=== PATIENT | male | born 1965 | race Caucasian/White ===

== ENCOUNTER 2022-09-25 09:50 | Inpatient (IN) | payer BC, SELFPAY ==
[2022-09-25] VITALS (20 sets, daily range): BP systolic 102–150; BP diastolic 62–83; PULSE 91–113; RESP 18–20; TEMP 36.4–37.7; O2SAT 88–98; BMI 45.1; BMI 43.0
--- NOTE | 2022-09-25 09:55 | CT_ITS ---
PROCEDURE INFORMATION: Exam: CT Abdomen And Pelvis With Contrast Exam date and time: 09/25/2022 10:56 AM Age: 57 years old Clinical indication: Abdominal pain; Additional info: Abdominal pain, ruq and epigastric TECHNIQUE: Imaging protocol: Computed tomography of the abdomen and pelvis with contrast. Radiation optimization: All CT scans at this facility use at least one of these dose optimization techniques: automated exposure control; mA and/or kV adjustment per patient size (includes targeted exams where dose is matched to clinical indication); or iterative reconstruction. Contrast material: ISOVUE; Contrast volume: 75 ml; Contrast route: IV; COMPARISON: No relevant prior studies available. FINDINGS: Lungs: Incompletely visualized 4 mm nodule right lower lobe. (series 4, image number 1), 6 mm nodule posteriorly right lower lobe (series 4, image number 17) Liver: Hepatic steatosis. Gallbladder and bile ducts: Normal. No calcified stones. No ductal dilation. Pancreas: Stranding of the peripancreatic mesentery. Findings compatible with pancreatitis. Spleen: Normal. No splenomegaly. Adrenal glands: Normal. No mass. Kidneys and ureters: Multiple hypodensities within the right kidney. The largest measures 10 mm. Findings compatible with renal cysts. Stomach and bowel: Mild thickening of the 2nd and 3rd portion of the duodenum compatible with mild changes of duodenitis. Diverticulosis. Appendix: No evidence of appendicitis. Intraperitoneal space: Unremarkable. No free air. No significant fluid collection. Vasculature: Scattered regions of atherosclerotic vascular calcification within the abdominal aorta and common iliac arteries. Lymph nodes: Unremarkable. No enlarged lymph nodes. Urinary bladder: Unremarkable as visualized. Reproductive: Unremarkable as visualized. Bones/joints: Lumbar spondylosis with advanced changes of disc degeneration at L4-L5. Prominent Schmorl's node formation superior T12 vertebral endplate. Could not exclude mild chronic compression deformity. Soft tissues: Unremarkable. IMPRESSION: 1. Stranding of the peripancreatic mesentery. Findings compatible with pancreatitis. 2. Mild thickening of the 2nd and 3rd portion of the duodenum compatible with mild changes of duodenitis. 3. Hepatic steatosis. 4. Incomplete visualization of sub cm pulmonary nodules right lung base as described above. For patients at low risk (minimal or absent history of smoking and of other known risk factors), no routine follow-up is indicated. For patients at high risk (history of smoking or of other known risk factors), consider optional CT Chest at 12 months. (Reference: [place]) COMMENTS: Consistent with the [employer] [employer]'s Incidental Findings Committee white paper (J Am Bennie Radiol 2018): Any incidental renal lesion less than 1 cm or classified as too small to characterize, or any incidental cystic renal lesion characterized as simple-appearing, is likely benign. No follow-up imaging is recommended for these lesions per consensus recommendations based on imaging criteria. REFERENCES: Carroll Justice, et al. Guidelines for Management of Incidental Pulmonary Nodules Detected on CT Images: From the Fleischner Society 2017. Radiology. 2017;284(1):228-243.
--- NOTE | 2022-09-25 09:55 | CT_ITS ---
PROCEDURE INFORMATION: Exam: CT Chest With Contrast; Diagnostic Exam date and time: 09/25/2022 10:56 AM Age: 57 years old Clinical indication: Other: Chest pain; Additional info: Chest pain, S/P bypass TECHNIQUE: Imaging protocol: Diagnostic computed tomography of the chest with contrast. Radiation optimization: All CT scans at this facility use at least one of these dose optimization techniques: automated exposure control; mA and/or kV adjustment per patient size (includes targeted exams where dose is matched to clinical indication); or iterative reconstruction. Contrast material: ISOVUE; Contrast volume: 75 ml; Contrast route: IV; COMPARISON: CR RIBUR3 [id number] VIEWS 03/03/2017 1:28 PM FINDINGS: Lungs: 4 mm nodule perifissural nodule right middle lobe. 6 mm nodule left lower lobe. Additional sub cm nodules in both upper lobes. Pleural spaces: 3 mm pleural based nodule laterally right upper lobe. 6 mm nodule posteriorly right lower lobe Heart: Unremarkable. No cardiomegaly. No pericardial effusion. Lymph nodes: Unremarkable. No enlarged lymph nodes. Vasculature: Unremarkable. No aortic aneurysm. Diaphragm: Small hiatal hernia. Liver: Hepatic steatosis. Pancreas: Stranding of the peripancreatic mesentery demonstrated. Please see CT abdomen report for further discussion. Bones/joints: Sternotomy and CABG . Soft tissues: Unremarkable. IMPRESSION: 1. Bilateral sub cm noncalcified pulmonary nodules measuring up to 6 mm in both lower lobes.For patients at low risk (minimal or absent history of smoking and of other known risk factors), recommend CT Chest at 3-6 months, then consider CT Chest at 18-24 months. For patients at high risk (history of smoking or of other known risk factors), recommend CT Chest at 3-6 months, then CT Chest at 18-24 months. (Reference: Carroll) 2. No evidence of acute abnormality. 3. Findings compatible pancreatitis. Please see CT abdomen report for further discussion. REFERENCES: Carroll Justice et al. Guidelines for Management of Incidental Pulmonary Nodules Detected on CT Images: From the Fleischner Society 2017. Radiology. 2017;284(1):228-243.
--- NOTE | 2022-09-25 09:58 | HMH.EDGENADL ---
Discharge Plan Disposition Patient Disposition: Admitted As Inpatient Condition: Good Chief Complaint: Abdominal Pain Clinical Impressions Clinical Impression: Acute pancreatitis, Transaminitis Discharge ED Provider: Lily Martinez Adult HPI General Chief complaint: Abdominal Pain Stated complaint: Rt upper side pain Time Seen by Provider: 09/25/22 09:58 Mode of Arrival: Ambulatory Source of Information: Patient Limitations: No Limitations History of Present Illness HPI narrative: Mr. Monge is a 57yo male w/ PMH for CABG, T2DM insulin dependent, HTN, GERD presenting to the ED for RUQ and epigastric pain. Patient reports symptoms onset last night. However this morning symptoms progressively worsened and now he reports the pain radiates into his back. Associated w/ dyspnea. He denies any LE swelling/pain. No hx of blood clots. No fevers, cough or other infectious symptoms. No recent trauma. No urinary sx or bowel changes. MD complaint: RUQ/epigastric pain Onset (ago): day(s) Location: abdomen Radiation: back Severity: moderate Quality: aching Consistency: constant Relieving factors: none Exacerbating factors: none Associated symptoms: denies other symptoms Treatments prior to arrival: none Related Data Home Medications Medication Instructions Recorded Confirmed divalproex 250 mg tablet,delayed PO 30 days #60 tabs 10/11/18 10/11/18 release fluoxetine 40 mg capsule PO 30 days #60 caps 10/11/18 10/11/18 insulin glargine U-300 conc 300 SQ 30 days #18 mL 10/11/18 10/11/18 unit/mL (1.5 mL) subcutaneous pen metformin 500 mg tablet,extended PO 30 days #120 tabs 10/11/18 10/11/18 release 24 hr aspirin 81 mg tablet,delayed 81 mg PO DAILY HEART HEALTH 09/25/22 09/25/22 release atorvastatin 80 mg tablet 80 mg PO DAILY Cholesterol 09/25/22 09/25/22 bupropion HCl 300 mg 24 hr tablet, 300 mg PO DAILY MOOD 09/25/22 09/25/22 extended release dapagliflozin 10 mg tablet 10 mg PO DAILY Diabetes 09/25/22 09/25/22 ([facility]) gabapentin 300 mg capsule 300 mg PO BIDP PRN Pain 09/25/22 09/25/22 metoprolol tartrate 25 mg tablet 25 mg PO BID Hypertension 09/25/22 09/25/22 spironolactone 50 mg tablet 50 mg PO DAILY Fluid 09/25/22 09/25/22 tamsulosin 0.4 mg capsule 0.4 mg PO HS BLADDER 09/25/22 09/25/22 Allergies Allergy/AdvReac Type Severity Reaction Status Date / Time aripiprazole [From Abilify] Allergy Verified 09/25/22 10:15 [facility] Disclaimer: The information contained in this section may have been updated after the patient was seen, as this information can be updated by other users. Social History Smoking Status: Never smoker alcohol intake: never substance use type: denies use current occupational status: employed Travel in the last 8 weeks: None household members: family housing: house ROS Obtained: Yes All systems reviewed & no additional complaints except as documented Physical Exam General General appearance: alert and in no apparent distress Head Head exam: atraumatic and normal inspection Eye Eye exam: Present normal appearance and EOMI ENT ENT exam: Present normal exam, normal oropharynx and mucous membranes moist Neck Neck exam: Present normal inspection and full ROM Chest Chest inspection: Present normal inspection and symmetric chest wall rise Respiratory Respiratory exam: Present normal lung sounds bilaterally Cardiovascular Cardiovascular exam: Present regular rate and normal rhythm Abdominal Exam Abdominal exam: Present soft and tenderness (RUQ pain, bilateral CVA tenderness ) Extremities Exam Extremities exam: Present normal inspection and full ROM Back Exam Back exam: Present normal inspection and full ROM Neurological Exam Neurological exam: Present alert and oriented X3 Medical Decision Making Medical Records Medical records reviewed: Yes I reviewed the patient's medical records. Edil Inquiry Pt rec
--- NOTE | 2022-09-25 10:07 | ECG_ITS ---
APPROVED REPORT Exam: Resting ECG HR:90 bpm ECG Measurements Heart Rate 90 AXES MS 166 P 65 QRSd 104 QRS 96 QT 357 T 92 QTc 404 Conclusion SINUS RHYTHM BORDERLINE RIGHT AXIS DEVIATION [QRS AXIS > 90] BORDERLINE ECG UNCONFIRMED REPORT Electronically signed by : Keanu Hemphill MD 09/26/2022 16:59:20
--- NOTE | 2022-09-25 10:16 | PC.NURSE ---
Called radiology for CT.
[2022-09-25 10:26] LABS: Basophils # 0.1 K/mm3 (0-0.2); Basophils % 0.7 % (0.1-2.0); Eosinophils # 0.1 K/mm3 (0.0-0.4); Eosinophils % 1.1 % (0.1-12.0); Hematocrit 53.3 % (42.0-52.0); Lymphocytes # 0.9 K/mm3 (0.7-4.5); Lymphocytes % 8.7 % (10-50); Mean Corpuscular HGB Conc 33.8 g/dL (31.8-35.4); Mean Corpuscular Hemoglobin 29.3 pg (27.0-31.2); Mean Corpuscular Volume 86.8 fl (80-94); Mean Platelet Volume 8.8 fl (7.4-10.4); Monocytes # 0.3 K/mm3 (0.1-1.0); Monocytes % 3.2 % (1.7-9.3); Neutrophils # 8.6 K/mm3 (1.8-7.8); Neutrophils % 86.4 % (37.0-80.0); Platelet Count 224 K/mm3 (142-424); Red Blood Count 6.15 M/mm3 (4.60-6.20); Red Cell Distribution Width 14.6 % (11.5-17.5); White Blood Count 9.9 K/mm3 (4.8-10.8)
--- NOTE | 2022-09-25 10:27 | PC.NURSE ---
ASSISTED PT TO THE RESTROOM. PT TOLERATED WELL. PT PUKING AT THIS TIME. ER NOTIFIED. RENU JETER.
[2022-09-25 10:28] LABS: Chloride 95 mmol/L (98-107); MANUAL DIFFERENTIAL MANUAL DIFFERENTIAL (MANUAL DIFF)
[2022-09-25 10:29] LABS: Potassium 4.3 mmoL/L (3.5-5.1); Sodium 136 mmol/L (136-145)
[2022-09-25 10:31] LABS: Alanine Aminotransferase 126 U/L (12-78); Alkaline Phosphatase 207 U/L (38-126); Anion Gap 15.3 mEq/L (5-15); Aspartate Amino Transferase 284 U/L (17-59); Bilirubin,Total 1.9 mg/dl (0.2-1.3); Blood Urea Nitrogen 28 mg/dl (9-20); Carbon Dioxide 30 mmol/L (22.0-30.0); Creatinine Clearance Estimated 96 mL/min (50-200); Estimated Glomerular Filt Rate 88 ml/min (>60); GFR (African American) 106 ML/MIN (>60); Lactic Acid 1.8 mmol/L (0.7-2.1)
[2022-09-25 10:32] LABS: Albumin Level 4.2 g/dl (3.5-5.0); Albumin/Globulin Ratio 1.1 (1.1-1.8); Calcium 8.9 mg/dl (8.4-10.2); Globulin 3.8 g/dL (1.3-3.2)
[2022-09-25 10:44] LABS: Troponin I < 0.01 ng/ml (0.00-0.034)
[2022-09-25 10:46] LABS: Glucose 411 mg/dl (74-100)
--- NOTE | 2022-09-25 10:46 | PC.NURSE ---
PT TRANSPORTED TO RADIOLOGY.
--- NOTE | 2022-09-25 10:46 | PC.NURSE ---
Vianney from lab called critical on patient. Glucose 411, pt was verified and results repeated.
--- NOTE | 2022-09-25 11:03 | PC.NURSE ---
PT RETURNED FROM RADIOLOGY.
[2022-09-25 11:07] LABS: Lymphocytes % 9 % (10-50); Monocytes % 3 % (2-9); Neutrophils % 87 % (42-76); Platelet Estimate Normal; RBC Morphology Normal; Total Cells Counted 100
[2022-09-25 11:13] LABS: VBG PH 7.33 mmol/L (7.31-7.41)
[2022-09-25 12:08] LABS: Lactate Dehydrogenase 355 U/L (313-618)
--- NOTE | 2022-09-25 12:24 | PC.NURSE ---
Rounded on pt at this time. Updated on POC. Assisted patient to restroom and provided him with ice chips. Pt had no other needs at this time.
[2022-09-25 12:25] LABS: Microscopic, Urine URINE MICROSCOPIC (MICROSCOPIC)
[2022-09-25 12:26] LABS: Appearance,Urine CLEAR (Clear); Bilirubin,Urine Negative (Negative); Blood, Urine Negative (Negative); Color,Urine YELLOW (Yellow); Glucose,Urine (UA) 3+ (Negative); Ketones,Urine 1+ (Negative); Leukocyte Esterase,Urine Negative (Negative); Nitrate,Urine Negative (Negative); PH,Urine 5.5 (5.0-8.5); Protein,Urine Negative (Negative); Specific Gravity, Urine <= 1.005 (1.005-1.030); Urobilinogen,Urine 0.2 EU/dl (0.2)
[2022-09-25 12:42] LABS: Bacteria,Urine Trace /lpf; RBC,Urine Occasional #/hpf (0-3); Squamous Epithelial Cell,Urine Occasional #/hpf (0-5); WBC,Urine Occasional #/hpf (0-3)
--- NOTE | 2022-09-25 13:14 | PC.NURSE ---
called report to Radha Christopher RN.
[2022-09-25 13:17] LABS: Coronavirus 19, PCR Not Detected (NotDetected); Influenza A, PCR Not Detected (NotDetected); Influenza B, PCR Not Detected (NotDetected)
[2022-09-25 13:22] LABS: Hemoglobin A1C 12.9 % (4.0-6.0)
[2022-09-25 13:41] LABS: Troponin I < 0.01 ng/ml (0.00-0.034)
--- NOTE | 2022-09-25 14:19 | PC.NURSE ---
taking patient to room 266 per Kizzy
--- NOTE | 2022-09-25 14:46 | HMH.PHAINT1 ---
Pharmacy Intervention Comments: MEDICATION RECONCILIATION COMPLETED ON PATIENT USING EXTERNAL FILL HISTORY FROM PHARMACY AND PATIENT INTERVIEW. -ERNIE GUAJARDO, [facility]
--- NOTE | 2022-09-25 15:10 | EXP.HP ---
History of Present Illness *Admission Date: 09/25/22 *Reason for visit:: Abdominal pain and nausea. *History of present illness: Mr. Monge is a 57yo male w/ PMH for CABG 1 year ago, uncontrolled type 2 diabetes, hypertension, GERD, BPH who presented to the emergency room with right upper quadrant and epigastric pain. States the pain began 2 to 3 days ago and has waxed and waned. Most prominent last night. Has had nausea but no deepika emesis. Pain in right upper quadrant has radiated to right shoulder and back. No clear association with food. Initial work-up including CT of abdomen and pelvis, CT of chest, labs concerning for pancreatitis with stranding around the pancreas. Lipase severely elevated at greater than 44,000. Admitted to medicine for further management of pancreatitis. Denies previous history of pancreatitis. Denies alcohol use. Has been taking Ozempic for diabetes for a few months. Notes that it has made him feel nauseous each time he uses it. Denies any swelling in his legs, fever, cough, shortness of breath. After arriving to the floor, patient's is present at bedside. Pain stable after receiving pain medication. Rates it as a 2 out of 10. No guarding or rebound on exam. No concern for peritoneal signs. [facility] Disclaimer: The information contained in this section may have been updated after the patient was seen, as this information can be updated by other users. Medical History Diabetes mellitus, type 2 History of gastroesophageal reflux (GERD) Hyperlipidemia Hypertension Irritable bowel syndrome (IBS) Surgical History Hx of CABG Family History No significant family history Social History Smoking Status: Never smoker alcohol intake: never substance use type: denies use current occupational status: employed Travel in the last 8 weeks: None household members: family housing: house Review of Systems Review of Systems Review of systems (narrative): 14 point review of systems performed, pertinent positives and negatives as per HPI Meds Home Medications and Allergies Home Medications Medication Instructions Recorded Confirmed Type fluoxetine 40 mg capsule 40 mg PO BID MOOD 30 days #60 caps 10/11/18 09/25/22 History insulin glargine U-300 conc 300 30 unit SQ BID Diabetes 30 days 10/11/18 09/25/22 History unit/mL (1.5 mL) subcutaneous pen #18 mL metformin 500 mg tablet,extended 1,000 mg PO BID Diabetes 30 days 10/11/18 09/25/22 History release 24 hr #120 tabs aspirin 81 mg tablet,delayed 81 mg PO DAILY HEART HEALTH 09/25/22 09/25/22 History release atorvastatin 80 mg tablet 80 mg PO DAILY Cholesterol 09/25/22 09/25/22 History bupropion HCl 300 mg 24 hr tablet, 300 mg PO DAILY MOOD 09/25/22 09/25/22 History extended release dapagliflozin 10 mg tablet 10 mg PO DAILY Diabetes 09/25/22 09/25/22 History (Farxiga) divalproex 500 mg tablet,extended 1,000 mg PO HS SEIZURES 09/25/22 09/25/22 History release 24 hr gabapentin 300 mg capsule 300 mg PO BIDP PRN Pain 09/25/22 09/25/22 History metoprolol tartrate 25 mg tablet 25 mg PO BID Hypertension 09/25/22 09/25/22 History spironolactone 50 mg tablet 50 mg PO DAILY Fluid 09/25/22 09/25/22 History tamsulosin 0.4 mg capsule 0.4 mg PO HS BLADDER 09/25/22 09/25/22 History New Prescriptions to Start Prescriptions: Allergies Allergy/AdvReac Type Severity Reaction Status Date / Time aripiprazole [From [facility]] Allergy Verified 09/25/22 10:15 Exam Data for Last 24 hours Vital signs and Labs for Last 24 Hours: Temp Pulse Resp BP Pulse Ox 99.2 F 109 H 20 150/83 H 90 L 09/25/22 14:37 09/25/22 15:03 09/25/22 14:37 09/25/22 14:37 09/25/22 15:03 Laboratory Results - last 24 hr 09/25/22 10:15: W
[2022-09-25 15:21] LABS: Triglycerides 241 mg/dl (30-150)
[2022-09-25 15:54] LABS: POC Glucose,Bedside 322 (70-110)
[2022-09-25 16:17] LABS: Troponin I < 0.01 ng/ml (0.00-0.034)
--- NOTE | 2022-09-25 16:25 | PC.NURSE ---
pt A&Ox4, has rested intermittently since arriving to floor, remains on room air with sats at 90%, states he occasionally wears CPAP at home at night, but no home oxygen other than that, stated he had covid awhile back and his sats have been low since then, abdomen is large, round and tender to touch with hypoactive bowel sounds, pt has refused pain meds up to this point rating his pain at a 1 or 2, last FSBS 322, treated per NOV, remains at bedside
--- NOTE | 2022-09-25 16:52 | US_ITS ---
PROCEDURE INFORMATION: Exam: US Abdomen, Limited; Right Upper Quadrant Exam date and time: 09/25/2022 5:09 PM Age: 57 years old Clinical indication: Abdominal pain; Acute; Additional info: Delgado sign, ruq pain TECHNIQUE: Imaging protocol: Real time ultrasound of the abdomen with image documentation. Limited exam focused on the right upper quadrant. COMPARISON: CT ABDOMEN PELVIS W CON 09/25/2022 10:56 AM FINDINGS: Liver: The liver is increased in echogenicity. Findings compatible with hepatic steatosis. Gallbladder: Gallbladder wall normal thickness. Gallbladder anechoic. No stones demonstrated. Adjacent gas-filled bowel loops are present. Biliary ducts: 4 mm Pancreas: Pancreas inadequately visualized . Right kidney: 12.4 x 6.8 by 6 cm in length, AP and transverse dimensions. Cortical thickness: 2 cm. No evidence of hydronephrosis or perinephric fluid. Portal venous: Hepatopetal flow in the portal vein. Hepatopetal flow in the portal vein. Other findings: Technologist worksheet was not submitted and is not available for review at the time of this dictation. An addended report will be issued. IMPRESSION: 1. Findings compatible with hepatic steatosis. 2. No evidence of cholelithiasis or findings to suggest cholecystitis.
--- NOTE | 2022-09-25 18:44 | PC.NURSE ---
reassessed pain again at this time and pt states that it isn't pain right now, more like a tightness
[2022-09-25 20:38] LABS: POC Glucose,Bedside 254 (70-110)
--- NOTE | 2022-09-26 00:17 | PC.NURSE ---
pt has rested well. nausea and pain subsided after prn medications. VSS. sats stable on 2LNC. IV infusing w/o difficulty. pt awake at this time, voided per urinal. pt denies any other needs at this time.
[2022-09-26 03:05] LABS: POC Glucose,Bedside 183 (70-110)
[2022-09-26 04:00] VITALS: BP 155/71; PULSE 97; RESP 17; TEMP 36.9; O2SAT 90; BMI 44.4
[2022-09-26 06:10] LABS: Basophils # 0.1 K/mm3 (0-0.2); Basophils % 0.3 % (0.1-2.0); Eosinophils # 0.1 K/mm3 (0.0-0.4); Eosinophils % 0.5 % (0.1-12.0); Hematocrit 46.2 % (42.0-52.0); Lymphocytes # 1.2 K/mm3 (0.7-4.5); Lymphocytes % 8.3 % (10-50); Mean Corpuscular HGB Conc 33.3 g/dL (31.8-35.4); Mean Corpuscular Hemoglobin 28.6 pg (27.0-31.2); Mean Corpuscular Volume 85.7 fl (80-94); Mean Platelet Volume 8.8 fl (7.4-10.4); Monocytes % 7.3 % (1.7-9.3); Neutrophils # 11.8 K/mm3 (1.8-7.8); Neutrophils % 83.5 % (37.0-80.0); Platelet Count 206 K/mm3 (142-424); Red Blood Count 5.39 M/mm3 (4.60-6.20); White Blood Count 14.1 K/mm3 (4.8-10.8)
[2022-09-26 06:19] LABS: Hemoglobin 15.5 g/dL (14.1-18.0)
[2022-09-26 06:23] LABS: Chol/HDL Ratio 3.5 (1-3.5); Cholesterol 121 mg/dl (140-200); HDL Cholesterol 35 mg/dl (40-60); Triglycerides 123 mg/dl (30-150); VLDL Cholesterol 25 mg/dL (0-40)
[2022-09-26 06:24] LABS: Alanine Aminotransferase 286 U/L (12-78); Albumin Level 3.6 g/dl (3.5-5.0); Albumin/Globulin Ratio 1.1 (1.1-1.8); Alkaline Phosphatase 151 U/L (38-126); Anion Gap 13.1 mEq/L (5-15); Aspartate Amino Transferase 277 U/L (17-59); Bilirubin,Total 2.5 mg/dl (0.2-1.3); Blood Urea Nitrogen 26 mg/dl (9-20); Calcium 8.2 mg/dl (8.4-10.2); Carbon Dioxide 25 mmol/L (22.0-30.0); Chloride 99 mmol/L (98-107); Creatinine Clearance Estimated 86 mL/min (50-200); Estimated Glomerular Filt Rate 78 ml/min (>60); GFR (African American) 94 ML/MIN (>60); Globulin 3.2 g/dL (1.3-3.2); Glucose 204 mg/dl (74-100); Potassium 4.1 mmoL/L (3.5-5.1); Sodium 133 mmol/L (136-145); Total Protein,Serum 6.8 g/dl (6.3-8.2)
[2022-09-26 07:39] VITALS: BP 141/80; PULSE 85; RESP 18; TEMP 36.9; O2SAT 92
[2022-09-26 11:52] LABS: POC Glucose,Bedside 203 (70-110)
[2022-09-26 12:22] VITALS: BMI 44.1
[2022-09-26 15:36] VITALS: BP 119/69; PULSE 86; RESP 18; TEMP 37; O2SAT 93
[2022-09-26 16:48] LABS: POC Glucose,Bedside 178 (70-110)
--- NOTE | 2022-09-26 18:12 | PC.NURSE ---
Pt resting in bed comfortably throughout day. Up ad brittany to bathroom and with ADL's. Diet increased to full liquids with patient tolerating well. [place] and zofran administered in the a.m. with patient denying pain and nausea after diet increased. VSS.
--- NOTE | 2022-09-26 19:01 | EXP.ACUTE.PN ---
Subjective *Date: 09/26/22 *Time: 19:01 Interval history: Symptoms mildly improved, still having epigastric pain. Discussed advancing diet, patient agreeable Medical Exam Vital signs and Labs for Last 24 Hours: Vital Signs Temp Pulse Resp BP Pulse Ox 09/26/22 15:36 98.6 F 86 18 119/69 93 L 09/26/22 07:39 98.4 F 85 18 141/80 H 92 L 09/26/22 04:00 98.4 F 97 H 17 155/71 H 90 L 09/25/22 20:00 88 L 09/25/22 20:00 99.7 F H 107 H 18 102/62 L 88 L Intake and Output 09/26/22 09/26/22 09/26/22 07:59 15:59 23:59 Intake Total 1539 / 6759 920 / 6759 4300 / 6759 Output Total 500 / 500 0 / 500 0 / 500 Balance 1039 / 6259 920 / 6259 4300 / 6259 Intake: Intake, Oral Amount 480 / 2300 920 / 2300 900 / 2300 Intake, Total IV Amount 1059 / 4459 3400 / 4459 Ringers Solution,Lactated 1,000 1059 / 4459 3400 / 4459 ml @ 125 mls/hr IV .Q8H [facility] Rx #:[id number] Output: Output, Urine Amount 500 / 500 0 / 500 0 / 500 Other: Number of Unmeasured Voids 1 1 Weight 140.614 kg 140 kg Patient Weight 09/26/22 23:59 Weight 140 kg Laboratory Results - last 24 hr 09/25/22 20:22: POC Glucose 254 H 09/26/22 02:58: POC Glucose 183 H 09/26/22 05:43: WBC 14.1 H D, RBC 5.39, Hgb 15.5 D, Hct 46.2, MCV 85.7, MCH 28.6, MCHC 33.3, RDW 15.0, Plt Count 206, MPV 8.8, Neut % (Auto) 83.5 H, Lymph % (Auto) 8.3 L, [place] % (Auto) 7.3, Eos % (Auto) 0.5, Baso % (Auto) 0.3, Neut # (Auto) 11.8 H, Lymph # (Auto) 1.2, [place] # (Auto) 1.0, Eos # (Auto) 0.1, Baso # (Auto) 0.1 09/26/22 05:43: Sodium 133 L, Potassium 4.1, Chloride 99, Carbon Dioxide 25, Anion Gap 13.1, BUN 26 H, Creatinine 1.00, Estimated Creat Clear 86, Estimated GFR 78, Est GFR ( Amer) 94, Glucose 204 H D, Calcium 8.2 L, Magnesium 2.0, Total Bilirubin 2.5 H, AST 277 H, ALT 286 H D, Alkaline Phosphatase 151 H, Total Protein 6.8, Albumin 3.6 D, Globulin 3.2, Albumin/Globulin Ratio 1.1 09/26/22 05:43: Triglycerides 123, Cholesterol 121 L, LDL Cholesterol Direct 56.30 L, VLDL Cholesterol 25, HDL Cholesterol 35 L, Cholesterol/HDL Ratio 3.5 09/26/22 11:45: POC Glucose 203 H 09/26/22 16:41: POC Glucose 178 H I & O for Labs for Last 24 Hours: Intake & Output 09/23/22 09/24/22 09/25/22 09/26/22 23:59 23:59 23:59 23:59 Intake Total 1193 / 1193 6759 / 6759 Output Total 0 / 0 500 / 500 Balance 1193 / 1193 6259 / 6259 Weight 136.078 kg 140 kg Constitutional: Present no acute distress and morbidly obese Head: Present atraumatic Neck: Present normal inspection Respiratory: Present CTA bilaterally; Absent accessory muscle use Cardiac: Present Reg Rate and Rhythm GI: Present soft, distention and tenderness Rectal (male): Present deferred (male): Present deferred Extremities: Present normal inspection Skin: Present intact Assessment and Plan *Assessment and plan (1) Acute pancreatitis: Status: Acute Category: Medical Code(s): K85.90 - Acute pancreatitis without necrosis or infection, unspecified (2) Uncontrolled diabetes mellitus: Status: Chronic Category: Medical (3) Transaminitis: Status: Acute Category: Medical Code(s): R74.01 - Elevation of levels of liver transaminase levels (4) Class 3 obesity: Problem Comment: Complicates all aspects of care. Status: Chronic Category: Medical Code(s): E66.01 - Morbid (severe) obesity due to excess calories (5) Essential hypertension: Status: Chronic Category: Medical Code(s): I10 - Essential (primary) hypertension (6) History of coronary artery bypass graft: Status: Chronic Category: Surgical Code(s): Z95.1 - Presence of aortocoronary bypass graft (7) BPH (benign prostatic hyperplasia): Status: Chronic Category: Medical Code(s): N40.0 - Benign prostatic hyperplasia without lower urinary tract symptoms (8) Depression: Status: Chronic
[2022-09-26 20:00] VITALS: BP 117/70; PULSE 93; RESP 16; TEMP 36.6; O2SAT 97
[2022-09-26 21:47] LABS: POC Glucose,Bedside 190 (70-110)
[2022-09-27 03:19] VITALS: BP 138/87; PULSE 87; RESP 16; TEMP 36.6; O2SAT 99; BMI 44.1
[2022-09-27 05:35] LABS: POC Glucose,Bedside 114 (70-110)
--- NOTE | 2022-09-27 05:47 | PC.NURSE ---
pt is alert and oriented x4, vss, pt with nausea and dry heaves through the night and medicated x1 with zofran, pt c/o pain in upper abd to left shoulder and headache rated 4/10 and medicated with pain pill as prescribed with relief, pt complained of nausea this am but stated relieved by belching pt voiding without difficulty, vss, no acute distress, no other issues or concerns noted at this time.
[2022-09-27 06:27] LABS: Basophils % 0.4 % (0.1-2.0); Eosinophils # 0.1 K/mm3 (0.0-0.4); Eosinophils % 1.5 % (0.1-12.0); Hematocrit 44.7 % (42.0-52.0); Hemoglobin 14.7 g/dL (14.1-18.0); Lymphocytes # 1.2 K/mm3 (0.7-4.5); Lymphocytes % 13.4 % (10-50); Mean Corpuscular HGB Conc 32.8 g/dL (31.8-35.4); Mean Corpuscular Hemoglobin 28.6 pg (27.0-31.2); Mean Platelet Volume 8.9 fl (7.4-10.4); Monocytes # 0.7 K/mm3 (0.1-1.0); Monocytes % 8.4 % (1.7-9.3); Neutrophils # 6.7 K/mm3 (1.8-7.8); Neutrophils % 76.4 % (37.0-80.0); Platelet Count 183 K/mm3 (142-424); Red Blood Count 5.13 M/mm3 (4.60-6.20); Red Cell Distribution Width 14.8 % (11.5-17.5); White Blood Count 8.8 K/mm3 (4.8-10.8)
[2022-09-27 06:54] LABS: Chloride 100 mmol/L (98-107)
[2022-09-27 06:55] LABS: Sodium 135 mmol/L (136-145)
[2022-09-27 06:57] LABS: Alanine Aminotransferase 195 U/L (12-78); Aspartate Amino Transferase 96 U/L (17-59); Blood Urea Nitrogen 15 mg/dl (9-20); Carbon Dioxide 26 mmol/L (22.0-30.0); Creatinine Clearance Estimated 108 mL/min (50-200); Estimated Glomerular Filt Rate 100 ml/min (>60); GFR (African American) 121 ML/MIN (>60)
[2022-09-27 06:58] LABS: Albumin Level 3.3 g/dl (3.5-5.0); Albumin/Globulin Ratio 1.1 (1.1-1.8); Alkaline Phosphatase 158 U/L (38-126); Bilirubin,Total 1.4 mg/dl (0.2-1.3); Calcium 7.7 mg/dl (8.4-10.2); Globulin 3.1 g/dL (1.3-3.2); Glucose 126 mg/dl (74-100); Phosphorous 2.9 mg/dl (2.5-4.5); Total Protein,Serum 6.4 g/dl (6.3-8.2)
[2022-09-27 08:00] VITALS: BP 136/87; PULSE 93; RESP 16; TEMP 37.1; O2SAT 90
--- NOTE | 2022-09-27 13:38 | PC.NURSE ---
spoke with arely juares md about patient abdominal pain. patient requesting something for gas and constipation. ordered maalox and miralax for one dose
--- NOTE | 2022-09-27 14:27 | PC.NURSE ---
patient has done well tolerated breakfast and a diabetic diet at lunch. no complaints after eating. took maalox and miralax education given. has sat up in the chair. independent in room. encouraged to ring out as needed
--- NOTE | 2022-09-27 14:37 | EXP.DC.SUM ---
General Admission date:: 09/25/22 HPI HPI HPI: Mr. Monge is a 57yo male w/ PMH for CABG 1 year ago, uncontrolled type 2 diabetes, hypertension, GERD, BPH who presented to the emergency room with right upper quadrant and epigastric pain. States the pain began 2 to 3 days ago and has waxed and waned. Most prominent last night. Has had nausea but no deepika emesis. Pain in right upper quadrant has radiated to right shoulder and back. No clear association with food. Initial work-up including CT of abdomen and pelvis, CT of chest, labs concerning for pancreatitis with stranding around the pancreas. Lipase severely elevated at greater than 44,000. Admitted to medicine for further management of pancreatitis. Denies previous history of pancreatitis. Denies alcohol use. Has been taking Ozempic for diabetes for a few months. Notes that it has made him feel nauseous each time he uses it. Denies any swelling in his legs, fever, cough, shortness of breath. After arriving to the floor, patient's is present at bedside. Pain stable after receiving pain medication. Rates it as a 2 out of 10. No guarding or rebound on exam. No concern for peritoneal signs. Hospital Course Hospital Course Hospital Course: Admitted with pancreatitis etiology Ozempic versus hepatic steatosis. Patient received symptomatic management including IV fluids, antiemetics, pain medication and his diet was advanced as tolerated. Prior to discharge patient was tolerating full diet. CT of abdomen while standing around pancreas with duodenitis. On discharge held Ozempic. Recommend follow-up with endocrinology and primary care physician Exam Data for Last 24 hours Vital signs and Labs for Last 24 Hours: Temp Pulse Resp BP Pulse Ox 98.8 F 93 H 16 136/87 90 L 09/27/22 08:00 09/27/22 08:00 09/27/22 08:00 09/27/22 08:00 09/27/22 08:00 Laboratory Results - last 24 hr 09/26/22 16:41: POC Glucose 178 H 09/26/22 21:14: POC Glucose 190 H 09/27/22 04:10: POC Glucose 114 H 09/27/22 05:22: WBC 8.8 D, RBC 5.13, Hgb 14.7, Hct 44.7, MCV 87.0, MCH 28.6, MCHC 32.8, RDW 14.8, Plt Count 183, MPV 8.9, Neut % (Auto) 76.4, Lymph % (Auto) 13.4, [place] % (Auto) 8.4, Eos % (Auto) 1.5, Baso % (Auto) 0.4, Neut # (Auto) 6.7, Lymph # (Auto) 1.2, [place] # (Auto) 0.7, Eos # (Auto) 0.1, Baso # (Auto) 0.0 09/27/22 05:22: Sodium 135 L, Potassium 4.0, Chloride 100, Carbon Dioxide 26, Anion Gap 13.0, BUN 15 D, Creatinine 0.80, Estimated Creat Clear 108, Estimated GFR 100, Est GFR ( Amer) 121 D, Glucose 126 H D, Calcium 7.7 L, Phosphorus 2.9, Magnesium 2.0, Total Bilirubin 1.4 H, AST 96 H D, ALT 195 H D, Alkaline Phosphatase 158 H, Total Protein 6.4, Albumin 3.3 L, Globulin 3.1, Albumin/Globulin Ratio 1.1 I & O for Last 24 hours: Intake & Output 09/24/22 09/25/22 09/26/22 09/27/22 23:59 23:59 23:59 23:59 Intake Total 1193 / 1193 6759 / 6759 2787 / 2787 Output Total 0 / 0 500 / 500 300 / 300 Balance 1193 / 1193 6259 / 6259 2487 / 2487 Weight 136.078 kg 140 kg 139.933 kg *Routine HEENT Exam Head: Present normocephalic Eye: Present EOMI ENT: Present mucous membranes moist *Routine Neck Exam Neck: Present supple and full ROM *Routine Respiratory Exam Respiratory: Present CTA bilaterally; Absent accessory muscle use *Routine Cardiovascular Exam Cardiovascular: Present RRR; Absent murmur *Routine Abdominal Exam Abdominal: Present soft, tenderness and distended *Routine Extremities Exam Extremities: Present cyanosis *Routine Skin Exam Skin: Present intact and dry *Routine Neurological Exam Neurological: Present alert, oriented X3 and CN II-XII intact Results Data Completed and Pending Labs on day of discharge: Labs from last 24 hours 09/27/22 09/27/22 09/27/22 05:22 05:22 04:10 WBC 8.8 D RBC 5.13 Hgb 14.7 Hct 44.7 MCV 87.0 MCH 28.6 MCHC 32.8 RDW 14.8 Plt Count 183 MPV 8.9 Neut % (Auto) 76.4 Lymph % (Auto) 13.4 M
[2022-09-27 14:48] LABS: POC Glucose,Bedside 148 (70-110)
--- NOTE | 2022-09-28 15:07 | CARE MANAGER ---
Left message for patient for post-discharge phone interview.
== END 2022-09-27 15:39 | disposition home or self-care (01) | DRG 439 ==
LOC: ER 10:26 → 2ND 12:18 → ICU 14:48
PROVIDERS: Student in an Organized Health Care Education/Training Program; Admitting Provider Internal Medicine Adolescent Medicine; Emergency Provider Student in an Organized Health Care Education/Training Program; Visit Provider Internal Medicine Adolescent Medicine
DX: K85.90 Acute pancreatitis without necrosis or infection, unspecified (principal); Z68.41 Body mass index [BMI] 40.0-44.9, adult; I10 Essential (primary) hypertension; Z95.1 Presence of aortocoronary bypass graft; N40.0 Benign prostatic hyperplasia without lower urinary tract symptoms; F32.A Depression, unspecified; K76.0 Fatty (change of) liver, not elsewhere classified; E11.9 Type 2 diabetes mellitus without complications; E66.01 Morbid (severe) obesity due to excess calories; E11.65 Type 2 diabetes mellitus with hyperglycemia; E66.9 Obesity, unspecified
CPT/HCPCS: 36415; 71260; 74177; 76705; 80053; 80061; 81001; 82962; 83036; 83605; 83615; 83690; 83735; 84100; 84478; 84484; 85007; 85025; 93005; 99285; C9803; J2405; Q9967; U0003; U0005

== ENCOUNTER 2024-02-21 08:03 | Emergency (ER) | payer OTHER, SELFPAY ==
[2024-02-21 08:25] VITALS: BP 125/74; PULSE 70; RESP 20; TEMP 36.6; O2SAT 97; BMI 47.3
[2024-02-21 08:37] LABS: POC Glucose,Bedside 290 (70-110)
--- NOTE | 2024-02-21 08:46 | EXP.UTC ---
Discharge Plan Disposition Patient Disposition: Home, Self-Care Condition: Good Prescriptions Prescriptions: New mupirocin 2 % ointment 1 applic topical TID 10 Days Qty: 22 0RF Rx Instructions: apply to wounds as directed clindamycin HCl 300 mg capsule 300 mg PO TID Qty: 30 0RF No Action metformin 500 mg tablet extended release 24 hr 1,000 mg PO BID 30 Days Qty: 120 Patient Comments: TAKE 2 TABS BY MOUTH 2 TIMES DAILY. WITH MEALS fluoxetine 40 mg capsule 40 mg PO BID 30 Days Qty: 60 Patient Comments: TAKE 1 CAPSULE BY MOUTH TWICE A DAY atorvastatin 80 mg tablet 80 mg PO DAILY Patient Comments: TAKE 1 TABLET (80 MG TOTAL) BY MOUTH DAILY. INDICATIONS: ATHEROSCLEROTIC CARDIOVASCULAR DISEASE aspirin 81 mg tablet,delayed release (DR/EC) 81 mg PO DAILY Patient Comments: TAKE 1 TABLET BY MOUTH EVERY DAY spironolactone 50 mg tablet 50 mg PO DAILY Patient Comments: TAKE 1 TABLET BY MOUTH EVERY DAY bupropion HCl 300 mg tablet extended release 24 hr 300 mg PO DAILY metoprolol tartrate 25 mg tablet 25 mg PO BID Patient Comments: TAKE 1 TABLET BY MOUTH TWICE A DAY dapagliflozin propanediol [Farxiga] 10 mg tablet 10 mg PO DAILY Patient Comments: TAKE 1 TABLET BY MOUTH EVERY DAY divalproex 500 mg tablet extended release 24 hr 1,000 mg PO HS Patient Comments: TAKE 2 TABLETS BY MOUTH EVERY DAY furosemide 20 mg tablet 20 mg PO DAILY Patient Comments: TAKE 1 TABLET BY MOUTH EVERY DAY insulin lispro [Humalog KwikPen Insulin] 100 unit/mL insulin pen See Rx Instructions .ROUTE .COMPLEX Rx Instructions: 70 UNITS SQ WITH EACH MEAL insulin degludec [Tresiba FlexTouch U-200] 200 unit/mL (3 mL) insulin pen 80 unit SQ HS Referrals Follow up/Referrals: Provider,Referral, MD [Primary Care Provider] - See instructions Activity Restrictions/Add. Instructions Additional Instructions/Restrictions: Make sure to take your Insulin the way you are suppose too Take medication as prescribed Follow up with your Family Doctor if no improvement or any worsening of symptoms Use topical ointment as prescribed Clinical Impressions Clinical Impression: Cellulitis of left arm Instructions Patient Instructions: Cellulitis Discharge ED Provider: Radha Loyd [facility] General Stated complaint: pain, redness, swelling, hot, itching to both arms Mode of Arrival: Ambulatory Source of Information: Patient Limitations: No Limitations Time Seen by Provider: 02/21/24 08:46 Description of Symptoms (Recalled from Triage Doc. by RN): PATIENT C/O SORES ON BILATERAL FOREARMS, HEAD, AND NECK THAT ARE ITCHY, RED, HOT, AND SWOLLEN. HE STATES THE SORES HAVE BEEN THERE APPROX 1 WEEK AND BECAME WORSE LAST NIGHT HEENT Symptoms (Recalled from RN notes): No Resp Symptoms (Recalled from RN notes): No Skin Symptoms (Recalled from RN notes): Yes MS Symptoms (Recalled from RN notes): No Functional Status (Recalled from RN notes): WNL History of Present Illness Provider Complaint: Patient states that he is a diabetic States he will pick at his skin when his anxiety acts up and he has several sores on his head and arms States the one of the places on his left forearm was looking red and irritated and he wanted to come in before the infection got worse Related Data Home Medications Medication Instructions Recorded Confirmed fluoxetine 40 mg capsule 40 mg PO BID MOOD 30 days #60 caps 10/11/18 02/21/24 metformin 500 mg tablet,extended 1,000 mg PO BID Diabetes 30 days 10/11/18 02/21/24 release 24 hr #120 tabs aspirin 81 mg tablet,delayed 81 mg PO DAILY HEART HEALTH 09/25/22 02/21/24 release atorvastatin 80 mg tablet 80 mg PO DAILY Cholesterol 09/25/22 02/21/24 bupropion HCl 300 mg 24 hr tablet, 300 mg PO DAILY MOOD 09/25/22 02/21/24 extended release dapagliflozin propanediol 10 mg 10 mg PO DAILY Diabetes 09/25/22 02/21/24 tablet (Farxiga) divalproex 500 mg tablet,extended 1,000 mg PO HS SEIZURES 09/25/22 02/21/24 release 24 hr metoprolol tartrate 25 mg tablet 25 mg PO BID Hypertension 09/25/22 02/21/24 spironolactone 50 mg tablet 50 mg PO DAILY Fluid 09/25/22 02/21/24 furosemide 20 mg tablet 20 mg PO DAILY 02/21/24 02/21/24 insulin degludec 200 unit/mL (3 80 unit SQ HS 02/21/24 02/21/24 mL) subcutaneous pen (Tresiba FlexTouch U-200 insulin) insulin lispro 100 unit/mL See Rx Instructions .Route .COMPLEX 02/21/24 02/21/24 subcutaneous pen (Humalog KwikPen (U-100) Insulin) Previous Rx's Medication Instructions Recorded clindamycin HCl 300 mg capsule 300 mg PO TID #30 caps 02/21/24 mupirocin 2 % topical ointment 1 applic topical TID 10 days #22 02/21/24 grams Allergies Allergy/AdvReac Type Severity Reaction Status Date / Time aripiprazole [From Abilify] Allergy Verified 09/25/22 10:15 Worker's Comp Is this a Worker's Comp case?: No PFSH [facility] Disclaimer: The information contained in this section may have been updated after the patient was seen, as this information can be updated by other users. Medical History Diabetes mellitus, type 2 History of gastroesophageal reflux (GERD) Hyperlipidemia Hypertension Irritable bowel syndrome (IBS) Surgical History Hx of CABG Family History No significant family history Social History Smoking Status: Never smoker alcohol intake: never substance use type: denies use current occupational status: employed Travel in the last 8 weeks: None household members: family housing: house ROS Obtained: Yes All systems reviewed & no additional complaints except as documented and Yes Systems reviewed as appropriate & no additional complaints except as documented Constitutional Constitutional: Reports system reviewed and no additional complaints, except as documented, Reports as per HPI, Denies excessive sweating and Denies fatigue ENT Ears, Nose, Mouth, and Throat: Reports system reviewed and no additional complaints, except as documented and Reports as per HPI Cardiovascular Cardiovascular: Reports system reviewed and no additional complaints, except as documented, Reports as per HPI, Denies chest pain and Denies palpitations Respiratory Respiratory: Reports system reviewed and no additional complaints, except as documented and Reports as per HPI Gastrointestinal Gastrointestingal: Reports system reviewed and no additional complaints, except as documented and as per HPI Genitourinary Male Genitourinary: Denies change in libido Musculoskeletal Musculoskeletal: Reports system reviewed and no additional complaints, except as documented and Reports as per HPI Integumentary/Breasts Skin/Breast: Reports system reviewed and no additional complaints, except as documented, Reports as per HPI and Reports other (small sores all over face and arms with one on arm looking red and warm) Neurologic Neurologic: Reports system reviewed and no additional complaints, except as documented and Reports as per HPI Endocrine Endocrine: Reports system reviewed and no additional complaints, except as documented, Reports as per HPI, Denies change in libido, Denies excessive sweating, Denies fatigue, Denies flushing, Denies heat intolerance, Denies palpitations, Denies polydipsia, Denies polyphagia and Denies other Physical Exam General General appearance: alert and in no apparent distress ENT ENT exam: Present mucous membranes moist Respiratory Respiratory exam: Present normal lung sounds bilaterally; Absent respiratory distress or wheezes Cardiovascular Cardiovascular exam: Present regular rate, normal rhythm and normal heart sounds Neurological Exam Neurological exam: Present alert, oriented X3 and normal gait Skin Skin exam: Present other (several sore like lesions noted on bilateral arms, head and neck but a couple areas on arm looks red and irritated and warm) Medical Decision Making Edil Inquiry Pt receiving controlled substance: No Edil was queried for this patient: No Vital Signs: 02/21/24 08:25 Temperature 97.9 F Temperature Source Oral Pulse Rate [Left Brachial] 70 Respiratory Rate 20 Blood Pressure [Left Arm] 125/74 Blood Pressure Mean [Left Arm] 91 Blood Pressure Source [Left Arm] Automatic Cuff Blood Pressure Position [Left Arm] Sitting 02 Sat by Pulse Oximetry 97 Oxygen Delivery Method Room Air Lab Data Lab Results 02/21/24 08:30: POC Glucose 290 H Orders (Tests/Meds): ORDERS Category Date Time Status POC Glucose,Bedside Routine Lab 02/21/24 08:30 Completed Medical Decision Narrative: Patient requested that his blood sugar be checked states that he is unsure if his free style guzman is checking it correctly since it is fluctuating so much, Checked FSBS and it was 290 Patient states that he hasnt been taking his insulin the way he is suppose too because he was concerned about his freestyle Guz[place] not being accurate, patient was educated that if he was concerned with that he needed to speak with his PCP and he may check with glucometer if had concerns but needed to be taking his medication as he was prescribed and discussing with his family doctor Recommended transfer to the ED and patient declined States he has his insulin with him he takes it with meals and hasnt eaten yet so he brought it with him to take after the visit here Discussed insulin in the COC and again states he has his with him and will take his own that he has with him
[2024-02-21 09:15] VITALS: BP 125/74; PULSE 70; RESP 20; TEMP 36.6; O2SAT 97
== END 2024-02-21 09:22 | disposition home or self-care (01) ==
PROVIDERS: Emergency Provider Nurse Practitioner
DX: L03.114 Cellulitis of left upper limb (principal); E11.65 Type 2 diabetes mellitus with hyperglycemia; I10 Essential (primary) hypertension; E78.5 Hyperlipidemia, unspecified; Z79.4 Long term (current) use of insulin; Z79.84 Long term (current) use of oral hypoglycemic drugs
CPT/HCPCS: 82962; 99204; 99212; G0463

== ENCOUNTER 2025-05-13 10:49 | Observation (INO) | payer BC, SELFPAY ==
--- OUTSIDE RECORDS SUMMARY | 2021-09-27 13:04 | XMS_ITS | Encounter Summary ---
Author Organization [place] [address] Care Team Providers Care Cell Builder Name Role Phone Zane Eli MD Primary Care Provider [phone]- [phone] Encounter Details Date Type Department Care Team (Late st Contact Info) Description 09/27/2021 12:04 PM EST Hospital Encounter [facility] [address] [place] [address] Social History Tobacco Use Types Packs/Day Years Used Date Smoking Tobacco: Never Smokeless Tobacco: Never Alcohol Use Standard Drinks/Week Comments No 0 (1 standard drink = 0.6 oz pur e alcohol) PHQ-2 Answer Date Recorded PHQ-2 Score 0 02/14/2019 Sexually Active Control Partners Comments Yes Female Sex and Gender Information Value Date Recorded Sex Assigned at Not on file Legal Sex Male 3:53 AM EDT Gender Identity Not on file Sexual Orientation Not on file COVID-19 Exposure Response Date Recorded In the last 10 days, have yo u been in contact with someone who was confirmed or suspected to have Coronavirus/COVID-19? No / Unsure 06/05/2022 3:37 PM EDT documented as of this encounter Functional Status * Is the person deaf or does he/she have serious difficulty hearing? Answer Date of Assessment Author No 05/12/2019 6:57 AM EDT Roopa Daniels RMA * Is the person blind or does he/she have serious difficulty seeing even when wearing glasses? Answer Date of Assessment Author No 05/12/2019 6:57 AM EDT Roopa Daniels RMA * Does this person have serious difficulty walking or climbing stairs? Answer Date of Assessment Author No 05/12/2019 6:57 AM EDT Roopa Daniels RMA * Does this person have difficulty dressing or bathing? Answer Date of Assessment Author No 05/12/2019 6:57 AM EDT Roopa Daniels RMA * Because of a physical, mental or emotional condition, does this person have difficulty doing errands alone such as visiting a doctor's office or shopping? Answer Date of Assessment Author No 05/12/2019 6:57 AM EDT Roopa Daniels RMA documented as of this encounter Mental Status * Because of a physical, mental or emotional condition, does this person have serious difficulty concentrating, remembering or making decisions? Answer Entry Date Author No 05/12/2019 6:57 AM EDT Roopa Daniels RMA documented in this encounter Plan of Treatment Not on file documented as of this encounter Goals Goal Patient Goal Type Associated Problems Recent Progress Patient-Stated? Author Blood Pressure < 140/90 Blood Pressure 104/60(2024 8:49 AM EST) No Sherine Porter, Clerical Staff BMI (Calculated) < 30 General 48.7(10/10/19 8:49 AM EST) No Sherine Porter, Clerical Staff Eat better, exercise, reach an ideal body weight General No Sherine Porter, Clerical Staff HEMOGLOBIN A1C < 7.0 Result Component 7.7( 10:05 AM EDT) No Sherine Porter, Clerical Staff documented as of this encounter Visit Diagnoses Not on filedocumented in this encounter Additional Health Concerns Infection Onset Date Last Indicated Resolved Time R/O COVID-06/05/2022 06/05/2022 06/06/2022 5:19 AM EDT documented as of this encounter Care Teams Cell Builder Relationship Specialty Start Date End Date Zane Eli MD [address] [facility] [address] [place] [address] PCP - General Internal Medicine 7/9/14 2/21/23 documented as of this encounter
--- OUTSIDE RECORDS SUMMARY | 2021-10-03 13:59 | XMS_ITS | Encounter Summary ---
Author Organization [place] [address] Care Team Providers Care Tractor Sweeper Operator Name Role Phone Zane Eli MD Primary Care Provider +1- [phone] Encounter Details Date Type Department Care Team (Late st Contact Info) Description 10/03/2021 12:59 PM EST Hospital Encounter [facility] [address] [place] [address] Social History Tobacco Use Types [...] documented as of this encounter Care Teams Tractor Sweeper Operator Relationship Specialty Start Date End Date Zane Eli MD [address] [facility] [address] [place] [address] PCP - General Internal Medicine 7/9/14 2/21/23 documented as of this encounter
--- OUTSIDE RECORDS SUMMARY | 2021-10-06 13:16 | XMS_ITS | Encounter Summary ---
Author Organization [place] [address] Care Team Providers Care Machine Deburrer Name Role Phone Zane Eli MD Primary Care Provider +1- [phone] Encounter Details Date Type Department Care Team (Late st Contact Info) Description 10/06/2021 12:16 PM EST Hospital Encounter [facility] [address] [place] [address] Social History Tobacco Use Types [...] documented as of this encounter Care Teams Machine Deburrer Relationship Specialty Start Date End Date Zane Eli MD [address] [facility] [address] [place] [address] PCP - General Internal Medicine 7/9/14 2/21/23 documented as of this encounter
--- OUTSIDE RECORDS SUMMARY | 2025-05-04 23:55 | XMS_ITS | Encounter Summary ---
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 EC tablet Take 1 tablet (81 mg total) by mouth daily. NEEDS PHYSICAL PRIOR TO NEXT REFILL Yes 05/05/2025 Morning atorvastatin (LIPITOR) 80 MG tablet Take 1 tablet (80 mg total) by mouth daily. Yes 05/05/2025 Morning blood-glucose sensor (FREESTYLE ZEUS 3 PLUS SENSOR) Julisa Use 1 sensor as directed every 15 days Yes Past Week buPROPion HCL (WELLBUTRIN XL) 300 MG 24 hr tablet Take 1 tablet (300 mg total) by mouth daily. Yes 05/05/2025 Morning empagliflozin (JARDIANCE) 25 mg tablet Take 1 tablet (25 mg total) by mouth daily. Yes 05/05/2025 Morning ezetimibe (ZETIA) 10 mg tablet Take 1 tablet (10 mg total) by mouth daily. Yes 05/05/2025 Morning FLUoxetine (PROZAC) 40 MG capsule Take 1 capsule (40 mg total) by mouth 2 times a day. Yes 05/05/2025 Morning gabapentin (NEURONTIN) 100 MG capsule Take 1 capsule (100 mg total) by mouth at bedtime. Yes 05/05/2025 Morning insulin glargine U-300 conc (TOUJEO MAX U-300 SOLOSTAR) 300 unit/mL (3 mL) InPn Inject 64 Units subcutaneously daily with dinner. Yes 05/05/2025 Morning insulin lispro (HUMALOG KWIKPEN INSULIN) 100 unit/mL InPn Inject 24 Units as directed 3 times a daywith meals. Has been increasing to 30 units and sometimes adding extra in-between to try to lower sugar. Patient taking differently: Inject 23 Units as directed 3 times a day with meals. Inject additional2 units for blood glucose over 250 Yes 05/05/2025 Morning metFORMIN (GLUCOPHAGE-XR) 500 MG 24 hr tablet Take 1 tablet (500 mg total) by mouth 2 times a day with meals. Yes 05/05/2025 Morning metoprolol succinate (TOPROL-XL) 50 MG 24 hr tablet Take 1 tablet (50 mg total) by mouth daily. Yes05/05/2025 Morning mirtazapine (REMERON) 15 MG tablet Take 1 tablet (15 mg total) by mouth at bedtime. NEEDS PHYSICAL PRIOR TO NEXT REFILL Yes 05/05/2025 Morning omeprazole (PRILOSEC) 20 MG capsule Take 1 capsule (20 mg total) by mouth every morning before breakfast. Yes 05/05/2025 Morning pen needle, diabetic (BD ULTRA-FINE NADINE PEN NEEDLE) 32 gauge x 5/32 Ndle Use with insulin 4 timesa day Yes Past Week potassium chloride (KLOR-CON M20) 20 MEQ tablet Take 2 tablets (40 mEq total) by mouth daily. Yes 05/05/2025 Morning tamsulosin (FLOMAX) 0.4 mg Cap Take 2 capsules (0.8 mg total) by mouth at bedtime. Yes 05/05/2025 Morning torsemide (DEMADEX) 20 MG tablet Take 3 tablets (60 mg total) by mouth daily. NEEDS PHYSICAL PRIOR TO NEXT REFILL Yes 05/05/2025 Morning valproic acid (DEPAKENE) 250 mg capsule Take 4 capsules (1,000 mg total) by mouth 2 times a day. NEEDS PHYSICAL PRIOR TO NEXT REFILL Yes 05/05/2025 Morning valsartan (DIOVAN) 40 MG tablet Take 0.5 tablets (20 mg total) by mouth daily. 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 Home regimen of Jardiance 25 mg daily, torsemide 40 mg daily (20 mg BID),Toprol XL 50 mg daily, and valsartan 20 mg daily. Admission weight 340 lbs up from suspected dry weight of 328-330 lbs. Will begin diuresis and monitory renal panel. Last CHF exacerbation admission in 11/2024. Received IV lasix 60 mg earlier this AM. IV lasix 80 mg this AM, and will evaluate response based on UOP and recheck renal panel this afternoon as well as urine sodium Strict I/Os Daily standing weights CMU tele and pulse ox for 48hr CHF monitoring PT/OT Daily RFP with Mg; replete lytes as needed 1 tablet 20 mg morning and night JULIANA [place] kidney injury) [place] Cr on admission of 1.41, most recent Cr in 11/2024 of 1.1, baseline of ~1.1-1.2. Suspect JULIANA may beresult of diuresis from increased torsemide dose over past week. Strict I/Os Daily renal panel; replete lytes as needed Hypertension Patient normotensive on admission. Home regimen of Toprol XL 50 mg daily, and valsartan 20 mg daily. Holding home valsartan 40 mg daily Continue home metoprolol succinate 40 mg daily T2DM (type 2 diabetes mellitus) [place] Last Hgb A1c in 11/2024 was 10.2. At home, takes Glargine 64 units nightly, Lispro 24 units TID with meals, metformin, and Jardiance. Glargine 40 units nightly Lispro 16 units TID with meals LDSSI Hypoglycemic protocol Hemoglobin A1c Continue gabapentin 100 mg nightly for neuropathic pain Hold home Jardiance and metformin HLD (hyperlipidemia) Continue home atorvastatin 80 mg daily Continue home ezetimibe 10 mg daily CAD (coronary artery disease) Hx CABG x4 in 08/2021. Continue home aspirin 81 mg daily Continue home atorvastatin 80 mg daily Anxiety and depression Continue home fluoxetine 40 mg BID Continue home bupropion 300 mg daily Continue home mirtazapine 15 mg QHS Continue home valproic acid 100 mg BID GERD (gastroesophageal reflux disease) Continue home pantoprazole 20 mg daily BPH (benign prostatic hyperplasia) Continue home tamsulosin 0.8 mg QHS VALARIE (obstructive sleep apnea) Previously on CPAP, patient stated was not able to tolerate it and has not been using for at least one month. Consider nightly CPAP if requested DVT Prophylaxis: subcutaneous heparin (prophylaxis) Code Status: Full Code Medical Readiness for Discharge: 2-4 Days IFEOMA LYNN DO 05/05/2025 8:45 AM * Yolanda Braun RRT - 05/05/2025 5:44 AM EDT Assessment completed of Kareem Monge with ordered PRN aerosolized medication(s). Determined thatno medication was needed at this time. * Liam Ibrahim MD - 05/05/2025 1:38 AM EDT ED Attending Attestation Note Date of service: 05/04/2025 This patient was seen by the resident physician. I have seen and examined the patient, agree with the workup, evaluation, management and diagnosis. The care plan has been discussed and I concur. I have reviewed the ECG and concur with the resident's interpretation. My assessment reveals a 59 y.o. male who presents with swelling in his bilateral lower extremities,with notable pitting edema essentially up to his knees. No deepika hypoxia when sitting upright but markedly orthopneic with some desaturation in the upper 80s when laying flat for echo. Denies chest pain. EKG is nonischemic. BNP is minimally elevated, however the patient does have history of heart failure with preserved ejection fraction, likely not revealed through BNP. documented in this encounter H&P Notes * Pasquale Rodney MD - 05/05/2025 5:16 AM EDT [facility] Internal Medicine - History and Physical Chief Concern Dyspnea History of Present Illness Jluis Monge is a 59 y.o. male with a history of HFpEF, HTN, HLD, CAD (s/p CABG x4 in 08/2021), VALARIE, GERD, BPH, T2DM, and Anxiety/Depression presenting to the hospital with one week of bilateral leg swelling, orthopnea, and shortness of breath. Patient noticed leg swelling starting 04/28/2025. Normally takes torsemide 60 mg daily, decided to double the dose starting 04/29, initially saw increase urine output but continued to have leg swelling up to his knees. Also endorsed having shortness of breath with lying down beginning last week. No recent medication changes or illnesses. No dietary changes, maybe drinking more fluids recently due toheat. Estimated dry weight ~328-330. Patient said his weight was already increased to ~336 on 04/30. Last admission for CHF exacerbation was 11/2024. In ED: Hemodynamically stable, satting well on room air. Some desats to 80s when laying flat for vitals. BNP mildly elevated to 141. Cr elevated to 1.41 with baseline ~1.1-1.2. Troponin wnl. Echo with normal EF. CXR with no cardiopulmonary abnormality. Given IV lasix 60 mg x1. Admission weight of 340 lbs. Review of Systems Constitutional: Endorses weight gain of 10-12 lbs in past week; denies fevers, chills CV: Endorses bilateral LE edema; denies chest pain, palpitations Respiratory: Endorses orthopnea, shortness of breath; denies cough GI: denies abdominal pain, nausea, vomiting : denies dysuria, hematuria, genital lesions Neurologic: denies headaches, vision changes weakness, decreased or altered sensation Past Medical and Social History Past Surgical History: Procedure Laterality Date BACK SURGERY 2013 CARDIAC SURGERY CORONARY ARTERY BYPASS GRAFT N/A 09/15/2021 Procedure: CORONARY ARTERY BYPASS GRAFTING X 4; Surgeon: Zac Frank IV, MD; Location: OR; Service: Open Heart; Laterality: N/A; CYSTOSCOPY LITHOTRIPSY LEFT AND RIGHT HEART CATHETERIZATION N/A 08/03/2022 Procedure: Left and Right Heart Cath; Surgeon: Errol iLma MD; Location: CARDIAC CATH LABS; Service: Cath; Laterality: N/A; LEFT AND RIGHT HEART CATHETERIZATION N/A 08/08/2024 Procedure: Left and Right Heart Cath; Surgeon: Bird March MD; Location: CARDIAC CATH LABS; Service: Cath; Laterality: N/A; LEFT HEART CATH N/A 08/30/2021 Procedure: Left Heart Cath coronary angiogram with Dr. Lima; Surgeon: Errol Lima MD; Location: CARDIAC CATH LABS; Service: Cath; Laterality: N/A; PHACOEMULSIFICATION INTRAOCULAR LENS PLACEMENT Left 11/07/2022 Procedure: PHACOEMULSIFICATION INTRAOCULAR LENS PLACEMENT; Surgeon: Ashwin Fisher MD; Location: [facility] OR; Service: Ophthalmology; Laterality: Left; PHACOEMULSIFICATION INTRAOCULAR LENS PLACEMENT Right 12/05/2022 Procedure: PHACOEMULSIFICATION INTRAOCULAR LENS PLACEMENT; Surgeon: Ashwin Fisher MD; Location: [facility] OR; Service: Ophthalmology; Laterality: Right; SPINE SURGERY 03/16/2013 Family History Problem Relation Age of Onset Diabetes Mother Obesity Mother Sleep apnea Mother Asthma Mother Heart disease Father Hypertension Father Sleep apnea Father Depression Father Mental illness Father Heart disease Brother Hypertension Brother Depression Brother Anesthesia problems Neg Hx Social History Tobacco Use Smoking status: Never Smokeless tobacco: Never Vaping Use Vaping status: Never Used Substance Use Topics Alcohol use: Never Drug use: Never Social history: No Tobacco No EtOH No Recreational drugs Physical Exam Temp: [97.5 ??F (36.4 ??C)-98.3 ??F (36.8 ??C)] 98.3 ??F (36.8 ??C) Heart Rate: [66-67] 67 Resp: [17-18] 17 BP: (112-145)/(58-83) 112/58 General: reclined in bed, awake and alert, obese Head: normocephalic, atraumatic Eyes: PERRL, EOMI, no conjunctival hemorrhages, sclera anicteric ENMT oropharynx clear without exudates, ulcerations, thrush CV: RRR, normal S1, S2, no m/r/g, no JVD Respiratory: CTA, moving air well, breath sound symmetric GI: soft, nontender, normal bowel sounds Psychiatric: oriented, follow commands, normal affect Neurologic: CN II-XII intact, 4+ strength in all extremities, no sensory defects, no motor defects Extremities: 2+ pitting edema up to knees bilaterally; no clubbing, cyanosis Diagnostic Studies Lab 05/04/25 2324 WBC 10.7 HEMOGLOBIN 16.3 HEMATOCRIT 46.9 MEAN CORPUSCULAR VOLUME 85.6 PLATELETS 165 Lab 05/04/25 2324 SODIUM 136 POTASSIUM 5.0 CHLORIDE 95* CO2 31 BUN 29* CREATININE 1.41* EGFR 58 GLUCOSE 287* CALCIUM 9.2 CXR: Impression IMPRESSION: No acute cardiopulmonary abnormality. Assessment & Plan Jluis Monge is a 59 y.o. male with a history of HFpEF, HTN, HLD, CAD (s/p CABG x4 in 08/2021), VALARIE, GERD, BPH, T2DM, and Anxiety/Depression presenting to the hospital with one week of bilateral leg swelling, orthopnea, and shortness of breath. Assessment & Plan Acute on chronic heart failure with preserved ejection fraction [place] Patient has one week of BLE pitting edema and orthopnea despite increased torsemide dose. Admissionweight 340 lbs up from suspected dry weight of 328-330 lbs. No other signs of fluid overload, lungsclear on exam. Will begin diuresis and monitory renal panel. Last CHF exacerbation admission in 11/2024. Plan: - IV lasix - Strict I/Os - Daily standing weights - CMU tele and pulse ox for 48hr CHF monitoring - Albuterol nebulizer 2.5 mg q4h PRN for wheezing - Tylenol 650 mg q4h PRN for fever/pain - PT/OT - Daily RFP with Mg; replete lytes - Hold home torsemide JULIANA (acute kidney injury) [place] Cr on admission of 1.41, most recent Cr in 11/2024 of 1.1, baseline of ~1.1-1.2. Suspect JULIANA may beresult of diuresis from increased torsemide dose over past week. Plan: - CTM - Strict I/Os - Daily renal panel; replete lytes Hypertension Patient normotensive on admission. Continuing home BP meds.. Plan: - Continue home valsartan 40 mg daily - Continue home metoprolol succinate 40 mg daily T2DM (type 2 diabetes mellitus) ([facility] Last Hgb A1c in 11/2024 was 10.2. At home, takes Glargine 64 units nightly, Lispro 24 units TID with meals, metformin, and Jardiance. Plan: - Glargine 40 units nightly - Lispro 16 units TID with meals - LDSSI - Hypoglycemic protocol - Hemoglobin A1c - Continue gabapentin 100 mg nightly for neuropathic pain - Hold home Jardiance and metformin HLD (hyperlipidemia) - Continue home atorvastatin 80 mg daily - Continue home ezetimibe 10 mg daily CAD (coronary artery disease) Hx CABG x4 in 08/2021. - Continue home Aspirin 81 mg daily, atorvastatin 80 mg daily Anxiety and depression - Continue home fluoxetine 40 mg BID - Continue home bupropion 300 mg daily - Continue home mirtazapine 15 mg QHS - Continue home valproic acid 100 mg BID GERD (gastroesophageal reflux disease) - Pantoprazole 20 mg daily BPH (benign prostatic hyperplasia) - Continue home tamsulosin 0.8 mg QHS VALARIE (obstructive sleep apnea) Previously on CPAP, patient stated was at highest settings and he was not able to tolerate it. Has not been using for at least one month. - Consider nightly CPAP, but patient previously did not tolerate Prior to Admission Med Status: Medications partially reviewed; need further clarification of home mood and lipid regimen DVT Prophylaxis: subcutaneous heparin (prophylaxis) Code Status: Full Code PASQUALE RODNEY MD 05/05/2025 5:16 AM Cosigned by Augusto Chan MD at 05/05/2025 1:07 PM EDT Associated attestation - Augusto Chan MD - 05/05/2025 1:07 PM EDT Hospital Medicine Attending Supervision Note [facility] // [facility] Jluis Monge was seen 05/05/25 on rounds with the resident physician. I personally interviewed and examined the patient. I reviewed the documentation by the resident and agree as documented unlessotherwise stated below. Reason for today's visit: Acute on chronic heart failure with preserved ejection fraction ([facility]) Assessment & Plan Jluis Monge is a 59 y.o. male on hospital day 0. The medical issues being addressed in today's encounter are as follows: Principal Problem: Acute on chronic heart failure with preserved ejection fraction ([facility]) Active Problems: Hypertension HLD (hyperlipidemia) VALARIE (obstructive sleep apnea) CAD (coronary artery disease) T2DM (type 2 diabetes mellitus) ([facility]) GERD (gastroesophageal reflux disease) JULIANA (acute kidney injury) [place] Anxiety and depression BPH (benign prostatic hyperplasia) #ADHFpEF Up ~5-10lb, takes torsemide 60mg daily at home but may have been taking 80mg the past few days. Previously diuresed with lasix 80mg IV, though was taking torsemide 40mg at that time. 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 Rest of plan per resident note. Medical Decision Making: Acute or chronic illness that may pose threat to life or function Independent interpretation of image(s)/tracing(s): EKG w/ NSR, no ischemic chages Labs reviewed (1 pt each): CBC, BMP, Mg Drug Tx requiring intensive monitoring (physiologic, electrolytes, renal function, drug levels, etc): monitor lytes on diuretics AUGUSTO CHAN MD Attending Physician Division of Hospital Medicine Department of Internal Medicine 12:45 PM, 05/05/2025 documented in this encounter Consult Notes * Marzena Lindsey RN - 05/05/2025 10:05 AM EDT HEALTH Care Management/Social Work Assessment Patient Information Patient Name: Jluis Monge Hospital Day: 0 Inpatient/Observation: Inpatient Admit Date: 05/04/2025 Admission Diagnosis: No admission diagnoses are documented for this encounter. Attending provider: Augusto Chan MD PCP: TRAN IRIZARRY MD Home Pharmacy: [facility]/pharmacy #[id number] - [address] [address] [facility] [address] [facility] [address] [place] [id number] Issues related to obtaining medications: None Payor Information Medical Insurance Coverage: Payor: ANTHEM / Plan: BLUE ACCESS / Product Type: PPO / Secondary Payor: Functional Assessment Functional Assessment Assessment Information Obtained From:: Patient, Chart Review May We Obtain Collateral Information From Family, Friends and Neighbors?: Yes Current Mental Status: Awake, Oriented to Person, Oriented to Place, Oriented to Time, Oriented to Situation Mental Status Prior to Admission: Unable to Assess Mental Health History: Yes Behavioral Health Agency Involvement: No Do you need Mental Health treatment resources?: No Patient Requests Social Work Consult?: No Substance Abuse: No Suicide Attempts: No Activities of Daily Living: Independent Work History: Part-time Marital Status: Number of children and their names: 4 Relative Search Completed: No Demographics Correct:: Yes Current Living Arrangements Current Living Arrangements Current Living Arrangements: Home Type of Housing: House Who do you live with?: With Family What family member?: Spouse Enter the number of steps and rails to enter the residence: 1 Enter the number of steps and rails inside the residence: 12 History of Falls?: No Community Services Community Services Community Services at Home: Respiratory [employer] Name/Phone #: [employer] [phone] Oxygen Needs: Oxygen Oxygen Liter/Minute: 2 Was any abuse reported by patient?: No [place] Status & Connection to [facility] Services [place] Status & Connection to [facility] Services Are you a ?: Yes Which branch of the ?: [employer] Emergency contact: Extended Emergency Contact Information Primary Emergency Contact: Kalani Monge Address: [address] [place] [address] Mobile Relation: Spouse Preferred language: Grenadian Help Desk Operator needed? No Support Systems Primary Caregiver: Self Times of available support: Limited 24/7 hands on (add comment) Marital Status: Number of children and their names: 4 Relative Search Completed: No Demographics Correct:: Yes Expected Discharge Disposition: Other (Comment) (Pending medical course.) Next of Kin: Kalani Monge Next of Kin Relationship: Spouse Next of Kin Assessment Information Obtained From:: Patient, Chart Review Other Pertinent Information Advance Directives (For Healthcare) Advance Directive: Patient does not have advance directive No Advanced Directive: Patient would NOT like information about advanced directives, forgoing or with-drawing life-sustaining treatment, and withholding resuscitative services Healthcare Agent Appointed: No Pre-existing DNR/DNI Order: No Patient Requests Assistance: No Discharge Plan Met with patient to initiate discussion regarding discharge planning. Introduced self and role of case management/social work and provided contact information. Barriers to Discharge Barriers to Discharge: (None) Anticipated Discharge Plan: Pending medical course Anticipated Discharge Date: Pending medical course Anticipated Transportation: Family vs stretcher Patient/Family aware and taking part in the discharge plan. Patient/family educated that once post-acute care needs have been identified, a provider list applicable to the identified post-acute care needs as well as the insurance provider will be provided, and patient/family have the freedom to choose their provider(s); financial interest(s) are disclosed as appropriate. Marzena CHUN stull hewer documented in this encounter Nursing Notes * Juliet Holguin RN - 05/07/2025 10:44 AM EDT Patient aware of discharge to home. Family at bedside. AVS Discharge instructions given, patient educated on heart failure and print outs given for home, patient verbalized understanding. PIV removed, core measures completed. Patient belongings gathered. Wheelchair used for transport. Family to transport home. Work excuse note given to patient. * Sharri King - 05/05/2025 3:35 PM EDT SaO2 on CMU monitor alarming for intermittent Sat 88-91%. Pt. Relates on Oxygen earlier and uses sometimes at home. Pt. Placed on O2 @ 2lpm NC with Sat 91-93%. RN caring for patient notified. * Sherine Strauss RN - 05/04/2025 9:44 PM EDT Pt here for CHF exacerbation and reports swelling in his legs and feet with some shortness of breath. Pt reports symptoms started 4 days ago and he doubled up on his torsemide with no relief. Resp even and unlabored at triage desk. documented in this encounter ED Notes * Demi Olguin RN - 05/05/2025 8:43 AM EDT Ready and clean bed assigned to [id number]. Pt updated on plan of care including transfer and is agreeable. Receiving RN may call [phone] to consult ED RN with questions regarding patients care. Pt is leaving the department in stable condition with all personal items in possession. Ordered medications that have been received from Pharmacy will not be tubed to receiving unit. The patient does not have a patient monitor at bedside in the ED. Most recent vitals: BP 113/77 Pulse 62 Temp 98.7 ??F (37.1 ??C) (Oral) Resp 17 Wt (!) 340 lb (154.2 kg) SpO2 90% BMI 48.78 kg/m?? DEMI OLGUIN RN * Roxana Polk RN - 05/04/2025 11:55 PM EDT Bed: E57U Expected date: Expected time: Means of arrival: Comments: Flow documented in this encounter Miscellaneous Notes * Plan of Care - Jeny Johnson RN - 05/07/2025 2:16 AM EDT Problem: Glucose Imbalance related to diabetes disease process Goal: Clinical indication of glucose balance is achieved Outcome: Progressing Goal: Patient's discharge needs are met Outcome: Progressing Problem: Knowledge deficit related to self-management of chronic disease Goal: Patient/family/caregiver demonstrates understanding of disease process, treatment plan, medications, and discharge instructions Outcome: Progressing Problem: Potential for imbalanced nutrition related to metabolic effect of diabetes Goal: Patient's nutritional needs will be met Outcome: Progressing Problem: Risk for ineffective therapeutic regimen management related to insulin pump Goal: Blood glucose is within target range Outcome: Progressing Problem: High Fall Risk Precautions Goal: High Fall Risk Precautions Outcome: Progressing * Plan of Care - Martha Neville RN - 05/06/2025 11:59 AM EDT Problem: Glucose Imbalance related to diabetes disease process Goal: Clinical indication of glucose balance is achieved Outcome: Progressing Goal: Patient's discharge needs are met Outcome: Progressing Problem: Knowledge deficit related to self-management of chronic disease Goal: Patient/family/caregiver demonstrates understanding of disease process, treatment plan, medications, and discharge instructions Outcome: Progressing Problem: Potential for imbalanced nutrition related to metabolic effect of diabetes Goal: Patient's nutritional needs will be met Outcome: Progressing Problem: Risk for ineffective therapeutic regimen management related to insulin pump Goal: Blood glucose is within target range Outcome: Progressing Problem: High Fall Risk Precautions Goal: High Fall Risk Precautions Outcome: Progressing * Care Coordination - Marzena Lindsey RN - 05/06/2025 11:26 AM EDT [facility] Case Management/Social Work Department Progress Note Patient Information Patient Name: Jluis Monge Hospital day: 0 Inpatient/Observation: Observation Level of Care: Floor Admit date: 05/04/2025 Admission diagnosis: Acute on chronic diastolic congestive heart failure ([facility]) [I50.33] PMH: has a past medical history of Acne (04/04/1982), Anxiety (07/14/1991), Cataract,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 history is significant for coronary artery disease. Study data: Height: 70in. 177.8cm. Weight: 328lb. 148.8kg. Comparison was made to the study of 08/11/2024. Study status: Routine. Objective: Diagnostic evaluation. Procedure: A transthoracic echocardiogram was performed. Image quality was suboptimal. Scanning was performed from the parasternal, apical, subcostal, and suprasternal notch acoustic windows. Intravenous contrast (Optison) was administered to enhance regional wall motion assessment and opacify the LV. Transthoracic echocardiogram. M-mode, complete 2D, complete spectral Doppler, color Doppler, and tissue Doppler. Birthdate: Patient birthdate: 1965. Age: Patient is 59year(s) old. Sex: gender: male. Body mass index: BMI: 47.1kg/m^2. Body surface area: BSA: 2.58m^2. Blood pressure: 134/79 Patient status: Inpatient. Study date: Study date: 05/05/2025. Study time: 02:45 PM. Location: Echo laboratory. Study Conclusions - Procedure narrative: A transthoracic echocardiogram was performed. Image quality was suboptimal. Scanning was performed from the parasternal, apical, subcostal, and suprasternal notch acoustic windows. Intravenous contrast (Optison) was administered to enhance regional wall motion assessment and opacify the LV. - Left ventricle: The cavity size is normal. Wall thickness was increased in a pattern of mild LVH. Systolic function is normal. The estimated ejection fraction is 60-65%. Although no diagnostic regional wall motion abnormality is identified, this possibility cannot be completely excluded on the basis of this study. Cannot assess LV diastolic function. - Right ventricle: Poorly visualized. Systolic function is indeterminate. - Pulmonary arteries: Systolic pressure could not be accurately estimated. Cardiac Anatomy Left ventricle: - The cavity size is normal. Wall thickness was increased in a pattern of mild LVH. Systolic function is normal. The estimated ejection fraction is 60-65%. Although no diagnostic regional wall motion abnormality is identified, this possibility cannot be completely excluded on the basis of this study. - Cannot assess LV diastolic function. Aorta: Aortic root: The root is normal in size. Aortic valve: - TrileafletThe leaflets are normal thickness. Mobility is not restricted. Velocity is within the normal range. There is no stenosis. There is no regurgitation. The mean systolic gradient is 2mm Hg. The peak systolic gradient is 3mm Hg. Mitral valve: - The valve is structurally normal. Mobility is not restricted. Inflow velocity is within the normal range. There is no evidence for stenosis. There is no regurgitation. The peak diastolic gradient is 4mm Hg. Left atrium: The atrium is normal in size. Pulmonary artery: - Systolic pressure could not be accurately estimated. Right ventricle: - Poorly visualized. Systolic function is indeterminate. Pulmonic valve: - Poorly visualized. There is trivial regurgitation. The mean systolic gradient is 2mm Hg. The peak systolic gradient is 4mm Hg. Tricuspid valve: - Poorly visualized. Inflow velocity is within the normal range. There is no regurgitation. Right atrium: Poorly visualized. Pericardium: - There is no pericardial effusion. Systemic veins: Inferior vena cava: The IVC is poorly visualized. Measurements Left ventricle Value Ref 12/13/2024 ASH, LAX (N) 5.3 cm 4.2 - 5.8 4.4 ESD, LAX (N) 3.4 cm 2.5 - 4.0 2.5 ASH/bsa, LAX (L) 2.1 cm/m^2 2.2 - 3.0 1.6 ESD/bsa, LAX (N) 1.3 cm/m^2 1.3 - 2.1 0.9 FS, LAX (N) 36 % 43 FS, LAX chord (N) 36 % 43 IVS, ED (H) 1.3 cm 0.6 - 1.0 1.1 ESD (N) 3.4 cm 2.5 - 4.0 2.5 ESD/bsa (N) 1.3 cm/m^2 1.3 - 2.1 0.9 FS (N) 36 % 43 PW, ED (N) 0.7 cm 0.6 - 1.0 1.1 IVS/PW, ED 1.83 --------- 1 EDV (N) 137 ml 62 - 150 90 ESV (N) 48 ml 21 - 61 23 EF (N) 65 % 52 - 72 74 SV 48 ml --------- 57 EDV/bsa (N) 53 ml/m^2 34 - 74 32 ESV/bsa (N) 18 ml/m^2 11 - 31 8 SV/bsa 18 ml/m^2 --------- 20 SV, 1-p A2C 89 ml --------- 67 SV/bsa, 1-p A2C 34.6 ml/m^2 --------- 23.9 E', lat yuridia, TDI (L) 9.9 cm/sec >=10.0 11.7 E/e', lat yuridia, (N) 10 <=13 6 TDI E', med yuridia, TDI (N) 7.0 cm/sec >=7.0 9.9 E/e', med yuridia, 14 --------- 8 TDI E', avg, TDI 8.4 cm/sec --------- 10.8 E/e', avg, TDI (N) 12 <=14 7 LVOT Value Ref 12/13/2024 Diam, S 2.0 cm --------- 2.0 Area 3.2 cm^2 --------- 3.1 Mean grad, S 2 mm Hg --------- Right ventricle Value Ref 12/13/2024 ASH, LAX 3.1 cm --------- 2.8 TAPSE, MM (L) 1.6 cm >=1.7 1.3 S' lateral (L) 8.7 cm/sec >=9.5 8.4 RVOT Value Ref 12/13/2024 Peak v, S 0.66 m/sec --------- Mean v, S 0.5 m/sec --------- Peak grad, S 2 mm Hg --------- Mean grad, S 1 mm Hg --------- Left atrium Value Ref 12/13/2024 LA ID 4.1 cm --------- Aortic valve Value Ref 12/13/2024 Peak v, S 0.9 m/sec --------- 1 Mean v, S 0.69 m/sec --------- Mean grad, S 2 mm Hg --------- Peak grad, S 3 mm Hg --------- 4 Mitral valve Value Ref 12/13/2024 Peak E 1 m/sec --------- 0.75 Peak A 0.57 m/sec --------- 0.64 Decel slope 465.31 cm/s^2 --------- Decel time 216 ms --------- 236 Peak grad, D 4 mm Hg --------- 2 Peak E/A ratio 1.76 --------- 1.2 Pulmonic valve Value Ref 12/13/2024 Peak v, S 1 m/sec --------- 0.9 Mean ernestina, S 0.64 m/sec --------- Mean grad, S 2 mm Hg --------- Peak grad, S 4 mm Hg --------- Aortic root Value Ref 12/13/2024 Root diam (N) 3.6 cm 3.1 - 4.6 3.2 Root diam/bsa 1.4 cm/m^2 --------- 1.1 Legend: (L) and (H) magen values outside specified reference range. (N) oneal values inside specified reference range. Reviewed and confirmed by Shantal Silveira MD [id number] Procedure Note Shantal Silveira MD - 05/05/2025 * [facility]* [address] [place] [address] Transthoracic Echocardiogram Patient: Jluis Monge Room: [facility] Height: 70in MR Number: [id number] : 1965 Weight: 328lb Account: [id number] Gender: M BP: 134 /79 Study Date: 05/05/2025 Age: 59 BSA: 2.58m^2 Referring physician: Kuldip Mills Interpreting physician: Shantal Silveira MD PERFORMING Shantal Silveira MD [employer] Kimber Castle ORDERING Kuldip Mills REFERRING Kuldip Mills ATTENDING Augusto Chan ADMITTING James Das Procedure:TRANSTHORACIC ECHO (TTE) Order: Accession COMPLETE Number:[id number] Indications: HFpEF (i50.30). PMH: Congestive heart failure. Risk factors: Hypertension. Diabetes mellitus. Dyslipidemia. Family history is significant for coronaryartery disease. Study data: Height: 70in. 177.8cm. Weight: 328lb. 148.8kg. Comparisonwas made to the study of 08/11/2024. Study status: Routine. Objective: Diagnostic evaluation. Procedure: A transthoracic echocardiogram was performed. Image quality was suboptimal. Scanning was performed from the parasternal, apical, subcostal, and suprasternal notch acoustic windows. Intravenous contrast (Optison) was administered to enhance regional wall motion assessment and opacify the LV. Transthoracicechocardiogram. M-mode, complete 2D, complete spectral Doppler, color Doppler, andtissue Doppler. Birthdate: Patient birthdate: 1965. Age: Patient is 59year(s) old. Sex: gender: male. Body mass index: BMI: 47.1kg/m^2. Body surface area: BSA: 2.58m^2. Blood pressure:134/79 Patient status: Inpatient. Study date: Study date: 05/05/2025. Study time: 02:45 PM. Location: Echo laboratory. Study Conclusions - Procedure narrative: A transthoracic echocardiogram was performed.Image quality was suboptimal. Scanning was performed from the parasternal, apical, subcostal, and suprasternal notch acoustic windows.Intravenous contrast (Optison) was administered to enhance regional wall motion assessment and opacify the LV. - Left ventricle: The cavity size is normal. Wall thickness was increasedin a pattern of mild LVH. Systolic function is normal. The estimatedejection fraction is 60-65%. Although no diagnostic regional wall motion abnormality is identified, this possibility cannot be completelyexcluded on the basis of this study. Cannot assess LV diastolic function. - Right ventricle: Poorly visualized. Systolic function isindeterminate. - Pulmonary arteries: Systolic pressure could not be accuratelyestimated. Cardiac Anatomy Left ventricle: - The cavity size is normal. Wall thickness was increased in a patternof mild LVH. Systolic function is normal. The estimated ejection fractionis 60-65%. Although no diagnostic regional wall motion abnormality is identified, this possibility cannot be completely excluded on the basisof this study. - Cannot assess LV diastolic function. Aorta: Aortic root: The root is normal in size. Aortic valve: - TrileafletThe leaflets are normal thickness. Mobility is notrestricted. Velocity is within the normal range. There is no stenosis. There is no regurgitation. The mean systolic gradient is 2mm Hg. The peak systolic gradient is 3mm Hg. Mitral valve: - The valve is structurally normal. Mobility is not restricted. Inflow velocity is within the normal range. There is no evidence forstenosis. There is no regurgitation. The peak diastolic gradient is 4mm Hg. Left atrium: The atrium is normal in size. Pulmonary artery: - Systolic pressure could not be accurately estimated. Right ventricle: - Poorly visualized. Systolic function is indeterminate. Pulmonic valve: - Poorly visualized. There is trivial regurgitation. The mean systolic gradient is 2mm Hg. The peak systolic gradient is 4mm Hg. Tricuspid valve: - Poorly visualized. Inflow velocity is within the normal range. There isno regurgitation. Right atrium: Poorly visualized. Pericardium: - There is no pericardial effusion. Systemic veins: Inferior vena cava: The IVC is poorly visualized. Measurements Left ventricle Value Ref 12/13/2024 ASH, LAX (N) 5.3 cm 4.2 - 5.8 4.4 ESD, LAX (N) 3.4 cm 2.5 - 4.0 2.5 ASH/bsa, LAX (L) 2.1 cm/m^2 2.2 - 3.0 1.6 ESD/bsa, LAX (N) 1.3 cm/m^2 1.3 - 2.1 0.9 FS, LAX (N) 36 % 43 FS, LAX chord (N) 36 % 43 IVS, ED (H) 1.3 cm 0.6 - 1.0 1.1 ESD (N) 3.4 cm 2.5 - 4.0 2.5 ESD/bsa (N) 1.3 cm/m^2 1.3 - 2.1 0.9 FS (N) 36 % 43 PW, ED (N) 0.7 cm 0.6 - 1.0 1.1 IVS/PW, ED 1.83 --------- 1 EDV (N) 137 ml 62 - 150 90 ESV (N) 48 ml 21 - 61 23 EF (N) 65 % 52 - 72 74 SV 48 ml --------- 57 EDV/bsa (N) 53 ml/m^2 34 - 74 32 ESV/bsa (N) 18 ml/m^2 11 - 31 8 SV/bsa 18 ml/m^2 --------- 20 SV, 1-p A2C 89 ml --------- 67 SV/bsa, 1-p A2C 34.6 ml/m^2 --------- 23.9 E', lat yuridia, TDI (L) 9.9 cm/sec >=10.0 11.7 E/e', lat yuridia, (N) 10 <=13 6 TDI E', med yuridia, TDI (N) 7.0 cm/sec >=7.0 9.9 E/e', med yuridia, 14 --------- 8 TDI E', avg, TDI 8.4 cm/sec --------- 10.8 E/e', avg, TDI (N) 12 <=14 7 LVOT Value Ref 12/13/2024 Diam, S 2.0 cm --------- 2.0 Area 3.2 cm^2 --------- 3.1 Mean grad, S 2 mm Hg --------- Right ventricle Value Ref 12/13/2024 AHS, LAX 3.1 cm --------- 2.8 TAPSE, MM (L) 1.6 cm >=1.7 1.3 S' lateral (L) 8.7 cm/sec >=9.5 8.4 RVOT Value Ref 12/13/2024 Peak v, S 0.66 m/sec --------- Mean v, S 0.5 m/sec --------- Peak grad, S 2 mm Hg --------- Mean grad, S 1 mm Hg --------- Left atrium Value Ref 12/13/2024 LA ID 4.1 cm --------- Aortic valve Value Ref 12/13/2024 Peak v, S 0.9 m/sec --------- 1 Mean v, S 0.69 m/sec --------- Mean grad, S 2 mm Hg --------- Peak grad, S 3 mm Hg --------- 4 Mitral valve Value Ref 12/13/2024 Peak E 1 m/sec --------- 0.75 Peak A 0.57 m/sec --------- 0.64 Decel slope 465.31 cm/s^2 --------- Decel time 216 ms --------- 236 Peak grad, D 4 mm Hg --------- 2 Peak E/A ratio 1.76 --------- 1.2 Pulmonic valve Value Ref 12/13/2024 Peak v, S 1 m/sec --------- 0.9 Mean ernestina, S 0.64 m/sec --------- Mean grad, S 2 mm Hg --------- Peak grad, S 4 mm Hg --------- Aortic root Value Ref 12/13/2024 Root diam (N) 3.6 cm 3.1 - 4.6 3.2 Root diam/bsa 1.4 cm/m^2 --------- 1.1 Legend: (L) and (H) magen values outside specified reference range. (N) oneal values inside specified reference range. Reviewed and confirmed by Shantal Silveira MD [id number] Kuldip Mills MD CV ECHO ORDERABLES Lazara l Result * (ABNORMAL) POC Glucose Monitoring Device (05/05/2025 2:07 PM EDT) Pathologist [facility] POC Glucose Monitoring Device 171(H) 70 - 100 mg/dL 05/05/2025 2:08 PM EDT [facility] Blood 05/05/2025 2:07 PM EDT 05/05/2025 2:08 PM EDT James Das MD POINT OF CARE TEST ORDERABL ES Final Result [facility] [address] [place], [place] [id number] [place] [address] * Sodium, Urine, Random (05/05/2025 11:41 AM EDT) Sodium, Ur 37 mmol/L 05/05/2025 11:57 AM EDT [facility] Comment:Reference range not established for this test. Urine 05/05/2025 11:4 1 AM EDT 05/05/2025 11:44 AM EDT Ifeoma Lynn DO URINE ORDERABLES Final Result Performing Organization Address City/[facility]/ZIP Co de Phone Number [facility] [address] [facility] * (ABNORMAL) POC Glucose Monitoring Device (05/05/2025 9:12 AM EDT) POC Glucose Monitoring Device 191(H) 70 - 100 mg/dL 05/05/2025 9:13 AM EDT [facility] Blood 05/05/2025 9:12 AM EDT 05/05/2025 9:13 AM EDT James Das MD POINT OF CARE TEST ORDERABL ES Final Result Performing Organization Address [facility] Co de Phone Number [facility] [address] * (ABNORMAL) Basic Metabolic Panel, STAT (05/05/2025 8:07 AM EDT) Sodium 141 133 - 146 mmol/L 05/05/2025 8:54 AM EDT [facility] Potassium 3.6 3.5 - 5.3 mmol/L 05/05/2025 8:54 AM EDT [facility] Chloride 97(L) 98 - 110 mmol/L 05/05/2025 8:54 AM EDT [facility] CO2 34(H) 21 - 33 mmol/L 05/05/2025 8:54 AM EDT [facility] Anion Gap 10 3 - 16 mmol/L 05/05/2025 8:54 AM EDT [facility] BUN 28(H) 7 - 25 mg/dL 05/05/2025 8:54 AM EDT [facility] Creatinine 1.09 0.60 - 1.30 mg/dL 05/05/2025 8:54 AM EDT [facility] Glucose 210(H) 70 - 100 mg/dL 05/05/2025 8:54 AM EDT [facility] Calcium 8.7 8.6 - 10.3 mg/dL 05/05/2025 8:54 AM EDT [facility] Osmolality, Calculated 304 278 - 305 mOsm/kg 05/05/2025 8:54 AM EDT [facility] EGFR 79 05/05/2025 8:54 AM EDT [facility] Comment:As of 2021, the estimated GFR is calculated using the 2020 Chronic Kidney Disease Epidemiology Collaboration (CKD-EPI) equation. In line with the NKF-ASN Task Force Recommendations, this equation does not include a coefficient for race. A single eGFR value is calculated for each patient. The reference interval is >60 mL/min/1.73m2. eGFR values greater than 90 will be reported as >90mL/min/1.73m2. Reference: Lazarus C, Nuno M, Bryon DC, Love ND, Gary CA, Marc LA, et al. A Unifying Approach for GFR Estimation: Recommendations of the NKF-ASN Task Force on Reassessing the inclusion of Race in Diagnosing Kidney Disease. Am J Kidney Dis. 2020. Plasma 05/05/2025 8:07 AM EDT 05/05/2025 8:11 AM EDT Augusto Chan MD LAB BLOOD ORDERABLES Lazara lees Result [facility] [address] [place] [address], [facility] * Potassium (05/05/2025 6:21 AM EDT) Potassium 4.7 3.5 - 5.3 mmol/L 05/05/2025 6:44 AM EDT [facility] Comment:Hemolysis Present: R esults may be influenced artificially. Recommend recollection as clinically indicated. Plasma 05/05/2025 6:21 AM EDT 05/05/2025 6:29 AM EDT us Pasquale Rodney MD LAB BLOOD ORDERABLES Final Resul t Performing Organization Address [facility] Co de Phone Number [facility] [address] * (ABNORMAL) Hemoglobin A1c (05/05/2025 5:31 AM EDT) Hemoglobin A1C 12.1(H) 4.0 - 5.6 % 05/05/2025 8:59 AM EDT [facility] Comment: Hemoglobin A1c Interpretation Guidelines: Normal: <5.7% Prediabetes: 5.7-6.4% Diabetes: >6.4% Diagnosis requires two independent tests unless clinical diagnosis is clear. Some clinical conditions, particularly anemias and hemoglobinopathies, may interfere with the diagnostic accuracy of hemoglobin A1c. The recommended goal for diabetic glycemic control (Hemoglobin A1c <7.0%) should be individualized based on duration of diabetes, age/life expectancy, comorbid conditions, known CVD or advanced microvascular complications, hypoglycemia unawareness, and other individual patient considerations. Whole Blood 05/05/2025 5:31 AM EDT 05/05/2025 5:52 AM EDT us Kuldip Mills MD LAB BLOOD ORDERABLES Fi nal Result Performing Organization Address [facility] Co de Phone Number [facility] [address] [facility]. [address] * Magnesium (05/05/2025 5:31 AM EDT) Magnesium 1.9 1.5 - 2.5 mg/dL 05/05/2025 6:05 AM EDT [facility] Plasma 05/05/2025 5:31 AM EDT 05/05/2025 5:43 AM EDT Kuldip Mills MD LAB BLOOD ORDERABLES Fi nal Result [facility] [address] [place] [address], [facility] * (ABNORMAL) Renal Function Panel w/EGFR (05/05/2025 5:31 AM EDT) Sodium 142 133 - 146 mmol/L 05/05/2025 6:05 AM EDT [facility] Potassium 2.9(LL) 3.5 - 5.3 mmol/L 05/05/2025 6:05 AM EDT [facility] Comment:Critical Result K:2. 9 Called to and read back by: CLAUDIA LAY RN at: 05/05/2025 06:04:47 by:EFRAIN Chloride 108 98 - 110 mmol/L 05/05/2025 6:05 AM EDT [facility] CO2 26 21 - 33 mmol/L 05/05/2025 6:05 AM EDT [facility] Anion Gap 8 3 - 16 mmol/L 05/05/2025 6:05 AM EDT [facility] BUN 24 7 - 25 mg/dL 05/05/2025 6:05 AM EDT [facility] Creatinine 0.99 0.60 - 1.30 mg/dL 05/05/2025 6:05 AM EDT [facility] Glucose 194(H) 70 - 100 mg/dL 05/05/2025 6:05 AM EDT [facility] Calcium 6.6(L) 8.6 - 10.3 mg/dL 05/05/2025 6:05 AM EDT [facility] Phosphorus 3.6 2.1 - 4.7 mg/dL 05/05/2025 6:05 AM EDT [facility] Albumin 3.1(L) 3.5 - 5.7 g/dL 05/05/2025 6:05 AM EDT [facility] Osmolality, Calculated 303 278 - 305 mOsm/kg 05/05/2025 6:05 AM EDT [facility] EGFR 89 05/05/2025 6:05 AM EDT [facility] Comment:As of 2021, the estimated GFR is calculated using the 2020 Chronic Kidney Disease Epidemiology Collaboration (CKD-EPI) equation. In line with the NKF-ASN Task Force Recommendations, this equation does not include a coefficient for race. A single eGFR value is calculated for each patient. The reference interval is >60 mL/min/1.73m2. eGFR values greater than 90 will be reported as >90mL/min/1.73m2. Reference: Lazarus C, Nuno M, Bryon DC, Love ND, Gary CA, Marc LA, et al. A Unifying Approach for GFR Estimation: Recommendations of the NKF-ASN Task Force on Reassessing the inclusion of Race in Diagnosing Kidney Disease. Am J Kidney Dis. 2020. Plasma 05/05/2025 5:31 AM EDT 05/05/2025 5:43 AM EDT us Kuldip Mills MD LAB BLOOD ORDERABLES Fi nal Result [facility] [address] * (ABNORMAL) CBC (05/05/2025 5:31 AM EDT) WBC 10.3 3.8 - 10.8 10E3/uL 05/05/2025 6:02 AM EDT [facility] RBC 5.13 4.20 - 5.80 10E6/uL 05/05/2025 6:02 AM EDT [facility] Hemoglobin 15.2 13.2 - 17.1 g/dL 05/05/2025 6:02 AM EDT [facility] Hematocrit 44.0 38.5 - 50.0 % 05/05/2025 6:02 AM EDT [facility] MCV 85.8 80.0 - 100.0 fL 05/05/2025 6:02 AM EDT [facility] MCH 29.6 27.0 - 33.0 pg 05/05/2025 6:02 AM EDT [facility] MCHC 34.5 32.0 - 36.0 g/dL 05/05/2025 6:02 AM EDT [facility] RDW 15.2(H) 11.0 - 15.0 % 05/05/2025 6:02 AM EDT [facility] Platelets 158 140 - 400 10E3/uL 05/05/2025 6:02 AM EDT [facility] MPV 8.4 7.5 - 11.5 fL 05/05/2025 6:02 AM EDT [facility] Whole Blood 05/05/2025 5:31 AM EDT 05/05/2025 5:52 AM EDT Kuldip Mills MD LAB BLOOD ORDERABLES Fi nal Result [facility] [address] [facility] * High Sensitivity Troponin (05/04/2025 11:24 PM EDT) Pathologist [facility] High Sensitivity Troponin 3 0 - 20 ng/L 05/04/2025 11:56 PM EDT [facility] Serum 05/04/2025 11:2 4 PM EDT 05/04/2025 11:29 PM EDT us Justin DIXON LAB BLOOD ORDERABLES Fin al Result [facility] [address] [facility] * Differential (05/04/2025 11:24 PM EDT) Pathologist [facility] Neutrophils Relative 53.7 40.0 - 80.0 % 05/04/2025 11:40 PM EDT [facility] Lymphocytes Relative 32.2 15.0 - 45.0 % 05/04/2025 11:40 PM EDT [facility] Monocytes Relative 10.4 0.0 - 12.0 % 05/04/2025 11:40 PM EDT [facility] Eosinophils Relative 2.8 0.0 - 8.0 % 05/04/2025 11:40 PM EDT [facility] Basophils Relative 0.9 0.0 - 1.0 % 05/04/2025 11:40 PM EDT [facility] nRBC 0 0 - 0 /100 WBC 05/04/2025 11:40 PM EDT [facility] Neutrophils Absolute 5,746 1,520 - 8,640 /uL 05/04/2025 11:40 PM EDT [facility] Lymphocytes Absolute 3,445 570 - 4,860 /uL 05/04/2025 11:40 PM EDT [facility] Monocytes Absolute 1,113 0 - 1,296 /uL 05/04/2025 11:40 PM EDT [facility] Eosinophils Absolute 300 0 - 864 /uL 05/04/2025 11:40 PM EDT [facility] Basophils Absolute 96 0 - 108 /uL 05/04/2025 11:40 PM EDT [facility] Whole Blood 05/04/2025 11:2 4 PM EDT 05/04/2025 11:32 PM EDT us Justin DIXON LAB BLOOD ORDERABLES Fin al Result [facility] [address] [place] [address], [facility] * (ABNORMAL) CBC (05/04/2025 11:24 PM EDT) WBC 10.7 3.8 - 10.8 10E3/uL 05/04/2025 11:40 PM EDT [facility] RBC 5.48 4.20 - 5.80 10E6/uL 05/04/2025 11:40 PM EDT [facility] Hemoglobin 16.3 13.2 - 17.1 g/dL 05/04/2025 11:40 PM EDT [facility] Hematocrit 46.9 38.5 - 50.0 % 05/04/2025 11:40 PM EDT [facility] MCV 85.6 80.0 - 100.0 fL 05/04/2025 11:40 PM EDT [facility] MCH 29.8 27.0 - 33.0 pg 05/04/2025 11:40 PM EDT [facility] MCHC 34.8 32.0 - 36.0 g/dL 05/04/2025 11:40 PM EDT [facility] RDW 15.3(H) 11.0 - 15.0 % 05/04/2025 11:40 PM EDT [facility] Platelets 165 140 - 400 10E3/uL 05/04/2025 11:40 PM EDT [facility] MPV 8.3 7.5 - 11.5 fL 05/04/2025 11:40 PM EDT [facility] Whole Blood 05/04/2025 11:2 4 PM EDT 05/04/2025 11:32 PM EDT Justin DIXON LAB BLOOD ORDERABLES Fin al Result Performing Organization Address [facility] Co de Phone Number [facility] [address] [facility] * (ABNORMAL) BNP (05/04/2025 11:24 PM EDT) BNP 141(H) 0 - 100 pg/mL 05/04/2025 11:55 PM EDT [facility] Comment: BNP may be increased in the presence of sacubitril/valsartan (Entresto). Please interpret accordingly. Plasma 05/04/2025 11:2 4 PM EDT 05/04/2025 11:29 PM EDT Narrative [facility] - 05/04/2025 11:55 PM EDT The presence of high concentrations of biotin may cause falsely lowered BNP results. Biotin interference may be seen if an individual is taking >5 mg biotin per day. Interpret BNP results in the context of the patient's clinical presentation. Justin DIXON LAB BLOOD ORDERABLES Fin al Result Performing Organization Address [facility] Co de Phone Number [facility] [address] [facility] * ED HCV Ab Reflex To HCV Quant (05/04/2025 11:24 PM EDT) HCV Ab Nonreactive Nonreactive 05/05/2025 12:31 AM EDT [facility] Comment:Health Department no tified in accordance with reportable infectious disease guidelines. HCVAB Number 0.03 0.00 - 0.79 S/CO 05/05/2025 12:31 AM EDT [facility] Serum 05/04/2025 11:2 4 PM EDT 05/04/2025 11:32 PM EDT us Justin Franklin PA LAB BLOOD ORDERABLES Fin al Result [facility] [address] [place] [address], [facility] * (ABNORMAL) Basic metabolic panel (05/04/2025 11:24 PM EDT) Sodium 136 133 - 146 mmol/L 05/04/2025 11:52 PM EDT [facility] Potassium 5.0 3.5 - 5.3 mmol/L 05/04/2025 11:52 PM EDT [facility] Comment:Hemolysis Present: R esults may be influenced artificially. Recommend recollection as clinically indicated. Chloride 95(L) 98 - 110 mmol/L 05/04/2025 11:52 PM EDT [facility] CO2 31 21 - 33 mmol/L 05/04/2025 11:52 PM EDT [facility] Anion Gap 10 3 - 16 mmol/L 05/04/2025 11:52 PM EDT [facility] BUN 29(H) 7 - 25 mg/dL 05/04/2025 11:52 PM EDT [facility] Creatinine 1.41(H) 0.60 - 1.30 mg/dL 05/04/2025 11:52 PM EDT [facility] Glucose 287(H) 70 - 100 mg/dL 05/04/2025 11:52 PM EDT [facility] Calcium 9.2 8.6 - 10.3 mg/dL 05/04/2025 11:52 PM EDT [facility] Osmolality, Calculated 298 278 - 305 mOsm/kg 05/04/2025 11:52 PM EDT [facility] EGFR 58 05/04/2025 11:52 PM EDT [facility] Comment:As of 2021, the estimated GFR is calculated using the 2020 Chronic Kidney Disease Epidemiology Collaboration (CKD-EPI) equation. In line with the NKF-ASN Task Force Recommendations, this equation does not include a coefficient for race. A single eGFR value is calculated for each patient. The reference interval is >60 mL/min/1.73m2. eGFR values greater than 90 will be reported as >90mL/min/1.73m2. Reference: Qiu C, Nuno M, Bryon DC, Love ND, Gary CA, Marc LA, et al. A Unifying Approach for GFR Estimation: Recommendations of the NKF-ASN Task Force on Reassessing the inclusion of Race in Diagnosing Kidney Disease. Am J Kidney Dis. 2020. Plasma 05/04/2025 11:2 4 PM EDT 05/04/2025 11:29 PM EDT Justin DIXON LAB BLOOD ORDERABLES Fin al Result [facility] [address] [place] [address], [facility] * ECG for indication of dyspnea (05/04/2025 10:59 PM EDT) 05/04/2025 10:5 9 PM EDT Narrative MUSE - 05/05/2025 8:27 AM EDT Ventricular Rate: 68 BPM Atrial Rate: 68 BPM P-R Interval: 158 ms QRS Duration: 94 ms QT: 440 ms QTc: 467 ms P Linden: 38 degrees R Linden: 69 degrees T Linden: 53 degrees Diagnosis Line: ^ INTERPRETATION NOT AVAILABLE--ECG READ IN ER ^ Confirmed by PHYSICIAN, ER ([id number]), medical editor Ann Thrasher ([id number]) on 05/05/2025 8:27:01 AM Justin DIXON ECG ORDERABLES Final Re sult MUSE * X-ray Chest PA and Lateral (05/04/2025 10:54 PM EDT) Anatomical Region Laterality Modality Chest Radiographic Lesly ging 05/04/2025 10:5 0 PM EDT Impressions 05/04/2025 11:00 PM EDT IMPRESSION: No acute cardiopulmonary abnormality. Report Verified by: Live Hampton MD at 05/04/2025 11:00 PM EDT Narrative 05/04/2025 11:00 PM EDT EXAM: XR CHEST PA AND LATERAL INDICATION: Dyspnea, unspecified TECHNIQUE: 2 views of the chest. COMPARISON: 12/11/2024 FINDINGS: Medical Devices: None. Heart and Mediastinum: Cardiac size is within normal limits. Postoperative changes from prior CABG. Lungs and Pleura: Lungs are clear with no pleural effusions or evidence of pneumothorax. Bones and Soft tissues: No acute abnormalities. Procedure Note Live Hampton MD - 05/04/2025 EXAM: XR CHEST PA AND LATERAL INDICATION: Dyspnea, unspecified TECHNIQUE: 2 views of the chest. COMPARISON: 12/11/2024 FINDINGS: Medical Devices: None. Heart and Mediastinum: Cardiac size is within normal limits. Postoperativechanges from prior CABG. Lungs and Pleura: Lungs are clear with no pleural effusions or evidence ofpneumothorax. Bones and Soft tissues: No acute abnormalities. IMPRESSION: No acute cardiopulmonary abnormality. Report Verified by: Live Hampton MD at 05/04/2025 11:00 PM EDT Justin DIXON IMG DIAGNOSTIC IMAGING O RDERABLES Final Result documented in this encounter Visit Diagnoses Diagnosis Acute on chronic heart failure with preserved ejection fraction ([facility])- Primary Acute on chronic diastolic congestive heart failure [place] Type 2 diabetes mellitus with other specified complication, with long-term current use of insulin [place] VALARIE (obstructive sleep apnea) Obstructive sleep apnea (adult) (pediatric) JULIANA (acute kidney injury) [place] Hypertension Unspecified essential hypertension T2DM (type 2 diabetes mellitus) [place] Type II or unspecified type diabetes mellitus without mention of complication, not stated as uncontrolled HLD (hyperlipidemia) Other and unspecified hyperlipidemia CAD (coronary artery disease) Coronary atherosclerosis of unspecified type of vessel, [place] or graft Anxiety and depression GERD (gastroesophageal reflux disease) Esophageal reflux BPH (benign prostatic hyperplasia) Unspecified hyperplasia of prostate without urinary obstruction and other lower urinary tract symptoms (LUTS) VALARIE (obstructive sleep apnea) Obstructive sleep apnea (adult) (pediatric) * Assessment & Plan Note - Augusto Chan MD - 05/07/2025 10:16 AM EDT Associated Problem(s): VALARIE (obstructive sleep apnea) Previously on CPAP, patient stated was not able to tolerate it and has not been using for at least one month. - Follow-up outpt sleep medicine for consideration of BPAP/AVAPS if better tolerated * Assessment & Plan Note - Augusto Chan MD - 05/07/2025 10:16 AM EDT Associated Problem(s): Acute on chronic heart failure with preserved ejection fraction ([facility]) Last ADHF 11/2024. P/w 1wk progressive ELIUD and orthopnea despite increasing pt's torsemide [id number] daily to 80mg daily (taken as BID split dosing; manages meds). Admit wt 340 from EDW 328-330. Admit BNP 141. Received escalating doses of IV lasix on day of admission (60, then 80, then 100), with robust UOP to final dose (6.5L output total, 5.3L net neg). Cr improved initially but worsened w/ rapid diuresis with IV lasix and empagliflozin, so diuretics held on day 2 of admission when pt was at his EDW. Cr improved on day 3 of admission, so torsemide 60mg started and patient discharged on home GDMT. ARB held during admission and resumed on discharge. Wt 326 lb on discharge. - Increase torsemide to 60mg and take daily instead of BID - GDMT: -- Cont home valsartan 20mg daily -- Cont home empgliflozin 25mg daily -- Not on spironolactone recently, consider starting on follow-up (and stopping home K supplement) -- Not on GLP1a 2/2 pancreatitis, shared decision making outpt for retrial (perhaps tirzepatide instead of semaglutide) - Follow-up BMP in 1wk - Follow-up cardiac rehab, CHF clinic, after discharge clinic * Assessment & Plan Note - Augusto Chan MD - 05/07/2025 10:16 AM EDT Associated Problem(s): JULIANA (acute kidney injury) ([facility]) (Resolved 05/07/2025) BL Cr 1.1-1.2, admit Cr 1.41. Likely cardiorenal given improvement with diuresis, with subsequent worsening from overdiuresis. Improved to baseline on discharge. - Follow-up BMP as above * Assessment & Plan Note - Augusto Chan MD - 05/07/2025 10:16 AM EDT Associated Problem(s): T2DM (type 2 diabetes mellitus) ([facility]) A1c 12.1 05/05/25. Home glargine 64 qHS, lispro 24 TIDAC, metformin, and empagliflozin. - Resume home insulin on discharge, will need PCP follow up for adjustments - Cont home gabapentin 100mg qHS for neuropathic pain * Assessment & Plan Note - Augusto Chan MD - 05/07/2025 10:16 AM EDT Associated Problem(s): CAD (coronary artery disease) Hx CABG x4 in 08/2021. - Cont home ASA 81mg daily, atorvastatin 80mg daily, ezetimibe 10mg daily - Cont home metop succinate 50mg daily, GDMT as above * Assessment & Plan Note - Augusto Chan MD - 05/07/2025 10:16 AM EDT Associated Problem(s): HLD (hyperlipidemia) Hx CABG x4 in 08/2021. - Cont home ASA 81mg daily, atorvastatin 80mg daily, ezetimibe 10mg daily - Cont home metop succinate 50mg daily, GDMT as above * Assessment & Plan Note - Augusto Chan MD - 05/07/2025 10:16 AM EDT Associated Problem(s): Hypertension Hx CABG x4 in 08/2021. - Cont home ASA 81mg daily, atorvastatin 80mg daily, ezetimibe 10mg daily - Cont home metop succinate 50mg daily, GDMT as above * Assessment & Plan Note - Augusto Chan MD - 05/07/2025 10:16 AM EDT Associated Problem(s): Anxiety and depression - Cont home fluoxetine 40 mg BID, bupropion 300 mg daily, mirtazapine 15 mg qHS, valproic acid 100 mg BID * Assessment & Plan Note - Augusto Chan MD - 05/07/2025 10:16 AM EDT Associated Problem(s): GERD (gastroesophageal reflux disease) - Cont home PPI * Assessment & Plan Note - Augusto Chan MD - 05/07/2025 10:16 AM EDT Associated Problem(s): BPH (benign prostatic hyperplasia) - Cont home tamsulosin 0.8 mg qHS * Assessment & Plan Note - Augusto Chan MD - 05/06/2025 5:33 PM EDT Associated Problem(s): Acute on chronic heart failure with preserved ejection fraction ([facility]) Patient has one week of BLE pitting edema and orthopnea despite increased torsemide dose, where Pt's confirmed he took a total of 80 mg torsemide daily for a couple days leading up to admission but this helped minimally. Home regimen of Jardiance 25 mg daily, torsemide 40 mg daily (20 mg BID),Toprol XL 50 mg daily, and valsartan 20 mg daily. Admission weight 340 lbs up from suspected dry weight of 328-330 lbs. Will begin diuresis and monitory renal panel. Last CHF exacerbation admission in 11/2024. Received IV lasix 60 mg earlier this AM. - hold lasix, spironolactone, and empagliflozin * Assessment & Plan Note - Augusto Chan MD - 05/06/2025 5:33 PM EDT Associated Problem(s): JULIANA (acute kidney injury) [place] (Resolved 05/07/[place]25) Cr on admission of 1.41, most recent Cr in 11/2024 of 1.1, baseline of ~1.1-1.2. Suspect JULIANA may beresult of diuresis from increased torsemide dose over past week. - Cr increase likely due to rapid diuresis * Assessment & Plan Note - Augusto Chan MD - 05/06/2025 5:33 PM EDT Associated Problem(s): Hypertension Patient normotensive on admission. Home regimen of Toprol XL 50 mg daily, and valsartan 20 mg daily. Holding home valsartan 40 mg daily Continue home metoprolol succinate 40 mg daily * Assessment & Plan Note - Augusto Chan MD - 05/06/2025 5:33 PM EDT Associated Problem(s): T2DM (type 2 diabetes mellitus) ([facility] Last Hgb A1c in 11/2024 was 10.2. At home, takes Glargine 64 units nightly, Lispro 24 units TID with meals, metformin, and Jardiance. Glargine 40 units nightly Lispro 16 units TID with meals LDSSI Hypoglycemic protocol Hemoglobin A1c Continue gabapentin 100 mg nightly for neuropathic pain Hold home Jardiance and metformin * Assessment & Plan Note - Augusto Chan MD - 05/06/2025 5:33 PM EDT Associated Problem(s): HLD (hyperlipidemia) Continue home atorvastatin 80 mg daily Continue home ezetimibe 10 mg daily * Assessment & Plan Note - Augusto Chan MD - 05/06/2025 5:33 PM EDT Associated Problem(s): CAD (coronary artery disease) Hx CABG x4 in 08/2021. Continue home aspirin 81 mg daily Continue home atorvastatin 80 mg daily * Assessment & Plan Note - Augusto Chan MD - 05/06/2025 5:33 PM EDT Associated Problem(s): Anxiety and depression Continue home fluoxetine 40 mg BID Continue home bupropion 300 mg daily Continue home mirtazapine 15 mg QHS Continue home valproic acid 100 mg BID * Assessment & Plan Note - Augusto Chan MD - 05/06/2025 5:33 PM EDT Associated Problem(s): GERD (gastroesophageal reflux disease) Continue home pantoprazole 20 mg daily * Assessment & Plan Note - Augusto Chan MD - 05/06/2025 5:33 PM EDT Associated Problem(s): BPH (benign prostatic hyperplasia) Continue home tamsulosin 0.8 mg QHS * Assessment & Plan Note - Augusto Chan MD - 05/06/2025 5:33 PM EDT Associated Problem(s): VALARIE (obstructive sleep apnea) Previously on CPAP, patient stated was not able to tolerate it and has not been using for at least one month. Consider nightly CPAP if requested * Assessment & Plan Note - Ifeoma Lynn DO - 05/05/2025 2:29 PM EDTAssociated Problem(s): Acute on chronic heart failure with preserved ejection fraction ([facility]) Patient has one week of BLE pitting edema and orthopnea despite increased torsemide dose, where Pt's confirmed he took a total of 80 mg torsemide daily for a couple days leading up to admission but this helped minimally. Home regimen of Jardiance 25 mg daily, torsemide 40 mg daily (20 mg BID),Toprol XL 50 mg daily, and valsartan 20 mg daily. Admission weight 340 lbs up from suspected dry weight of 328-330 lbs. Will begin diuresis and monitory renal panel. Last CHF exacerbation admission in 11/2024. Received IV lasix 60 mg earlier this AM. IV lasix 80 mg this AM, and will evaluate response based on UOP and recheck renal panel this afternoon as well as urine sodium Strict I/Os Daily standing weights CMU tele and pulse ox for 48hr CHF monitoring PT/OT Daily RFP with Mg; replete lytes as needed 1 tablet 20 mg morning and night * Assessment & Plan Note - Ifeoma Lynn DO - 05/05/2025 9:00 AM EDTAssociated Problem(s): JULIANA (acute kidney injury) ([facility]) (Resolved 05/07/2025) Cr on admission of 1.41, most recent Cr in 11/2024 of 1.1, baseline of ~1.1-1.2. Suspect JULIANA may beresult of diuresis from increased torsemide dose over past week. Strict I/Os Daily renal panel; replete lytes as needed * Assessment & Plan Note - Ifeoma Lynn DO - 05/05/2025 9:00 AM EDTAssociated Problem(s): Hypertension Patient normotensive on admission. Home regimen of Toprol XL 50 mg daily, and valsartan 20 mg daily. Holding home valsartan 40 mg daily Continue home metoprolol succinate 40 mg daily * Assessment & Plan Note - Ifeoma Lynn DO - 05/05/2025 9:00 AM EDTAssociated Problem(s): T2DM (type 2 diabetes mellitus) ([facility]) Last Hgb A1c in 11/2024 was 10.2. At home, takes Glargine 64 units nightly, Lispro 24 units TID with meals, metformin, and Jardiance. Glargine 40 units nightly Lispro 16 units TID with meals LDSSI Hypoglycemic protocol Hemoglobin A1c Continue gabapentin 100 mg nightly for neuropathic pain Hold home Jardiance and metformin * Assessment & Plan Note - Ifeoma Lynn DO - 05/05/2025 9:00 AM EDTAssociated Problem(s): HLD (hyperlipidemia) Continue home atorvastatin 80 mg daily Continue home ezetimibe 10 mg daily * Assessment & Plan Note - Ifeoma Lynn DO - 05/05/2025 9:00 AM EDTAssociated Problem(s): CAD (coronary artery disease) Hx CABG x4 in 08/2021. Continue home aspirin 81 mg daily Continue home atorvastatin 80 mg daily * Assessment & Plan Note - Ifeoma Lynn DO - 05/05/2025 9:00 AM EDTAssociated Problem(s): Anxiety and depression Continue home fluoxetine 40 mg BID Continue home bupropion 300 mg daily Continue home mirtazapine 15 mg QHS Continue home valproic acid 100 mg BID * Assessment & Plan Note - Ifeoma Lynn DO - 05/05/2025 9:00 AM EDTAssociated Problem(s): GERD (gastroesophageal reflux disease) Continue home pantoprazole 20 mg daily * Assessment & Plan Note - Ifeoma Lynn DO - 05/05/2025 9:00 AM EDTAssociated Problem(s): BPH (benign prostatic hyperplasia) Continue home tamsulosin 0.8 mg QHS * Assessment & Plan Note - Ifeoma Lynn DO - 05/05/2025 9:00 AM EDTAssociated Problem(s): VALARIE (obstructive sleep apnea) Previously on CPAP, patient stated was not able to tolerate it and has not been using for at least one month. Consider nightly CPAP if requested * Assessment & Plan Note - Pasquale Rodney MD - 05/05/2025 7:43 AM EDTAssociated Problem(s): Acute on chronic heart failure with preserved ejection fraction ([facility]) Patient has one week of BLE pitting edema and orthopnea despite increased torsemide dose. Admissionweight 340 lbs up from suspected dry weight of 328-330 lbs. No other signs of fluid overload, lungsclear on exam. Will begin diuresis and monitory renal panel. Last CHF exacerbation admission in 11/2024. Plan: - IV lasix - Strict I/Os - Daily standing weights - CMU tele and pulse ox for 48hr CHF monitoring - Albuterol nebulizer 2.5 mg q4h PRN for wheezing - Tylenol 650 mg q4h PRN for fever/pain - PT/OT - Daily RFP with Mg; replete lytes - Hold home torsemide * Assessment & Plan Note - Pasquale Rodney MD - 05/05/2025 7:43 AM EDTAssociated Problem(s): JULIANA (acute kidney injury) [place] (Resolved 05/07/2025) Cr on admission of 1.41, most recent Cr in 11/2024 of 1.1, baseline of ~1.1-1.2. Suspect JULIANA may beresult of diuresis from increased torsemide dose over past week. Plan: - CTM - Strict I/Os - Daily renal panel; replete lytes * Assessment & Plan Note - Pasquale Rodney MD - 05/05/2025 7:43 AM EDTAssociated Problem(s): Hypertension Patient normotensive on admission. Continuing home BP meds.. Plan: - Continue home valsartan 40 mg daily - Continue home metoprolol succinate 40 mg daily * Assessment & Plan Note - Pasquale Rodney MD - 05/05/2025 7:43 AM EDTAssociated Problem(s): T2DM (type 2 diabetes mellitus) ([facility] Last Hgb A1c in 11/2024 was 10.2. At home, takes Glargine 64 units nightly, Lispro 24 units TID with meals, metformin, and Jardiance. Plan: - Glargine 40 units nightly - Lispro 16 units TID with meals - LDSSI - Hypoglycemic protocol - Hemoglobin A1c - Continue gabapentin 100 mg nightly for neuropathic pain - Hold home Jardiance and metformin * Assessment & Plan Note - Pasquale Rodney MD - 05/05/2025 7:43 AM EDTAssociated Problem(s): HLD (hyperlipidemia) - Continue home atorvastatin 80 mg daily - Continue home ezetimibe 10 mg daily * Assessment & Plan Note - Pasquale Rodney MD - 05/05/2025 7:43 AM EDTAssociated Problem(s): CAD (coronary artery disease) Hx CABG x4 in 08/2021. - Continue home Aspirin 81 mg daily, atorvastatin 80 mg daily * Assessment & Plan Note - Pasquale Rodney MD - 05/05/2025 7:43 AM EDTAssociated Problem(s): Anxiety and depression - Continue home fluoxetine 40 mg BID - Continue home bupropion 300 mg daily - Continue home mirtazapine 15 mg QHS - Continue home valproic acid 100 mg BID * Assessment & Plan Note - Pasquale Rodney MD - 05/05/2025 7:43 AM EDTAssociated Problem(s): GERD (gastroesophageal reflux disease) - Pantoprazole 20 mg daily * Assessment & Plan Note - Pasquale Rodney MD - 05/05/2025 7:43 AM EDTAssociated Problem(s): BPH (benign prostatic hyperplasia) - Continue home tamsulosin 0.8 mg QHS * Assessment & Plan Note - Pasquale Rodney MD - 05/05/2025 7:43 AM EDTAssociated Problem(s): VALARIE (obstructive sleep apnea) Previously on CPAP, patient stated was at highest settings and he was not able to tolerate it. Has not been using for at least one month. - Consider nightly CPAP, but patient previously did not tolerate documented in this encounter Administered Medications Inactive Administered Medications - up to 3 most recent administrations Medication Order MAR Action Action Date Dose Rate Site acetaminophen (TYLENOL) tablet 650 mg 650 mg, Oral, Every 4 hours PRN, Body Temperature > 101F, mild pain (NRS 1-3); no comparable CPOT score, moderate pain (NRS 4-6) or if patient is non-communicative (CPOT 3-5), severe pain (NRS 7-10) or if patient is non-communicative (CPOT 6-8), Body Temperature > 101.4F, Headaches, Body Temperature > 100.4F, NRS 1-10; use prior to opioids if opiods are also ordered, then reassess pain score within 90 minutes, Starting on Sun05/05/25 at 0334, Maximum dose of acetaminophen is 4000 mg (4 grams) from all sources in 24 hours. Given 05/05/2025 10:18 AM EDT 650 mg aspirin EC tablet 81 mg 81 mg, Oral, Daily, First dose on Sun05/06/25 at 0900, DO NOT CRUSH OR CHEW Given 05/07/2025 8:20 AM EDT 81 mg Given 05/06/2025 8:39 AM EDT 81 mg atorvastatin (LIPITOR) tablet 80 mg 80 mg, Oral, Daily, First dose on Sun05/06/25 at 0900 Given 05/07/2025 8:20 AM EDT 80 mg Given 05/06/2025 8:38 AM EDT 80 mg buPROPion HCL (WELLBUTRIN XL) 24 hr tablet 300 mg 300 mg, Oral, Daily, First dose on Sun05/06/25 at 0900, CAUTION: *Look-Alike Sound-Alike with Bupropion SR (Wellbutrin SR) Tablet Extended Release 12 Hour.* Swallow whole; do not crush, chew, or divide. Chewing, crushing, injecting, or dividing long-acting products may increase seizure risk. Given 05/07/2025 8:20 AM EDT 300 mg Given 05/06/2025 8:39 AM EDT 300 mg dextrose 10%-water (D10W) IV soln 12.5 g, Intravenous, Every 15 min PRN, Low blood sugar, for glucose < 70 and alert but can not be corrected, orally or via feeding tube, Starting on Sun05/05/25 at 0357, Recheck blood sugar in 15 minutes and repeat treatment if glucose still < 70. For Smart Pump: Set volume to be infused; 125 ml for 12.5 grams or 250 mL for 25 grams. dextrose 10%-water (D10W) IV soln 25 g, Intravenous, Every 15 min PRN, Low blood sugar, for glucose < 70 and not alert, Starting on Sun05/05/25 at 0357, Recheck glucose in 15 minutes and repeat treatment if glucose still < 70. For Smart Pump: Set volume to be infused; 125 ml for 12.5 grams or 250 mL for 25 grams. empagliflozin (JARDIANCE) tablet 25 mg 25 mg, Oral, Daily, First dose on Sun05/05/25 at 0936, To minimize the risk of euglycemic diabetic ketoacidosis with empagliflozin, patients must regularly be consuming at least 50% of meals. If patient has not been eating regularly in the last 24-48 hours or has been NPO, please do not administer empagliflozin and contact the provider., Select indication for Empagliflozin (JARDIANCE): Heart Failure, : The following questions address risk factors for developing euglycemic diabetic ketoacidosis (DKA) with empaglflozin. Please consider clinical status carefully before initiating., Does the patient have Type 1 Diabetes Mellitus or history of DKA? No, Is the patient anticipated to be NPO in the next 72 hours? No, On hold since [facility] 05/07/2025 at 0811 until manually unheld Given 05/05/2025 10:08 AM EDT 25 mg ezetimibe (ZETIA) tablet 10 mg 10 mg, Oral, Daily, First dose on Sun05/06/25 at 0900 Given 05/07/2025 8:20 AM EDT 10 mg Given 05/06/2025 8:38 AM EDT 10 mg FLUoxetine (PROZAC) capsule 40 mg 40 mg, Oral, 2 times daily, First dose on Sun05/05/25 at 2100 Given 05/07/2025 8:20 AM EDT 40 mg Given 05/06/2025 8:14 PM EDT 40 mg Given 05/06/2025 8:38 AM EDT 40 mg furosemide (LASIX) injection 100 mg 100 mg, Intravenous, Once, On Sun05/05/25 at 1600, For 1 dose, Give doses of 100mg or less over 5 minutes. For doses over 100mg, give at rate of up to 20mg/min. Given 05/05/2025 4:50 PM EDT 100 mg furosemide (LASIX) injection 60 mg 60 mg, Intravenous, Once, On Sun05/05/25 at 0209, For 1 dose, Give doses of 100mg or less over 5 minutes. For doses over 100mg, give at rate of up to 20mg/min. Given 05/05/2025 2:16 AM EDT 60 mg furosemide (LASIX) injection 80 mg 80 mg, Intravenous, Once, On Sun05/05/25 at 0931, For 1 dose, Give doses of 100mg or less over 5 minutes. For doses over 100mg, give at rate of up to 20mg/min. Given 05/05/2025 10:07 AM EDT 80 mg gabapentin (NEURONTIN) capsule 100 mg 100 mg, Oral, At Bedtime (2099), First dose on Sun05/06/25 at 2100 Given 05/06/2025 8:14 PM EDT 100 mg glucose chewable tablet 12 g 12 g, Oral, Every 15 min PRN, Low blood sugar, see admin instructions, Starting on Sun05/05/25 at 0357, TAKING PO: Patient has blood glucose between 50-70 mg/dL. o Give 15 grams of fast-acting carbohydrate (4 oz. fruit juice or 4 oz. non-diet soda or 3 glucose tablets). o Recheck blood sugar in 15 minutes and repeat if blood sugar is still between 50-70 mg/dL. Repeat as needed. Patient has blood glucose less than 50 mg/dL o Give 30 grams fast-acting carbohydrate (8 oz. fruit juice or 8 oz. of non-diet soda or 6 glucose tablets) on first attempt. o Recheck blood sugar in 15 minutes and repeat if blood sugar is still less than 50mg/dL. o If further attempts necessary, revert to 15 grams of carbohydrate. Repeat as needed. FEEDING TUBE: Patient has blood glucose between 50-70 mg/dL. o Give 15 grams of fast-acting carbohydrate (4 oz. fruit juice or 4 oz.non-diet soda). o Recheck blood sugar in 15 minutes and repeat if blood sugar is still between 50-70 mg/dL. Repeat as needed. Patient has blood glucose less than 50 mg/dL o Give 30 grams fast-acting carbohydrate (8 oz. fruit juice or 8 oz. of non-diet soda). o Recheck blood sugar in 15 minutes and repeat if blood sugar is still less than 50mg/dL. o If further attempts necessary, revert to 15 grams of carbohydrate. Repeat as needed. Labeled tablet strength may vary by crab backer (may be expressed as grams of carbohydrates) per tablet. Each tablet = 4 grams of glucose. Do not give chewable tablets via feeding tube heparin (porcine) injection 5,000 Units 5,000 Units, Subcutaneous, Every 8 hours scheduled (3 times per day), First dose on Sun05/05/25 at 0500 Given 05/07/2025 5:53 AM EDT 5,000 Units Right Arm Given 05/06/2025 10:43 PM EDT 5,000 Units Right Arm Given 05/06/2025 3:32 PM EDT 5,000 Units R ight Arm insulin glargine (LANTUS) injection 40 Units 40 Units, Subcutaneous, At Bedtime (2100), First dose on Sun05/05/25 at 0358, Do not hold medication unless instructed by provider. HIGH ALERT MEDICATION Given 05/06/2025 8:15 PM EDT 40 Units Right Arm Given 05/05/2025 8:26 PM EDT 40 Units Ri ght Arm Given 05/05/2025 4:32 AM EDT 40 Units Ab dominal Tissue insulin lispro (humaLOG/ADMELOG) injection 0-8 Units 0-8 Units, Subcutaneous, 3 times daily before meals, First dose on Sun05/05/25 at 0900, HIGH ALERT MEDICATION Given 05/06/2025 8:38 AM EDT 1 Units Left Arm Given 05/05/2025 6:44 PM EDT 3 Units Le ft Arm Given 05/05/2025 9:17 AM EDT 1 Units Ri ght Arm insulin lispro (humaLOG/ADMELOG) injection 16 Units 16 Units, Subcutaneous, 3 times daily before meals, First dose on Sun05/05/25 at 0900, HIGH ALERT MEDICATION Onset of action is rapid. Give dose 5-10 minutes before meal. Have meal at bedside. Given 05/07/2025 8:51 AM EDT 16 Units Left Arm Given 05/06/2025 6:42 PM EDT 16 Units Le ft Arm Given 05/06/2025 8:36 AM EDT 16 Units Le ft Arm magnesium sulfate in sterile water 100 mL IVPB 4 g 4 g, Intravenous, at 25 mL/hr, Once, On Sun05/05/25 at 0751, For 1 dose New Bag 05/05/2025 9:09 AM EDT 4 g 25 mL/hr metoprolol succinate (TOPROL-XL) 24 hr tablet 50 mg 50 mg, Oral, Daily, First dose on Sun05/06/25 at 0900, DO NOT CRUSH Given 05/07/2025 8:20 AM EDT 50 mg Given 05/06/2025 8:39 AM EDT 50 mg mirtazapine (REMERON) tablet 15 mg 15 mg, Oral, At Bedtime (2099), First dose on Sun05/06/25 at 2100 Given 05/06/2025 8:15 PM EDT 15 mg pantoprazole (PROTONIX) EC tablet 40 mg 40 mg, Oral, Daily6, First dose on Sun05/05/25 at 0600, Therapeutic Interchange for omeprazole 20mg Oral = pantoprazole 40mg Oral Do Not Crush Given 05/07/2025 5:53 AM EDT 40 mg Given 05/06/2025 5:47 AM EDT 40 mg Given 05/05/2025 5:54 AM EDT 40 mg perflutren (OPTISON) Susp 0.66 mg 0.66 mg, Intravenous, IMG once as needed, contrast, Starting on Sun05/05/25 at 1638, For 1 dose Given 05/05/2025 4:08 PM EDT 0.66 mg polyethylene glycol (MIRALAX) packet 17 g 17 g, Oral, 2 times daily PRN, Constipation, Starting on Sun05/05/25 at 0337 potassium chloride (KLOR-CON M20) CR tablet 20 mEq 20 mEq, Oral, Once, On Sun05/07/25 at 0900, For 1 dose, FOR PATIENTS UNABLE TO SWALLOW LARGE TABLETS, but can take liquids orally: Place tablet(s) in room temperature or warm water (@ 2-4 ounces) and allow to disintegrate for ~ 30 seconds. Then stir well and administer immediately before particles settle. NOTE: not all particles will go into solution. DO NOT CRUSH or CHEW; TABLET(S) MAY BE SPLIT Given 05/07/2025 8:20 AM EDT 20 mEq potassium chloride (KLOR-CON M20) CR tablet 40 mEq 40 mEq, Oral, Once, On Sun05/05/25 at 0905, For 1 dose, FOR PATIENTS UNABLE TO SWALLOW LARGE TABLETS, but can take liquids orally: Place tablet(s) in room temperature or warm water (@ 2-4 ounces) and allow to disintegrate for ~ 30 seconds. Then stir well and administer immediately before particles settle. NOTE: not all particles will go into solution. DO NOT CRUSH or CHEW; TABLET(S) MAY BE SPLIT Given 05/05/2025 9:17 AM EDT 40 mEq tamsulosin (FLOMAX) capsule 0.8 mg 0.8 mg, Oral, At Bedtime (2099), First dose on Sun05/06/25 at 2100, DO NOT ADMINISTER VIA FEEDING TUBE Given 05/06/2025 8:15 PM EDT 0.8 mg torsemide (DEMADEX) tablet 60 mg 60 mg, Oral, Daily, First dose on Sun05/06/25 at 0900 Given 05/07/2025 9:00 AM EDT 60 mg valproic acid (DEPAKENE) capsule 1,000 mg 1,000 mg, Oral, 2 times daily, First dose on Sun05/06/25 at 2100 Given 05/07/2025 8:19 AM EDT 1,000 mg Given 05/06/2025 8:15 PM EDT 1,000 mg valproic acid (DEPAKENE) syrup 1,000 mg 1,000 mg, Oral, 2 times daily, First dose on Sun05/05/25 at 0900 Given 05/06/2025 8:43 AM EDT 1,000 mg Given 05/05/2025 9:12 PM EDT 1,000 mg Given 05/05/2025 11:35 AM EDT 1,000 mg documented in this encounter Active and Recently Administered Medications Times are shown in EDT. Scheduled Medication Order 05/05/2025 05/06/2025 05/07/2025 aspirin EC tablet 81 mg 81 mg, Oral, Daily, First dose on Sun05/06/25 at 0900, DO NOT CRUSH OR CHEW 0839 (Given - Provider: Martha Neville, SHELLY) 0820 (Given - Provider: Bhavani Crawford, RN) atorvastatin (LIPITOR) tablet 80 mg 80 mg, Oral, Daily, First dose on Sun05/06/25 at 0900 0838 (Given - Provider: Martha Neville, RN) 0820 (Given - Provider: Bhavani Crawford, SHELLY) buPROPion HCL (WELLBUTRIN XL) 24 hr tablet 300 mg 300 mg, Oral, Daily, First dose on Sun05/06/25 at 0900, CAUTION: *Look-Alike Sound-Alike with Bupropion SR (Wellbutrin SR) Tablet Extended Release 12 Hour.* Swallow whole; do not crush, chew, or divide. Chewing, crushing, injecting, or dividing long-acting products may increase seizure risk. 0839 (Given - Provider: Martha Neville RN) 0820 (Given - Provider: Bhavani Crawford, SHELLY) empagliflozin (JARDIANCE) tablet 25 mg 25 mg, Oral, Daily, First dose on Sun05/05/25 at 0936, To minimize the risk of euglycemic diabetic ketoacidosis with empagliflozin, patients must regularly be consuming at least 50% of meals. If patient has not been eating regularly in the last 24-48 hours or has been NPO, please do not administer empagliflozin and contact the provider., Select indication for Empagliflozin (JARDIANCE): Heart Failure, : The following questions address risk factors for developing euglycemic diabetic ketoacidosis (DKA) with empaglflozin. Please consider clinical status carefully before initiating., Does the patient have Type 1 Diabetes Mellitus or history of DKA? No, Is the patient anticipated to be NPO in the next 72 hours? No, On hold since Sun05/07/2025 at 0811 until manually unheld 1008 (Given - Provider: Demi Olguin RN - Comment: Approved by Zaria QUINONES) 0836 (Held by provider - Provider: Augusto Chan MD - Reason: Acute kidney injury)0900 (Hold - Provider: Martha Neville RN - Reason: Other - Comment: per MD order) 0808 (Unheld by provider - Provider: Augusto Chan MD)0811 (Held by provider - Provider: Augusto Chan MD - Reason: Other)0900 (Not Given - Provider: Bhavani Crawford RN - Reason: Other - Comment: held by MD)1534 (Unheld by provider - Provider: Automatic Discharge Provider) ezetimibe (ZETIA) tablet 10 mg 10 mg, Oral, Daily, First dose on Sun05/06/25 at 0900 0838 (Given - Provider: Martha Neville RN) 0820 (Given - Provider: Bhavani Crawford RN) FLUoxetine (PROZAC) capsule 40 mg 40 mg, Oral, 2 times daily, First dose on Sun05/05/25 at 2100 2025 (Given - Provider: Nicole Hickman) 0838 (Given - Provider: Martha Neville RN)2013 (Given - Provider: Nicole Hickman) 0820 (Given - Provider: Bhavani Crawford RN) furosemide (LASIX) injection 100 mg (COMPLETED) 100 mg, Intravenous, Once, On Sun05/05/25 at 1600, For 1 dose, Give doses of 100mg or less over 5 minutes. For doses over 100mg, give at rate of up to 20mg/min. 1650 (Given - Provider: Caitie Silva RN) furosemide (LASIX) injection 60 mg (COMPLETED) 60 mg, Intravenous, Once, On Sun05/05/25 at 0209, For 1 dose, Give doses of 100mg or less over 5 minutes. For doses over 100mg, give at rate of up to 20mg/min. 0216 (Given - Provider: Claudia Lay RN) furosemide (LASIX) injection 80 mg (COMPLETED) 80 mg, Intravenous, Once, On Sun05/05/25 at 0931, For 1 dose, Give doses of 100mg or less over 5 minutes. For doses over 100mg, give at rate of up to 20mg/min. 1007 (Given - Provider: Demi Olguin RN) gabapentin (NEURONTIN) capsule 100 mg 100 mg, Oral, At Bedtime (2099), First dose on Sun05/06/25 at 2100 2013 (Given - Provider: Nicole Hickman) heparin (porcine) injection 5,000 Units 5,000 Units, Subcutaneous, Every 8 hours scheduled (3 times per day), First dose on Sun05/05/25 at 0500 0554 (Given - Provider: Claudia Lay RN)1223 (Given - Provider: Sherine Strauss RN)2025 (Given - Provider: Nicole Hickman) 0547 (Given - Provider: Nicole Hickman)1532 (Given - Provider: Martha Neville RN)2243 (Given - Provider: Nicole Hickman) 0553 (Given - Provider: Nicole Hickamn) insulin glargine (LANTUS) injection 40 Units 40 Units, Subcutaneous, At Bedtime (2099), First dose on Sun05/05/25 at 0358, Do not hold medication unless instructed by provider. HIGH ALERT MEDICATION 0432 (Given - Provider: Claudia Lay RN)2025 (Given - Provider: Nicole Hickman) 2014 (Given - Provider: Nicole Hickman) insulin lispro (humaLOG/ADMELOG) injection 0-8 Units 0-8 Units, Subcutaneous, 3 times daily before meals, First dose on Sun05/05/25 at 0900, HIGH ALERT MEDICATION 0917 (Given - Provider: Demi Olguin RN)1226 (Hold - Provider: Sherine Strauss RN - Reason: Other - Comment: pt not eating lunch at this time)1844 (Given - Provider: Caitie Silva RN) 0838 (Given - Provider: Martha Neville RN)1309 (Not Given - Provider: Martha Neville RN - Reason: Order parameters not met)1759 (Not Given - Provider: Martha Neville RN - Reason: Order parameters not met) 0821 (Not Given - Provider: Bhavani Crawford RN - Reason: Order parameters not met) insulin lispro (humaLOG/ADMELOG) injection 16 Units 16 Units, Subcutaneous, 3 times daily before meals, First dose on Sun05/05/25 at 0900, HIGH ALERT MEDICATION Onset of action is rapid. Give dose 5-10 minutes before meal. Have meal at bedside. 0917 (Given - Provider: Demi Olguin RN)1226 (Hold - Provider: Sherine Strauss RN - Reason: Other - Comment: pt not eating lunch at this time)1655 (Given - Provider: Caitie Silva RN) 0836 (Given - Provider: Martha Neville RN)1347 (Not Given - Provider: Martha Neville RN - Reason: Order parameters not met)1842 (Given - Provider: Martha Neville RN) 0851 (Given - Provider: Bhavani Crawford RN) magnesium sulfate in sterile water 100 mL IVPB 4 g (COMPLETED) 4 g, Intravenous, at 25 mL/hr, Once, On Sun05/05/25 at 0751, For 1 dose 0909 (New Bag - Provider: Demi Olguin RN) metoprolol succinate (TOPROL-XL) 24 hr tablet 50 mg 50 mg, Oral, Daily, First dose on Sun05/06/25 at 0900, DO NOT CRUSH 0839 (Given - Provider: Martha Neville RN) 0820 (Given - Provider: Bhavani Crawford, SHELLY) mirtazapine (REMERON) tablet 15 mg 15 mg, Oral, At Bedtime (2099), First dose on Sun05/06/25 at 2100 2014 (Given - Provider: Nicole Hickman) pantoprazole (PROTONIX) EC tablet 40 mg 40 mg, Oral, Daily6, First dose on Sun05/05/25 at 0600, Therapeutic Interchange for omeprazole 20mg Oral = pantoprazole 40mg Oral Do Not Crush 0554 (Given - Provider: Claudia Lay RN) 0547 (Given - Provider: Nicole Hickman) 0553 (Given - Provider: Nicole Hickman) potassium chloride (KLOR-CON M20) CR tablet 20 mEq (COMPLETED) 20 mEq, Oral, Once, On Sun05/07/25 at 0900, For 1 dose, FOR PATIENTS UNABLE TO SWALLOW LARGE TABLETS, but can take liquids orally: Place tablet(s) in room temperature or warm water (@ 2-4 ounces) and allow to disintegrate for ~ 30 seconds. Then stir well and administer immediately before particles settle. NOTE: not all particles will go into solution. DO NOT CRUSH or CHEW; TABLET(S) MAY BE SPLIT 08 (Given - Provider: Bhavani Crawford RN) potassium chloride (KLOR-CON M20) CR tablet 40 mEq (COMPLETED) 40 mEq, Oral, Once, On Sun05/05/25 at 0905, For 1 dose, FOR PATIENTS UNABLE TO SWALLOW LARGE TABLETS, but can take liquids orally: Place tablet(s) in room temperature or warm water (@ 2-4 ounces) and allow to disintegrate for ~ 30 seconds. Then stir well and administer immediately before particles settle. NOTE: not all particles will go into solution. DO NOT CRUSH or CHEW; TABLET(S) MAY BE SPLIT 09 (Given - Provider: Demi Olguin RN) tamsulosin (FLOMAX) capsule 0.8 mg 0.8 mg, Oral, At Bedtime (2100), First dose on Sun05/06/25 at 2100, DO NOT ADMINISTER VIA FEEDING TUBE 2014 (Given - Provider: Nicole Hickman) torsemide (DEMADEX) tablet 60 mg 60 mg, Oral, Daily, First dose on Sun05/06/25 at 0900 0326 (Held by provider - Provider: Kuldip Mills MD - Reason: Other) 0900 (Hold - Provider: Martha Neville RN - Reason: Other - Comment: per order) 0808 (Unheld by provider - Provider: Augusto Chan MD)0900 (Given - Provider: Bhavani Crawford RN) valproic acid (DEPAKENE) capsule 1,000 mg 1,000 mg, Oral, 2 times daily, First dose on Sun05/06/25 at 2100 2014 (Given - Provider: Nicole Hickman) 0819 (Given - Provider: Bhavani Crawford RN) valproic acid (DEPAKENE) syrup 1,000 mg (CANCELED) 1,000 mg, Oral, 2 times daily, First dose on Sun05/05/25 at 0900 1135 (Given - Provider: Sherine Strauss, SHELLY)2112 (Given - Provider: Nicole Hickman) 0843 (Given - Provider: Martha Neville RN) valsartan (DIOVAN) tablet 20 mg 20 mg, Oral, Daily, First dose on Sun05/06/25 at 0900, On hold since Sun05/05/2025 at 0326 until manually unheld 032 (Held by provider - Provider: Kuldip Mills MD - Reason: Other) 0900 (Hold - Provider: Martha Neville RN - Reason: Other - Comment: per MD order) 0900 (Not Given - Provider: Bhavani Crawford RN - Reason: Other - Comment: held by MD)1534 (Unheld by provider - Provider: Automatic Discharge Provider) PRN Medication Order 05/05/2025 05/06/2025 05/07/2025 acetaminophen (TYLENOL) tablet 650 mg 650 mg, Oral, Every 4 hours PRN, Body Temperature > 101F, mild pain (NRS 1-3); no comparable CPOT score, moderate pain (NRS 4-6) or if patient is non-communicative (CPOT 3-5), severe pain (NRS 7-10) or if patient is non-communicative (CPOT 6-8), Body Temperature > 101.4F, Headaches, Body Temperature > 100.4F, NRS 1-10; use prior to opioids if opiods are also ordered, then reassess pain score within 90 minutes, Starting on Sun05/05/25 at 0334, Maximum dose of acetaminophen is 4000 mg (4 grams) from all sources in 24 hours. 1018 (Given - Provider: Demi Olguin RN) albuterol (PROVENTIL) nebulizer solution 2.5 mg 2.5 mg, Nebulization, RT every 4 hours PRN, Wheezing, Starting on Sun05/05/25 at 0354 dextrose 10%-water (D10W) IV soln(Linked Group 1) 12.5 g, Intravenous, Every 15 min PRN, Low blood sugar, for glucose < 70 and alert but can not be corrected, orally or via feeding tube, Starting on Sun05/05/25 at 0357, Recheck blood sugar in 15 minutes and repeat treatment if glucose still < 70. For Smart Pump: Set volume to be infused; 125 ml for 12.5 grams or 250 mL for 25 grams. dextrose 10%-water (D10W) IV soln(Linked Group 1) 25 g, Intravenous, Every 15 min PRN, Low blood sugar, for glucose < 70 and not alert, Starting on Sun05/05/25 at 0357, Recheck glucose in 15 minutes and repeat treatment if glucose still < 70. For Smart Pump: Set volume to be infused; 125 ml for 12.5 grams or 250 mL for 25 grams. glucose chewable tablet 12 g 12 g, Oral, Every 15 min PRN, Low blood sugar, see admin instructions, Starting on Sun05/05/25 at 0357, TAKING PO: Patient has blood glucose between 50-70 mg/dL. o Give 15 grams of fast-acting carbohydrate (4 oz. fruit juice or 4 oz. non-diet soda or 3 glucose tablets). o Recheck blood sugar in 15 minutes and repeat if blood sugar is still between 50-70 mg/dL. Repeat as needed. Patient has blood glucose less than 50 mg/dL o Give 30 grams fast-acting carbohydrate (8 oz. fruit juice or 8 oz. of non-diet soda or 6 glucose tablets) on first attempt. o Recheck blood sugar in 15 minutes and repeat if blood sugar is still less than 50mg/dL. o If further attempts necessary, revert to 15 grams of carbohydrate. Repeat as needed. FEEDING TUBE: Patient has blood glucose between 50-70 mg/dL. o Give 15 grams of fast-acting carbohydrate (4 oz. fruit juice or 4 oz.non-diet soda). o Recheck blood sugar in 15 minutes and repeat if blood sugar is still between 50-70 mg/dL. Repeat as needed. Patient has blood glucose less than 50 mg/dL o Give 30 grams fast-acting carbohydrate (8 oz. fruit juice or 8 oz. of non-diet soda). o Recheck blood sugar in 15 minutes and repeat if blood sugar is still less than 50mg/dL. o If further attempts necessary, revert to 15 grams of carbohydrate. Repeat as needed. Labeled tablet strength may vary by crab backer (may be expressed as grams of carbohydrates) per tablet. Each tablet = 4 grams of glucose. Do not give chewable tablets via feeding tube perflutren (OPTISON) Susp 0.66 mg (COMPLETED) 0.66 mg, Intravenous, IMG once as needed, contrast, Starting on Sun05/05/25 at 1638, For 1 dose 1608 (Given - Provider: Kimber Castle) polyethylene glycol (MIRALAX) packet 17 g 17 g, Oral, 2 times daily PRN, Constipation, Starting on Sun05/05/25 at 0337 Linked Groups Order Group 1: dextrose 10%-water (D10W) IV solnJump to med 12.5 g, Intravenous, Every 15 min PRN, Low blood sugar, for glucose < 70 and alert but can not be corrected, orally or via feeding tube, Starting on Sun05/05/25 at 0357, Recheck blood sugar in 15 minutes and repeat treatment if glucose still < 70. For Smart Pump: Set volume to be infused; 125 ml for 12.5 grams or 250 mL for 25 grams. Or dextrose 10%-water (D10W) IV solnJump to med 25 g, Intravenous, Every 15 min PRN, Low blood sugar, for glucose < 70 and not alert, Starting on Sun05/05/25 at 0357, Recheck glucose in 15 minutes and repeat treatment if glucose still < 70. For Smart Pump: Set volume to be infused; 125 ml for 12.5 grams or 250 mL for 25 grams. documented in this encounter Additional Health Concerns Assessment Noted Time PHQ-9 Depression Total Score: 25 024 10:38 AM EST documented as of this encounter Care Teams Food Service Sales Representatives Relationship Specialty Start Date End Date Tran Irizarry MD [address] [place] [phone] PCP - General Internal Medicine 12/11/24 Hedy Walker MA Weight Loss Support 03/23/[address] [facility], [address] [place] [address] Dietitian 04/09/14 Sondra Chapa MD [address] [facility] 2nd Floor [place] [id number] Consulting Physician Nephrology 10/09/24 documented as of this encounter
[2025-05-13] VITALS (15 sets, daily range): BP systolic 112–138; BP diastolic 57–85; PULSE 67–94; RESP 16–21; TEMP 36.8–37.1; O2SAT 87–96; BMI 46.9; BMI 47.2
--- OUTSIDE RECORDS SUMMARY | 2025-05-13 10:14 | XMS_ITS | Continuity of Care Document ---
Author Name [facility] Organization [facility] Care Team Providers Care Heavy Duty Custodian Name Role Phone [facility] Unavailable Unavailable Problems Combined list of problems from Department of Defense and Veterans Affairs facilities. It does not include entries that were removed or entered in error. Problem Status Onset Date Problem Type Date of Resolution Comments Source Acquired Keratoderma (ICD-9-CM 701.1) Active Condition [place] Adult diabetes diet Active Condition [place] Apnea Active Condition [place] Benign secondary hypertension Active Condition [place] Dermatophytosis of nail (ICD-9-CM 110.1) Active Condition [place] Diabetes Type 2 (No Complications) Active Condition [place] Dry Skin (ICD-9-CM 706.8) Active Condition [place] Dyslipidemia Active [place] Dyspnoea Active Condition [place] Exogenous hyperlipidemia Active Condition [place] Exposure to potentially hazardous substance ([facility] [id number]) Active Condition Apr 28 4 Entered By: CORINNE JIANG Comment: Entered automatically through [facility] Problem List documentation program [place] Gastroesophageal reflux disease Active Condition [place] Gastroesophageal Reflux Disorder Active Condition [place] GERD * (ICD-9-CM 530.81) Active Condition [facility] Hypogonadism, Male (ICD-9-CM 257.2) Active Condition [place] Major Depression, recurrent (ICD-9-CM 296.30) Active Condition [place] Obesity Active Condition [place] Obesity * (ICD-9-CM 278.00) Active Condition [facility] Pain in limb (ICD-9-CM 729.5) Active Condition [place] Personal History of Exposure to [place] Active Condition [place] Sleep Apnea (ICD-9-CM 780.57/786.09) Active Condition [facility] Suicidal ideation Active Condition [place] Suicidal Ideations Active Condition [facility] [place] Diagnosis: ICD-10-CM E11.40 Type 2 diabetes mellitus with diabetic neuropathy, unsp Active Diagnosis [place] Diagnosis: ICD-10-CM F34.1 Dysthymic disorder Active Diagnosis [place] Diagnosis: ICD-10-CM F33.0 Major depressive disorder, recurrent, mild Active Diagnosis [place] Diagnosis: ICD-10-CM Z71.9 Counseling, unspecified Active Diagnosis [place] Diagnosis: ICD-10-CM E11.8 Type 2 diabetes mellitus with unspecified complications Active Diagnosis [place] Diagnosis: ICD-10-CM F31.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 disorder Active Diagnosis [place] Diagnosis: ICD-10-CM R06.00 Dyspnea, unspecified Active Diagnosis [place] Diagnosis: ICD-10-CM R45.851 Suicidal ideations Active Diagnosis [place] Diagnosis: ICD-10-CM F33.9 Major depressive disorder, recurrent, unspecified Active Diagnosis [place] Diagnosis: ICD-10-CM F32.A Depression, unspecified Active Diagnosis [place] Diagnosis: ICD-10-CM Z71.81 Spiritual or congregational counseling Active Diagnosis [place] Diagnosis: ICD-10-CM F33.1 Major depressive disorder, recurrent, moderate Active Diagnosis [facility] Diagnosis: ICD-10-CM F31.9 Bipolar disorder, unspecified Active Diagnosis [place] Diagnosis: ICD-10-CM R13.12 Dysphagia, oropharyngeal phase Active Diagnosis [facility] Diagnosis: ICD-10-CM Z51.81 Encounter for therapeutic drug level monitoring Active Diagnosis [place] Admit Reason: MDD Active Diagnosis [place] Medications Combined list of outpatient medications from Department of Defense and Veterans Affairs facilities.Medications provided include 1) outpatient medications from the last 15 months, and 2) patient-reported medications. Medication Details Route Status Patient Instructions Prescription Expires Prescription Number Last Dispense Date Ordering Provider Order Date Order Qty Source ALBUTEROL 90MCG/ACTUA T (CFC-F) INHL,ORAL,8 .5GM DOSE COUNTER INHALE 2 PUFFS BY MOUTH FOUR TIMES A DAY NEEDED FOR SHORTNES S OF BREATH WAIT AT LEAST 1 MINUTE BETWEEN PUFFS RESPIR ATORY (INHAL ATION) 04/15/2025 [id number] VIVEK RUIZ 2023 1 [place] [facility] ASPIRIN 81MG TAB,EC TAKE ONE TABLET BY MOUTH ONCE DAILY FOR BLOOD/HE ART ORAL 04/15/2025 [id number] 4 VIVEK RUIZ 2023 120 [place] [facility] ATORVASTATI N CA 80MG TAB TAKE ONE TABLET BY MOUTH AT BEDTIME FOR HIGH CHOLESTE ROL ORAL 04/15/2025 [id number] 4 VIVEK RUIZ 2023 30 [facility] BUPROPION HCL 300MG 24HR TAB,SA TAKE ONE TABLET BY MOUTH ONCE DAILY FOR MAJOR DEPRESSI VE DISORDER ORAL 04/15/2025 [id number] 4 VIVEK RUIZ 2023 30 [place] [facility] CLOBETASOL PROPIONATE 0.05% CREAM,TOP APPLY THIN LAYER TOPICALL Y TWICE A DAY NEEDED FOR ATOPIC DERMATIT IS WASH HANDS AFTER USE TOPICA L 04/15/2025 [id number] 4 VIVEK RUIZ 2023 30 [place] [facility] FLUOXETINE HCL 20MG CAP TAKE TWO CAPSULES BY MOUTH TWICE A DAY FOR MAJOR DEPRESSI VE DISORDER ORAL 04/15/2025 [id number] 4 VIVEK RUIZ 2023 120 [place] [facility] FUROSEMIDE 20MG TAB TAKE ONE TABLET BY MOUTH ONCE DAILY FOR HIGH BLOOD PRESSURE ORAL 04/15/2025 [id number] 4 VIVEK RUIZ 2023 30 [place] [facility] GABAPENTIN 300MG CAP TAKE ONE CAPSULE BY MOUTH TWICE A DAY FOR NEUROPAT HIC PAIN ORAL 04/15/2025 [id number] 4 VIVEK RUIZ 2023 60 [place] [facility] INSULIN,ASP ART,HUMAN 100 UNT/ML INJ INJECT 5 UNITS UNDER THE SKIN THREE TIMES A DAY *DISCARD 28 DAYS AFTER OPENING* WITH MEALS SUBCUT ANEOUS 04/15/2025 [id number] 4 VIVEK RUIZ 2023 1 [place] [facility] INSULIN,GLA RGINE-YFGN 100UNIT/ML INJ INJECT 40 UNITS UNDER THE SKIN TWICE A DAY FOR TYPE 2 DIABETES MELLITUS * DO NOT MIX IN SAME SYRINGE WITH OTHER INSULINS * (DISCARD 28 DAYS AFTER OPENING VIAL) SUBCUT ANEOUS 04/15/2025 [id number] 4 VIVEK RUIZ 2023 2 [facility] [facility] METFORMIN HCL 1000MG TAB TAKE ONE TABLET BY MOUTH TWICE A DAY FOR TYPE 2 DIABETES MELLITUS WITH FOOD ORAL 04/15/2025 [id number] 4 VIVEK RUIZ 2023 60 [place] [facility] METOPROLOL SUCCINATE 50MG TAB,SA TAKE ONE-HALF TABLET BY MOUTH TWICE A DAY FOR CHRONIC HEART FAILURE ORAL 05/14/2024 [id number] 4 VIVEK RIUZ 2023 30 [place] [facility] MIRTAZAPINE 30MG TAB TAKE ONE-HALF TABLET BY MOUTH AT BEDTIME FOR MAJOR DEPRESSI VE DISORDER ORAL 04/15/2025 [id number] 4 VIVEK RUIZ 2023 15 [place] [facility] OMEPRAZOLE 20MG CAP,EC TAKE ONE CAPSULE BY MOUTH EVERY MORNING FOR GASTROES OPHAGEAL REFLUX DISEASE ON AN EMPTY STOMACH ORAL 04/15/2025 [id number] 4 VIVEK RUIZ 2023 30 [place] [facility] SPIRONOLACT ONE 50MG TAB TAKE ONE TABLET BY MOUTH ONCE DAILY FOR HEART FAILURE ORAL 04/15/2025 [id number] 4 VIVEK RUIZ 2023 30 [place] [facility] TAMSULOSIN HCL 0.4MG CAP TAKE ONE CAPSULE BY MOUTH AT BEDTIME FOR ENLARGED PROSTATE +URINATI ON PROBLEM ORAL 04/15/2025 [id number] 4 VIVEK RUIZ 2023 30 [place] [facility] VALPROIC ACID 250MG CAP TAKE TWO CAPSULES BY MOUTH FOUR TIMES A DAY FOR 7 DAYS, THEN TAKE FOUR CAPSULES TWICE A DAY FOR MANIC-DE PRESSION TAKE WITH FOOD ORAL 04/15/2025 [id number] 4 VIVEK RUIZ 2023 240 [place] [facility] Allergies, Adverse Reactions, Alerts Combined list of allergies from Department of Defense and Veterans Affairs facilities. It does not include entries that were removed or entered in error. Substance Category Reaction Severity Reaction type Status Date Reported Comments Source ABILIFY Propensity to adverse reactions to drug (finding) [facility]y active 4 [facility] Propensity to adverse reactions to drug (finding) Cirrhosis of liver, Kidney disease active 4 [place] Immunizations Combined list of available immunizations from the Department of Defense and Veterans Affairs facilities. Immunization Series Date Given Administered By Site Reaction Lot Number CVX Code Drug Exhibitions Curator Status Comments Source INFLUENZA, SPLIT VIRUS, QUADRIVALENT, PF 2 2023 150 complet ed HISTORICA L INFORMATI ON - FROM OTHER REGISTRY, [facility] ZOSTER RECOMBINANT 1 2023 YOHANNES JACKSON VIDHYA RIGHT DELTO ID [id number] 187 complet ed [facility] [place], ROSA Lopez TDAP 1 2022 115 complet ed HISTORICA L INFORMATI ON - FROM OTHER REGISTRY, [facility] INFLUENZA, SPLIT VIRUS, QUADRIVALENT, PF 1 2021 150 complet ed HISTORICA L INFORMATI ON - FROM OTHER REGISTRY, [facility] COVID-19 (MODERNA), MRNA, LNP-S, PF, 100 MCG/0.5ML DOSE OR 50 MCG/0.25ML DOSE 3 2020 207 complet ed HISTORICA L INFORMATI ON - FROM OTHER REGISTRY, [facility] INFLUENZA, RECOMBINANT, QUADRIVALENT, PF 7 2020 185 complet ed HISTORICA L INFORMATI ON - FROM OTHER REGISTRY, [facility] COVID-19 (MODERNA), MRNA, LNP-S, PF, 100 MCG/0.5ML DOSE OR 50 MCG/0.25ML DOSE 2 2020 207 complet ed HISTORICA L INFORMATI ON - FROM OTHER REGISTRY, [facility] COVID-19 (MODERNA), MRNA, LNP-S, PF, 100 MCG/0.5ML DOSE OR 50 MCG/0.25ML DOSE 1 2020 207 complet ed HISTORICA L INFORMATI ON - FROM OTHER REGISTRY, [facility] INFLUENZA, RECOMBINANT, QUADRIVALENT, PF 6 2019 185 complet ed HISTORICA L INFORMATI ON - FROM OTHER REGISTRY, [facility] HEP A, ADULT 1 2018 52 complet ed HISTORICA L INFORMATI ON - FROM OTHER REGISTRY, [facility] INFLUENZA, SPLIT VIRUS, QUADRIVALENT, PRESERVATIVE 5 2017 158 complet ed HISTORICA L INFORMATI ON - FROM OTHER REGISTRY, [facility] AT INFLUENZA, SPLIT VIRUS, QUADRIVALENT, PRESERVATIVE 4 2016 158 complet ed HISTORICA L INFORMATI ON - FROM OTHER REGISTRY, [facility] ATI INFLUENZA, UNSPECIFIED FORMULATION 3 2015 88 complet ed HISTORICA L INFORMATI ON - FROM OTHER REGISTRY, [facility] AT INFLUENZA, SPLIT VIRUS, QUADRIVALENT, PRESERVATIVE 2 2014 158 complet ed HISTORICA L INFORMATI ON - FROM OTHER REGISTRY, [facility] AT INFLUENZA, SPLIT VIRUS, TRIVALENT, PRESERVATIVE 1 2013 141 complet ed HISTORICA L INFORMATI ON - FROM OTHER REGISTRY, [facility] AT INFLUENZA, UNSPECIFIED FORMULATION 2010 88 complet ed [facility] INFLUENZA, UNSPECIFIED FORMULATION 2009 88 complet ed [facility] TDAP 2009 OL[place] 115 complet ed [facility] PNEUMOCOCCAL, UNSPECIFIED FORMULATION 2009 109 complet ed [facility] NOVEL INFLUENZA-H1N 1-09, ALL FORMULATIONS 2008 128 complet ed [facility] INFLUEN[facility], UNSPECIFIED FORMULATION 2008 88 complet ed work site [facility] INFLUENZA, UNSPECIFIED FORMULATION 2008 88 complet ed [facility] TD(ADULT) UNSPECIFIED FORMULATION 2007 139 complet ed [facility] TD (ADULT), 2 LF TETANUS TOXOID, PRESERVATIVE FREE, ADSORBED 1 1996 09 complet ed HISTORICA L INFORMATI ON - FROM OTHER REGISTRY, [facility] Results Combined list of recent chemistry, hematology and other laboratory results from Department of Defense and Veterans Affairs, ranging from 15 months to all on record, depending upon the facility. Order Name Results Value Reference Range Date Interpretation Specimen Comments Source HIV 1/2 AG/AB SCREEN HIV 1+2 AB+HIV1 P24 AG [PRESENCE] IN SERUM OR PLASMA BY IMMUNOASSA Y Nonreact mars 04/25 Specimen Type: SERUM No comment entered. Ordering Provider: MYA TALLEY Report Released Date/Time: Apr 25, 2024 01:53 PM Reporting Lab: [place] [address] [facility] [address] Performing Lab: [place] [address] [facility] [address] [place] LIPID PANEL CHOLESTERO L [MASS/VOLU ME] IN SERUM OR PLASMA 115 mg/dL 0 - 199 04/25 Specimen Type: PLASMA No comment entered. Ordering Provider: MYA TALLEY Report Released Date/Time: Apr 25, 2024 01:55 PM Reporting [facility]: [facility] [address] [facility] [address] Performing Lab: [place] [address] [facility] [address] [place] LIPID PANEL TRIGLYCERI DE [MASS/VOLU ME] IN SERUM OR PLASMA 179 mg/dL 0 - 149 04/25 H Specimen Type: PLASMA No comment entered. Ordering Provider: MYA TALLEY Report Released Date/Time: Apr 25, 2024 01:55 PM Reporting Lab: [place] [address] [facility] [address] Performing Lab: [place] [address] [facility] [address] [place] LIPID PANEL CHOLESTERO L IN HDL [MASS/VOLU ME] IN SERUM OR PLASMA 30 mg/dL 23 - 92 04/25 Specimen Type: PLASMA No comment entered. Ordering Provider: MYA TALLEY Report Released Date/Time: Apr 25, 2024 01:55 PM Reporting Lab: [place] [address] [facility] [address] Performing Lab: [place] [address] [facility] [address] [place] LIPID PANEL CHOLESTERO L IN LDL [MASS/VOLU ME] IN SERUM OR PLASMA BY CALCBEATRICE N 49 mg/dL 75 - 193 04/25 L Specimen Type: PLASMA No comment entered. Ordering Provider: MYA TALLEY Report Released Date/Time: Apr 25, 2024 01:55 PM Reporting Lab: [place] [address] [facility] [address] Performing Lab: [place] [address] [place] [address] [place] LIPID PANEL CHOLESTERO L IN LDL [MASS/VOLU ME] IN SERUM OR PLASMA cancmg/d L 5 - 189 04/25 Specimen Type: PLASMA No comment entered. Ordering Provider: MYA TALLEY Report Released Date/Time: Apr 25, 2024 01:55 PM Reporting Lab: [place] [phone] Performing Lab: [place] [phone] [place] MICROALB UMIN(UAC R)RANDOM MICROALBUM IN [MASS/VOLU ME] IN 24 HOUR URINE 18 mg/L 04/25 Specimen Type: URINE No comment entered. Ordering Provider: MYA TALLEY Report Released Date/Time: Apr 25, 2024 01:55 PM Reporting Lab: [address] [address] Performing Lab: [address] [address] [place] MICROALB UMIN(UAC R)RANDOM MICROALBUM IN/CREATIN INE [MASS RATIO] IN URINE 29 0 - 30 04/25 Specimen Type: URINE No comment entered. Ordering Provider: MYA TALLEY Report Released Date/Time: Apr 25, 2024 01:55 PM Reporting Lab: [address] [address] Performing Lab: [address] [address] [place] MICROALB UMIN(UAC R)RANDOM CREATININE [MASS/VOLU ME] IN URINE 62.5 mg/dL 04/25 Specimen Type: URINE No comment entered. Ordering Provider: MYA TALLEY Report Released Date/Time: Apr 25, 2024 01:55 PM Reporting Lab: [address] [address] Performing Lab: [address] [address] [place] PROSTATI C SPECIFIC AG PROSTATE SPECIFIC AG [MASS/VOLU ME] IN SERUM OR PLASMA 0.23 ng/mL 0 - 4.0 04/25 Specimen Type: SERUM Comment: The lower limit of detection for PSA is 0.01 ng/mL Ordering Provider: MYA TALLEY Report Released Date/Time: Apr 25, 2024 01:55 PM Reporting Lab: [address] Performing Lab: [address] [place] TAM(STA NDARDIZE D) TESTOSTERO NE [MASS/VOLU ME] IN SERUM OR PLASMA 141 ng/dL 04/25 Specimen Type: PLASMA Comment: Reference ranges may not be applicable to patients undergoing hormonal therapy. Interpret results in clinical context. Chris e Interpretat mars Information : ------- Males: 18-30 years: . . . . 244-824 ng/dL 31-44 years: . . . .186-716 ng/dL 45-66 years: . . . . 155-721 ng/dL Females: 21-73 years: . . . . .<10-90 ng/mL Ordering Provider: MYA TALLEY Report Released Date/Time: Apr 25, 2024 01:55 PM Reporting Lab: [address] Performing Lab: [address] [place] TSH THYROTROPI N [UNITS/VOL UME] IN SERUM OR PLASMA 2.52 u[IU]/mL 0.45 - 4.54 04/25 Specimen Type: PLASMA Comment: Reference ranges may not be applicable to patients undergoing hormonal therapy. Interpret results in clinical context. Testroberto e Interpretat mars Information : ------- Males: 18-30 years: . . . . 244-824 ng/dL 31-44 years: . . . .186-716 ng/dL 45-66 years: . . . . 155-721 ng/dL Females: 21-73 years: . . . . .<10-90 ng/mL Ordering Provider: MYA TALLEY Report Released Date/Time: Apr 25, 2024 01:55 PM Reporting Lab: [place] [phone] Performing Lab: [place] [phone] [place] FINGERST ICK GLUCOSE GLUCOSE [MASS/VOLU ME] IN CAPILLARY BLOOD 248 mg/dL 75 - 99 04/14 H Specimen Type: CAPILLARY BLOOD No comment entered. Ordering Provider: MATY RUIZ Report Released Date/Time: Apr 14, 2024 11:26 AM Reporting Lab: [address] [address] Performing Lab: [place] [phone] [facility] FINGERST ICK GLUCOSE GLUCOSE [MASS/VOLU ME] IN CAPILLARY BLOOD 177 mg/dL 75 - 99 04/14 H Specimen Type: CAPILLARY BLOOD No comment entered. Ordering Provider: MATY RUIZ Report Released Date/Time: Apr 14, 2024 07:04 AM Reporting Lab: [address] [address] Performing Lab: [place] [phone] [facility] VALPROIC ACID VALPROATE [MASS/VOLU ME] IN SERUM OR PLASMA 74 ug/mL 50 - 100 04/14 Specimen Type: PLASMA Comment: ~For Test: VALPROIC ACID ~Last dose: 04/13/24@21 :00 draw time: 04/14/24@06 :00 Last dose: 04/13/24@21 :00 draw time: 04/14/24@06 :00 Ordering Provider: MATY RUIZ Report Released Date/Time: Apr 10, 2024 09:47 AM Reporting Lab: [place] [phone] Performing Lab: [address] [address] [facility] FINGERST ICK GLUCOSE GLUCOSE [MASS/VOLU ME] IN CAPILLARY BLOOD 189 mg/dL 75 - 99 04/14 H Specimen Type: CAPILLARY BLOOD No comment entered. Ordering Provider: MATY RUIZ Report Released Date/Time: Apr 14, 2024 02:04 AM Reporting Lab: [address] [address] Performing Lab: [address] [address] [facility] Encounters Combined list of: 1) Encounters from Department of [facility] facilities going backup to the last 18 months, not all [place] inpatient encounters are included; 2) Encounters from the Department of [facility] facilities going backup to 280 months. Location Location Details Encounter Type Encounter Number Reason For Visit Attending Provider ADM Date DC Date Status Disposition Source [facility] Outpatient Encounter [id number] 11/22 [facility] PSYTX COMPLEX INTERACTIV E [id number] Diagnos is: ICD-10- CM R45.851 Suicida l ideatio Denise Espitia 04/07 [facility] EMERGENCY DEPT VISIT MOD MDM [id number] Diagnos is: ICD-10- CM R45.851 Suicida l ideatio VENTURA Lawson 04/07 [facility] Outpatient Encounter [id number] 04/07 [facility] Inpatient Encounter [id number] Admit Reason: MDD LEANDRO RUIZ 04/07 [facility] Inpatient Encounter [id number] Reshma PARADA 04/07 [facility] Inpatient Encounter [id number] Reshma PARADA 04[facility]07 [facility] 1[facility] H[facility] IP/OBS MODERATE 55 [id number] Diagnos is: ICD-10- CM F32.A Depress ion, 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 LEANDRO RUIZ TRAN 04[facility]07 [facility] En[facility] [id number] LEANDRO RUIZ TRAN 04[facility]07 [facility] QNHP OL DIG ASSMT&MGMT 21+ [id number] Diagnos is: ICD-10- CM F33.9 Major depress mars disorde r, recurre nt, 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 RESNIK,JESIKA LY C 04/07 [facility] En[facility] [id number] Cory MCKEON UDOLF V 04/08 [facility] SBSQ HOSP IP/OBS MODERATE 35 [id number] Diagnos is: ICD-10- CM F32.A Depress ion, unspeci fiLEANDRO Méndez TRAN 04/08 [facility] QNHP OL DIG ASSMT&MGMT 21+ [id number] Diagnos is: ICD-10- CM Z51.81 Encount er for therape utic drug level monitor RICARDO Garcia 04/08 [facility] En[facility] [id number] ALLI IGNACIO 04[facility]08 [facility] THERAPEUTI C PROCEDURES [id number] Diagnos is: ICD-10- CM R45.851 Suicida l ideatio ns BACKSCHEID ER,OTILIA Walker 04/08 [facility] Inpatient Encounter [id number] 04/08 [facility] 1ST HOSP IP/OBS MODERATE 55 [id number] Diagnos is: ICD-10- CM R06.00 Dyspnea , 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 MARISSA-BOAFO ,JESÚS 04/08 [facility] GROUP THERAPEUTI C PROCEDURES [id number] Diagnos is: ICD-10- CM R45.851 Suicida l ideatio ns BACKSCHEID ER,OTILIA Walker 04/08 [facility] EVALUATE SWALLOWING FUNCTION [id number] Diagnos is: ICD-10- CM R13.12 Dysphag ia, orophar yngeal phase CHARLY GRANT 04/08 [facility] GROUP THERAPEUTI C PROCEDURES [id number] Diagnos is: ICD-10- CM R45.851 Suicida l ideatio ns BACKSCHEID ,OTILIA Walker 04/08 [facility] GROUP PSYCHOTHER APY [id number] Diagnos is: ICD-10- CM F33.9 Major depress mars disorde r, recurre nt, 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 NEAL MAXWELL 04/08 [facility] [employer] [id number] Diagnos is: ICD-10- CM Z71.81 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 al or 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 us 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 ELIAZAR Doshi 04/08 [facility] Inpatient Encounter [id number] Cory MCKOEN V 04/09 [facility] IP/OBS SF/LOW 25 [id number] Diagnos is: ICD-10- CM F32.A Depress ion, 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 LEANDRO RUIZ 04/09 [facility] PS[facility] DIAGNOSTIC EVALUATION [id number] Diagnos is: ICD-10- CM F33.9 Major depress mars disorde r, recurre nt, 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 NEAL MAXWELL 04/09 [facility] Inpatient Encounter [id number] LONG OLIVARES 04/09 [facility] Inpatient Encounter [id number] LONG OLIVARES 04/09 [facility] Inpatient Encounter [id number] LONG OLIVARES 04/09 [facility] IP/OBS MODERATE 35 [id number] Diagnos is: ICD-10- CM R06.00 Dyspnea , 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 MARISSA-BOCOURTNEYO ,JESÚS 04/09 [facility] GROUP THERAPEUTI C PROCEDURES [id number] Diagnos is: ICD-10- CM R45.851 Suicida l ideatio ns BACKSCHEID ER,OTILIA Walker 04/09 [facility] Inpatient Encounter [id number] 04/09 [facility] Encounter [id number] JESSICA RAMÍREZ 04/10 [facility] QNHP OL DIG ASSMT&MGMT 21+ [id number] Diagnos is: ICD-10- CM R45.851 Suicida l ideatio ns RICARDO GONZALEZ 04/10 [facility] GROUP THERAPEUTI C PROCEDURES [id number] Diagnos is: ICD-10- CM R45.851 Suicida l ideatio ns BACKSCHEID ER,BENY 04/10 [facility] Inpatient Encounter [id number] 04/10 [facility] GROUP THERAPEUTI C PROCEDURES [id number] Diagnos is: ICD-10- CM R45.851 Suicida l ideatio ns BACKSCHEID ER,BENY 04/10 [facility] Inpatient Encounter [id number] Reshma PARADA 04/10 [facility] GROUP THERAPEUTI C PROCEDURES [id number] Diagnos is: ICD-10- CM R45.851 Suicida l ideatio SOFÍA Pereira 04/10 [facility] COMMUNITY/ WORK REINTEGRAT ION [id number] Diagnos is: ICD-10- CM R45.851 Suicida l ideatio ns BACKSCHEID ER,BENY 04/10 [facility] CASE MANAGEMENT [id number] Diagnos is: ICD-10- CM F33.9 Major depress mars disorde r, recurre nt, unspeci NEAL Mclain 04/10 [facility] Inpatient Encounter [id number] Diagnos is: ICD-10- CM R45.851 Suicida l ideatio ns NAHID Webster,ANGELICA R 04/10 [facility] Inpatient Encounter [id number] JESSICA RAMÍREZ 04/11 [facility] SBSQ HOSP IP/OBS MODERATE 35 [id number] Diagnos is: ICD-10- CM F31.9 Bipolar disorde r, 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 LEANDRO RUIZ 04/11 [facility] Inpatient Encounter [id number] LUIS RODRIGUEZ 04/11 [facility] Inpatient Encounter [id number] JESSICA RAMÍREZ 04/11 [facility] GROUP THERAPEUTI C PROCEDURES [id number] Diagnos is: ICD-10- CM R45.851 Suicida l ideatio ns [facility] HOSPITALOTILIA ROMANO 04/11 [facility] GROUP THERAPEUTI C PROCEDURES [id number] Diagnos is: ICD-10- CM R45.851 Suicida l ideatio SOFÍA Pereira 04/11 [facility] GROUP THERAPEUTI C PROCEDURES [id number] Diagnos is: ICD-10- CM R45.851 Suicida l ideatio lola [facility]11 [facility] PROGRAM INTAKE ASSESSMENT [id number] [id number] Diagnos is: ICD-10- CM F33.1 Major depress mars disorde r, recurre nt, moderat e CAPRI HERNANDEZ 04/11 [facility] SELF-MGMT EDUC/TRAIN 2-4 [place] [id number] Diagnos is: ICD-10- CM R45.851 Suicida l ideatio ns RICARDO GONZALEZKEVIN Denise 04/11 [facility] 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 [id number] [id number] Diagnos is: ICD-10- CM Z71.81 Spiritu al or religio us 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 Kizzy Taveras 04/11 [facility] Inpatient Encounter [id number] [id number] Roopa ROSE 04/11 [facility] Inpatient Encounter [id number] [id number] CARLOS CHAVEZ 04/12 [facility] SBSQ HOSP IP/OBS MODERATE 35 [id number] [id number] Diagnos is: ICD-10- CM R45.851 Suicida l ideatio Sveta Cisneros 04/12 [facility] Inpatient Encounter [id number] [id number] LONG OLIVARES 04/12 [facility] Inpatient Encounter [id number] [id number] CARLOS CHAVEZ 04/13 [facility] SBSQ HOSP IP/OBS MODERATE 35 [id number] [id number] Diagnos is: ICD-10- CM R45.851 Suicida l ideatio ns ANGELICA AVLLE 04/13 [facility] Inpatient Encounter [id number] [id number] MYA SWIFT 04/13 [facility] HOSP IP/OBS DSCHRG MGMT >30 [id number] [id number] Diagnos is: ICD-10- CM F32.A Depress ion, unspeci izabela RUIZLEANDRO Kizzy MAYFIELD 04/14 [facility] CASE MANAGEMENT [id number] [id number] Diagnos is: ICD-10- CM F33.9 Major depress mars disorde r, recurre nt, unspeci anandsebastián ALISSANEAL 04/14 [facility] QNHP OL DIG ASSMT&MGMT 21+ 79860-7.53 [id number] Diagnos is: ICD-10- CM R45.851 Suicida l ideatio RICARDO RachelKEVIN Denise 04/14 [facility] GROUP THERAPEUTI C PROCEDURES [id number] [id number] Diagnos is: ICD-10- CM R45.851 Suicida l ideatio ns BACKSCHEID ER,OTILIA Walker 04/14 [facility] GROUP THERAPEUTI C PROCEDURES [id number] [id number] Diagnos is: ICD-10- CM R45.851 Suicida l ideatio ns BACKSCHEID ER,OTILIA Walker 04/14 [facility] Inpatient Encounter [id number] [id number] LEANDRO RUIZ 04/14 [facility] GROUP THERAPEUTI C PROCEDURES [id number] [id number] Diagnos is: ICD-10- CM R45.851 Suicida l ideatio ns SOFÍA KLINE 04/14 [facility] Inpatient Encounter [id number] [id number] BRIAN WU 04/14 [facility] Inpatient Encounter 40864-6.53 [id number] JAZMIN,ER CARMEN KEEN 04/14 [facility] 13627-2.53 [id number] Diagnos is: ICD-10- CM R45.851 Suicida l ideatio ns BACKSCHEID ER,OTILIA Walker 04/14 [facility] SBSQ HOSP IP/OBS MODERATE 35 [id number] [id number] Diagnos is: ICD-10- CM R06.00 Dyspnea , 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 MARISSA-BOAFO ,JESÚS 04/14 [facility] Outpatient Encounter [id number] [id number] JESIKA DUNCAN LY C 04/15 [facility] Outpatient Encounter [id number] [id number] 04/15 [facility] OFFICE O/P EST HI 40 MIN 63315-8.53 [id number] Diagnos is: ICD-10- CM F31.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 disorde HUNTER Ascencio E 04/21 [facility] Outpatient Encounter [id number] [id number] JESIKA DUNCAN LY C 04/22 [facility] CRISIS INTERVEN WAIVER/ M [id number] [id number] Diagnos is: ICD-10- CM F34.1 Dysthym ic disorde JEANCARLOS Truong [facility] [id number] [id number] Diagnos is: ICD-10- CM F34.1 Dysthym ic disorde Denise Cramer 04/23 [facility] PRO PHONE CALL 11-20 MIN [id number] [id number] Diagnos is: ICD-10- CM F34.1 Dysthym ic disorde r JESIKA DUNCAN LY C 04/23 [facility] En[facility] [id number] [id number] 04/25 [facility] OFFICE O/P EST MOD 30 MIN [id number] [id number] Diagnos is: ICD-10- CM E11.8 Type 2 diabete s mellitu s with 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 complic CAPRI Pennington 04/25 [place] [facility] [id number] [id number] Diagnos is: ICD-10- CM 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, 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 HANK EM 04/25 [facility] [id number] [id number] 04/26 [facility] Encounter [id number] [id number] 04[facility]29 [facility] En[facility] [id number] [id number] 05/05 [facility] En[facility] [id number] [id number] 05/07 [facility] Encounter [id number] [id number] 05/12 [facility] Out[facility] Encounter [id number] [id number] 05/13 [facility] PSY EVALUATION OF RECORDS [id number] [id number] Diagnos is: ICD-10- CM F33.0 Major depress mars disorde r, recurre nt, mild Denise MASSEY R 05/13 [place] [facility] Out[facility] Encounter [id number] [id number] Denise MASSEY PETER R 05/13 [facility] [id number] [id number] JESIKA DUNCAN LY C 05/14 [facility] [place] [id number] [id number] 05/15 [facility] En[place] [id number] [id number] 05/19 [facility] En[place] 72597-6.53 [id number] GERALDO DUNCANI LY C 05/28 [facility] En[place] [id number] [id number] 06/04 [facility] [place] En[place] [id number] [id number] 06/06 [facility] [place] [place] [id number] [id number] 06/09 [facility] [place] En[place] [id number] [id number] 06/09 [facility] [place] Encounter [id number] [id number] GERALDO DUNCANI LY C 06/10 [facility] [place] En[place] [id number] [id number] 06/10 [facility] [place] En[place] [id number] [id number] 06/10 [facility] Out[place] Encounter [id number] [id number] GERALDO DUNCANI LY C 06/11 [facility] [place] Encounter [id number] [id number] GERALDO DUNCANI LY C 06/20 [facility] [place] En[place] [id number] [id number] GERALDO DUNCANI LY C 07/01 [facility] Out[place] [facility]counter [id number] [id number] GERALDO DUNCANI LY C 07/02 [facility] Out[place] Encounter [id number] [id number] Diagnos is: ICD-10- CM F34.1 Dysthym ic disorde r GERALDO DUNCANI LY C 07/04 [facility] Out[place] Encounter [id number] [id number] 07/08 [facility] [place] Encounter [id number] [id number] 07/08 [facility] Out[facility] Encounter [id number] [id number] 07/21 [place] Out[place] Encounter [id number] [id number] JESIKA DUNCAN LY C 07/21 [facility] [place] En[place] [id number] [id number] 08/06 [facility] En[facility] [id number] [id number] 08/06 [facility] [place] [id number] [id number] 08/12 [facility] Out[place] Encounter [id number] [id number] 09/03 [facility] Out[facility] Encounter [id number] [id number] 09/10 [facility] Out[place] Encounter [id number] [id number] JESIKA DUNCAN LY C 09/12 [facility] Out[place] Encounter [id number] [id number] JESIKA DUNCAN LY C 09/23 [facility] Out[place] Encounter [id number] [id number] Diagnos is: ICD-10- CM F34.1 Dysthym ic disorde r JESIKA DUNCAN LY C 09/30 [facility] Out[facility] Encounter [id number] [id number] 10/09 [facility] Out[facility] Encounter [id number] [id number] 10/27 [place] NQHP OL DIG ASSMT&MGMT 5-10 [id number] [id number] Diagnos is: ICD-10- CM E11.40 Type 2 diabete s mellitu s with diabeti c neuropa thy, unsp OSMAN JOLE TTHEW R 01/27 [facility] Outpatient Encounter [id number] [id number] 01/27 [facility] Social History Combined list of available smoking, tobacco, and other social history from Department of Defense and Veterans Affairs facilities. Social History Type Response Date Comment Sour e Tobacco smoking status [facility] VA-TOBACCO NEVER USED 04/25/2024 [facility] History of tobacco use TOBACCO LIFETIME NON-USER 9 [facility] This section is an empty social history section. DoD
--- NOTE | 2025-05-13 11:15 | XR_ITS ---
FINAL REPORT CLINICAL HISTORY: short of breath COMPARISON: None FINDINGS: The patient has undergone a prior midline sternotomy. Cardiomegaly is present. The lung johns are underinflated. The mediastinum is normal. There is no focal infiltrate or edema. Chronic changes are present in the lung bases. There are no pleural effusions. There is no pneumothorax. There is no osseous abnormality. IMPRESSION: Cardiomegaly, with underinflated lung johns, and chronic changes are present in the lung bases. No confluent infiltrate is noted. Reviewed, Interpreted and Dictated by Kasi Green MD Transcribed by Marcella Brooks Authenticated and . [facility]
--- OUTSIDE RECORDS SUMMARY | 2025-05-13 11:23 | XMS_ITS | Encounter Summary ---
Author Organization [place] [address] Care Team Providers Care Recording Artist Name Role Phone Zane Eli MD Primary Care Provider [phone]- [phone] Encounter Details Date Type Department Care Team (Latest Contact Info) Description 09/27/2021 Lab Requisition [facility] [place] [address] Zac Frank IV, MD [address] [facility] [address] [place] [address] Atherosclerotic heart disease of [place] coronary artery with other forms of angina pectoris Social History Tobacco Use Types Packs/Day Years [...] on file Sexual Orientation Not on file documented as of this encounter Functional Status [...] Clerical Staff documented as of this encounter Procedures Procedure Name Priority Date/Time Associated Diagnosis Comments RENAL FUNCTION PANEL Routine 09/27/2021 11:00 AM EST Atherosclerotic heart disease of [place] coronary artery with other forms of angina pectoris (HCC) documented in this encounter Results * (ABNORMAL) RENAL FUNCTION PANEL (09/27/2021 11:00 AM EST) Pathologist [facility] Sodium 136 136 - 145 mmol/L 09/27/2021 9:13 PM EST [facility] Potassium 5.0 3.5 - 5.0 mmol/L 09/27/2021 9:13 PM EST [facility] Chloride 91(L) 98 - 107 mmol/L 09/27/2021 9:13 PM EST [facility] Total CO2 28 22 - 29 mmol/L 09/27/2021 9:13 PM EST [facility] Anion Gap 17(H) 7 - 16 mmol/L 09/27/2021 9:13 PM EST [facility] Calcium 9.2 8.6 - 10.4 mg/dL 09/27/2021 9:13 PM EST [facility] Glucose Lvl 398(H) 74 - 100 mg/dL 09/27/2021 9:13 PM EST [facility] BUN 30(H) 6 - 20 mg/dL 09/27/2021 9:13 PM EST [facility] Creatinine 1.27 0.67 - 1.30 mg/dL 09/27/2021 9:13 PM EST [facility] Albumin 4.1 3.5 - 5.2 gm/dL 09/27/2021 9:13 PM EST [facility] Phosphorus 4.7(H) 2.5 - 4.5 mg/dL 09/27/2021 9:13 PM EST [facility] eGFR (CKD-EPIcr 2020) 67 >=60 mL/min/1.7 3 m2 09/27/2021 9:13 PM EST [facility] Comment:Estimated GFR was ca lculated using the CKD-EPIcr (2020) equation refit without race. The equation is recommended by the National Kidney Foundation - [place] [employer] of Nephrology Task Force. Blood VENOUS BLOOD / Unknown 09/27/2021 11:00 AM EST 09/27/2021 7:41 PM EST Zac Frank IV, MD CHEMISTRY ORDERABLES Final Re sult [facility] [address] , [address] [place] [id number] [facility] [address] [place] [address] documented in this encounter Visit Diagnoses Diagnosis Atherosclerotic heart disease of [place] coronary artery with other forms of angina pectoris documented in this encounter Additional Health Concerns Infection Onset Date Last Indicated Resolved Time R/O COVID-19 06/05/2022 06/05/2022 06/06/2022 5:19 AM EDT documented as of this encounter Care Teams Recording Artist Relationship Specialty Start Date End Date Zane Eli MD [address] [facility] [address] [place] [address] PCP - General Internal Medicine 04/01/14 11/14/22 documented as of this encounter
--- OUTSIDE RECORDS SUMMARY | 2025-05-13 11:23 | XMS_ITS | Encounter Summary ---
Author Organization [place] [address] Care Team Providers Care Rn Lactation Name Role Phone Zane Eli MD Primary Care Provider [phone]- [phone] Encounter Details Date Type Department Care Team (Latest Contact Info) Description 10/03/2021 Lab Requisition [facility] [place] [address] Zac Frank IV, MD [address] [facility] [address] [place] [address] Atherosclerotic heart disease of [place] coronary artery with other forms of angina [...] Associated Diagnosis Comments RENAL FUNCTION PANEL Routine 10/03/2021 11:00 AM EST Atherosclerotic heart disease of [place] coronary artery with other forms of angina pectoris (HCC) documented in this encounter Results * (ABNORMAL) RENAL FUNCTION PANEL (10/03/2021 11:00 AM EST) [facility] [address] Sodium 138 136 - 145 mmol/L 10/03/2021 7:55 PM EST [facility] Potassium 4.9 3.5 - 5.0 mmol/L 10/03/2021 7:55 PM EST [facility] Chloride 102 98 - 107 mmol/L 10/03/2021 7:55 PM EST [facility] Total CO2 26 22 - 29 mmol/L 10/03/2021 7:55 PM EST [facility] Anion Gap 10 7 - 16 mmol/L 10/03/2021 7:55 PM EST [facility] Calcium 8.9 8.6 - 10.4 mg/dL 10/03/2021 7:55 PM EST [facility] Glucose Lvl 187(H) 74 - 100 mg/dL 10/03/2021 7:55 PM EST [facility] BUN 17 6 - 20 mg/dL 10/03/2021 7:55 PM EST [facility] Creatinine 0.85 0.67 - 1.30 mg/dL 10/03/2021 7:55 PM EST [facility] Albumin 3.9 3.5 - 5.2 gm/dL 10/03/2021 7:55 PM EST [facility] Phosphorus 4.5 2.5 - 4.5 mg/dL 10/03/2021 7:55 PM EST [facility] eGFR (CKD-EPIcr 2020) 103 >=60 mL/min/1.7 3 m2 10/03/2021 7:55 PM EST [facility] Comment:Estimated GFR was ca lculated using the CKD-EPIcr (2020) equation refit without race. The equation is recommended by the National Kidney Foundation - [place] Society of Nephrology Task Force. Blood VENOUS BLOOD / Unknown 10/03/2021 11:00 AM EST 10/03/2021 7:01 PM EST Zac Frank IV, MD CHEMISTRY ORDERABLES Final Re sult [facility] [address] [facility] , [address] [address] [facility] [address] [place] [address] documented in this encounter Visit Diagnoses Diagnosis Atherosclerotic heart disease of [place] coronary artery with other forms of angina pectoris documented in this encounter Additional Health Concerns Infection Onset Date Last Indicated Resolved Time R/O COVID-19 06/05/2022 06/05/2022 06/06/2022 5:19 AM EDT documented as of this encounter Care Teams Rn Lactation Relationship Specialty Start Date End Date Zane Eli MD [address] [facility] [address] [place] [address] PCP - General Internal Medicine 04/01/14 11/14/22 documented as of this encounter
--- OUTSIDE RECORDS SUMMARY | 2025-05-13 11:23 | XMS_ITS | Encounter Summary ---
Author Organization [place] [address] Care Team Providers Care Fabrication Welder Name Role Phone Zane Eli MD Primary Care Provider [phone] Encounter Details Date Type Department Care Team (Latest Contact Info) Description 10/06/2021 Lab Requisition [facility] [place] [address] Zac Frank IV, MD [address] [facility] [address] [place] [address] Atherosclerotic heart disease of [place] coronary artery with other forms of angina [...] Associated Diagnosis Comments RENAL FUNCTION PANEL Routine 10/06/2021 11:00 AM EST Atherosclerotic heart disease of [place] coronary artery with other forms of angina pectoris (HCC) documented in this encounter Results * (ABNORMAL) RENAL FUNCTION PANEL (10/06/2021 11:00 AM EST) Sodium 137 136 - 145 mmol/L 10/06/2021 8:01 PM EST [facility] Potassium 4.5 3.5 - 5.0 mmol/L 10/06/2021 8:01 PM EST [facility] Chloride 102 98 - 107 mmol/L 10/06/2021 8:01 PM EST [facility] Total CO2 25 22 - 29 mmol/L 10/06/2021 8:01 PM EST [facility] Anion Gap 10 7 - 16 mmol/L 10/06/2021 8:01 PM EST [facility] Calcium 9.2 8.6 - 10.4 mg/dL 10/06/2021 8:01 PM EST [facility] Glucose Lvl 201(H) 74 - 100 mg/dL 10/06/2021 8:01 PM EST [facility] BUN 22(H) 6 - 20 mg/dL 10/06/2021 8:01 PM EST [facility] Creatinine 0.87 0.67 - 1.30 mg/dL 10/06/2021 8:01 PM EST [facility] Albumin 3.7 3.5 - 5.2 gm/dL 10/06/2021 8:01 PM EST [facility] Phosphorus 4.3 2.5 - 4.5 mg/dL 10/06/2021 8:01 PM EST [facility] eGFR (CKD-EPIcr 2020) 103 >=60 mL/min/1.7 3 m2 10/06/2021 8:01 PM EST [facility] Comment:Estimated GFR was ca lculated using the CKD-EPIcr (2020) equation refit without race. The equation is recommended by the National Kidney Foundation - [place] Society of Nephrology Task Force. Blood VENOUS BLOOD / Unknown 10/06/2021 11:00 AM EST 10/06/2021 7:22 PM EST Zac Frank IV, MD CHEMISTRY ORDERABLES Final Re sult [facility] [address] [facility] , [place] [address] [facility] [address] [place] [address] documented in this encounter Visit Diagnoses Diagnosis Atherosclerotic heart disease of [place] coronary artery with other forms of angina pectoris documented in this encounter Additional Health Concerns Infection Onset Date Last Indicated Resolved Time R/O COVID-19 06/05/2022 06/05/2022 06/06/2022 5:19 AM EDT documented as of this encounter Care Teams Fabrication Welder Relationship Specialty Start Date End Date Zane Eli MD [address] [facility] [address] [place] [address] PCP - General Internal Medicine 04/01/14 11/14/22 documented as of this encounter
--- OUTSIDE RECORDS SUMMARY | 2025-05-13 11:23 | XMS_ITS | Encounter Summary ---
Author Organization [facility] Address [address] [place] [address] Care Team Providers Care Battery Parts Assembler Name Role Phone Hedy Walker MA Unavailable Unavailable Kiara Jamison RD Unavailable [phone] Zane Eli MD Primary Care Provider [phone] Jim Emerson MD Primary Care Provider Gale Smith Unavailable [phone] Kyra Verde PharmD Unavailable UnavailSondra Chaudhary MD Unavailable [phone] Source Comments This information has been disclosed [...] release of HIV test results or diagnoses. [id number] Health Encounter Details Date Type Department Care Team (Late st Contact Info) Description 08/11/2018 Ophth Exam [facility] Ophthalmology at [address] [place] [address] Ashwin Fisher MD [address] [place] [address] [place] [address] Social History Tobacco Use Types Packs/Day Years Used Date Smoking Tobacco: Never Smokeless Tobacco: Never Alcohol Use Standard Drinks/Week Comments No 0 (1 standard drink = 0.6 oz pur e alcohol) Sex and Gender Information Value Date Recorded Sex Assigned at Male 08/31/2021 5:47 PM EST Legal Sex Male 4:16 PM EST Gender Identity Male 08/31/2021 5:47 PM EST Sexual Orientation Straight 08/31/2021 5: 47 PM EST documented as of this encounter Plan of Treatment Not on file documented as of this encounter Visit Diagnoses Not on filedocumented in this encounter Additional Health Concerns Infection Onset Date Last Indicated Resolved Time Rule Out COVID-19 07/15/2021 07/15/2021 07/15/2021 1:31 PM EDT Rule Out COVID-19 09/13/2021 09/13/2021 09/14/2021 4:45 AM EST Rule Out COVID-19 10/08/2021 10/08/2021 10/08/2021 7:59 PM EST Rule Out COVID-19 10/25/2022 10/26/2022 10/26/2022 2:48 AM EST Rule Out C. difficile 10/26/2022 10/26/20222022 3:51 AM EST Rule Out COVID-19 04/27/2024 04/27/2024 04/27/2024 4:01 AM EDT Rule Out COVID-19 06/13/2024 06/13/2024 06/14/2024 12:20 AM EDT Rule Out COVID-19 08/06/2024 08/06/2024 08/06/2024 12:42 PM EST Rule Out COVID-19 09/22/2024 09/22/2024 09/22/2024 11:54 AM EST Rule Out COVID-19 12/11/2024 12/11/2024 12/11/2024 10:52 PM EDT documented as of this encounter Care Teams Battery Parts Assembler Relationship Specialty Start Date End Date Zane Eli MD [address] [facility] [address] [place] [address] PCP - General Internal Medicine 07/14/21 10/14/21 Jim Emerson MD [address] [facility] [address] [place] [phone] PCP - General Internal Medicine 12/11/24 Hedy Walker MA Weight Loss Support 03/23/[address] [facility], [address] [place] [address] Dietitian 04/09/14 Gale Smith LISW [address] [facility] [address] [place] [address] Behavioral Health Picker [facility] Behavioral Care Management 10/22/23 12/10/23 Kyra Verde, PharmD Ambulatory Pharmacist Pharmacist 10/31/23 02/26/24 Sondra Chapa MD [address] [facility] 2nd [place] [phone] Consulting Physician Nephrology 10/09/24 documented as of this encounter
--- OUTSIDE RECORDS SUMMARY | 2025-05-13 11:23 | XMS_ITS | Clinical Summary ---
Author Organization [facility] Address [address] [place] [address] Phone Care Team Providers Care Dough Mixer Name Role Phone Unavailable Primary Care Provider Unavailabl e Allergies Active Allergy Reactions Criticality Noted Date Comments Aripiprazole 03/28/2017 More depressed Dapagliflozin Anxiety Low 02/11/2018 Pt states he takes this medicine everyday and is not allergic to it. Medications * This document contains information received from the source organization and may not represent a complete record from that organization. ibuprofen (ADVIL;MOTRIN) 800 mgIndications:Lumb ar strain, initial encounter Take 1 Tab by mouth 3 times daily as needed. 90 Tab 0 04/01/20 14 Active Additional Information Patient not taking.Reason: Pt electing to not take the medication, Reported on 10/10/2024 Blood Sugar Diagnostic (ACCU-CHEK JUAQUIN) Misc StripIndications:T ype 2 diabetes mellitus without complication, with long-term current use of insulin (HCC) 2x day ACC_ CHEK JUAQUIN E11.9 120 Strip 2 04/02/20 17 Active Insulin [place], Disposable, (PEN NEEDLE) 32 gauge x 5/32 Misc Needle Use twice daily 1 box 3 04/02/20 17 Active Blood-Glucose Meter Misc KitIndications:Typ e 2 diabetes mellitus without complication, with long-term current use of insulin (HCC) Test once daily E11.9 1 Kit 05/08/20 Active Additional Information Patient not taking.Reason: Pt electing to not take the medication, Reported on 10/10/2024 Lancets Misc MiscIndications:Ty pe 2 diabetes mellitus without complication, with long-term current use of insulin (HCC) Test once daily E11.9 1 box 11 05/08/20 Active Additional Information Patient not taking.Reason: Pt electing to not take the medication, Reported on 10/10/2024 triamcinolone (KENALOG) 0.1 % Top CreamIndications:L ichen simplex chronicus Apply topically BID PRN to hand for up to 2 weeks, then 1 week off. 80 g 2 07/15/20 Active Additional Information Patient not taking.Reason: Therapy Completed, Reported on 10/10/2024 fluticasone propionate (FLONASE) 50 mcg/actuation Nasl [place], SuspensionIndicati ons:Protracted upper respiratory infection 1 [place] by Nasal route daily. 1 Bottle 2 11/29/19 Active Additional Information Patient not taking.Reason: Pt electing to not take the medication, Reported on 10/10/2024 rifAXIMin (XIFAXAN) 550 mg Oral TabletIndications: Irritable bowel syndrome with diarrhea Take 1 Tab by mouth 3 times daily. 42 Tab 1 01/29/20 Active Additional Information Patient not taking.Reason: Advised by Physician, Reported on 10/10/2024 Insulin [place]alding, Disposable, (BD ULTRA-FINE MINI PEN NEEDLE) 31 gauge x 3/16 Misc Needle Subcutaneous (Inject under the skin) 1 Stick daily. 1 box 11 09/04/20 20 Active Blood-Glucose Meter Misc Misc Tests daily dx dm e11.9 please give insurance preferred 1 Each 09/14/20 Active Blood Sugar Diagnostic Misc Strip Tests daily dx dm e11.9 please give insurance preferred 1 box 11 09/14/20 Active Additional Information Patient not taking.Reason: Pt electing to not take the medication, Reported on 10/10/2024 Lancets Misc Misc Tests daily dx dm e11.9 Please give insurance preferred 100 Each 11 09/14/20 Active Additional Information Patient not taking.Reason: Pt electing to not take the medication, Reported on 10/10/2024 tamsulosin (FLOMAX) 0.4 mg Oral CapsuleIndications :Kidney stones TAKE 1 CAPSULE BY MOUTH EVERY DAY AT NIGHT 30 Cap 2 10/12/19 Active Additional Information Patient taking differently: 0.8 mg Oral NIGHTLY, Reason: Advised by Physician, Reported on 10/10/2024 diclofenac (VOLTAREN) 75 mg Oral Tablet, Delayed Release (E.C.)Indications: Strain of left groin TAKE 1 TABLET BY MOUTH TWICE A DAY WITH MEALS 60 Tab 01/01/20 Active Additional Information Patient not taking.Reason: Advised by Physician, Reported on 10/10/2024 ketoconazole (NIZORAL) 2 % Top Shampoo Apply topically Three times weekly. 1 Bottle 3 01/16/20 Active Additional Information Patient not taking.Reason: Therapy Completed, Reported on 10/10/2024 clobetasoL (TEMOVATE) 0.05 % sclp SolutionIndication s:Seborrheic dermatitis Apply topically to scalp up to twice daily as needed for two weeks then take a week off. Do not use on face, groin or armpits. 50 mL 5 01/15/20 Active Additional Information Patient not taking.Reason: Therapy Completed, Reported on 10/10/2024 semaglutide (OZEMPIC) 1 mg/dose (2 mg/1.5 mL) SubQ Pen InjectorIndication s:Type 2 diabetes mellitus without complication, with long-term current use of insulin (HCC) Subcutaneous (Inject under the skin) 1 mg once a week. 9 mL 06/13/20 Active gabapentin (NEURONTIN) 300 mg Oral CapsuleIndications :Chronic bilateral low back pain without sciatica TAKE 1 CAPSULE BY MOUTH TWICE A DAY 60 Capsule 1 06/14/20 Active Additional Information Patient taking differently: 100 mg Oral 3 TIMES DAILY, Reason: Advised by Physician, Reported on 10/10/2024 lisinopriL (PRINIVIL;ZESTRIL) 40 mg Oral TabletIndications: Essential hypertension TAKE 1 TABLET BY MOUTH EVERY DAY 90 Tablet 1 06/14/20 Active Additional Information Patient not taking.Reason: Pt electing to not take the medication, Reported on 10/10/2024 methylPREDNISolone (MEDROL DOSPACK) 4 mg Oral Tablets, Dose PackIndications:Josselin gonsales sprain, initial encounter See package instructions 21 Tablet 08/05/20 Active Additional Information Patient not taking.Reason: Therapy Completed, Reported on 10/10/2024 tiZANidine (ZANAFLEX) 4 mg Oral TabletIndications: Lumbar sprain, initial encounter One every 6 hours as needed for muscle spasm. 16 Tablet 08/05/20 Active Additional Information Patient not taking.Reason: Advised by Physician, Reported on 10/10/2024 omeprazole (PRILOSEC) 20 mg Oral Capsule, Delayed Release(E.C.)Indic ations:Gastro-esop hageal reflux disease with esophagitis, without bleeding TAKE 1 CAP BY MOUTH EVERY MORNING (BEFORE BREAKFAST). 90 Capsule 08/30/20 21 Active divalproex (DEPAKOTE ER) 500 mg Oral Tablet Sustained Release 24 hrIndications:Recu rrent major depressive disorder, in full remission,Bipolar disorder, current episode depressed, moderate (HCC) TAKE 2 TABLETS BY MOUTH EVERY DAY 180 Tablet 09/06/20 Active Additional Information Patient not taking.Reason: Advised by Physician, Reported on 10/10/2024 simvastatin (ZOCOR) 40 mg Oral TabletIndications: Hyperlipidemia with target LDL less than 100 TAKE 1 TABLET BY MOUTH EVERY DAY AT NIGHT 90 Tablet 09/06/20 Active Additional Information Patient not taking.Reason: Advised by Physician, Reported on 10/10/2024 SCARLETT LOYA U-100 INSULIN 100 unit/mL (3 mL) SubQ Insulin Pen SUBCUTANEOUS (INJECT UNDER THE SKIN) 90 UNITS EVERY EVENING FOR 30 DAYS. 45 Each 09/21/20 Active Additional Information Patient not taking.Reason: Advised by Physician, Reported on 10/10/2024 FLUoxetine (PROZAC) 40 mg Oral CapsuleIndications :Recurrent major depressive disorder, in full remission,Bipolar disorder, current episode depressed, moderate (HCC) TAKE 1 CAPSULE BY MOUTH TWICE A DAY 60 Capsule 10/27/19 22 Active metFORMIN (GLUCOPHAGE XR) 500 mg Oral Tablet Sustained Release 24 hrIndications:Type 2 diabetes mellitus without complication, with long-term current use of insulin (HCC) TAKE 2 TABS BY MOUTH 2 TIMES DAILY (WITH MEALS). 120 Tablet 11/16/19 22 Active atenoloL (TENORMIN) 50 mg Oral TabletIndications: Essential hypertension TAKE 1 TABLET BY MOUTH EVERY DAY 90 Tablet 11/17/19 22 Active Additional Information Patient not taking.Reason: Advised by Physician, Reported on 10/10/2024 aspirin 81 mg Oral Tablet, Delayed Release (E.C.) Take 81 mg by mouth daily. 11/24/19 Active atorvastatin (LIPITOR) 80 mg Oral Tablet Take 80 mg by mouth daily. 11/24/19 Active fUROsemide (LASIX) 20 mg Oral Tablet Take 20 mg by mouth daily. 11/09/19 Active metoprolol (LOPRESSOR) 25 mg Oral Tablet Take 25 mg by mouth 2 times daily. 10/12/19 Active spironolactone (ALDACTONE) 50 mg Oral Tablet Take 1 Tablet by mouth daily. 11/16/19 Active buPROPion (WELLBUTRIN XL) 300 mg Oral Tablet Sustained Release 24 hrIndications:Recu rrent major depressive disorder, in full remission,Bipolar disorder, current episode depressed, moderate (HCC) TAKE 1 TABLET BY MOUTH EVERY DAY 15 Tablet 03/30/20 Active FARXIGA 10 mg Oral TabletIndications: Type 2 diabetes mellitus without complication, with long-term current use of insulin (HCC) TAKE 1 TABLET BY MOUTH EVERY DAY 15 Tablet 05/19/20 Active Additional Information Patient not taking.Reason: Advised by Physician, Reported on 10/10/2024 OZEMPIC 0.25 mg or 0.5 mg(2 mg/1.5 mL) SubQ Pen Injector INJECT 0.5 MG SUBCUTANEOUSLY EVERY 7 DAYS. 05/05/20 Active azelastine (ASTELIN) 137 mcg (0.1 %) Nasl Aerosol, SprayIndications:V iral upper respiratory illness 2 Sprays in each nostril 2 times daily. Use in each nostril as directed 30 mL 06/05/20 Active Additional Information Patient not taking.Reason: Advised by Physician, Reported on 10/10/2024 dextromethorphan-g uaiFENesin (MUCINEX DM) 30-600 mg Oral Tablet Sustained Release 12 hrIndications:Ginger l upper respiratory illness Take 1 Tablet by mouth every 12 hours as needed. 20 Tablet 06/05/20 Active Additional Information Patient not taking.Reason: Pt electing to not take the medication, Reported on 10/10/2024 olopatadine (PATANOL) 0.1 % Opht DropsIndications:A llergic conjunctivitis of both eyes Place 1 Drop into both eyes 2 times daily. Administer drops in both eyes. 5 mL 09/26/20 22 Active Additional Information Patient not taking.Reason: Therapy Completed, Reported on 10/10/2024 diclofenac (VOLTAREN) 75 mg Oral Tablet, Delayed Release (E.C.) Take 1 Tablet by mouth 2 times daily. 60 Tablet 06/28/20 23 Active Additional Information Patient not taking.Reason: Advised by Physician, Reported on 10/10/2024 acetaminophen (TYLENOL) 500 mg Oral Tablet Take 500 mg by mouth every 4 hours as needed for Pain. Active albuterol (PROVENTIL) 2.5 mg /3 mL (0.083 %) Inhl Solution for Nebulization Take 2.5 mg by nebulization every 6 hours as needed for Wheezing. Active empagliflozin (JARDIANCE) 25 mg Oral Tablet Take 25 mg by mouth daily. Active ezetimibe (ZETIA) 10 mg Oral Tablet Take 10 mg by mouth daily. Active Blood-Glucose Sensor (FREESTYLE ZEUS 3 SENSOR) Misc Device by [facility].(Non-Drug; Combo Route) route. Follow package directions to apply sensor for continuous blood glucose monitoring. Change sensor every 14 days. Active insulin lispro (HUMALOG) 100 unit/mL SubQ Insulin PenIndications:typ e 2 diabetes mellitus Subcutaneous (Inject under the skin) 24 Units 3 times daily (before meals). Has been increasing to 30 units and sometimes adding extra in between to try and lower sugar. Indications: type 2 diabetes mellitus Active mirtazapine (REMERON) 30 mg Oral Tablet Take 30 mg by mouth nightly. Active torsemide (DEMADEX) 20 mg Oral Tablet Take 20 mg by mouth 2 times daily. Morning and at bedtime Active insulin glargine U-300 conc (TOUJEO MAX U-300 SOLOSTAR) 300 unit/mL (3 mL) SubQ Insulin PenIndications:typ e 2 diabetes mellitus Subcutaneous (Inject under the skin) 64 Units daily. With dinner Indications: type 2 diabetes mellitus Active valproic acid (DEPAKENE) 250 mg Oral Capsule Take 1,000 mg by mouth 2 times daily. 4 capsules (1000mg total) by mouth 2 times a day Active valsartan (DIOVAN) 40 mg Oral Tablet Take 20 mg by mouth daily. Take 0.5 tab (20mg total) Active Active Problems Patient Care Coordination No te Formatting of this note migh t be different from the original. [place] no results found 09/07/2020 [id number] Problem Noted Date Diagnosed Date Acquired keratoderma 06/05/2022 Gastroesophageal reflux disease 06/05/2022 Onychomycosis due to dermatophyte 06/05/2022 Other specified disease of sebaceous glands 05/25 Other testicular hypofunction 06/05/2022 Pain in extremity 06/05/2022 Recurrent major depressive disorder 06/05/2022 COVID-19 03/10/2022 Overview (06/05/2022): Last Assessment & Plan: Meets criteria for treatment Reviewed risks and benefits of Paxlovid He will hold his statin and flomax while taking the Paxlovid Reviewed isolation guidance as well as isolation of symptoms recur after medicine Nevus 02/07/2022 Overview (06/05/2022): Last Assessment & Plan: Refer to derm Peyronie's disease 02/07/2022 Overview (06/05/2022): Last Assessment & Plan: Will rrefer to urology. PAF (paroxysmal atrial fibrillation) 11/16/2021 S/P CABG x 4 09/15/2021 Coronary artery disease of n ative heart with stable angina pectoris 09/13/2021 Overview (06/05/2022): Last Assessment & Plan: Stable continue current managment Follow up with cardiologh Well adult exam 09/13/2021 Overview (06/05/2022): Last Assessment & Plan: Overall doing well with meds. Has surgery upcoming in 2 days. Up To date on execpt needs eye exam and endo refer. SOB (shortness of breath) on exertion 05/18/2021 TRACI (generalized anxiety disorder) 05/20/2019 Moderate episode of recurrent major depressive d isorder 05/16/2019 Noncompliance 03/29/2017 VALARIE on CPAP 08/10/2015 Lumbar radiculopathy 04/23/2014 Seborrheic dermatitis of scalp 04/01/2014 Other and unspecified hyperlipidemia 03/11/2012 Overview (06/05/2022): Last Assessment & Plan: Stable continue current managment Testosterone deficiency 03/11/2012 HTN (hypertension) 03/11/2012 Overview (06/05/2022): Last Assessment & Plan: Stable continue current managment Check labs Obesity 04/26/2010 Type 2 diabetes mellitus wit h circulatory disorder, without long-term current use of insulin 04/26/2010 Overview (06/05/2022): Last Assessment & Plan: Refer to nabil Last Assessment & Plan: Will check labs Depression 04/26/2010 LBP (low back pain) Resolved Problems Problem Noted Date Diagnosed Date Resolved Date Diabetes mellitus type 2, uncontrolled 04/01/2014 03/14/2017 Insulin long-term use 04/01/20142016 Immunizations Immunization Administration Dates Next Due Hepatitis A, Adult 12/19/2018 Influenza Seasonal Injectable 06/02/2014 Influenza Vaccine Quadrivalent 06/13/2018,2016,06/17/2015 Influenza Vaccine, Unspecifi ed Formulation 07/03/2016,06/19/2013,07/11/2012,07/08 Influenza Virus Vaccine Quad rivalant, Flublok 06/13/2021,07/26/2020 Pneumococcal Polysaccharide 23 Valent 02/26/2013 Tdap 06/19/2013 Surgical History Surgery Date Site/Laterality Comments KIDNEY STONE SURGERY MOUTH SURGERY BLADDER SURGERY BACK SURGERY CORONARY ARTERY BYPASS GRAFT Medical History Medical History Date Comments LBP (low back pain) Hypertension Diabetes mellitus (HCC) Shortness of breath Hyperlipidemia Heartburn Depression Kidney stones Allergy Family History Medical History Relation Name Comments Heart Disease Father High Blood Pressure Father High Cholesterol Father Diabetes Mother Amblyopia Neg Hx Blindness Neg Hx Cataracts Neg Hx Glaucoma Neg Hx Macular Degen Neg Hx Retinal Detachment Neg Hx Strabismus Neg Hx Relation Name Status Comments Father Alive Mother Alive Social History Tobacco Use Types Packs/Day Years Used Date Smoking Tobacco: Never Smokeless Tobacco: Never Tobacco Cessation:Counseling Given: Yes Alcohol Use Standard Drinks/Week Comments No 0 (1 standard drink = 0.6 oz pur e alcohol) PHQ-2 Answer Date Recorded PHQ-2 Score 0 02/14/2019 Sexually Active Control Partners Comments Yes Female Sex and Gender Information Value Date Recorded Sex Assigned at Not on file Legal Sex Male 3:53 AM EDT Gender Identity Not on file Sexual Orientation Not on file Obstetrics History Last Filed Vital Signs Vital Sign Reading Time Taken Comments Blood Pressure 104/60 10/10/2024 8:49 AM EST Pulse 80 10/10/2024 8:49 AM EST Temperature 36.5 C (97.7 F) 10/10/2024 8:49 AM EST Respiratory Rate 16 10/10/2024 8:49 AM EST Oxygen Saturation 95% 06/19/2022 10: 05 AM EDT Inhaled Oxygen Concentration - - Weight 153.6 kg (338 lb 9.6 oz) 10/10/2024 8:49 AM EST Height 177.8 cm (5' 10 ) 10/10/2024 8:49 AM EST Body Mass Index 48.58 10/10/2024 8:49 AM EST Plan of Treatment Health Maintenance Due Date Last Done Comments Hepatitis B Vaccine (1 of 3 - 19+ 3-dose series) 1986 Cologuard 2012 FIT 2012 Sigmoidoscopy 2012 Virtual Colonography 2012 Pneumococcal Vaccine 50+ (2 of 2 - PCV) 02/26/2014 02/26/2013 Annual Wellness Exam 06/08/2019 06/08/2018, 06/14/20 17 Kidney Health: uACR 12/18/2019 12/17/2018, 05/17/2017, 03/30/2015 Diabetic Eye Exam 02/25/2020 02/24/2019, 02/24/2019 Lipids 06/08/2022 06/08/2021, 03/24, 05/17/2017, Additional history exists Kidney Health: eGFR 10/06/2022 10/06/2021, 10/03/2021, 09/27/2021, Additional history exists COVID-19 Vaccine ( - season) 2024 08/08/2021, 11/01/2020, 09/30/2020 Zoster (2 of 2) 06/20/2024 04/25/2024 Hemoglobin A1c 02/03/2025 08/06/2024, 10/0 10/2023, 05/07/2024, Additional history exists Influenza Vaccine (#1) 2025 , 06/13/2022, 06/13/2021, Additional history exists Colon Cancer Screening 09/10/2027 Colonoscopy 09/10/2027 09/10/2017, 09/10/2017 DTaP/TDaP/Td (4 - Td or Tdap) 09/19/2033 09/19/2023, 06/19/2013, 01/10/2010, Additional history exists Meningococcal B Vaccine Aged Out No l onger eligible based on patient's age to complete this topic Goals Goal Patient Goal Type Associated Problems [...] AM EDT) No Sherine Porter, Clerical Staff Procedures Procedure Name Priority Date/Time Associated Diagnosis Comments RENAL FUNCTION PANEL Routine 10/06/2021 11:00 AM EST Atherosclerotic heart disease of [place]in[place] coronary artery with other forms of angina pectoris (HCC) LIPID PANEL REFLEX Routine 06/08/2021 10 :05 AM EDT Type 2 diabetes mellitus without complication, with long-term current use of insulin (HCC) HEMOGLOBIN A1C Routine 06/08/2021 10:05 AM EDT Type 2 diabetes mellitus without complication, with long-term current use of insulin (HCC) HM DIABETES EYE EXAM Routine 02/24/2019 MICROALBUMIN/CREATIN INE RATIO URINE Routine 12/17/2018 6:41 AM EDT Type 2 diabetes mellitus without complication, with long-term current use of insulin (HCC) GMED COLONOSCOPY Routine 09/10/2017 12:4 0 PM EST from Last 3 Months or Most Recently Relevant to Health Maintenance Results * (ABNORMAL) RENAL FUNCTION PANEL (10/06/2021 11:00 AM EST) Sodium 137 136 - 145 mmol/L 10/06/2021 8:01 PM EST [facility] Potassium 4.5 3.5 - 5.0 mmol/L 10/06/2021 8:01 PM EST [facility] Chloride 102 98 - 107 mmol/L 10/06/2021 8:01 PM EST [facility] Total CO2 25 22 - 29 mmol/L 10/06/2021 8:01 PM EST [facility] Anion Gap 10 7 - 16 mmol/L 10/06/2021 8:01 PM EST [facility] Calcium 9.2 8.6 - 10.4 mg/dL 10/06/2021 8:01 PM EST [facility] Glucose Lvl 201(H) 74 - 100 mg/dL 10/06/2021 8:01 PM EST [facility] BUN 22(H) 6 - 20 mg/dL 10/06/2021 8:01 PM EST [facility] Creatinine 0.87 0.67 - 1.30 mg/dL 10/06/2021 8:01 PM EST [facility] Albumin 3.7 3.5 - 5.2 gm/dL 10/06/2021 8:01 PM EST [facility] Phosphorus 4.3 2.5 - 4.5 mg/dL 10/06/2021 8:01 PM EST [facility] eGFR (CKD-EPIcr 2020) 103 >=60 mL/min/1.7 3 m2 10/06/2021 8:01 PM EST [facility] Comment:Estimated GFR was ca lculated using the CKD-EPIcr (2020) equation refit without race. The equation is recommended by the National Kidney Foundation - [place] Society of Nephrology Task Force. Blood VENOUS BLOOD / Unknown 10/06/2021 11:00 AM EST 10/06/2021 7:22 PM EST Zac Frank IV, MD CHEMISTRY ORDERABLES Final Re sult Performing Organization Address City/[facility]/ZIP Co de Phone Number [facility] [employer], [facility] [address] [facility] , [address] [place] [phone] [facility] [address] [place] [address] * (ABNORMAL) LIPID PANEL REFLEX (06/08/2021 10:05 AM EDT) Cholesterol 208(H) <200 mg/dL 06/08/2021 5:09 PM EDT [facility] Comment: < 200 Desirable 200 - 239 Borderline High >= 240 High Triglyceride 139 <150 mg/dL 06/08/2021 5:09 PM EDT [facility] Comment: < 150 Normal 150 - 199 Borderline High 200 - 499 High >= 500 Very High HDL 35(L) >=40 mg/dL 06/08/2021 5:09 PM EDT [facility] Comment: > 60 Optimal 40 - 60 Acceptable < 40 Low LDL Calculated 148(H) <100 mg/dL 06/08/2021 5:09 PM EDT [facility] Non-HDL-C Calculated 173(H) <=129 mg/dL 06/08/2021 5:09 PM EDT [facility] Comment: <130 Desirable 130-159 Above Desirable 160-189 Borderline High 190-219 High >= 220 Very High Fasting Specimen? Yes None 021 5:09 PM EDT [facility] Blood Venipuncture / Unknown 06/08/2021 10:05 AM EDT 06/08/2021 10:05 AM EDT Zane Eli MD CHEMISTRY ORDERABLES Final Result Performing Organization Address City/[facility]/ZIP Co de Phone Number [facility] [employer], [address] , [place] [address] [facility] [address] [place] [id number] * (ABNORMAL) HEMOGLOBIN A1C (06/08/2021 10:05 AM EDT) Pathologist [facility] Hgb A1C 7.7(H) 4.2 - 5.6 % 06/08/2021 5:06 PM EDT [facility] [employer], [facility] Est. Avg Glucose 174 mg/dL 06/08/2021 5:06 PM EDT [facility] [employer], [facility] Blood Venipuncture / Unknown 06/08/2021 10:05 AM EDT 06/08/2021 10:05 AM EDT Narrative [facility] 06/08/2021 5:06 PM EDT REFERENCE RANGE: Normal: 4.0-5.6% Pre-diabetes: 5.7-6.4% Provisional diagnosis of diabetes: >6.4% Hgb F>10% and anything which shortens red cell survival, such as hemolytic anemia, or unstable hemoglobin variants such as HbSS, HbSC, or HbCC, will lower the HbA1c value associated with a given level of glycemic control. us Zane Eli MD CHEMISTRY ORDERABLES Final Result Performing Organization Address [facility] Co de Phone Number [facility] [employer] , [place] [address] * HM DIABETES EYE EXAM (02/24/2019) [facility] [address] Left Diabetic Retinopathy Present/Not Present SEP OFFICE Right Diabetic Retinopathy Present/Not Present SEP OFFICE us Zane Eli MD HEALTH MAINTENANCE Final R esult SEP OFFICE * MICROALBUMIN/CREATININE RATIO URINE (12/17/2018 6:41 AM EDT) [facility] [address] Urine Microalb <12.0 mg/L 12/17/2018 9:41 AM EDT [facility] [employer] [facility] Urine Creatinine 59.7 mg/dL 12/18/19 19 9:41 AM EDT [facility] Ur Microalb/Creat 0 - 30 mg/g 12/17/2018 9:41 AM EDT [facility] Comment: Because the albumin level is below the level of detection in this urine specimen, the laboratory is unable to calculate a reliable albumin/creatinine ratio. Microalbuminuria is unlikely if the urine albumin concentration is less than 20- 30 mg/L in a random specimen. Urine 12/17/2018 6:41 AM EDT 12/17/2018 6:41 AM EDT us Zane Eli MD URINE ORDERABLES Final Res ult [facility] [address] [place] [address], [address] [place] [phone] * [facility] COLONOSCOPY (09/10/2017 12:40 PM EST) 09/10/2017 12:4 0 PM EST Narrative [facility] - 09/10/2017 12:[address] [facility] [address] [place] [address] Colonoscopy Report Date: 09/10/2017 12:40 PM Patient Name: CHAUNCEY Timmons. .0 Endoscopist(s): Red Dia MD Gender: Male (age): 1965 (52) Instrument(s): C-1([id number]) C-19- adult scope([id number]) Referring Physician: Zane Eli MD [address] [place] [address] [place] [phone] (phone) (fax) Anesthesia Provider: RHODA Bahena (Nurse pyridine recovery operator) Nurse(s): Dolores Puente, RN, BSN (Pre-Procedure) Bebe Azevedo, RN (Intra-Procedure) Staff: Tammie Fish, RN, BSN (Post-Procedure) ASA Class: P3 - 09/10/2017 12:07 PM Jacinto Nacu, VACCINE CUSTOMER REPRESENTATIVE- [employer] History of Present Illness: CHAUNCEY has been assessed and approved for moderate sedation. The History and Physical was reviewed and no changes were noted regarding medications, allergies or medical history. Administered Medications: lidocaine (PF) 60 mg IV propofol 550 mg IV Zofran 4 mg IV Indications: Screening for colonic neoplasia: V76.51 - Z12.11 Vital Signs: BP (mmHg) Pulse (ppm) Rhythm Resp/min Temp SPO2 (%) 129/89 89 Regular 16 98 (F) 99 Physical Exam: Physical exam was performed on 09/10/2017 at 11:45 AM. Constitutional: Appearance: well nourished,well-developed, well groomed, in no acute distress.. ENMT: Lips/teeth/gums: normal oral mucosa, lips and gums; good dentition. Oropharynx: tongue mid line, normal movement, mucous membranes pink and moist, no oral lesions or exudate. Neck: Neck: normal ROM. Respiratory: Effort: non labored, normal effort. Auscultation: clear to ausculatation bilaterally; no wheezes, rhonchi or rales. Cardiovascular: Auscultation: normal rate and rhythm; normal S1 and S2; no murmurs, rubs or gallops. Gastrointestinal/Abdomen: Abdomen: flat, soft, nontender, nondistended, no hepatosplenomegaly, no guarding, no rebound, no masses, normal bowel sounds. Liver/Spleen: no hepatosplenomegaly. Psychiatric: Orientation: oriented to time, space and person. Mood and affect: no evidence of depression, anxiety or agitation. Procedure: The procedure, indications, preparation and potential complications were explained to the patient, who indicated understanding and signed the corresponding consent forms. This is a/an average risk patient undergoing a Screening colonoscopy. ten years.. MAC with IV sedation was administered by a nurse pyridine recovery operator / anesthesiologist. Continuous pulse oximetry, cardiac monitoring blood pressure and CO2 monitoring were performed. Supplemental oxygen was used. The quality of preparation was Adequate. Patient was placed in left lateral decubitus position. The colonoscope was introduced through the rectum and advanced under direct visualization until cecum, appendiceal orifice, ileo-cecal valve and terminal ileum was reached The appendiceal orifice and the ileo-cecal valve were identified.. The colonoscope was retroflexed within the rectum. Careful visualization was performed as the instrument was withdrawn. Patient tolerance to procedure was good. The procedure was not difficult. Digital rectal exam was normal Limitations/Complications: There were no apparent limitations or complications Findings: Mucosa Erythema and friability were noted in the ileo-cecal Valve and terminal ileum. Multiple cold forceps biopsies were performed for histology. Protruding lesions Small internal hemorrhoids were noted. Additional findings Colonoscopy otherwise normal. Impressions: Erythema and friability in the ileo-cecal Valve and terminal ileum. (Biopsy). Internal hemorrhoids. Colonoscopy otherwise normal. Plan: Patient was noted to have mild inflammation of the IC valve and terminal ileum - this can be seen in inflammatory bowel disease but can also be related to prep and/or NSAID use. Advise to stop NSAIDs. Follow up biopsy results. Plan for repeat colonoscopy in 10 years should biopsies be negative. Samples: Jar # 1 : Biopsy in the ileo-cecal Valve and terminal ileum Findings: Erythema Test(s) requested: Histology Pathology: Pathology was sent to lab, waiting for results Red Dia MD Electronically signed on 09/10/2017 1:14:49 PM by Red Dia MD Red Dia MD GI PROCEDURE ORDERABLES Edite d Result - Final [facility] GASTROENTEROLOGY [facility] [place] [id number] [phone] from Last 3 Months or Most Recently Relevant to Health [place] [id number] [facility] Advance Directives For more information, please contact: [phone] * Full Code (Latest Code Status on File) Date Activated Date Inactivated Comments 02/10/2013 10:02 AM 02/10/2013 11:25 PM
--- OUTSIDE RECORDS SUMMARY | 2025-05-13 11:24 | XMS_ITS | Encounter Summary ---
Author Organization [facility] Address [address] [place] [address] Care Team Providers Care Funding Coordinator Name Role Phone Hedy Walker MA Unavailable Unavailable Kiara Jamison RD Unavailable [phone] Jim Emerson MD Primary Care Provider [phone] Sondra Chapa MD Unavailable [phone] Source Comments This information has been disclosed [...] release of HIV test results or diagnoses. [id number] Reason for Visit * Reason Onset Date Comments Medication Refill 04/07/2025 Encounter Details Date Type Department Care Team (Late st Contact Info) Description 04/07/2025 Refill [facility] [address] [facility] [address] [place] [address] Jim Emerson MD [address] [facility] [address] [place] [address] Bilateral lower extremity edema; Acute decompensated heart failure ([facility]) Social History Tobacco Use Types Packs/Day Years Used Date Smoking Tobacco: Never Smokeless Tobacco: Never Alcohol Use Standard Drinks/Week Comments Never 0 (1 standard drink = 0.6 oz pur e alcohol) Utilities Answer Date Recorded In the past 12 months has th e electric, gas, oil, or water company threatened to shut off services in your home? No 12/11/2024 Social Connection and Isolat ion Panel [NHANES] Answer Date Recorded In a typical week, how many times do you talk on the phone with family, friends, or neighbors? Once a week 10/17/2023 How often do you get togethe r with friends or relatives? Never 10/17/2023 How often do you attend chur ch or caodaism services? More than 4 times per year 10/17/2023 Do you belong to any clubs o r organizations such as anglican groups, unions, fraternal or athletic groups, or school groups? No 10/17/2023 How often do you attend meet ings of the clubs or organizations you belong to? Never 10/17/2023 Are you , , di vorced, , never , or living with a partner? 10/17/2023 AUDIT-C Answer Date Recorded Q1: How often do you have a drink containing alcohol? Never 12/11/2024 Q2: How many drinks containi ng alcohol do you have on a typical day when you are drinking? Patient does not drink Q3: How often do you have si x or more drinks on one occasion? Never 12/11/2024 Overall Financial Resource Strain (CARDIA) Answe r Date Recorded How hard is it for you to pa y for the very basics like food, housing, medical care, and heating? Somewhat hard 10/17/2023 PHQ-2 Answer Date Recorded PHQ-2 Total Score 1 10/06/2024 [facility] of Occupat ional Health - Occupational [...] the money to buy more. Never true 12/12/19 25 Within the past 12 months, t he food you bought just didn't last and you didn't have money to get more. Never true 12/11/2024 PRAPARE - Transportation Answer Date Re corded In the past 12 months, has l ack of transportation kept you from medical appointments or from getting medications? No 11/23 In the past 12 months, has l ack of transportation kept you from meetings, work, or from getting things needed for daily living? No 12/11/2024 Housing Stability Vital Sign Answer Yadiel e Recorded In the last 12 months, was t here a time when you were not able to pay the mortgage or rent on time? No 12/11/2024 In the past 12 months, how m any times have you moved where you were living? 0 12/11/2024 At any time in the past 12 m [facility], were you homeless or living in a fci (including now)? No 12/11/2024 Yearly Questionnaire Answer Date Record ed Do [...] PM EST documented as of this encounter Miscellaneous Notes * Telephone Encounter - Mariza Carnes MA - 04/09/2025 3:12 PM EDT Last Refilled: 04/06/25 Last visit with Provider: 12/15/2024 Jim Emerson MD Next appointment in this department: Visit date not found Last Complete Physical: 09/19/2023 documented in this encounter Plan of Treatment Not on file documented as of this encounter Visit Diagnoses Diagnosis Bilateral lower extremity edema Acute decompensated heart failure (CMS-HCC) documented in this encounter Additional Health Concerns Assessment Noted Time PHQ-9 Depression Total Score: 024 10:38 AM EST documented as of this encounter Care Teams Funding Coordinator Relationship Specialty Start Date End Date Jim Emerson MD [address] [facility] [address] [place] [phone] PCP - General Internal Medicine 12/11/24 Hedy Walker MA Weight Loss Support 03/23/[address] [facility], [address] [place] [address] Dietitian 04/09/14 Sondra Chapa MD [address] [place] [address] 2nd [place] [phone] Consulting Physician Nephrology 10/09/24 documented as of this encounter
--- OUTSIDE RECORDS SUMMARY | 2025-05-13 11:24 | XMS_ITS | Clinical Summary ---
Author Organization [facility] Address [address] [place] [address] Care Team Providers Care Tow Motor Mechanic Name Role Phone Unavailable Primary Care Provider Unavailabl e Social History Tobacco Use Types Packs/Day Years Used Date Smoking Tobacco: Never Assessed Sex and Gender Information Value Date Recorded Sex Assigned at Not on file Legal Sex Male 4:18 PM EDT Gender Identity Not on file Sexual Orientation Not on file Plan of Treatment Health Maintenance Due Date Last Done Comments Cologuard 1967 Colonoscopy 1967 Colorectal Cancer Screening 1967 FIT 1967 Lipid Screening 1985 Tetanus Vaccination (Every 10 Years) 1985 Pneumococcal Vaccine: 50+ Years (1 of 1 - PCV) 017 Zoster-RZV(Shingrix) (1 of 2) 2017 COVID-19 Vaccine ( season) 2024 Depression Screening 09/24/2024 Influenza Vaccination (#1) 2025
--- OUTSIDE RECORDS SUMMARY | 2025-05-13 11:24 | XMS_ITS | Encounter Summary ---
Author Organization [facility] Address [address] [place] [address] Care Team Providers Care Ring Maker Name Role Phone Hedy Walker MA Unavailable Unavailable Kiara Jamison RD Unavailable [phone] Jim Emerson MD Primary Care Provider [phone] Sondra Chapa MD Unavailable [phone] Source Comments This information has been disclosed [...] release of HIV test results or diagnoses. [id number] Reason for Visit * Reason Comments Discharge Follow-up [facility] called patient t o schedule a discharge follow up with the After Care Discharge Clinic. Patient stated he will follow up with his PCP. Patient declined. Encounter Details Date Type Department Care Team (Late st Contact Info) Description 05/07/2025 Telephone [facility]charge [facility] at [address] [id number] Isaias Ojeda Discharge Follow-up ([facility] called patient to schedule a discharge follow up with the After Care Discharge Clinic. Patient stated he will follow up with his PCP. Patient declined.) Social History Tobacco Use Types Packs/Day Years Used Date Smoking Tobacco: Never Smokeless Tobacco: Never Alcohol Use Standard Drinks/Week Comments Never 0 (1 standard drink = 0.6 oz pur e alcohol) Utilities Answer Date Recorded In the past 12 months has e electric, gas, oil, or water company [...] often do you attend chur ch or congregational services? More than 4 times per year 10/17/2023 Do you belong to any clubs o r organizations such as pentecostalism groups, unions, fraternal or athletic groups, or [...] Date Recorded PHQ-2 Total Score 1 10/06/2024 [facility] of Occupat ional Health - Occupational [...] any time in the past 12 m [facility], were you homeless or living in a fdc (including now)? No 05/05/2025 Yearly Questionnaire Answer [...] encounter Miscellaneous Notes * Telephone Encounter - Isaias Ojeda - 05/07/2025 10:32 AM EDT [facility] called patient to schedule a discharge follow up with the After Care Discharge Clinic. Patient stated he will follow up with his PCP. Patient declined. documented in this encounter Plan of Treatment Not on file documented as of this encounter Visit Diagnoses Not on filedocumented in this encounter Additional Health Concerns Assessment Noted Time PHQ-9 Depression Total Score: 25 024 10:38 AM EST documented as of this encounter Care Teams Ring Maker Relationship Specialty Start Date End Date Jim Emerson MD [address] [facility] [address] [place] [phone] PCP - General Internal Medicine 12/11/24 Hedy Walker MA Weight Loss Support 03/23/[address] [facility], [address] [place] [address] Dietitian 04/09/14 Sondra Chapa MD [address] [facility] 2nd Floor [place] [phone] Consulting Physician Nephrology 10/09/24 documented as of this encounter
--- OUTSIDE RECORDS SUMMARY | 2025-05-13 11:24 | XMS_ITS | Encounter Summary ---
Author Organization [facility] Address [facility] [place] [address] Care Team Providers Care Aggregate Conveyor Operator Name Role Phone Hedy Walker MA Unavailable Unavailable Kiara Jamison RD Unavailable [phone] Jim Emerson MD Primary Care Provider [phone] Sondra Chapa MD Unavailable [phone] Source Comments This information has been disclosed [...] release of HIV test results or diagnoses. [id number] Reason for Visit * Reason Onset Date Comments Medication Refill 04/07/2025 Encounter Details Date Type Department Care Team (Late st Contact Info) Description 04/07/2025 Refill [facility] Primary [facility] at [facility] [address] [facility] [address] [place], [place] [id number] Donta Hernandez CNP [address] [place] [phone] Type 2 diabetes mellitus with other specified complication, with long-term current use of insulin ([facility]) Social History Tobacco Use Types Packs/Day Years [...] often do you attend chur ch or samaritan services? More than 4 times per year 10/17/2023 Do you belong to any clubs o r organizations such as hinduism groups, unions, fraternal or athletic groups, or [...] Date Recorded PHQ-2 Total Score 1 10/06/2024 [facility] of Occupat ional Health - Occupational Stress [...] any time in the past 12 m [facility], were you homeless or living in a group home (including now)? No 05/05/2025 Yearly Questionnaire Answer [...] PM EST documented as of this encounter Functional Status * Audit-C Score Answer Date of Assessment Author 0 05/05/2025 2:08 PM Deo Early RN * Question Answer Date of Assessment Author Q1: How often do you have a drink containing alcohol? Never 05/05/2025 2:08 PM Caitie Early R N Q2: How many drinks containing alcohol do you have on a typical day when you are drinking? Patient does not drink 05/05/2025 2:08 PM Caitie Early RN Q3: How often do you have six or more drinks on one occasion? Never 05/05/2025 2:08 PM Caitie Early R N documented as of this encounter Plan of Treatment Not on file documented as of this encounter Visit Diagnoses Diagnosis Type 2 diabetes mellitus with other specified complication, with long-term current use of insulin ([facility]) documented in this encounter Additional Health Concerns Assessment Noted Time PHQ-9 Depression Total Score: 024 10:38 AM EST documented as of this encounter Care Teams Aggregate Conveyor Operator Relationship Specialty Start Date End Date Jim Emerson MD [address] [place] [address] [address] [place] [phone] PCP - General Internal Medicine 12/11/24 Hedy Walker MA Weight Loss Support 03/23/[address] [facility], [address] [place] [phone] Dietitian 04/09/14 Sondra Chapa MD [facility] 2nd Floor [place] [phone] Consulting Physician Nephrology 10/09/24 documented as of this encounter
--- OUTSIDE RECORDS SUMMARY | 2025-05-13 11:24 | XMS_ITS | Clinical Summary ---
Author Organization [facility] Address [address] [facility] [address] [place] [id number] Phone Care Team Providers Care Coat Cutter Name Role Phone Alexis Santacruz MD Unavailable Conditions or Problems Problem Name Problem Code Onset Date Status Entry Date Provider Comment Standard Description Annotate BACK PAIN, LUMBAR, WITH RADICULOPATHY [id number] (SNOMED CT) 04/23 Active 04/23 Devora Bo Lumbar radiculopathy Medications No information available. Medications Administered No information available. Allergies, Adverse Reactions, Alerts Observed no known allergies at Results Date Name Value Unit Range Flag Description Clinical Lists Update: MRI b illing GFR 79 mL/min Glomerular fi ltration rate/1.73 sq M.predicted among non-blacks [Volume Rate/Area] in Serum, Plasma or Blood by Creatinine-based formula (MDRD) Plan of Care No information available. Procedures Code Procedure Name Date Entry Date [id number] Lumbar or Sacral CPT-51547 2 J0702 Betamethasone (Celestone) 6mg [id number] Lumbar or Sacral CPT-97136 2 J0702 Betamethasone (Celestone) 6mg 72682 MRI Lumbar Spine (with and without) 04/23 A9585 [facility] Vital Signs Date Name Value Unit Description BMI (Body Mass Index) 48.49 kg/m2 Bod y Mass Index (Ratio) BP Diastolic 77 mm[Hg] blood pressu re, diastolic BP Systolic 124 mm[Hg] blood pressur e, systolic Body Temperature 96.7 [degF] temperat ure E&M Heart Rate 78 /min pulse rate Height 70 [in_us] height E&M Weight Measured 338 [lb_av] weight E& M Weight Measured 338 [lb_av] weight E& M Immunizations No information available. Advance Directives No information available.
--- OUTSIDE RECORDS SUMMARY | 2025-05-13 11:24 | XMS_ITS | Encounter Summary ---
Author Organization [facility] Address [address] [place] [address] Care Team Providers Care Swage Toolsetter Name Role Phone Hedy Walker MA Unavailable Unavailable Kiara Jamison RD Unavailable [phone] Jim Emerson MD Primary Care Provider [phone] Sondra Chapa MD Unavailable [phone] Source Comments This information has been disclosed [...] release of HIV test results or diagnoses. [id number] Encounter Details Date Type Department Care Team (Latest Contact Info) Description 05/04/2025 Travel Social History Tobacco Use Types Packs/Day Years Used Date Smoking Tobacco: Never Smokeless Tobacco: Never Alcohol Use Standard Drinks/Week Comments Never 0 (1 standard drink = 0.6 oz pur e alcohol) Utilities Answer Date Recorded In the past 12 months has [employer], gas, oil, or water [employer] threatened to shut off services in your home? No 05/05/2025 Social Connection and Isolat ion Panel [NHANES] Answer Date Recorded In a typical week, how many times do you talk on the phone with family, friends, or neighbors? Once a week 10/17/2023 How often do you get togethe r with friends or relatives? Never 10/17/2023 How often do you attend chur ch or zoroastrian services? More than 4 times per year 10/17/2023 Do you belong to any clubs o r organizations such as tenriism groups, unions, fraternal or athletic groups, or [...] Date Recorded PHQ-2 Total Score 1 10/06/2024 [facility] of Occupat ional Health - Occupational Stress [...] any time in the past 12 m [facility], were you homeless or living in a detention (including now)? No 05/05/2025 Yearly Questionnaire Answer [...] documented as of this encounter Care Teams Swage Toolsetter Relationship Specialty Start Date End Date Jim Emerson MD [address] [place] [address] PCP - General Internal Medicine 12/11/24 Hedy Walker MA Weight Loss Support 03/23/[address] [facility], [address] [place] [address] Dietitian 04/09/14 Sondra Chapa MD [address] [facility] 2nd Floor [place] [address] Consulting Physician Nephrology 10/09/24 documented as of this encounter
--- OUTSIDE RECORDS SUMMARY | 2025-05-13 11:24 | XMS_ITS | Encounter Summary ---
Author Organization [facility] Address [address] [place] [address] Care Team Providers Care Ocean Transportation Intermediary Name Role Phone Hedy Walker MA Unavailable Unavailable Kiara Jamison RD Unavailable [phone] Jim Emerson MD Primary Care Provider [phone] Sondra Chapa MD Unavailable [phone] Source Comments This information has been disclosed [...] release of HIV test results or diagnoses. [id number] Reason for Visit * Reason Comments Medication Refill Encounter Details Date Type Department Care Team (Late st Contact Info) Description 04/07/2025 Refill [facility] Primary Care at [facility] [address] [facility] [address] [place] [address] Jim Emerson MD [address] [facility] [address] [place] [address] Type 2 diabetes mellitus with other specified complication, with long-term current use of insulin ([facility]) Social History Tobacco Use Types Packs/Day Years [...] often do you attend chur ch or mandaen services? More than 4 times per year 10/17/2023 Do you belong to any clubs o r organizations such as caodaism groups, unions, fraternal or athletic groups, or [...] Date Recorded PHQ-2 Total Score 1 10/06/2024 [facility] of Occupat ional Health - Occupational Stress [...] any time in the past 12 m [facility], were you homeless or living in a [facility] (including now)? No 12/11/2024 Yearly Questionnaire Answer [...] Encounter - Mariza Carnes MA - 04/09/2025 3:11 PM EDT Last Refilled: 01/01/25 and 01/15/25 Last visit with Provider: 12/15/2024 Jim Emerson MD Next appointment in this department: Visit date not found Last Complete Physical: 09/19/2023 documented in this encounter Plan of Treatment Not on file documented as of this encounter Visit Diagnoses Diagnosis Type 2 diabetes mellitus with other specified complication, with long-term current use of insulin ([facility]) documented in this encounter Additional Health Concerns Assessment Noted Time PHQ-9 Depression Total Score: 024 10:38 AM EST documented as of this encounter Care Teams Ocean [employer] Intermediary Relationship Specialty Start Date End Date Jim Emerson MD [address] [facility] [address] [place] [address] PCP - General Internal Medicine 12/11/24 Hedy Walker MA Weight Loss Support 03/23/[address] [facility], [address] [place] [address] Dietitian 04/09/14 Sondra Chapa MD [address] [facility] 2nd Floor General [place] [phone] Consulting Physician Nephrology 10/09/24 documented as of this encounter
--- OUTSIDE RECORDS SUMMARY | 2025-05-13 11:24 | XMS_ITS | Encounter Summary ---
Author Organization [facility] Address [address] [place] [address] Care Team Providers Care Measurer Name Role Phone Hedy Walker MA Unavailable Unavailable Kiara Jamison RD Unavailable [phone] Jim Emerson MD Primary Care Provider [phone] Sondra Chapa MD Unavailable [phone] Source Comments This information has been disclosed [...] release of HIV test results or diagnoses. [id number] Reason for Visit * Reason Comments Medication Refill Encounter Details Date Type Department Care Team (Late st Contact Info) Description 04/07/2025 Refill [facility] [address] [facility] [address] [place] [address] Liv Ross CNP [address] [place] [address] Medication Refill Social History Tobacco Use Types Packs/Day Years [...] often do you attend chur ch or buddhism services? More than 4 times per year 10/17/2023 Do you belong to any clubs o r organizations such as adventist groups, unions, fraternal or athletic groups, or [...] Date Recorded PHQ-2 Total Score 1 10/06/2024 [facility] of Occupat ional Health - [...] money to buy more. Never true 12/12/19 Within the past 12 months, t he [...] any [facility] in the [facility] were you [facility] or living in a intermediate (including now)? No 12/11/2024 Yearly Questionnaire Answer [...] encounter Miscellaneous Notes * Telephone Encounter - Heather Castellanos RN - 04/08/2025 7:41 AM EDT Assessment # CAD - s/p CABG (08/2021) - On ASA 81 mg, Lipitor 80 mg, BB # HFpEF, HTN - Last TTE 50-55% - Todays weight 338 lbs, last ov weight 344 lbs, EDW 335lbs - NYHA Class II - On torsemide 40 mg BID, Toprol XL 50 mg, valsartan 20 mg daily # DM2 - Follows with endocrine - unable to have GLP1 2/2 pancreatitis history - Last HgbA1c: Lab Results Component Value Date HGBA1C 7.8 (H) 08/06/2024 - On Jardiance 25 mg, insulin # HLD - Last lipid panel: Lab Results Component Value Date CHOLTOT 91 08/06/2024 TRIG 237 (H) 08/06/2024 HDL 21 (L) 08/06/2024 LDL 23 08/06/2024 - The ASCVD Risk score (Ibeth VILLALOBOS, et al., 2019) failed to calculate for the following reasons: The valid total cholesterol range is 130 to 320 mg/dL - On lipitor 80 mg, Zetia 10 mg # HTN - BP today 118/70 # VALARIE # Nocturnal hypoxia Plan 2+ edema on exam, cont torsemide 40 mg BID, take an additional dose in afternoon PRN edema/weight gain Strongly encouraged weight loss, referral to weight loss center Follow up with Sleep medicine to get re-estb on CPAP [facility], pt attended one week. Did not like. Encouraged continue activity at home. Lengthy discussion today regarding diet in setting of DM & HF, education sheets provided and will refer to motor vehicle representative at the [facility]. Instructed patient to call office for worsening shortness of breath, chest pain, syncope, or any other concerning changes. Follow up in 2 months documented in this encounter Plan of Treatment Not on file documented as of this encounter Visit Diagnoses Diagnosis Coronary artery disease of [place] heart with stable angina pectoris, unspecified vessel or lesion type ([facility]) documented in this encounter Additional Health Concerns Assessment Noted Time PHQ-9 Depression Total Score: 25 024 10:38 AM EST documented as of this encounter Care Teams Measurer Relationship Specialty Start Date End Date Jim Emerson MD [address] [facility] [address] [place] [address] PCP - General Internal Medicine 12/11/24 Hedy Walker MA Weight Loss Support 03/23/[address] [facility], [address] [place] [address] Dietitian 04/09/14 Sondra Chapa MD [address] [facility] 2nd [place] [phone] Consulting Physician Nephrology 10/09/24 documented as of this encounter
--- OUTSIDE RECORDS SUMMARY | 2025-05-13 11:24 | XMS_ITS | Encounter Summary ---
Author Organization [facility] Address [address] [place] [address] Care Team Providers Care Oenologist Name Role Phone Hedy Walker MA Unavailable Unavailable Kiara Jamison RD Unavailable [phone] Jim Emerson MD Primary Care Provider [phone] Sondra Chapa MD Unavailable [phone] Source Comments This information has been disclosed [...] release of HIV test results or diagnoses. [id number] Reason for Visit * Reason Comments Medication Refill Encounter Details Date Type Department Care Team (Late st Contact Info) Description 04/04/2025 Refill [facility] Primary Care at [facility] Office [address] [facility] [address] [place] [address] Jim Emerson MD [address] [facility] [address] [place] [address] Bilateral lower extremity edema; Acute decompensated heart failure ([facility]) Social History Tobacco Use Types Packs/Day Years [...] often do you attend chur ch or congregation services? More than 4 times per year 10/17/2023 Do you belong to any clubs o r organizations such as yarsanism groups, unions, fraternal or athletic groups, or [...] Date Recorded PHQ-2 Total Score 1 10/06/2024 [facility] of Occupat ional Health - Occupational Stress [...] in the past 12 m [facility], were you homeless or living in a half-way (including now)? No 05/05/2025 Yearly Questionnaire Answer [...] Author 0 05/05/2025 2:08 PM EDT Deo Silva, RN * Question Answer Date of Assessment [...] R N documented as of this encounter Miscellaneous Notes * Telephone Encounter - Lyle Lafleur MA - 04/06/2025 9:42 AM EDT Last office visit with PCP: 12/15/2024 Jim Emerson MD Last office with Pc Ryder: 12/15/2024 Jim Emerson MD, Next appt: Visit date not found BP Readings from Last 3 Encounters: 12/15/24 126/70 12/14/24 107/67 11/04/24 111/72 documented in this encounter Plan of Treatment Not on file documented as of this encounter Visit Diagnoses Diagnosis Bilateral lower extremity edema Acute decompensated heart failure ([facility]-HCC) documented in this encounter Additional Health Concerns Assessment Noted Time PHQ-9 Depression Total Score: 024 10:38 AM EST documented as of this encounter Care Teams Oenologist Relationship Specialty Start Date End Date Jim Emerson MD [address] [facility] [address] [place] [address] PCP - General Internal Medicine 12/11/24 Hedy Walker MA Weight Loss Support 03/23/[address] [facility], [address] [place] [address] Dietitian 04/09/14 Sondra Chapa MD [address] [place] [address] 2nd Floor [place] [phone] Consulting Physician Nephrology 10/09/24 documented as of this encounter
--- OUTSIDE RECORDS SUMMARY | 2025-05-13 11:24 | XMS_ITS | Encounter Summary ---
Author Organization [facility] Address [address] [place] [address] Care Team Providers Care Hob Machine Operator Name Role Phone Hedy Walker MA Unavailable Unavailable Kiara Jamison RD Unavailable [phone] Jim Emerson MD Primary Care Provider [phone] Sondra Chapa MD Unavailable [phone] Source Comments This information has been disclosed [...] release of HIV test results or diagnoses. [id number] Reason for Visit * Reason Onset Date Comments ED/Inpatient Follow-up Calls 05/08/2025 Encounter Details Date Type Department Care Team (Late st Contact Info) Description 05/08/2025 Patient Outreach Primary Care Management [address] [facility], [address] [place] [address] Odilia Ceja RN ED/Inpatient Follow-up Calls Social History Tobacco Use Types Packs/Day Years Used Date Smoking Tobacco: Never Smokeless Tobacco: Never Alcohol Use Standard Drinks/Week Comments Never 0 (1 standard drink = 0.6 oz pur e alcohol) Utilities Answer Date Recorded In the past 12 months has [employer], gas, oil, or water [employer] threatened to shut off services in your home? No 05/05/2025 Social Connection and Isolat ion Panel [NHANES] Answer Date Recorded In a typical week, how many times do you talk on the phone with family, friends, or neighbors? Once a week 10/17/2023 How often do you get togethe r with friends or relatives? Never 10/17/2023 How often do you attend chur ch or yarsani services? More than 4 times per year 10/17/2023 Do you belong to any clubs o r organizations such as islam groups, unions, fraternal or athletic groups, or [...] Date Recorded PHQ-2 Total Score 1 10/06/2024 [facility] Answer Date Recorded [...] any time in the past 12 m [facility], were you homeless or living in a care home (including now)? No 05/05/2025 Yearly Questionnaire [...] as of this encounter Miscellaneous Notes * Plan of Care - Odilia Ceja RN - 05/08/2025 1:55 PM EDT RN Care Management Discharge Assessment Reason for Today's Outreach: ED/Inpatient Follow-up Calls Next Steps: FAVIAN 05/18/25 Date of Next Follow Up: Not Specified Preferred Contact/Time: [phone] Discharge Assessment Hospital Encounter CSN: [id number] Patient discharged from: Hospital Why did you choose the ED and/or Hospital as your place of care?: Lack of ability to manage symptoms Discharge Diagnosis: Heart Failure Discharged To: Home Has patient been seen by [facility] PCP prior to visit?: No Any new medications prescribed or changed at discharge?: No Patient was able to obtain all new or currently prescribed medications?: N/A Does the patient understand the reason for and how to take all medications?: N/A Home health ordered as a result of the hospital visit?: No Has home health contacted the patient (if ordered, within 2 days of d/c)?: N/A Interventions: Coordination with Patient Interventions Comments: The patient reports feeling significantly better overall. He denies experiencing any heart palpitations. However, he does complain of shortness of breath after walking for approximately 2-3 minutes. He is not currently using supplemental oxygen but has portable oxygen available if needed. The patient is not using his CPAP device due to discomfort from high pressure settings, which he states interferes with his sleep. Laboratory tests have been completed. The patient requests to be notified if any changes to his current treatment plan are necessary based on the results. HDF scheduled for 05/18/25. Patient has follow-up scheduled?: Yes RN Care Plan Updated?: N/A [facility] Discharge to: Home Communication within 2 days of discharge: Yes Medicine Reconciliation done: Yes Discharge summary reviewed: Yes Pending Test reviewed: NA Education provided to: Patient Referrals scheduled:NA Community services done. NA Current Outpatient Medications Medication Sig acetaminophen Take 1 tablet (500 mg total) by mouth every 4 hours as needed for Pain. albuterol Inhale 3 mLs (2.5 mg total) by nebulization every 6 hours as needed for Wheezing. aspirin Take 1 tablet (81 mg total) by mouth daily. NEEDS PHYSICAL PRIOR TO NEXT REFILL atorvastatin Take 1 tablet (80 mg total) by mouth daily. FreeStyle Guzman 3 Plus Sensor Use 1 sensor as directed every 15 days buPROPion HCL Take 1 tablet (300 mg total) by mouth daily. empagliflozin Take 1 tablet (25 mg total) by mouth daily. ezetimibe Take 1 tablet (10 mg total) by mouth daily. FLUoxetine Take 1 capsule (40 mg total) by mouth 2 times a day. gabapentin Take 1 capsule (100 mg total) by mouth at bedtime. insulin glargine U-300 conc Inject 64 Units subcutaneously daily with dinner. insulin lispro Inject 23 Units as directed 3 times a day with meals. Inject additional 2 units for blood glucose over 250 metFORMIN Take 1 tablet (500 mg total) by mouth 2 times a day with meals. metoprolol succinate Take 1 tablet (50 mg total) by mouth daily. mirtazapine Take 1 tablet (15 mg total) by mouth at bedtime. NEEDS PHYSICAL PRIOR TO NEXT REFILL omeprazole Take 1 capsule (20 mg total) by mouth every morning before breakfast. pen needle, diabetic Use with insulin 4 times a day potassium chloride Take 2 tablets (40 mEq total) by mouth daily. tamsulosin Take 2 capsules (0.8 mg total) by mouth at bedtime. torsemide Take 3 tablets (60 mg total) by mouth daily. NEEDS PHYSICAL PRIOR TO NEXT REFILL valproic acid Take 4 capsules (1,000 mg total) by mouth 2 times a day. NEEDS PHYSICAL PRIOR TO NEXTREFILL valsartan Take 0.5 tablets (20 mg total) by mouth daily. No current facility-administered medications for this visit. See full RN Care Plan here. RN shared contact number, availability and role in care. Instructed patient to call RN for non-emergent issues and to contact PCP before going to urgent care and emergency departments. Care plan, interventions and goals reviewed/shared with patient. Patient verbalized understanding of information discussed and agreeable with next steps in care. ODILIA CEJA RN Primary Care - Clay Caster documented in this encounter Plan of Treatment Not on file documented as of this encounter Visit Diagnoses Not on filedocumented in this encounter Additional Health Concerns Assessment Noted Time PHQ-9 Depression Total Score: 25 024 10:38 AM EST documented as of this encounter Care Teams Hob Machine Operator Relationship Specialty Start Date End Date Jim Emerson MD [address] [place] [address] PCP - General Internal Medicine 12/11/24 Hedy Walker MA Weight Loss Support 03/23/[address] [facility], [address] [place] [address] Dietitian 04/09/14 Sondra Chapa MD [address] [facility] 2nd [place] [address] Consulting Physician Nephrology 10/09/24 documented as of this encounter
--- OUTSIDE RECORDS SUMMARY | 2025-05-13 11:24 | XMS_ITS | Clinical Summary ---
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 You shall make no further disclosure of thisinformation without the specific, written, and informed release of theindividual to whom it pertains, or as otherwise permitted by law. A generalauthorization for the release of medical or other information is not sufficientfor the purposes of therelease of HIV test results or diagnoses. [id number] Allergies Active Allergy Reactions Criticality Noted Date Comments Aripiprazole Other (See Comments) Medium 03/28/2017 More depressed Semaglutide Other (See Comments) Low 11/15/2022 Severe abdmoninal pain Medications albuterol (PROVENTIL) 2.5 mg /3 mL (0.083 %) nebulizer solution Inhale 3 mLs (2.5 mg total) by nebulization every 6 hours as needed for Wheezing. 75 each 024 Active acetaminophen (TYLENOL) 500 MG tablet Take 1 tablet (500 mg total) by mouth every 4 hours as needed for Pain. Active omeprazole (PRILOSEC) 20 MG capsule Take 1 capsule (20 mg total) by mouth every morning before breakfast. 30 capsule 5 04/16/20 2:25 PM EDT 025 Active buPROPion HCL (WELLBUTRIN XL) 300 MG 24 hr tablet Take 1 tablet (300 mg total) by mouth daily. 90 tablet 3 05/01/20 10:58 AM EDT 025 Active FLUoxetine (PROZAC) 40 MG capsule Take 1 capsule (40 mg total) by mouth 2 times a day. 180 capsule 3 01/03/20 11:22 AM EDT 025 Active empagliflozin (JARDIANCE) 25 mg tablet Take 1 tablet (25 mg total) by mouth daily. 30 tablet 11 02/14/20 9:12 AM EDT 025 2025 Active gabapentin (NEURONTIN) 100 MG capsule Take 1 capsule (100 mg total) by mouth at bedtime. 90 capsule 3 04/16/20 2:25 PM EDT 025 Active metoprolol succinate (TOPROL-XL) 50 MG 24 hr tablet Take 1 tablet (50 mg total) by mouth daily. 90 tablet 3 02/10/20 3:17 PM EDT 025 Active tamsulosin (FLOMAX) 0.4 mg Cap Take 2 capsules (0.8 mg total) by mouth at bedtime. 180 capsule 3 04/16/20 2:25 PM EDT 025 Active potassium chloride (KLOR-CON M20) 20 MEQ tabletIndication s:hypokalemia prevention Take 2 tablets (40 mEq total) by mouth daily. 60 tablet 1 04/16/20 2:25 PM EDT 025 Active pen needle, diabetic (BD ULTRA-FINE FLORENCE PEN NEEDLE) 32 gauge x 5/32 Ndle Use with insulin 4 times a day 120 each 2 01/17/20 12:40 PM EDT 025 Active blood-glucose sensor (FREESTYLE ZEUS 3 PLUS SENSOR) Julisa Use 1 sensor as directed every 15 days 2 kit 9 04/16/20 2:25 PM EDT 025 Active mirtazapine (REMERON) 15 MG tablet Take 1 tablet (15 mg total) by mouth at bedtime. NEEDS PHYSICAL PRIOR TO NEXT REFILL 90 tablet 05/01/20 25 10:58 AM EDT 025 Active valsartan (DIOVAN) 40 MG tabletIndication s:Diabetic Nephropathy,chronic disease epidemiologist jose heart failure Take 0.5 tablets (20 mg total) by mouth daily. 60 tablet 1 04/16/20 25 2:25 PM EDT 025 Active aspirin 81 MG EC tabletIndication s:Hypertension, unspecified type Take 1 tablet (81 mg total) by mouth daily. NEEDS PHYSICAL PRIOR TO NEXT REFILL 90 tablet 02/14/20 9:12 AM EDT 025 Active metFORMIN (GLUCOPHAGE-XR) 500 MG 24 hr tabletIndication s:Type 2 diabetes mellitus with other specified complication, with long-term current use of insulin ([facility] [place] Take 1 tablet (500 mg total) by mouth 2 times a day with meals. 180 tablet 3 02/14/20 1:48 PM EDT 025 Active valproic acid (DEPAKENE) 250 mg capsule Take 4 capsules (1,000 mg total) by mouth 2 times a day. NEEDS PHYSICAL PRIOR TO NEXT REFILL 720 capsule 025 Active insulin glargine U-300 conc (TOUJEO MAX U-300 SOLOSTAR) 300 unit/mL (3 mL) InPnIndications: Type 2 diabetes mellitus with other specified complication, with long-term current use of insulin ([facility] [place] Inject 64 Units subcutaneously daily with dinner. 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 90 tablet 1 04/16/20 25 2:25 PM EDT 025 Active ezetimibe (ZETIA) 10 mg tabletIndication s:Coronary artery disease of lime artery of lime heart with stable angina pectoris ([facility] [place] Take 1 tablet (10 mg total) by mouth daily. 90 tablet 1 04/16/20 25 2:25 PM EDT 025 Active torsemide (DEMADEX) 20 MG tabletIndication s:Bilateral lower extremity edema,Acute decompensated heart failure ([facility] [place]) Take 3 tablets (60 mg total) by mouth daily. NEEDS PHYSICAL PRIOR TO NEXT REFILL 270 tablet 04/16/20 25 2:25 PM EDT 025 Active insulin lispro (HUMALOG KWIKPEN INSULIN) 100 unit/mL InPnIndications: Type 2 diabetes mellitus with other specified complication, with long-term current use of insulin ([facility] [place] Inject 23 Units as directed 3 times a day with meals. Inject additional 2 units for blood glucose over 250 025 Active syringe with needle (SYRINGE 3CC/67LO5-5/2 ) 3 mL 21 gauge x 1 /2 Syrg Use 1 Syringe as directed every 14 days. 10 each 6 022 2024 Discontinued insulin lispro (HUMALOG KWIKPEN INSULIN) 100 unit/mL InPnIndications: Type 2 diabetes mellitus with other specified complication, with long-term current use of insulin ([facility] [place] Inject 24 Units as directed 3 times a day with meals. Has been increasing to 30 units and sometimes adding extra in-between to try to lower sugar. 024 2024 Discontinued Active Problems Problem Noted Date Diagnosed Date Anxiety and depression 05/05/2025 Assessment & Plan (05/07/2025 10:16 AM EDT): - Cont home fluoxetine 40 mg BID, bupropion 300 mg daily, mirtazapine 15 mg qHS, valproic acid 100 mg BID Assessment & Plan (05/06/2025 5:33 PM EDT): Continue home fluoxetine 40 mg BID Continue home bupropion 300 mg daily Continue home mirtazapine 15 mg QHS Continue home valproic acid 100 mg BID Assessment & Plan (05/05/2025 9:00 AM EDT): Continue home fluoxetine 40 mg BID Continue home bupropion 300 mg daily Continue home mirtazapine 15 mg QHS Continue home valproic acid 100 mg BID Assessment & Plan (05/05/2025 7:43 AM EDT): - Continue home fluoxetine 40 mg BID - Continue home bupropion 300 mg daily - Continue home mirtazapine 15 mg QHS - Continue home valproic acid 100 mg BID BPH (benign prostatic hyperplasia) 05/05/2025 Assessment & Plan (05/07/2025 10:16 AM EDT): - Cont home tamsulosin 0.8 mg qHS Assessment & Plan (05/06/2025 5:33 PM EDT): Continue home tamsulosin 0.8 mg QHS Assessment & Plan (05/05/2025 9:00 AM EDT): Continue home tamsulosin 0.8 mg QHS Assessment & Plan (05/05/2025 7:43 AM EDT): - Continue home tamsulosin 0.8 mg QHS (HFpEF) heart failure with preserved ejection fr action 07/01/2024 Assessment & Plan (12/15/2024 8:19 AM EDT): Clinically doing well. Would like to go to work today. 4 hours day sedentary job Assessment & Plan (10/08/2024 9:51 AM EST): Clinically appears euvolemic. And feeling better with adjusment to meds and diet. He asked about working 4 hours per day at a sedentary job and based on my exam,today that should be ok. Patient understands and agrees with plan. Assessment & Plan (07/08/2024 9:49 AM EDT): Stable continue current managment Check renal funcitoin today Pulmonary nodules 06/01/2024 GERD (gastroesophageal reflux disease) Assessment & Plan (05/07/2025 10:16 AM EDT): - Cont home PPI Assessment & Plan (05/06/2025 5:33 PM EDT): Continue home pantoprazole 20 mg daily Assessment & Plan (05/05/2025 9:00 AM EDT): Continue home pantoprazole 20 mg daily Assessment & Plan (05/05/2025 7:43 AM EDT): - Pantoprazole 20 mg daily Assessment & Plan (12/15/2024 8:19 AM EDT): Stable continue current managment Assessment & Plan (05/12/2024 9:25 AM EDT): Long statding issue. As noted, incvrease Prilosec to 20 mg BID Risks, benefits, indications and instructions have been discussed with pt. Patient understands and agrees with plan. Acute on chronic heart failu re with preserved ejection fraction 04/29/2024 Assessment & Plan (05/07/2025 10:16 AM EDT): Last ADHF 11/2024. P/w 1wk progressive ELIUD and orthopnea despite increasing pt's torsemide from 40mg daily to 80mg daily (taken as BID [...] cardiac rehab, CHF clinic, after discharge clinic Assessment & Plan (05/06/2025 5:33 PM EDT): Patient has one week of BLE pitting edema and orthopnea despite increased torsemide dose, where Pt's confirmed he took a total of 80 mg torsemide daily for a couple days leading up to admission but this helped minimally. Home regimen of Jardiance 25 mg daily, torsemide 40 mg daily (20 mg BID), Toprol XL 50 mg daily, and valsartan 20 mg daily. Admission weight 340 lbs up from suspected dry weight of 328-330 lbs. Will begin diuresis and monitory renal panel. Last CHF exacerbation admission in 11/2024. Received IV lasix 60 mg earlier this AM. - hold lasix, spironolactone, and empagliflozin Assessment & Plan (05/05/2025 2:29 PM EDT): Patient has one week of BLE pitting edema and orthopnea despite increased torsemide dose, where Pt's confirmed he took a total of 80 mg torsemide daily for a couple days leading up to admission but this helped minimally. Home regimen of Jardiance 25 mg daily, torsemide 40 mg daily (20 mg BID), Toprol XL 50 mg daily, and valsartan [...] 1 tablet 20 mg morning and night Assessment & Plan (05/05/2025 7:43 AM EDT): Patient has one week of BLE pitting edema and orthopnea despite increased torsemide dose. Admission weight 340 lbs up from suspected dry weight of 328-330 lbs. No other signs of fluid overload, lungs clear on exam. Will begin diuresis and monitory [...] Mg; replete lytes - Hold home torsemide Assessment & Plan (06/06/2024 10:05 AM EDT): Overall improved. Will monitor weiight as dexcribed. Based on labs, may be able to titrated Demadex if needed. Patient understands and agrees with plan. Assessment & Plan (05/12/2024 9:23 AM EDT): Stable continue current managment Clinically improved. MDD (major depressive disord er), recurrent severe, without psychosis 10/08/2023 Well adult exam 09/19/2023 Assessment & Plan (09/19/2023 10:45 AM EST): Overall stable. Tdap today Refer for colonoscopy Suicidal ideation 09/04/2023 Dysthymia 08/31/2023 Assessment & Plan (09/19/2023 10:48 AM EST): Stable at this time. Continue meds as is. Seeing counselor next week. Recommended access resources through the [facility]. Patient understands and agrees with plan. Assessment & Plan (08/31/2023 2:44 PM EST): Pt already taking prozac, depakote and Wellbutrin. Will need to see psych. Will also refer to counselor here to help with counseling. Subacute cough 12/25/2022 Assessment & Plan (12/25/2022 11:15 AM EDT): Ongoing for about 1 week . O2 saturation 92-95% with exertion (2 laps around the hallway. Will check CXr today. Continue amoxicilin if no chages on CXR Patient understands and agrees with plan. Diarrhea 10/27/2022 Hyperbilirubinemia 10/27/2022 RUQ pain 10/27/2022 Other acute pancreatitis with uninfected necrosi s 10/04/2022 Assessment & Plan (10/04/2022 9:10 AM EST): imprved Will check labs today. Advance diet as tolerated but reduce fat content in diet as much as possible. Hypogonadism in male 09/22/2022 Erectile dysfunction 09/22/2022 OREILLY (dyspnea on exertion) 07/10/2022 Assessment & Plan (09/11/2024 9:34 AM EST): Sleep medicine Discomfort in chest 07/10/2022 Cough 06/13/2022 Assessment & Plan (06/13/2022 1:51 PM EDT): likley due to post nasal drip. coint spray and antihistamine. Check CXR. O2 saturation. followe up Prn COVID-19 03/10/2022 Assessment & Plan (10/17/2023 9:56 AM EST): Had acute bronchitis as secondary issue . Finishing abx and steroids. Assessment & Plan (03/10/2022 4:38 PM EDT): Meets criteria for treatment Reviewed risks and benefits of Paxlovid He will hold his statin and flomax while taking the Paxlovid Reviewed isolation guidance as well as isolation of symptoms recur after medicine T2DM (type 2 diabetes mellitus) 02/07/2022 Assessment & Plan (05/07/2025 10:16 AM EDT): A1c 12.1 05/05/25. Home glargine 64 qHS, lispro 24 TIDAC, metformin, and empagliflozin. - Resume home insulin on discharge, will need PCP follow up for adjustments - Cont home gabapentin 100mg qHS for neuropathic pain Assessment & Plan (05/06/2025 5:33 PM EDT): Last Hgb A1c in 11/2024 was 10.2. At home, takes Glargine 64 units nightly, Lispro 24 units TID with meals, metformin, and Jardiance. Glargine 40 units nightly Lispro 16 units TID with meals LDSSI Hypoglycemic protocol Hemoglobin A1c Continue gabapentin 100 mg nightly for neuropathic pain Hold home Jardiance and metformin Assessment & Plan (05/05/2025 9:00 AM EDT): Last Hgb A1c in 11/2024 was 10.2. At home, takes Glargine 64 units nightly, Lispro 24 units TID with meals, metformin, and Jardiance. Glargine 40 units nightly Lispro 16 units TID with meals LDSSI Hypoglycemic protocol Hemoglobin A1c Continue gabapentin 100 mg nightly for neuropathic pain Hold home Jardiance and metformin Assessment & Plan (05/05/2025 7:43 AM EDT): Last Hgb A1c in 11/2024 was 10.2. At home, takes Glargine 64 units nightly, Lispro 24 units TID with meals, metformin, and Jardiance. Plan: - Glargine 40 units nightly - Lispro 16 units TID with meals - LDSSI - Hypoglycemic protocol - Hemoglobin A1c - Continue gabapentin 100 mg nightly for neuropathic pain - Hold home Jardiance and metformin Assessment & Plan (12/12/2024 1:48 AM EDT): Some confusion with home diabetic medications. Will need to follow up with spouse. RELATIONSHIP MGR meds; Lantus 64 units nightly, metformin 1000 mg po BID - jardiance 25 mg daiy - Lantus 40 units subcut at bedtime (dose reduced) - carb restricted diet - NUtrition consult - HgA1c - FS AC HS - Lispro 12 units daily before meals - MDSSI Assessment & Plan (10/08/2024 9:51 AM EST): Will contineu current manasdgement. Assessment & Plan (06/06/2024 10:05 AM EDT): Has follow up with endocrine later this month. Assessment & Plan (05/12/2024 9:23 AM EDT): Seen by endo recelty. And insulin adjusted. A1C actually improved compared to few momnths ago. Continue current management. Assessment & Plan (10/17/2023 9:54 AM EST): Poor control. Seen virtually by endo earlier this month. Follow instructions and follow up with endo as planned. Assessment & Plan (09/19/2023 10:46 AM EST): Poor control likely due to poor diet and wt gain. To see endocrine soon. In meantime recommended to increase Tresiba (long acting insulin) to 75 units at bedtime. Patient understands and agrees with plan. Risks, benefits, indications and instructions have been discussed with pt. Assessment & Plan (08/31/2023 2:38 PM EST): Follow with endocrine will check labs prior to next visit. Assessment & Plan (11/15/2022 10:21 AM EST): Had to stop meds due to likely abd pain side effect. Follow up with endocinr as scheduled. Using CGM and blood sugars have improved compared to last week. Assessment & Plan (10/04/2022 9:11 AM EST): Pt with poor control trinity lincrease insulin to 35 units BID and follow up with endocrine as soon as possibl. e Assessment & Plan (02/07/2022 9:47 AM EDT): Will check labs Nevus 02/07/2022 Assessment & Plan (02/07/2022 9:47 AM EDT): Refer to derm Peyronie's disease 02/07/2022 Assessment & Plan (02/07/2022 9:48 AM EDT): Will rrefer to urology. PAF (paroxysmal atrial fibrillation) 11/16/2021 S/P CABG x 4 09/15/2021 Assessment & Plan (10/17/2023 9:57 AM EST): Hx of CAD. To see cardiology today but issue with cards schedule. They will need to stop back after today's visits to gain a new appt. Assessment & Plan (09/19/2023 10:45 AM EST): Will see cards soon Well adult exam 09/13/2021 Assessment & Plan (09/13/2021 1:26 PM EST): Overall doing well with meds. Has surgery upcoming in 2 days. Up To date on [facility] execpt needs eye exam and endo refer. CAD (coronary artery disease) 09/13/2021 Assessment & Plan (05/07/2025 10:16 AM EDT): Hx CABG x4 in 08/2021. - Cont home ASA 81mg daily, atorvastatin 80mg daily, ezetimibe 10mg daily - Cont home metop succinate 50mg daily, GDMT as above Assessment & Plan (05/06/2025 5:33 PM EDT): Hx CABG x4 in 08/2021. Continue home aspirin 81 mg daily Continue home atorvastatin 80 mg daily Assessment & Plan (05/05/2025 9:00 AM EDT): Hx CABG x4 in 08/2021. Continue home aspirin 81 mg daily Continue home atorvastatin 80 mg daily Assessment & Plan (05/05/2025 7:43 AM EDT): Hx CABG x4 in 08/2021. - Continue home Aspirin 81 mg daily, atorvastatin 80 mg daily Assessment & Plan (10/08/2024 9:51 AM EST): Stable continue current managment Assessment & Plan (09/11/2024 9:33 AM EST): Cardiac rehab Assessment & Plan (08/31/2023 2:38 PM EST): S/p CABG will check echo but patient needs to follow up with asset protection agent. He and agres so will send referral Assessment & Plan (11/15/2022 10:22 AM EST): Doing well. coint cardiology management. Assessment & Plan (10/04/2022 9:11 AM EST): Stable continue current managment Assessment & Plan (02/07/2022 9:46 AM EDT): Stable continue current managment Follow up with cardiologh Obesity 03/20/2014 Diabetes 03/20/2014 Assessment & Plan (09/13/2021 1:26 PM EST): Refer to endocine Hypertension 03/20/2014 Assessment & Plan (05/07/2025 10:16 AM EDT): Hx CABG x4 in 08/2021. - Cont home ASA 81mg daily, atorvastatin 80mg daily, ezetimibe 10mg daily - Cont home metop succinate 50mg daily, GDMT as above Assessment & Plan (05/06/2025 5:33 PM EDT): Patient normotensive on admission. Home regimen of Toprol XL 50 mg daily, and valsartan 20 mg daily. Holding home valsartan 40 mg daily Continue home metoprolol succinate 40 mg daily Assessment & Plan (05/05/2025 9:00 AM EDT): Patient normotensive on admission. Home regimen of Toprol XL 50 mg daily, and valsartan 20 mg daily. Holding home valsartan 40 mg daily Continue home metoprolol succinate 40 mg daily Assessment & Plan (05/05/2025 7:43 AM EDT): Patient normotensive on admission. Continuing home BP meds.. Plan: - Continue home valsartan 40 mg daily - Continue home metoprolol succinate 40 mg daily Assessment & Plan (12/15/2024 8:19 AM EDT): Stable continue current managment Assessment & Plan (07/08/2024 9:49 AM EDT): Stable continue current managment Assessment & Plan (06/06/2024 10:05 AM EDT): Stable continue current managment Assessment & Plan (05/12/2024 9:22 AM EDT): Stable continue current managment Assessment & Plan (09/19/2023 10:46 AM EST): Stable continue current managment Assessment & Plan (11/15/2022 10:21 AM EST): Stable continue current managment Assessment & Plan (02/07/2022 9:46 AM EDT): Stable continue current managment Check labs HLD (hyperlipidemia) 03/20/2014 Assessment & Plan (05/07/2025 10:16 AM EDT): Hx CABG x4 in 08/2021. - Cont home ASA 81mg daily, atorvastatin 80mg daily, ezetimibe 10mg daily - Cont home metop succinate 50mg daily, GDMT as above Assessment & Plan (05/06/2025 5:33 PM EDT): Continue home atorvastatin 80 mg daily Continue home ezetimibe 10 mg daily Assessment & Plan (05/05/2025 9:00 AM EDT): Continue home atorvastatin 80 mg daily Continue home ezetimibe 10 mg daily Assessment & Plan (05/05/2025 7:43 AM EDT): - Continue home atorvastatin 80 mg daily - Continue home ezetimibe 10 mg daily Assessment & Plan (09/13/2021 1:26 PM EST): Stable continue current managment VALARIE (obstructive sleep apnea) 03/20/2014 Assessment & Plan (05/07/2025 10:16 AM EDT): Previously on CPAP, patient stated was not able to tolerate it and has not been using for at least one month. - Follow-up outpt sleep medicine for consideration of BPAP/AVAPS if better tolerated Assessment & Plan (05/06/2025 5:33 PM EDT): Previously on CPAP, patient stated was not able to tolerate it and has not been using for at least one month. Consider nightly CPAP if requested Assessment & Plan (05/05/2025 9:00 AM EDT): Previously on CPAP, patient stated was not able to tolerate it and has not been using for at least one month. Consider nightly CPAP if requested Assessment & Plan (05/05/2025 7:43 AM EDT): Previously on CPAP, patient stated was at highest settings and he was not able to tolerate it. Has not been using for at least one month. - Consider nightly CPAP, but patient previously did not tolerate Assessment & Plan (07/08/2024 9:49 AM EDT): Will contact sleep med centerRe: other options since not tolerating cpap and likely contributing to HFpEF. Assessment & Plan (06/06/2024 10:05 AM EDT): Continue CPAP as per previous prescriptions. Assessment & Plan (09/19/2023 10:47 AM EST): Scheduled to see sleep medicine soon Assessment & Plan (08/31/2023 2:36 PM EST): Likle cause of fatigue and winded. Trinity refer to pulmonary andsleep mediciner. Patient understands and agrees with plan. Resolved Problems Problem Noted Date Diagnosed Date Resolved Date JULIANA (acute kidney injury) 05/05/2025 Assessment & Plan (05/07/2025 10:16 AM EDT): BL Cr 1.1-1.2, admit Cr 1.41. Likely cardiorenal given improvement with diuresis, with subsequent worsening from overdiuresis. Improved to baseline on discharge. - Follow-up BMP as above Assessment & Plan (05/06/2025 5:33 PM EDT): Cr on admission of 1.41, most recent Cr in 11/2024 of 1.1, baseline of ~1.1-1.2. Suspect JULIANA may be result of diuresis from increased torsemide dose over past week. - Cr increase likely due to rapid diuresis Assessment & Plan (05/05/2025 9:00 AM EDT): Cr on admission of 1.41, most recent Cr in 11/2024 of 1.1, baseline of ~1.1-1.2. Suspect JULIANA may be result of diuresis from increased torsemide dose over past week. Strict I/Os Daily renal panel; replete lytes as needed Assessment & Plan (05/05/2025 7:43 AM EDT): Cr on admission of 1.41, most recent Cr in 11/2024 of 1.1, baseline of ~1.1-1.2. Suspect JULIANA may be result of diuresis from increased torsemide dose over past week. Plan: - CTM - Strict I/Os - Daily renal panel; replete lytes Dyspnea 08/15/2022 12/13/2024 Assessment & Plan (12/12/2024 1:48 AM EDT): DDX: decompensated heart failure vs RV failure in setting of VALARIE and possible obesity hypoventilation vs infectious causes. The patient reports weight gain of several pounds, orthopnea, and BLE edema in the setting of non compliance with diet and fluid restriction 2/2 depression. He has no chest pain, no leukocytosis.indicating underlying infection. ECG is non ischemic and troponin negative. - strict I/o - Lasix 80 mg IV BID - afterload reduction with valsartan 20mg and jardiance 25mg OD consider adding aldactone 25mg OD for GDMT depending on renal function and bp (aldactone 50mg on retail Rx in the past but appeared to be Dced and patent reports not taking it) - TTE to assess LVEF and RV - CMU - Fluid restriction Assessment & Plan (08/15/2022 3:30 PM EST): Appears worse since COIVD infcetion . Cardiac work up good. Will check CTPA to rule out PE. Otherwise, follow advice of cardiology to begin rehab. Patient understands and agrees with plan. Acute decompensated heart failure 10/10/2021 12/13/2024 Encounters Date Type Department Care Team Description 05/08/2025 Patient Outreach Primary Care Management [address] [place] [address] Odilia Vega RN ED/Inpatient Follow-up Calls 05/07/2025 Telephone [facility] at [facility] [address] [place] [address] Isaias Ojeda Discharge Follow-up ([facility] called patient to schedule a discharge follow up with the After Care Discharge Clinic. Patient stated he will follow up with his PCP. Patient declined.) 05/04/2025 11:55 PM EDT - 05/07/2025 11:34 AM EDT Hospital Encounter [facility] [address] [place] [address] Liam Ibrahim MD [place], [place], MD [place], Adam M, MD Acute on chronic diastolic congestive heart failure ([facility]) (Primary Dx); Type 2 diabetes mellitus with other specified complication, with long-term current use of insulin ([facility]); VALARIE (obstructive sleep apnea) Discharge Disposition: Home or Self Care WITHOUT Home Care Services 05/04/2025 Travel 04/07/2025 Refill [facility] Primary Care at [facility] [address] [facility] [address] [place] [address] Donta Hernandez CNP Type 2 diabetes mellitus with other specified complication, with long-term current use of insulin ([facility]) 04/07/2025 Refill [facility] Primary Care at [facility] [address] [facility] [address] [place] [address] Jim Emerson MD Bilateral lower extremity edema; Acute decompensated heart failure ([facility]-HCC) 04/07/2025 Refill [facility] Cardiology at [facility] [address] [facility] [address] [place] [phone] Liv Ross CNP Medication Refill 04/07/2025 Refill [facility] Primary Care at [facility] [address] [facility] [address] [place], [place] [address] Jim Emerson MD Type 2 diabetes mellitus with other specified complication, with long-term current use of insulin ([facility] [place] 04/04/2025 Refill [facility] Primary Care at [facility] [address] [facility] [address] [place], [place] [phone] Jim Emerson MD Bilateral lower extremity edema; Acute decompensated heart failure ([facility] [place]) 02/11/2025 Refill [facility] Endocrinology at [facility] [address] [facility] [address] [place] [phone] Erika Killian CNP Type 2 diabetes mellitus with other specified complication, with long-term current use of insulin ([facility] [place]) 02/11/2025 Refill [facility] Primary Care at [facility] [address] [facility] [address] [place], [place] [address] Jim Emerson MD Hypertension, unspecified type 02/11/2025 Refill [facility] Renal [facility]pertension [facility] at [address] [place] [phone] Sondra Chapa MD 02/11/2025 Refill [facility] Cardiology at [facility] [address] [facility] [address] [place] [phone] Liv Ross CNP Medication Refill 02/11/2025 Refill [facility] Primary Care at [facility] [address] [facility] [address] [place], [place] [address] Jim Emerson MD from Last 3 Months Immunizations Immunization Administration Dates Next Due COVID-19, mRNA, Moderna mono valent, age 12+ 08/08/2021,11/01/2020,09/30/2020 [id number] 09/09/2009 Hepatitis A, adult 12/19/2018 Influenza, Trivalent, Preservative-Free 06/06/2024 Influenza, quadrivalent, preservative-free 06/13/2022 Influenza, quadrivalent, wit h preservative 06/13/2018,05/25/2017,06/17/2015 Influenza, recombinant, quad rivalent, preservative-free 06/13/2021,07/26/2020 Influenza, trivalent, with preservative 06/02/2014 Influenza, unspecified 06/21/2023,2015,06/19/2013,2011,07/12/2011,06/24/2010,06/24/2009,0 09/24/2008 Pneumococcal polysaccharide, 23-valent 02/26/2013 Pneumococcal, unspecified 12/14/2009 TD PRESERVATIVE FREE 11/29/1996 Td 09/24/2007 tdap 09/19/2023,06/19/2013,01/10/2010 Family History Medical History Relation Comments Depression Brother Heart disease Brother Hypertension Brother Depression Father Heart disease Father Hypertension Father Mental illness Father Sleep apnea Father Asthma Mother Diabetes Mother Obesity Mother Sleep apnea Mother Anesthesia problems Neg Hx Relation Status Comments Brother Father Mother Social History Tobacco Use Types Packs/Day Years Used Date Smoking Tobacco: Never Smokeless Tobacco: Never Tobacco Cessation:Counseling Given: Not Answered Alcohol Use Standard Drinks/Week Comments Never 0 (1 standard drink = 0.6 oz pur e alcohol) [employer] Answer Date Recorded In the past 12 months has [employer], [employer], or water [employer] threatened to shut off services in your home? No 05/05/2025 Social Connection and Isolat ion Panel [NHANES] Answer Date Recorded In a typical week, how many times do you talk on the phone with family, friends, or neighbors? Once a week 10/17/2023 How often do you get togethe r with friends or relatives? Never 10/17/2023 How often do you attend [facility] or [facility] services? More than 4 times per year 10/17/2023 Do you belong to any clubs o r organizations such as quaker groups, unions, fraternal or athletic groups, or [...] Date Recorded PHQ-2 Total Score 1 10/06/2024 [facility] - Occupational Stress Questionnaire Answer Date [...] any time in the past 12 m [facility], were you homeless or living in a snf (including now)? No 05/05/2025 Yearly Questionnaire Answer [...] Orientation Straight 08/31/2021 5: 47 PM EST Last Filed Vital Signs Vital Sign Reading [...] Mass Index 46.86 05/05/2025 2:00 PM EDT Plan of Treatment Health Maintenance Due Date Last Done Comments Abnormal Colonoscopy Follow Up 1965 HIV Screening 1985 Immunization: Hepatitis B (1 of 3 - 19+ 3-dose series) 1986 Cologuard (FIT-DNA) 2012 Colonoscopy 2012 Colorectal Cancer Screening (MyChart) 2012 Stool Testing (gFOBT) 2012 Immunization: Pneumococcal ( 2 of 2 - PCV) 02/26/2014 02/26/2013 Discuss PSA Screening 07/20/2023 07/20/2022 Immunization: COVID-19 ( season) 2024 08/08/2021, 11/01/2020, 09/30/2020 Immunization: Zoster (2 of 2) 06/20/2024 04/25/2024 Comprehensive Physical Exam 09/19/2024 09/19/2023 Depression Monitoring (PHQ-9) 10/07/2024 07/07/2024 Diabetic Eye Exam (MyChart) 12/04/2024 12/05/2023 Immunization: Influenza (MyC umanzor) (#1) 2025 06/06/2024, 06/21/2023, 06/13/2022, Additional history exists Hemoglobin A1C Monitoring (MyChart) 08/05/2025 05/05/2025, 12/12/2024, 08/06/2024, Additional history exists Urine Albumin/Creatinine Ratio 10/24/2025 0 10/24/2024, 10/24/2024, 06/25/2024, Additional history exists Renal Function/GFR 05/07/2026 05/07/2025, 0 05/06/2025, 05/05/2025, Additional history exists Lipid Panel 08/06/2029 08/06/2024, 10/0 10/2023, 05/07/2024, Additional history exists Immunization: DTaP/Tdap/Td ( 5 - Td or Tdap) 09/19/2033 09/19/2023, 06/19/2013, 01/10/2010, Additional history exists Hepatitis C Screening (MyChart) Completed 05/04/2025, 04/26/2024, 10/26/2022 Medical Devices Implanted Type Area New Car Make Ready Mechanic Device Identifier Shelf Expiration Date Model / Serial / Lot Lens Iol 0 D +20 Santosh Mod L Bcnvx 13mm 6mm Pc 1 Pc Fld Ant Asym Uv Ag Lght Fltr Acrsf Iq Stableforce Acrl Strl Aphakia 118.7 A-Cnst - [id number] Implanted:Qty: 1 on 11/07/2022 by Ashwin Fisher MD at [facility] Main Lens Left: Eye [employer] 01/10/2027 SN60WF.200 / [id number] / N/A Lens Iol 0 D +20 Santosh Mod L Bcnvx 13mm 6mm Pc 1 Pc Fld Ant Asym Uv Ag Lght Fltr Acrsf Iq Stableforce Acrl Strl Aphakia 118.7 A-Cnst - [id number] Implanted:Qty: 1 on 12/05/2022 by Ashwin Fisher MD at [facility] Main Lens Right: Eye [employer] 01/09/2027 SN60WF.200 / [id number] / N/A Procedures Procedure Name Priority Date/Time Associated Diagnosis Comments POC GLU MONITORING DEVICE Routine 05/07/2025 8:05 AM EDT MAGNESIUM Routine 05/07/2025 4:19 AM EDT BASIC METABOLIC PANEL Routine 05/07/2025 4:19 AM EDT CBC Routine 05/07/2025 4:19 AM EDT POC GLU MONITORING DEVICE Routine 05/06/2025 9:09 PM EDT POC GLU MONITORING DEVICE Routine 05/06/2025 5:53 PM EDT EKG - SCAN 05/06/2025 2:56 PM EDT POC GLU MONITORING DEVICE Routine 05/06/2025 12:52 PM EDT MYA RHYTHM STRIP - SCAN 05/06/2025 8:25 AM EDT POC GLU MONITORING DEVICE Routine 05/06/2025 7:55 AM EDT CBC Routine 05/06/2025 3:11 AM EDT MAGNESIUM Routine 05/06/2025 3:11 AM EDT RENAL FUNCTION PANEL W/EGFR Routine 05/06/2025 3:11 AM EDT MYA RHYTHM STRIP - SCAN 05/05/2025 11:52 PM EDT POC GLU MONITORING DEVICE Routine 05/05/2025 8:25 PM EDT POC GLU MONITORING DEVICE Routine 05/05/2025 6:39 PM EDT MAGNESIUM STAT 05/05/2025 4:50 PM EDT RENAL FUNCTION PANEL W/EGFR Timed 05/05/2025 4:50 PM EDT ECHO COMPLETE W/ CONTRAST Routine 05/05/2025 4:08 PM EDT POC GLU MONITORING DEVICE Routine 05/05/2025 2:07 PM EDT SODIUM, URINE, RANDOM Timed 05/05/2025 11:41 AM EDT POC GLU MONITORING DEVICE Routine 05/05/2025 9:12 AM EDT BASIC METABOLIC PANEL STAT 05/05/2025 8:07 AM EDT POTASSIUM Routine 05/05/2025 6:21 AM EDT HEMOGLOBIN A1C Routine 05/05/2025 5:31 AM EDT MAGNESIUM Routine 05/05/2025 5:31 AM EDT RENAL FUNCTION PANEL W/EGFR Routine 05/05/2025 5:31 AM EDT CBC Routine 05/05/2025 5:31 AM EDT HIGH SENSITIVITY TROPONIN STAT 05/04/2025 11:24 PM EDT DIFFERENTIAL STAT 05/04/2025 11:24 PM EDT CBC STAT 05/04/2025 11:24 PM EDT B NATRIURETIC PEPTIDE STAT 05/04/2025 11:24 PM EDT ED HCV AB REFLEX TO HCV QUANT Routine 05/04/2025 11:24 PM EDT BASIC METABOLIC PANEL STAT 05/04/2025 11:24 PM EDT ED ECG 12-LEAD (MUSE) STAT 05/04/2025 10:59 PM EDT XR CHEST PA AND LATERAL MARILYN 05/04/2025 10:54 PM EDT MICROALBUMIN (RANDOM UR) Routine 10/24/2024 1:45 PM EST Chronic kidney disease (CKD) stage G2/A1, mildly decreased glomerular filtration rate (GFR) between 60-89 mL/min/1.73 square meter and albuminuria creatinine ratio less than 30 mg/g Primary hypertension LIPID PANEL Routine 08/06/2024 3:03 PM EST PSA TOTAL, SCREENING Routine 07/20/2022 7:58 AM EDT Prostate cancer screening from Last 3 Months or Most Recently Relevant to Health Maintenance Results * (ABNORMAL) POC Glucose Monitoring Device (05/07/2025 8:05 AM EDT) Only the most recent of9 resultswithin the time period is included. POC Glucose Monitoring Device 111(H) 70 - 100 mg/dL 05/07/2025 8:06 AM EDT [facility] Blood 05/07/2025 8:05 AM EDT 05/07/2025 8:06 AM EDT James Das MD POINT OF CARE TEST ORDERABL ES Final Result [facility] [address] * (ABNORMAL) CBC, AM (05/07/2025 4:19 AM EDT) Only the most recent of4 resultswithin the time period is included. WBC 9.6 3.8 - 10.8 10E3/uL 05/07/2025 5:16 AM EDT [facility] RBC 5.32 4.20 - 5.80 10E6/uL 05/07/2025 5:16 AM EDT [facility] Hemoglobin 15.5 13.2 - 17.1 g/dL 05/07/2025 5:16 AM EDT [facility] Hematocrit 46.0 38.5 - 50.0 % 05/07/2025 5:16 AM EDT [facility] MCV 86.5 80.0 - 100.0 fL 05/07/2025 5:16 AM EDT [facility] MCH 29.1 27.0 - 33.0 pg 05/07/2025 5:16 AM EDT [facility] MCHC 33.7 32.0 - 36.0 g/dL 05/07/2025 5:16 AM EDT [facility] RDW 15.3(H) 11.0 - 15.0 % 05/07/2025 5:16 AM EDT [facility] Platelets 185 140 - 400 10E3/uL 05/07/2025 5:16 AM EDT [facility] MPV 8.3 7.5 - 11.5 fL 05/07/2025 5:16 AM EDT [facility] Whole Blood 05/07/2025 4:19 AM EDT 05/07/2025 5:08 AM EDT Augusto Enciso MD LAB BLOOD ORDERABLES Lazara l Result [facility] [address] * (ABNORMAL) Magnesium, AM (05/07/2025 4:19 AM EDT) Only the most recent of4 resultswithin the time period is included. Magnesium 2.6(H) 1.5 - 2.5 mg/dL 05/07/2025 5:41 AM EDT [facility] Plasma 05/07/2025 4:19 AM EDT 05/07/2025 5:08 AM EDT us Augusto Enciso MD LAB BLOOD ORDERABLES Lazara lees Result [facility] [address] [place] [address], [facility] * (ABNORMAL) Basic Metabolic panel, AM (05/07/2025 4:19 AM EDT) Only the most recent of3 resultswithin the time period is included. Sodium 140 133 - 146 mmol/L 05/07/2025 5:41 AM EDT [facility] Potassium 3.9 3.5 - 5.3 mmol/L 05/07/2025 5:41 AM EDT [facility] Chloride 102 98 - 110 mmol/L 05/07/2025 5:41 AM EDT [facility] CO2 28 21 - 33 mmol/L 05/07/2025 5:41 AM EDT [facility] Anion Gap 10 3 - 16 mmol/L 05/07/2025 5:41 AM EDT [facility] BUN 27(H) 7 - 25 mg/dL 05/07/2025 5:41 AM EDT [facility] Creatinine 1.18 0.60 - 1.30 mg/dL 05/07/2025 5:41 AM EDT [facility] Glucose 110(H) 70 - 100 mg/dL 05/07/2025 5:41 AM EDT [facility] Calcium 8.8 8.6 - 10.3 mg/dL 05/07/2025 5:41 AM EDT [facility] Osmolality, Calculated 296 278 - 305 mOsm/kg 05/07/2025 5:41 AM EDT [facility] EGFR 72 05/07/2025 5:41 AM EDT [facility] Comment:As of 2021, the estimated GFR is calculated using the 2021 Chronic Kidney Disease Epidemiology Collaboration (CKD-EPI) equation. In line with the NKF-ASN Task Force Recommendations, this equation does not include a coefficient for race. A single eGFR value is calculated for each patient. The reference interval is >60 mL/min/1.73m2. eGFR values greater than 90 will be reported as >90mL/min/1.73m2. Reference: Lazarus C, Nuno M, Broyn DC, Love ND, Gary [place], Marc BOX, et al. A Unifying Approach for GFR Estimation: Recommendations of the NKF-ASN Task Force on Reassessing the inclusion of Race in Diagnosing Kidney Disease. Am J Kidney Dis. 2020. Plasma 05/07/2025 4:19 AM EDT 05/07/2025 5:08 AM EDT us Augusto Enciso MD LAB BLOOD ORDERABLES Lazara lees Result [facility] [address] * EKG - scan (05/06/2025 2:56 PM EDT) us Scanning Uchhim SCAN DOCS - NO RESULTS Final Res ult * MYA Rhythm Strip - Scan (05/06/2025 8:25 AM EDT) Only the most recent of2 resultswithin the time period is included. us Scanning Uchhim SCAN DOCS - NO RESULTS Final Res ult * (ABNORMAL) Renal Function Panel w/EGFR (05/06/2025 3:11 AM EDT) Only the most recent of3 resultswithin the time period is included. Sodium 139 133 - 146 mmol/L 05/06/2025 4:32 AM EDT [facility] Potassium 4.0 3.5 - 5.3 mmol/L 05/06/2025 4:32 AM EDT [facility] Chloride 98 98 - 110 mmol/L 05/06/2025 4:32 AM EDT [facility] CO2 31 21 - 33 mmol/L 05/06/2025 4:32 AM EDT [facility] Anion Gap 10 3 - 16 mmol/L 05/06/2025 4:32 AM EDT [facility] BUN 30(H) 7 - 25 mg/dL 05/06/2025 4:32 AM EDT [facility] Creatinine 1.41(H) 0.60 - 1.30 mg/dL 05/06/2025 4:32 AM EDT [facility] Glucose 176(H) 70 - 100 mg/dL 05/06/2025 4:32 AM EDT [facility] Calcium 8.6 8.6 - 10.3 mg/dL 05/06/2025 4:32 AM EDT [facility] Phosphorus 4.1 2.1 - 4.7 mg/dL 05/06/2025 4:32 AM EDT [facility] Albumin 4.1 3.5 - 5.7 g/dL 05/06/2025 4:32 AM EDT [facility] Osmolality, Calculated 298 278 - 305 mOsm/kg 05/06/2025 4:32 AM EDT [facility] EGFR 58 05/06/2025 4:32 AM EDT [facility] Comment:As of 2021, the estimated GFR [...] EDT 05/06/2025 3:59 AM EDT us Ifeoma Rich DO LAB BLOOD ORDERABLES Final Res ult [facility] [address] [place] [id number], [facility] * ECHO COMPLETE W/ CONTRAST (05/05/2025 4:08 PM EDT) Anatomical Region Laterality Modality Chest Ultrasound 05/05/2025 2:45 PM EDT Narrative 05/05/2025 7:43 PM EDT * [facility]* [address] [place] [address] Transthoracic Echocardiogram Patient: Jluis Monge Room: [facility] Height: 70in MR Number: [id number] : 1965 Weight: 328lb Account: [id number] Gender: M BP: 134 / 79 Study Date: 05/05/2025 Age: 59 BSA: 2.58m^2 Referring physician: Kuldip Mills Interpreting physician: Shantal Silveira MD PERFORMING Shantal Silveira MD MULTIFOCAL LENS ASSEMBLER Kimber Catsle ORDERING Kuldip Mills REFERRING Kuldip Mills ATTENDING Augusto Enciso ADMITTING James Das Procedure:TRANSTHORACIC ECHO (TTE) Order: Accession COMPLETE Number:[id number] Indications: HFpEF (i50.30). PMH: Congestive heart failure. [...] - 2.1 0.9 FS (N) 36 % PW, ED (N) 0.7 cm 0.6 - [...] Reviewed and confirmed by Shantal Silveira MD [id number] Procedure Note Shantal Silveira MD - 05/05/2025 * [facility]* [address] [place] [address] Transthoracic Echocardiogram Patient: Jluis Monge Room: 6426 Height: 70in MR Number: [id number] : 1965 Weight: 328lb Account: [id number] Gender: M BP: 134 /79 Study Date: 05/05/2025 Age: 59 BSA: 2.58m^2 Referring physician: Kuldip Mills Interpreting physician: Shantal Silveira MD PERFORMING Shantal Silveira MD MULTIFOCAL LENS ASSEMBLER Kimber Castle ORDERING Kuldip Mills REFERRING PasqualicchioKuldip Adam M ADMITTING James Das Procedure:TRANSTHORACIC ECHO (TTE) Order: Accession COMPLETE Number:[id number] Indications: HFpEF (i50.30). PMH: Congestive heart failure. [...] Reviewed and confirmed by Shantal Silveira MD [id number] us Kuldip Mills MD CV ECHO ORDERABLES Lazara l Result * Sodium, Urine, Random (05/05/2025 11:41 AM EDT) Sodium, Ur 37 mmol/L 05/05/2025 11:57 AM EDT [facility] Comment:Reference range not established for this test. Urine 05/05/2025 11:4 1 AM EDT 05/05/2025 11:44 AM EDT Ifeoma Villanueva DO URINE ORDERABLES Final Result Performing Organization Address [facility]/ZIP Co de Phone Number [facility] [address] [place] [address]. [address] * Potassium (05/05/2025 6:21 AM EDT) Potassium 4.7 3.5 - 5.3 mmol/L 05/05/2025 6:44 AM EDT [facility] Comment:Hemolysis Present: R esults may be influenced artificially. Recommend recollection as clinically indicated. Plasma 05/05/2025 6:21 AM EDT 05/05/2025 6:29 AM EDT us Pasquale Rodney MD LAB BLOOD ORDERABLES Final Resul t Performing Organization Address City/[facility]/ZIP Co de Phone Number [facility] [address] [facility]. [address] * (ABNORMAL) Hemoglobin A1c (05/05/2025 5:31 AM EDT) Hemoglobin A1C 12.1(H) 4.0 - 5.6 % 05/05/2025 8:59 AM EDT [facility] Comment: Hemoglobin A1c Interpretation Guidelines: Normal: [...] ORDERABLES Fi nal Result Performing Organization Address City/[facility]/ZIP Co de Phone Number [facility] [address] [place] [address]. [address] * High Sensitivity Troponin (05/04/2025 11:24 PM EDT) High Sensitivity Troponin 3 0 - 20 ng/L 05/04/2025 11:56 PM EDT [facility] Serum 05/04/2025 11:2 4 PM EDT 05/04/2025 11:29 PM EDT Justin DXION LAB BLOOD ORDERABLES Fin al Result Performing Organization Address City/[facility]/ZIP Co de Phone Number [facility] [address] [facility]. [address] * ED HCV Ab Reflex To HCV Quant (05/04/2025 11:24 PM EDT) HCV Ab Nonreactive Nonreactive 05/05/2025 12:31 AM EDT [facility] Comment:Health Department no tified in accordance with reportable infectious disease guidelines. HCVAB Number 0.03 0.00 - 0.79 S/CO 05/05/2025 12:31 AM EDT [facility] Serum 05/04/2025 11:2 4 PM EDT 05/04/2025 11:32 PM EDT us Justin DIXON LAB BLOOD ORDERABLES Fin al Result [facility] [address] * Differential (05/04/2025 11:24 PM EDT) Neutrophils Relative 53.7 40.0 - 80.0 % 05/04/2025 11:40 PM EDT [facility] Lymphocytes Relative 32.2 15.0 - 45.0 % 05/04/2025 11:40 PM EDT [facility] Monocytes Relative 10.4 0.0 - 12.0 % 05/04/2025 11:40 PM EDT [facility] Eosinophils Relative 2.8 0.0 - 8.0 % 05/04/2025 11:40 PM EDT [facility] Basophils Relative 0.9 0.0 - 1.0 % 05/04/2025 11:40 PM EDT [facility] nRBC 0 0 - 0 /100 WBC 05/04/2025 11:40 PM EDT [facility] Neutrophils Absolute 5,746 1,520 - 8,640 /uL 05/04/2025 11:40 PM EDT [facility] Lymphocytes Absolute 3,445 570 - 4,860 /uL 05/04/2025 11:40 PM EDT [facility] Monocytes Absolute 1,113 0 - 1,296 /uL 05/04/2025 11:40 PM EDT [facility] Eosinophils Absolute 300 0 - 864 /uL 05/04/2025 11:40 PM EDT [facility] Basophils Absolute 96 0 - 108 /uL 05/04/2025 11:40 PM EDT [facility] Whole Blood 05/04/2025 11:2 4 PM EDT 05/04/2025 11:32 PM EDT Justin DIXON LAB BLOOD ORDERABLES Fin al Result [facility] [address] * (ABNORMAL) BNP (05/04/2025 11:24 PM EDT) BNP 141(H) 0 - 100 pg/mL 05/04/2025 11:55 PM EDT [facility] Comment: BNP may be increased in the presence of sacubitril/valsartan (Entresto). Please interpret accordingly. Plasma 05/04/2025 11:2 4 PM EDT 05/04/2025 11:29 PM EDT Narrative [facility] - 05/04/2025 11:55 PM EDT The presence of high concentrations of biotin may cause falsely lowered BNP results. Biotin interference may be seen if an individual is taking >5 mg biotin per day. Interpret BNP results in the context of the patient's clinical presentation. Justin DIXON LAB BLOOD ORDERABLES Fin al Result Performing Organization Address [facility]/ZIP Co de Phone Number [facility] [address] * ECG for indication of dyspnea (05/04/2025 10:59 PM EDT) 05/04/2025 10:5 9 PM EDT Narrative MUSE - 05/05/2025 8:27 AM EDT Ventricular Rate: 68 BPM Atrial Rate: 68 BPM P-R Interval: 158 ms QRS Duration: 94 ms QT: 440 ms QTc: 467 ms P [place]: 38 degrees R [place]: 69 degrees T [place]: 53 degrees Diagnosis Line: ^ INTERPRETATION NOT AVAILABLE--ECG READ IN ER ^ Confirmed by PHYSICIAN, ER ([id number]), book or script editor Ann Thrasher ([id number]) on 05/05/2025 8:27:01 AM Justin DIXON ECG [...] IMG DIAGNOSTIC IMAGING O RDERABLES Final Result * Microalbumin (Random UR) (10/24/2024 1:45 PM EST) Creatinine, Urine 47.50 mg/dL 025 5:23 PM EST [facility] Comment:Reference range not established for this test. Microalb, Ur <7.0 0.0 - 17.0 mg/L 10/24/2024 5:23 PM EST [facility] Microalb / UCreat See Note 0.0 - 30.0 mg/G 10/24/2024 5:23 PM EST [facility] Comment: MICROALBUMIN RESULT INTERPRETATION FOR RANDOM URINE SAMPLES Microalb/UCreat Normal <30 mg/g creatinine Microalbuminuria 30-299 mg/g creatinine Clinical Albuminuria >=300 mg/g creatinine Unable to calculate result either because contributing result(s) are outside of reportable range or are not available. Urine 10/24/2024 1:45 PM EST 10/24/2024 4:51 PM EST us Sondra Chapa MD URINE ORDERABLES Final Result [facility] [address] * (ABNORMAL) Lipid Profile (08/06/2024 3:03 PM EST) Non-HDL Cholesterol, Calculated 70 0 - 129 mg/dL 08/06/2024 3:41 PM EST [facility] Comment: Desirable: < 130 mg/dL Above Desirable: 130-159 mg/dL Borderline High: 160-189 mg/dL High: 190-219 mg/dL Very High: > 219 mg/dL Cholesterol, Total 91 0 - 200 mg/dL 08/06/2024 3:41 PM EST [facility] Triglycerides 237(H) 10 - 149 mg/dL 08/06/2024 3:41 PM EST [facility] HDL 21(L) 60 - 92 mg/dL 08/06/2024 3:41 PM EST [facility] Comment: LIPID PROFILE INTERPRETATION CHOLESTEROL,TOTAL(mg/dL) DESIRABLE: < 200 BORDERLINE HIGH RISK: 200 - 239 HIGH RISK(UNDESIRABLE): =/> 240 LDL CHOLESTEROL(mg/dL) OPTIMAL: < 100 NEAR HIGH OPTIMAL: 100 - 129 BORDERLINE HIGH RISK: 130 - 159 HIGH RISK: 160 - 189 VERY HIGH RISK: =/> 190 HDL CHOLESTEROL(mg/dL) HIGH RISK(UNDESIRABLE): < 40 BORDERLINE: 40 - 59 LOW RISK (DESIRABLE): => 60 TRIGLYCERIDES (mg/dL) NORMAL(DESIRABLE): < 150 BORDERLINE HIGH RISK: 150 - 199 HIGH RISK: 200 - 499 VERY HIGH RISK: =/> 500 Based on the guidlines of the National Cholesterol Education Program (NCEP). Assumes sample obtained after a 9- to 12- hour fast. LDL Cholesterol 23 mg/dL 3:41 PM EST [facility] Plasma 08/06/2024 3:03 PM EST 08/06/2024 3:11 PM EST us Venessa Anaya MD LAB BLOOD ORDERABLES Final Result [facility] [address] * PSA Total, Screening (07/20/2022 7:58 AM EDT) PSA 0.17 0.0 - 4.0 ng/mL 07/20/2022 12:14 PM EDT [facility] Serum 07/20/2022 7:58 AM EDT 07/20/2022 11:46 AM EDT us Mike Addison MD LAB BLOOD ORDERABLES Final Resul t [facility] [address] from Last 3 Months or Most Recently Relevant to Health Maintenance Insurance [place], [place] [id number] [employer] Member Subscriber Plan / Payer (Ef fective 2024-Present) Name:Jluis Monge Jr. Relation to Subscriber:Self Name:Jluis Monge Jr. Payer ID:[id number] (NAIC) Type:O Address: [facility] [id number] Advance Directives For more information, please contact: [phone] * Full Code (Latest Code Status on File) Date Activated Date Inactivated Comments 05/05/2025 3:05 AM 05/07/2025 3:34 PM * Full Code Date Activated Date Inactivated Comments 12/11/2024 10:13 PM 12/14/2024 9:18 AM * Full Code Date Activated Date Inactivated Comments 09/22/2024 5:42 AM 09/23/2024 5:50 PM * Full Code Date Activated Date Inactivated Comments 08/06/2024 1:37 PM 08/09/2024 9:06 PM * Full Code Date Activated Date Inactivated Comments 07/01/2024 3:10 AM 07/03/2024 5:50 PM Care Teams Truck Headlight Assembler Relationship Specialty Start Date End Date Jim Emerson MD [address] [place] [address] [address] [place] [phone] PCP - General Internal Medicine 12/11/24 Hedy Walker MA Weight Loss Support 03/23/[address] [facility], [address] [place] [address] Dietitian 04/09/14 Sondra Chapa MD [address] [place] [address] 2nd [place] [phone] Consulting Physician Nephrology 10/09/24
--- OUTSIDE RECORDS SUMMARY | 2025-05-13 11:24 | XMS_ITS | Encounter Summary ---
Author Organization [facility] Address [facility] [place] [address] Care Team Providers Care Enterer Name Role Phone Hedy Walker MA Unavailable Unavailable Kiara Jamison RD Unavailable [phone] Jim Emerson MD Primary Care Provider [phone] Sondra Chapa MD Unavailable [phone] Source Comments This information has been disclosed [...] release of HIV test results or diagnoses. [id number] Reason for Visit * Reason Onset Date Comments Medication Refill 02/11/2025 Encounter Details Date Type Department Care Team (Late st Contact Info) Description 02/11/2025 Refill [facility] at [facility] Office [address] [facility] [address] [place] [address] Erika Killian, CARISSA [address] [facility] [place] [address] Type 2 diabetes mellitus with other specified complication, with long-term current use of insulin ([facility]) Social History Tobacco Use Types Packs/Day [...] often do you attend chur ch or latter-day services? More than 4 times per year 10/17/2023 Do you belong to any clubs o r organizations such as samaritan groups, unions, fraternal or athletic groups, or [...] Date Recorded PHQ-2 Total Score 1 10/06/2024 [facility] - [...] any time in the past 12 m [facility], were you homeless or living in a usp (including now)? No 12/11/2024 Yearly Questionnaire Answer [...] complication, with long-term current use of insulin ([facility]) documented in this encounter Additional Health Concerns Assessment Noted Time PHQ-9 Depression Total Score: 25 024 10:38 AM EST documented as of this encounter Care Teams Enterer Relationship Specialty Start Date End Date Jim Emerson MD [address] [facility] [address] [place] [phone] PCP - General Internal Medicine 12/11/24 Hedy Walker MA Weight Loss Support 03/23/[address] [facility], [address] [place] [address] Dietitian 04/09/14 Sondra Chapa MD [address] [facility] 2nd Floor [place] [phone] Consulting Physician Nephrology 10/09/24 documented as of this encounter
--- NOTE | 2025-05-13 11:25 | ED_ITS ---
<Statement entered by Jun Silva MD - 05/14/25 15:57> I was consulted by the OJ, and we discussed the complexity of the problems being addressed. I approved the treatment and management plan for this patient's care in the emergency department, thus performing a substantive portion of the medical decision making. Jun Silva MD, GRIS, FACEP Discharge Plan Disposition Patient Disposition: Admitted Clinical Impressions Clinical Impression: Acute exacerbation of chronic heart failure, JULIANA (acute kidney injury), Hypoxia Discharge ED Provider: Jun Silva [facility] General Chief Complaint: Shortness of Breath/Dyspnea Stated Complaint: SOA, sent by express care Time Seen by Provider: 05/13/25 11:06 Mode of Arrival: Ambulatory Source of Information: Patient Description of Symptoms (Recalled from ER Triage Doc. by RN): Patient complaining of runny nose, cough, congestion and sneezing that started Sunday05/11/25. Patient states he did a home Covid test this morning that was negative. Patient states he was discharged 05/07/25 from the hospital for CHF. History of Present Illness HPI narrative: 59-year-old male presents to the ED from urgent treatment center this morning for shortness of breath, itchy eyes, productive sputum. Patient states that symptoms started Sunday with cold cough symptoms. He says his O2 has been low. He does have history of CHF. He did just get out of the hospital at for fluid overload. He does take torsemide 60 mg a day. He takes it every morning and he did not take it this morning. He says his legs are swollen but not more than normal. He does have 87% O2 on room air when I go in the room. When I start talking the patient O2 rises to 94%, Still on room air. Related Data Home Medications ?Medication ?Instructions ?Recorded ?Confirmed metformin 500 mg tablet,extended 500 mg PO BID 30 days #120 tabs 10/11/18 05/13/25 release 24 hr aspirin 81 mg tablet,delayed 81 mg PO DAILY 09/25/22 0 05/13/25 release atorvastatin 80 mg tablet 80 mg PO DAILY 09/25/2204/25 bupropion HCl 300 mg 24 hr tablet, 300 mg PO DAILY 11/1605/13/25 extended release insulin degludec 200 unit/mL (3 80 unit SQ HS 02/21/24 05/13/25 mL) subcutaneous pen (Tresiba FlexTouch U-200 insulin) insulin lispro 100 unit/mL See Rx Instructions .Route .COMPLEX 02/21/24 05/13/25 subcutaneous pen (Humalog KwikPen (U-100) Insulin) empagliflozin 25 mg tablet 25 mg PO DAILY 05/13/25 (Jardiance) ezetimibe 10 mg tablet 10 mg PO DAILY 05/13/2504/25 gabapentin 100 mg capsule 100 mg PO DAILY 05/13/25 insulin glargine U-300 conc 300 64 unit SQ HS 05/13/25 05/13/25 unit/mL (3 mL) subcutaneous pen (Toujeo Max U-300 SoloStar) metoprolol succinate 50 mg 50 mg PO DAILY 05/13/25 tablet,extended release 24 hr mirtazapine 15 mg tablet 15 mg PO HS 05/13/25 5 tamsulosin 0.4 mg capsule 0.8 mg PO HS 05/13/25 torsemide 20 mg tablet 60 mg PO DAILY 05/13/2504/25 valproic acid 250 mg capsule 1,000 mg PO BID 05/13/25 05/13/25 valsartan 40 mg tablet 20 mg PO DAILY 05/13/2504/25 Allergies Allergy/AdvReac Type Severity Reaction Status Date / Time aripiprazole (From Abiliy) Allergy Verified 05/13/25 10:35 [facility] Disclaimer: The information contained in this section may have been updated after the patient was seen, as this information can be updated by other users. Medical History Diabetes Coronary artery disease Acute on chronic heart failure with preserved ejection fraction (HFpEF) Irritable bowel syndrome (IBS) History of gastroesophageal reflux (GERD) Diabetes mellitus, type 2 Hyperlipidemia Hypertension Surgical History Hx of CABG Family History No significant family history Social History Smoking Status: Never smoker alcohol intake: never substance use type: denies use current occupational status: employed Travel in the last 8 weeks?: None household members: family housing: house Have you lived/traveled outside US in past 30 days?: No Contact w/someone who lives/traveled outside US past 30 days?: No Exposure to someone with infectious disease in past 14 days?: No Do you have a fever (greater than 100.4 F or 38 C)?: No Have you tested positive for COVID-19?: No Exposed to someone with COVID-19 in past 14 days?: No Do you have a sore throat?: No Do you have a cough?: No Do you have any weakness?: No Do you have any diarrhea?: No Are you experiencing any unusual bleeding?: No Do you have any muscle aches/pain?: No Do you have any abdominal pain?: No Are you experiencing loss of taste or smell?: No Other Medical History Have you received the Flu Vaccine for this season: No Have you received the Pneumonia Vaccine: No ROS Obtained: Yes Systems reviewed as appropriate & no additional complaints except as documented Constitutional Constitutional: Reports as per HPI Physical Exam General General appearance: alert and in distress Comment: Short of breath Head Head exam: atraumatic and normocephalic Eye Eye exam: Present PERRL, EOMI and conjunctival redness ENT ENT exam: Present normal oropharynx and mucous membranes moist Neck Neck exam: Present full ROM and trachea midline Respiratory Respiratory exam: Present wheezes Cardiovascular Cardiovascular exam: Present regular rate, normal rhythm, normal heart sounds, +S1 and +S2 Abdominal Exam Abdominal exam: Present soft and normal bowel sounds Extremities Exam Extremities exam: Present full ROM, normal capillary refill and edema (Bilateral lower extremity) Neurological Exam Neurological exam: Present alert and oriented X3 Skin Skin exam: Present warm, dry and intact HEART Score HEART Score HEART Score assessment performed?: Yes History (anamnesis): Slightly suspicious ECG: Normal Age: 45-65 years Risk factors: 1-2 risk factors Troponin: </= normal limit HEART Score: 2 Critical Care Critical Care Time Critical Care Time: No Medical Decision Making Edil Inquiry Pt receiving controlled substance: No Edil was queried for this patient: No Vital Signs Vital Signs: 05/13/25 10:54 05/13/25 10:57 05/13/25 11:00 Temperature 98.3 F Temperature Source Oral Pulse Rate 77 74 Pulse Rate [Right Brachial] 70 Respiratory Rate 18 Blood Pressure 138/77 133/79 Blood Pressure [Right Arm] 138/77 Blood Pressure Mean 93 99 Blood Pressure Mean [Right Arm] 97 Blood Pressure Source Blood Pressure Source [Right Arm] Automatic Cuff Blood Pressure Position 02 Sat by Pulse Oximetry 95 95 93 L Oxygen Delivery Method Room Air Oxygen Flow Rate (LPM) 05/13/25 11:30 05/13/25 12:00 05/13/25 12:30 Temperature Temperature Source Pulse Rate 74 68 67 Pulse Rate [Right Brachial] Respiratory Rate Blood Pressure 127/72 134/75 130/75 Blood Pressure [Right Arm] Blood Pressure Mean 90 87 85 Blood Pressure Mean [Right Arm] Blood Pressure Source Blood Pressure Source [Right Arm] Blood Pressure Position 02 Sat by Pulse Oximetry 93 L 91 L 93 L Oxygen Delivery Method Room Air Nasal Cannula Oxygen Flow Rate (LPM) 2 05/13/25 13:00 05/13/25 13:30 05/13/25 14:11 Temperature 98.5 F Temperature Source Oral Pulse Rate 69 70 72 Pulse Rate [Right Brachial] Respiratory Rate 16 Blood Pressure 112/63 114/57 L 123/85 Blood Pressure [Right Arm] Blood Pressure Mean 77 77 Blood Pressure Mean [Right Arm] Blood Pressure Source Automatic Cuff Blood Pressure Source [Right Arm] Blood Pressure Position Sitting 02 Sat by Pulse Oximetry 94 L 96 Oxygen Delivery Method Nasal Cannula Oxygen Flow Rate (LPM) 2 Lab Data Labs: Lab Results 05/13/25 11:02: WBC 10.4, RBC 5.41, Hgb 15.4, Hct 47.7, MCV 88.2, MCH 28.5, MCHC 32.3, RDW 14.7, Plt Count 203, MPV 9.9, Neut % (Auto) 58.8, Lymph % (Auto) 21.4, [place]ham % (Auto) 12.7 H, Eos % (Auto) 5.7, Baso % (Auto) 0.5, Neut # (Auto) 6.1, Lymph # (Auto) 2.2, [place] # (Auto) 1.3 H, Eos # (Auto) 0.6 H, Baso # (Auto) 0.1, D-Dimer 0.75 H, Sodium 140, Potassium 4.2, Chloride 99, Carbon Dioxide 30, Anion Gap 15.2 H, BUN 30 H, Creatinine 1.30 H, Estimated Creat Clear 65, Estimated GFR 57 L, Est GFR ( Amer) 69, Glucose 151 H, Hemoglobin A1c 11.7 H, Calcium 9.1, Magnesium 2.2, Total Bilirubin 0.8, AST 24, ALT 19, Alkaline Phosphatase 92, Troponin I < 0.01, NT-Pro-B Natriuret Pep 447 H, Total Protein 7.7, Albumin 4.3, Globulin 3.4 H, Albumin/Globulin Ratio 1.3, Lipase 55, TSH 6.91 H 05/13/25 11:20: VBG pH 7.37, VBG pCO2 51.5 H, VBG pO2 40.5 H, VBG HCO3 29.2, VBG Total CO2 30.8 H, VBG O2 Saturation 74.1 H, VBG Base Excess 3.9 H, VBG Lactic Acid 2.0 05/13/25 11:25: SARS-CoV-2 (PCR) Not detected, Influenza A Untype (PCR) Not detected, Influenza Type B (PCR) Not detected 05/13/25 13:35: Troponin I < 0.01 05/13/25 11:02 05/13/25 11:02 Response Orders (Tests/Meds): ED MEDICATIONS Generic Name Dose Route Start Last Admin Trade Name Marcelino PRN Reason Stop Dose Admin Aspirin 81 mg 05/14/25 09:00 Aspirin Ec 81mg Tablet PO 06/13/25 08:59 DAILY [facility] Atorvastatin Calcium 80 mg 05/14/25 09:00 Atorvastatin 40mg Tablet PO 06/13/25 08:59 DAILY [facility] Bumetanide 1 mg 05/13/25 16:00 05/13/25 16:00 Bumetanide 1mg/4ml Vial IV 06/12/25 15:59 1 mg BIDL [facility] Administration Empagliflozin 25 mg 05/14/25 09:00 Empagliflozin 25mg Tablet PO 06/13/25 08:59 DAILY [facility] Gabapentin 100 mg 05/14/25 09:00 Gabapentin 100mg Capsule PO 06/13/25 08:59 DAILY [facility] Heparin Sodium (Porcine) 5,000 unit 05/13/25 21:00 Heparin Sodium 5,000 Unit/Ml Vial SUBCUT 06/12/25 20:59 TID [facility] Insulin Glargine 60 unit 05/13/25 21:00 Insulin Glargine 100 Units/Ml 3ml Flexpen SUBCUT 06/12/25 20:59 HS [facility] Insulin Human Lispro 0 unit 05/13/25 16:30 05/13/25 16:38 Humalog 100 Units/Ml 10ml Vial (Ssi) SUBCUT 06/12/25 16:29 12 unit ACHS KEVYN Administration Protocol Metoprolol Succinate 50 mg 05/14/25 09:00 Metoprolol Succinate Xl 50mg Tablet PO 06/13/25 08:59 DAILY [facility] Mirtazapine 15 mg 05/13/25 21:00 Mirtazapine 15 Mg Tablet PO 06/12/25 20:59 HS [facility] Non-Formulary Medication 300 mg 05/14/25 09:00 Bupropion Hcl PO 06/13/25 08:59 DAILY [facility] Non-Formulary Medication 20 mg 05/14/25 09:00 Valsartan PO 06/13/25 08:59 DAILY [facility] Non-Formulary Medication 1,000 mg 05/13/25 21:00 Valproic Acid PO 06/12/25 20:59 BID [facility] Polymyxin/Trimethoprim Sulfate 0 ml 05/13/25 12:00 05/13/25 15:13 Trimethoprim-Polymyxin B Ophth Soln 10ml OP 06/12/25 11:59 2 drp Q3HWA KEVYN Administration Tamsulosin HCl 0.8 mg 05/13/25 21:00 Tamsulosin 0.4mg Capsule PO 06/12/25 20:59 HS [facility] Discontinued Medications Generic Name Dose Route Start Last Admin Trade Name Freq PRN Reason Stop Dose Admin Dexamethasone Sodium Phosphate 8 mg 05/13/25 11:28 05/13/25 12:08 Dexamethasone 4mg/Ml 1ml Vial IV 05/13/25 11:29 8 mg ONCE ONE Administration Furosemide 40 mg 05/13/25 11:30 05/13/25 12:08 Furosemide 40mg/4ml Vial IV 05/13/25 11:31 40 mg ONCE ONE Administration Furosemide 40 mg 05/13/25 12:50 05/13/25 13:35 Furosemide 40mg/4ml Vial IV 05/13/25 12:51 40 mg ONCE ONE Administration Iopamidol 85 ml 05/13/25 15:41 05/13/25 15:42 Iopamidol-370 (76%);100ml Bottle IV 05/13/25 15:42 85 ml ONCE ONE Administration Perflutren Lipid Microsphere 2 mg 05/13/25 14:53 05/13/25 14:55 Definity Us Echo Contrast 2ml Inj IV 05/13/25 14:54 2 mg ONCE ONE Administration Sodium Chloride 10 ml 05/13/25 15:41 0.9 % Sodium Chloride 50 Ml Vial IV 05/13/25 15:42 ONCE ONE ORDERS Category Date Time Status Cardiology Consult [Consult to Cardiology] [CONS] Cons 05/13/25 13:44 Active Routine Chest XR -- portable [XR chest portable] Stat Exams 05/13/25 11:15 Completed BNP [NT Pro Brain Natriuretic Pep.] Stat Lab 05/13/25 11:02 Completed CBC [Complete Blood Count Auto Diff] Stat Lab 05/13/25 11:02 Completed Complete Blood Count Auto Diff AMLAB Lab 05/14/25 06:00 Ordered Comprehensive Metabolic Panel AMLAB Lab 05/14/25 06:00 Ordered Comprehensive Metabolic Panel Stat Lab 05/13/25 11:02 Completed D-Dimer Stat Lab 05/13/25 11:02 Completed Hemoglobin A1C Stat Lab 05/13/25 11:02 Completed Lipase Stat Lab 05/13/25 11:02 Completed Lipid Panel [facility] Lab 05/14/25 06:00 Ordered Magnesium AMLAB Lab 05/14/25 06:00 Ordered Magnesium Stat Lab 05/13/25 11:02 Completed Rapid PCR Covid and Flu A/B Stat Lab 05/13/25 11:25 Completed TSH [Thyroid Stimulating Hormone] Stat Lab 05/13/25 11:02 Completed Trop I [Troponin I] Stat Lab 05/13/25 11:02 Completed Troponin I Q3H Lab 05/13/25 13:35 Completed Troponin I Q3H Lab 05/13/25 17:15 Ordered Venous Blood Gas Stat RT 05/13/25 11:20 Completed CA echo doppler complete Routine Y 05/13/25 13:46 Completed MDM Narrative Medical Decision Narrative: patient is a 59-year-old male presenting to the emergency department for evaluation of shortness of breath, cough, congestion, productive sputum. Patient is hemodynamically stable and nontoxic-appearing upon arrival, afebrile. Differential diagnosis includes CHF exacerbation, COVID flu, among others. Workup will be conducted with hematologic labs, specific imaging. Initial inventions include Lasix, dexamethasone, labs and x-ray. Initial workup reviewed by me [hematologic labs are remarkable for elevated BNP at 447, BUN and creatinine of 30 and 1.3. We have given him 80 mg of IV Lasix here in the ED. Placed 2 L of O2 on him for the hypoxia. Imaging informally interpreted by me and remarkable for CHF exacerbation. Please see formal report for rad read. Upon repeat evaluation patient continues to be hypoxic without O2. Have discussed this with hospital medicine who agrees to admit patient for JULIANA and CHF exacerbation.
[2025-05-13 11:26] LABS: Hematocrit 47.7 % (42.0-52.0); Hemoglobin 15.4 g/dL (14.1-18.0); Immature Granulocytes % 0.9 %; Mean Corpuscular HGB Conc 32.3 g/dL (31.8-35.4); Mean Corpuscular Hemoglobin 28.5 pg (27.0-31.2); Mean Corpuscular Volume 88.2 fl (80-94); Nucleated Red Blood Cells % 0 %; Platelet Count 203 K/mm3 (142-424); Red Blood Count 5.41 M/mm3 (4.60-6.20); Red Cell Distribution Width-SD 47.0 fL; White Blood Count 10.4 K/mm3 (4.8-10.8)
[2025-05-13 11:29] LABS: Lactate Venous 2.0 mmol/L (0.4-2.0); VBG HCO3 29.2 mmol/L (23-30); VBG PCO2 51.5 mmol/L (35-51); VBG PH 7.37 mmol/L (7.31-7.41); VBG PO2 40.5 mmol/L (28-40)
[2025-05-13 11:34] LABS: Alanine Aminotransferase 19 U/L (12-78); Albumin Level 4.3 g/dl (3.5-5.0); Albumin/Globulin Ratio 1.3 (1.1-1.8); Alkaline Phosphatase 92 U/L (38-126); Anion Gap 15.2 mEq/L (5-15); Aspartate Amino Transferase 24 U/L (17-59); Bilirubin,Total 0.8 mg/dl (0.2-1.3); Blood Urea Nitrogen 30 mg/dl (9-20); Calcium 9.1 mg/dl (8.4-10.2); Carbon Dioxide 30 mmol/L (22.0-30.0); Chloride 99 mmol/L (98-107); Creatinine Clearance Estimated 65 mL/min (50-200); Creatinine,Serum 1.30 mg/dl (0.66-1.25); Estimated Glomerular Filt Rate 57 ml/min (>60); GFR (African American) 69 ML/MIN (>60); Globulin 3.4 g/dL (1.3-3.2); Glucose 151 mg/dl (74-100); Lipase 55 U/L (23-300); Magnesium 2.2 mg/dl (1.6-2.3); Potassium 4.2 mmoL/L (3.5-5.1); Sodium 140 mmol/L (136-145); Total Protein,Serum 7.7 g/dl (6.3-8.2)
--- NOTE | 2025-05-13 11:35 | ECG_ITS ---
APPROVED REPORT Exam: Resting ECG HR:70 bpm ECG Measurements Heart Rate 70 AXES MI 175 P 53 QRSd 105 QRS 62 QT 409 T 59 QTc 430 Conclusion SINUS RHYTHM LOW QRS VOLTAGE IN PRECORDIAL LEADS [QRS DEFLECTION < 1.0 mV IN CHEST LEADS] BORDERLINE ECG UNCONFIRMED REPORT Electronically signed by : David Silva, 05/13/2025 15:37:29
[2025-05-13 11:38] LABS: D-Dimer 0.75 ug/mL (0.0-0.5)
[2025-05-13 11:39] LABS: Coronavirus 19, PCR Not Detected (NotDetected); Influenza A, PCR Not Detected (NotDetected); Influenza B, PCR Not Detected (NotDetected)
[2025-05-13] MEDS: DEXAMETHASONE 4MG/ML 1ML VIAL 8 MG IV (12:08)
[2025-05-13] MEDS: [UNRECOGNIZED DRUG - OTHER] OP ×4 (12:08→21:52)
[2025-05-13] MEDS: FUROSEMIDE 40MG/4ML VIAL 40 MG IV ×2 (12:08→13:35)
--- NOTE | 2025-05-13 12:24 | PC.NURSE ---
Pt placed on 2L of O2 via NC
[2025-05-13 12:36] LABS: NT Pro Brain Natriuretic Pep. 447 pg/mL (0-125)
[2025-05-13 12:41] LABS: Troponin I < 0.01 ng/ml (0.00-0.034)
--- NOTE | 2025-05-13 12:41 | PC.NURSE ---
I spoke with Jero in radiology. He states the pts scans are locked in and being read.
--- NOTE | 2025-05-13 13:46 | CA_ITS ---
APPROVED REPORT EXAM: Comprehensive 2D, Doppler, and color-flow Echocardiogram Gritting Machine Operator: KONSTANTIN Guerrier, RVS Ht: 5 ft 10 in Wt: 327lbs BSA: 2.57 BP: 114/57 mmHg Indications: CHF, JULIANA, Dyspnea, Hypoxia, CAD-CABG, DM, HTN, HLD Echo Enhancing Agent Indication: Endocardial border delineation Agent(s) / Amount(s) Used: Definity cc Comments: Technically limited due to patient factors: Limited acoustic windows. 2D Dimensions IVSd 1.30 cm LVEF (Visual) 63.80 % PWd 1.15 cm EF AP4 31.70 % LVDd 4.81 cm GL Strain -15.5 % LVDs 3.14 cm Left Atrium 4.05 cm M-Mode Dimensions RVDd 2.89 cm (0.9-2.6) LA Diam 4.13 cm (1.9-4.0) LVDd 5.18 cm (3.5-5.7) LVDs 3.82 cm (3.5-5.7) IVSd 1.32 cm (0.6-1.1) PWd 1.10 cm (0.6-1.1) EF (Teich) 51.20% EPSs 0.34 cm FS 26.30% EDV (Teich) 128.40 mL TAPSE 1.78 (<1.7) ESV (Teich) 62.70 mL LV Diastology E Decel Time 173 (160-240 msec) E/A Ratio 1.82 MED A' 8.50 cm/s LAT A' 6.80 cm/s Aortic Valve AoV Peak Idris. 102.0 (50-130 cm/s) AO Peak GR. 4.10 mmHg AO Mean GR. 2.10 (<5 mmHg) AO VTI 21.9 (18-25 cm) Mitral Valve MV A Velocity 46.0 (40-130 cm/s) E/A Ratio 1.82 Left Ventricle The left ventricle is normal size. Left ventricular systolic function is normal. The left ventricular ejection fraction is within the normal range. There is increased left ventricular wall thickness. There is normal LV segmental wall motion. The left ventricular diastolic function is indeterminate. No left ventricle thrombus noted on this study. LVEF is 60% Right Ventricle The right ventricle is mildly dilated. The right ventricular systolic function is normal. Atria The left atrium is mildly dilated. It is mildly dilated. The right atrium There is no color Doppler evidence of interatrial shunt. Aortic Valve The aortic valve is mildly thickened. There is no hemodynamically significant aortic valvular stenosis. No aortic regurgitation is present. Mitral Valve The mitral valve is normal in structure. No evidence of mitral valve stenosis. Trace mitral regurgitation is present. Tricuspid Valve The tricuspid valve leaflets are thin and pliable. Trace tricuspid regurgitation. There is insufficient TR jet to estimate RVSP. Pulmonic Valve The pulmonary valve is grossly normal in structure. Trace pulmonic valve regurgitation is present. Great Vessels The aortic root is normal in size. IVC is normal in size and collapses >50% with inspiration. Pericardium There is no pericardial effusion. Other Information Study Quality: Technically Difficult Conclusion Technically difficult study. Normal LV systolic function. Mild RV dilation with normal RV function. Mild biatrial dilation. No significant valvular stenosis or regurgitation. Electronically signed by : Almita Pak MD 05/13/2025 15:10:41
--- NOTE | 2025-05-13 13:47 | PC.NURSE ---
I notified HS of the need for a bed for admission
[2025-05-13 14:20] LABS: Troponin I < 0.01 ng/ml (0.00-0.034)
[2025-05-13 14:33] LABS: Thyroid Stimulating Hormone 6.91 uIU/mL (0.465-4.68)
--- NOTE | 2025-05-13 14:38 | PC.NURSE ---
patient transfer from ER to ICU via wheelchair with RN, Alma @[phone]
[2025-05-13] MEDS: DEFINITY US ECHO CONTRAST 2ML INJ 2 MG IV (14:55)
--- NOTE | 2025-05-13 15:18 | CT_ITS ---
PROCEDURE INFORMATION: Exam: CTA Chest With Contrast Exam date and time: 05/13/2025 3:30 PM Age: 59 years old Clinical indication: Shortness of breath; Additional info: SOB, elevated d dimer TECHNIQUE: Imaging protocol: Computed tomographic angiography of the chest with contrast. Exam focused on the arteries. 3D rendering (Not supervised by radiologist): MIP and/or 3D reconstructed images were created by the technologist. Radiation optimization: All CT scans at this facility use at least one of these dose optimization techniques: automated exposure control; mA and/or kV adjustment per patient size (includes targeted exams where dose is matched to clinical indication); or iterative reconstruction. Contrast material: ISOVUE 370; Contrast volume: 85 ml; Contrast route: INTRAVENOUS (IV); COMPARISON: CT CHEST W CON 09/25/2022 10:56 AM FINDINGS: Pulmonary arteries: Linear filling defects in two of the proximal RUL segmental pulmonary arteries are in direct continuity with adjacent streak artifact arising from a large amount of contrast in the SVC. Therefore, this would be most consistent with streak artifact within the vessels. I do not see any other evidence for acute pulmonary emboli. Pulmonary arteries are normal in course and caliber. Aorta: Unremarkable. No aortic aneurysm. No aortic dissection. Lungs: Less than 10 stable bilateral lung nodules, largest in the RLL at 9 mm, since 2022. These are considered benign according to Fleischner society guidelines and no further follow up is recommended. No consolidations or other acute lung disease. Pleural spaces: Unremarkable. No pneumothorax. No pleural effusion. Heart: Heart is normal in size and morphology. Coronary arteries: Prior CABG with severe coronary artery calcifications. Lymph nodes: Unremarkable. No enlarged lymph nodes. Gallbladder and biliary ducts: Cholelithiasis. Adrenal glands: 2 cm nodule in the left adrenal gland, stable, but incompletely characterized. No follow-up is necessary. (Reference: Nadia) Bones/joints: Stable superior endplate compression fracture of T12, chronic, with less than 50% loss in vertebral body height. Mild degenerative disease of the spine. No acute fracture. Soft tissues: Unremarkable. IMPRESSION: No definite pulmonary emboli or other acute pathology. REFERENCES: Nadia WOLFE, et al. Management of Incidental Adrenal Masses: A White Paper of the ACR Incidental Findings Committee. J Am Bennie Radiol. 2017;14(8):9377-1237.
--- NOTE | 2025-05-13 15:18 | EXP.CARD.CON ---
History of Present Illness History of Present Illness Consult date: 05/13/25 Requesting physician: David Russell Consult reason: shortness of breath Chief complaint: Shortness of breath, runny nose, infected eyes History of present illness: This is a 59-year-old white gentleman who presented to the emergency department with complaints of shortness of breath. He states that he felt like he had a cold since Sunday with a runny nose, cough, congestion and sneezing. He states his eyes were burning and appeared to be infected. He went to urgent treatment center and was told his oxygen saturation was low so he came to the emergency department here for further evaluation. Of note the patient reports that he was just discharged from [facility] on 05/07/2025 for a CHF exacerbation. He states that he is still short of breath with exertion. Improves with rest. He has associated bilateral lower extremity edema but the edema is chronic for him. He denies any chest pain or pressure. He denies any fever, chills, nausea, vomiting, diarrhea, PND or orthopnea PFSH [facility] Disclaimer: The information contained in this section may have been updated after the patient was seen, as this information can be updated by other users. Medical History (Updated 05/13/25 @ 15:23 by Belia Henriquez APRN) Diabetes Coronary artery disease Acute on chronic heart failure with preserved ejection fraction (HFpEF) Irritable bowel syndrome (IBS) History of gastroesophageal reflux (GERD) Diabetes mellitus, type 2 Hyperlipidemia Hypertension Surgical History Hx of CABG Family History Other No significant family history Social History Smoking Status: Never smoker alcohol intake: never substance use type: denies use current occupational status: employed Travel in the last 8 weeks?: None household members: family housing: house Have you lived/traveled outside [place] in past 30 days?: No Contact w/someone who lives/traveled outside [place] past 30 days?: No Exposure to someone with infectious disease in past 14 days?: No Do you have a fever (greater than 100.4 F or 38 C)?: No Have you tested positive for COVID-19?: No Exposed to someone with COVID-19 in past 14 days?: No Do you have a sore throat?: No Do you have a cough?: No Do you have any weakness?: No Do you have any diarrhea?: No Are you experiencing any unusual bleeding?: No Do you have any muscle aches/pain?: No Do you have any abdominal pain?: No Are you experiencing loss of taste or smell?: No Review of Systems Review of Systems Review of systems:: pertinent systems reviewed and negative unless documented below Constitutional Constitutional: Reports system reviewed and no additional complaints, except as documented, Reports fatigue and Reports lethargy Eyes Eyes: Reports system reviewed and no additional complaints, except as documented ENT Ears, Nose, Mouth, and Throat: Reports system reviewed and no additional complaints, except as documented, Reports nasal congestion, Reports nasal discharge and Reports other (Eye redness, eye irritation) *Cardiovascular Cardiovascular: Reports system reviewed and no additional complaints, except as documented, Denies chest pain, Reports dyspnea, Reports dyspnea on exertion, Reports edema, Reports leg edema and Reports orthopnea *Respiratory Respiratory: Reports system reviewed and no additional complaints, except as documented, Reports chest congestion, Reports cough, Reports dyspnea, Reports dyspnea on exertion and Reports excessive phlegm production *Gastrointestinal Gastrointestinal: Reports system reviewed and no additional complaints, except as documented *Genitourinary Genitourinary: Reports system reviewed and no additional complaints, except as documented *Musculoskeletal Musculoskeletal: Reports system reviewed and no additional complaints, except as documented Integumentary/Breasts Skin/Breast: Reports system reviewed and no additional complaints, except as documented *Neurologic Neurologic: Reports system reviewed and no additional complaints, except as documented Psychiatric Psychiatric: Reports system reviewed and no additional complaints, except as documented Endocrine Endocrine: Reports system reviewed and no additional complaints, except as documented and Reports fatigue Hematologic/Lymphatic Hematologic/Lymphatic: Reports system reviewed and no additional complaints, except as documented Allergic/Immunologic Allergic/Immunologic: Reports system reviewed and no additional complaints, except as documented Exam Data for Last 24 hours Vital signs and Labs for Last 24 Hours: Temp Pulse Resp BP Pulse Ox O2 Del Method O2 Flow Rate 98.5 F 72 16 123/85 96 Nasal Cannula 2 05/13/25 14:11 05/13/25 14:11 05/13/25 14:11 05/13/25 14:11 05/13/25 13:30 05/13/25 14:11 05/13/25 14:11 Laboratory Results - last 24 hr 05/13/25 11:02: WBC 10.4, RBC 5.41, Hgb 15.4, Hct 47.7, MCV 88.2, MCH 28.5, MCHC 32.3, RDW 14.7, Plt Count 203, MPV 9.9, Neut % (Auto) 58.8, Lymph % (Auto) 21.4, [place] % (Auto) 12.7 H, Eos % (Auto) 5.7, Baso % (Auto) 0.5, Neut # (Auto) 6.1, Lymph # (Auto) 2.2, [place] # (Auto) 1.3 H, Eos # (Auto) 0.6 H, Baso # (Auto) 0.1, D-Dimer 0.75 H, Sodium 140, Potassium 4.2, Chloride 99, Carbon Dioxide 30, Anion Gap 15.2 H, BUN 30 H, Creatinine 1.30 H, Estimated Creat Clear 65, Estimated GFR 57 L, Est GFR ( Amer) 69, Glucose 151 H, Calcium 9.1, Magnesium 2.2, Total Bilirubin 0.8, AST 24, ALT 19, Alkaline Phosphatase 92, Troponin I < 0.01, NT-Pro-B Natriuret Pep 447 H, Total Protein 7.7, Albumin 4.3, Globulin 3.4 H, Albumin/Globulin Ratio 1.3, Lipase 55, TSH 6.91 H 05/13/25 11:20: VBG pH 7.37, VBG pCO2 51.5 H, VBG pO2 40.5 H, VBG HCO3 29.2, VBG Total CO2 30.8 H, VBG O2 Saturation 74.1 H, VBG Base Excess 3.9 H, VBG Lactic Acid 2.0 05/13/25 11:25: SARS-CoV-2 (PCR) Not detected, Influenza A Untype (PCR) Not detected, Influenza Type B (PCR) Not detected 05/13/25 13:35: Troponin I < 0.01 I & O for Last 24 hours: Intake & Output 05/10/25 05/11/25 05/12/25 05/13/25 23:59 23:59 23:59 23:59 Weight 327 lb Constitutional Constitutional: no acute distress and morbidly obese *Routine HEENT Exam Head: Present normocephalic and atraumatic ENT: Present mucous membranes moist *Routine Neck Exam Neck: Present supple, full ROM and normal carotid upstroke; Absent JVD, carotid bruit or lymphadenopathy *Routine Respiratory Exam Respiratory: Present CTA bilaterally, normal respiratory effort, able to speak in complete sentences and symmetric chest movement *Routine Cardiovascular Exam Cardiovascular: Present RRR, Normal S1 and Normal S2; Absent murmur or gallop *Routine Abdominal Exam Abdominal: Present soft and normoactive bowel sounds; Absent tenderness, distended or organomegaly *Routine Extremities Exam Extremities: Present edema, full ROM, pulses intact and normal capillary refill; Absent cyanosis or clubbing *Routine Skin Exam Skin: Present intact and warm; Absent erythema *Routine Neurological Exam Neurological: Present alert, oriented X3 and CN II-XII intact; Absent sensory deficit or motor deficit Routine Psychiatric Exam Psychiatric: Present normal affect Meds Home Medications and Allergies Home Medications ?Medication ?Instructions ?Recorded ?Confirmed ?Type metformin 500 mg tablet,extended 500 mg PO BID 30 days #120 tabs 10/11/18 05/13/25 History release 24 hr aspirin 81 mg tablet,delayed 81 mg PO DAILY 09/25/22 05/13/25 History release atorvastatin 80 mg tablet 80 mg PO DAILY 09/25/22 05/13/25 History bupropion HCl 300 mg 24 hr tablet, 300 mg PO DAILY 09/25/22 05/13/25 History extended release insulin degludec 200 unit/mL (3 80 unit SQ HS 02/21/24 05/13/25 History mL) subcutaneous pen (Tresiba FlexTouch U-200 insulin) insulin lispro 100 unit/mL See Rx Instructions .Route .COMPLEX 02/21/24 05/13/25 History subcutaneous pen (Humalog KwikPen (U-100) Insulin) empagliflozin 25 mg tablet 25 mg PO DAILY 05/13/25 05/13/25 History (Jardiance) ezetimibe 10 mg tablet 10 mg PO DAILY 05/13/25 05/13/25 History gabapentin 100 mg capsule 100 mg PO DAILY 05/13/25 05/13/25 History insulin glargine U-300 conc 300 30 unit SQ Q24H 05/13/25 05/13/25 History unit/mL (3 mL) subcutaneous pen (Toujeo Max U-300 SoloStar) metoprolol succinate 50 mg 50 mg PO DAILY 05/13/25 05/13/25 History tablet,extended release 24 hr mirtazapine 15 mg tablet 15 mg PO HS 05/13/25 05/13/25 History tamsulosin 0.4 mg capsule 0.8 mg PO HS 05/13/25 05/13/25 History torsemide 20 mg tablet 60 mg PO DAILY 05/13/25 05/13/25 History valproic acid 250 mg capsule 1,000 mg PO BID 05/13/25 05/13/25 History valsartan 40 mg tablet 20 mg PO DAILY 05/13/25 05/13/25 History New Prescriptions to Start Prescriptions: Allergies Allergy/AdvReac Type Severity Reaction Status Date / Time [facility] ([facility] Allergy Verified 05/13/25 10:35 Assessment and Plan *Assessment and plan (1) Acute on chronic heart failure with preserved ejection fraction (HFpEF): Status: Acute Category: Medical Code(s): I50.33 - Acute on chronic diastolic (congestive) heart failure (2) Hypoxia: Status: Acute Category: Medical Code(s): R09.02 - Hypoxemia (3) JULIANA (acute kidney injury): Status: Acute Category: Medical Code(s): N17.9 - Acute kidney failure, unspecified (4) [place] eye disease of both eyes: Status: Acute Category: Medical Code(s): H10.023 - Other mucopurulent conjunctivitis, bilateral (5) Coronary artery disease: Status: Acute Qualifiers: Coronary Disease-Associated Artery/Lesion type: [place] artery [place] vs. transplanted heart: [place] heart Associated angina: without angina Qualified Code(s): I25.10 - Atherosclerotic heart disease of [place] coronary artery without angina pectoris Category: Medical Code(s): I25.10 - Atherosclerotic heart disease of [place] coronary artery without angina pectoris (6) History of coronary artery bypass graft: Status: Chronic Category: Surgical Code(s): Z95.1 - Presence of aortocoronary bypass graft (7) Essential hypertension: Status: Chronic Category: Medical Code(s): I10 - Essential (primary) hypertension (8) Hyperlipidemia: Status: Acute Qualifiers: Hyperlipidemia type: mixed hyperlipidemia Qualified Code(s): E78.2 - Mixed hyperlipidemia Category: Medical Code(s): E78.5 - Hyperlipidemia, unspecified (9) Diabetes: Status: Acute Qualifiers: Diabetes mellitus complication status: without complication Diabetes mellitus rn long term care insulin use: without rn long term care use Diabetes mellitus type: type 2 Qualified Code(s): E11.9 - Type 2 diabetes mellitus without complications Category: Medical Code(s): E11.9 - Type 2 diabetes mellitus without complications Plan Plan: 1. The patient was admitted to the hospital with acute on chronic exacerbation of HFpEF. The patient was recently discharged from [facility] for his HFpEF as well. Will diurese him with IV Bumex 1 mg IV twice daily. 2. Continue Jardiance, valsartan and metoprolol for his HFpEF. 3. Consider Kerendia on an outpatient basis for HFpEF. 4. The patient does have an elevated D-dimer. Will get a CTA of the chest. 5. Coronary artery disease is present. He is status post CABG. He denies any chest pain or pressure. He ruled out for an SC. No plans for invasive left cardiac catheterization at this time. Continue aspirin 81 mg daily. 6. His blood pressure is well-controlled. 7. His LDL goal is less than 55. Will get a lipid panel in the morning. He is on a statin. 8. Echocardiogram shows a normal ejection fraction. 9. Further recommendations will be made pending the patient's response to treatment and the results of the CT of the chest today. Thank you for the opportunity to participate in the care of this patient. All recommendations and orders are per Dr. Pak.
[2025-05-13 15:19] LABS: Hemoglobin A1C 11.7 % (4.0-6.0)
[2025-05-13] MEDS: IOPAMIDOL-370 (76%);100ML BOTTLE 85 ML IV (15:42)
[2025-05-13 15:51] LABS: Adenovirus,PCR Not Detected (NotDetected); Chlamydophila Pneumoniae, PCR Not Detected (NotDetected); Coronavirus 19, PCR Not Detected (NotDetected); Coronovirus HKU1,PCR Not Detected (NotDetected); Influenza A, PCR Not Detected (NotDetected); Influenza AH1, 2009 Not Detected (NotDetected); Influenza AH1, PCR Not Detected (NotDetected); Influenza AH3,PCR Not Detected (NotDetected); Influenza B, PCR Not Detected (NotDetected); Mycoplasma Pneumoniae, PCR Not Detected (NotDetected); Parainfluenza 1, PCR Not Detected (NotDetected); Parainfluenza 2, PCR Not Detected (NotDetected); Parainfluenza 3, PCR Not Detected (NotDetected); Parainfluenza 4, PCR Not Detected (NotDetected)
--- NOTE | 2025-05-13 15:57 | PC.NURSE ---
Confirmed with patient he takes 64 units at bedtime of Glargine insulin but he is unsure of the short acting insulin he takes, has already went home due to her working tonight, attempted to call to confirm and left message at this time.
[2025-05-13] MEDS: BUMETANIDE 1MG/4ML VIAL 1 MG IV (16:00)
[2025-05-13] MEDS: humaLOG 100 UNITS/ML 10ML VIAL (SSI) SUBCUT ×2 (16:38→20:02)
[2025-05-13 16:41] LABS: POC Glucose,Bedside 340 (70-110)
--- NOTE | 2025-05-13 17:29 | P.HP_ITS ---
History of Present Illness *Admission Date: 05/13/25 *Reason for visit:: dyspnea *History of present illness: Mr. Monge's a 59-year-old male with history of CABG 3 years ago and uncontrolled diabetes. He presented to the ER with complaint of shortness of breath. States he has felt cold since Sunday with runny nose, cough congestion. Has had increased shortness of breath. Found to have an oxygen requirement on arrival to the ED. Denies nausea, vomiting, chest pain. Elevated BNP. Was recently admitted last week at [facility] with CHF exacerbation. Still short of breath with increased swelling in his legs. Medicine consulted for admission of CHF exacerbation. COVID and flu were negative. On arrival to the floor, patient is ill-appearing. Has runny watery eyes and runny nose. States has been coughing up some phlegm. Chest imaging did not show focal consolidation or airspace disease. Did show cardiomegaly. Will obtain comprehensive respiratory panel. Starting to respond to diuretics with increased urine output. [facility] Disclaimer: The information contained in this section may have been updated after the patient was seen, as this information can be updated by other users. Medical History Diabetes Coronary artery disease Acute on chronic heart failure with preserved ejection fraction (HFpEF) Irritable bowel syndrome (IBS) History of gastroesophageal reflux (GERD) Diabetes mellitus, type 2 Hyperlipidemia Hypertension Surgical History Hx of CABG Family History No significant family history Social History Smoking Status: Never smoker alcohol intake: never substance use type: denies use current occupational status: employed Travel in the last 8 weeks?: None household members: family housing: house Have you lived/traveled outside [place] in past 30 days?: No Contact w/someone who lives/traveled outside US past 30 days?: No Exposure to someone with infectious disease in past 14 days?: No Do you have a fever (greater than 100.4 F or 38 C)?: No Have you tested positive for COVID-19?: No Exposed to someone with COVID-19 in past 14 days?: No Do you have a sore throat?: No Do you have a cough?: No Do you have any weakness?: No Do you have any diarrhea?: No Are you experiencing any unusual bleeding?: No Do you have any muscle aches/pain?: No Do you have any abdominal pain?: No Are you experiencing loss of taste or smell?: No Other Medical History Have you received the Flu Vaccine for this season: Yes Have you received the Pneumonia Vaccine: Yes Review of Systems Review of Systems Review of systems (narrative): 14 point review of systems performed, pertinent positives and negatives as per HPI *Neurologic Neurologic: Reports system reviewed and no additional complaints, except as documented Meds Home Medications and Allergies Home Medications ?Medication ?Instructions ?Recorded ?Confirmed ?Type metformin 500 mg tablet,extended 500 mg PO BID 30 days #120 tabs 10/11/18 05/13/25 History release 24 hr aspirin 81 mg tablet,delayed 81 mg PO DAILY 09/25/22 0 05/13/25 History release atorvastatin 80 mg tablet 80 mg PO DAILY 09/25/2204/25 History bupropion HCl 300 mg 24 hr tablet, 300 mg PO DAILY 11/1605/13/25 History extended release insulin degludec 200 unit/mL (3 80 unit SQ HS 02/21/24 05/13/25 History mL) subcutaneous pen (Tresiba FlexTouch U-200 insulin) insulin lispro 100 unit/mL See Rx Instructions .Route .COMPLEX 02/21/24 05/13/25 History subcutaneous pen (Humalog KwikPen (U-100) Insulin) empagliflozin 25 mg tablet 25 mg PO DAILY 05/13/25 History (Jardiance) ezetimibe 10 mg tablet 10 mg PO DAILY 05/13/2504/25 History gabapentin 100 mg capsule 100 mg PO DAILY 05/13/25 History insulin glargine U-300 conc 300 64 unit SQ HS 05/13/25 05/13/25 History unit/mL (3 mL) subcutaneous pen (Toujeo Max U-300 SoloStar) metoprolol succinate 50 mg 50 mg PO DAILY 05/13/25 History tablet,extended release 24 hr mirtazapine 15 mg tablet 15 mg PO HS 05/13/25 5 History tamsulosin 0.4 mg capsule 0.8 mg PO HS 05/13/25 History torsemide 20 mg tablet 60 mg PO DAILY 05/13/2504/25 History valproic acid 250 mg capsule 1,000 mg PO BID 05/13/25 05/13/25 History valsartan 40 mg tablet 20 mg PO DAILY 05/13/2504/25 History New Prescriptions to Start Prescriptions: Allergies Allergy/AdvReac Type Severity Reaction Status Date / Time aripiprazole (From [facility]) Allergy Verified 05/13/25 10:35 Exam Data for Last 24 hours Vital signs and Labs for Last 24 Hours: Temp Pulse Resp BP Pulse Ox O2 Del Method O2 Flow Rate 98.5 F 78 20 119/69 87 L Nasal Cannula 3 05/13/25 16:00 05/13/25 16:00 05/13/25 16:00 05/13/25 16:00 05/13/25 16:00 05/13/25 17:00 05/13/25 17:00 Laboratory Results - last 24 hr 05/13/25 11:02: WBC 10.4, RBC 5.41, Hgb 15.4, Hct 47.7, MCV 88.2, MCH 28.5, MCHC 32.3, RDW 14.7, Plt Count 203, MPV 9.9, Neut % (Auto) 58.8, Lymph % (Auto) 21.4, [place] % (Auto) 12.7 H, Eos % (Auto) 5.7, Baso % (Auto) 0.5, Neut # (Auto) 6.1, Lymph # (Auto) 2.2, [place] # (Auto) 1.3 H, Eos # (Auto) 0.6 H, Baso # (Auto) 0.1, D-Dimer 0.75 H, Sodium 140, Potassium 4.2, Chloride 99, Carbon Dioxide 30, Anion Gap 15.2 H, BUN 30 H, Creatinine 1.30 H, Estimated Creat Clear 65, Estimated GFR 57 L, Est GFR ( Amer) 69, Glucose 151 H, Hemoglobin A1c 11.7 H, Calcium 9.1, Magnesium 2.2, Total Bilirubin 0.8, AST 24, ALT 19, Alkaline Phosphatase 92, Troponin I < 0.01, NT-Pro-B Natriuret Pep 447 H, Total Protein 7.7, Albumin 4.3, Globulin 3.4 H, Albumin/Globulin Ratio 1.3, Lipase 55, TSH 6.91 H 05/13/25 11:20: VBG pH 7.37, VBG pCO2 51.5 H, VBG pO2 40.5 H, VBG HCO3 29.2, VBG Total CO2 30.8 H, VBG O2 Saturation 74.1 H, VBG Base Excess 3.9 H, VBG Lactic Acid 2.0 05/13/25 11:25: SARS-CoV-2 (PCR) Not detected, Influenza A Untype (PCR) Not detected, Influenza Type B (PCR) Not detected 05/13/25 13:35: Troponin I < 0.01 05/13/25 16:35: POC Glucose 340 H* I & O for Last 24 hours: Intake & Output 05/10/25 05/11/25 05/12/25 05/13/25 23:59 23:59 23:59 23:59 Output Total 2099 Balance -2099 / Weight 149.232 kg Constitutional Constitutional: mild distress, morbidly obese, chronically ill appearing and cooperative *Routine HEENT Exam Head: Present normocephalic and atraumatic Eye: Present EOMI, PERRL and scleral injection ENT: Present mucous membranes moist Comments: Watery eyes *Routine Neck Exam Neck: Present supple; Absent lymphadenopathy *Routine Respiratory Exam Respiratory: Present CTA bilaterally; Absent rhonchi, wheezes or crackles *Routine Cardiovascular Exam Cardiovascular: Present RRR *Routine Abdominal Exam Abdominal: Present soft, normoactive bowel sounds and distended; Absent tenderness or rebound *Routine Rectal Exam Rectal:: deferred *Routine Genitalia Exam Genitalia:: deferred *Routine Extremities Exam Extremities: Present edema (3+ edema to the knees); Absent cyanosis or clubbing *Routine Skin Exam Skin: Present intact and warm; Absent rash *Routine Neurological Exam Neurological: Present alert, oriented X3 and moving all extremities; Absent altered mental status Assessment and Plan *Assessment and plan (1) Acute on chronic heart failure with preserved ejection fraction (HFpEF): Status: Acute Category: Medical Code(s): I50.33 - Acute on chronic diastolic (congestive) heart failure (2) Hypoxia: Status: Acute Category: Medical Code(s): R09.02 - Hypoxemia (3) JULIANA (acute kidney injury): Status: Acute Category: Medical Code(s): N17.9 - Acute kidney failure, unspecified (4) Hyperlipidemia: Status: Acute Qualifiers: Hyperlipidemia type: mixed hyperlipidemia Qualified Code(s): E78.2 - Mixed hyperlipidemia Category: Medical Code(s): E78.5 - Hyperlipidemia, unspecified (5) Coronary artery disease: Status: Acute Qualifiers: Coronary Disease-Associated Artery/Lesion type: [place] artery [place] vs. transplanted heart: [place] heart Associated angina: without angina Qualified Code(s): I25.10 - Atherosclerotic heart disease of [place] coronary artery without angina pectoris Category: Medical Code(s): I25.10 - Atherosclerotic heart disease of [place] coronary artery without angina pectoris (6) Depression: Status: Chronic Category: Medical Code(s): F32.A - Depression, unspecified (7) BPH (benign prostatic hyperplasia): Status: Chronic Category: Medical Code(s): N40.0 - Benign prostatic hyperplasia without lower urinary tract symptoms (8) Class 3 obesity: Problem Comment: Complicates all aspects of care. Status: Chronic Category: Medical Code(s): E66.813 - Obesity, class 3 (9) Uncontrolled diabetes mellitus: Status: Chronic Category: Medical Plan 59-year-old male with history of CABG 3 years ago. Presents with worsening shortness of breath, elevated BNP, lower extremity edema and new oxygen requirement. Presentation consistent with acute on chronic HFpEF exacerbation. Was recently discharged from [facility] after similar episode last week. Has not increased urine output since getting home. Increase swelling in his legs. Discussed case with ER physician, request admission for IV diuresis, cardiology eval, treatment of heart failure exacerbation. I agreed to admit to stepdown level of care. Received 80 of Lasix in the ED. Will initiate Bumex 1 mg IV twice daily. Cardiology consulted. Problems addressed as follows: Acute on chronic HFpEF, present on admission Hypertension CAD History of - BNP elevated at 447. Troponin negative on serial labs. New oxygen requirement with cardiomegaly on chest x-ray per my review. Continue 2 L oxygen for goal sats greater 90%. - Cardiology consulted. - Initiated on diuresis with Lasix 80 mg IV once. Continue Bumex 1 mg IV twice daily. - Echo obtained, formal read pending. - Attempting to obtain records from [facility] - Continue aspirin 81 mg daily, metoprolol succinate 50 mg daily, valsartan 20 mg daily JULIANA: BUN 30, creatinine 1.3. Monitor for improvement with diuresis. Potassium 4.2. Repeat CBC, CMP, magnesium ordered for the morning. Diabetes uncontrolled: A1c 11.7. Resume basal insulin of 60 units glargine nightly. High intensity sliding scale of fingersticks ACHS. Glucose 151 on labs on arrival, increased to 340 after eating. Will make adjustments daily. - Holding metformin in the setting of CHF exacerbation and diuresis. - Resume Jardiance 25 mg daily Hyperlipidemia: Continue Lipitor 80 mg daily. Lipid panel ordered for the morning Continue Depakote 1000 mg twice daily for seizure disorder continue tamsulosin 0.8 mg nightly for BPH Continue mirtazapine 50 mg nightly for mood disorder and sleep Continue Wellbutrin 300 mg daily for depression Continue gabapentin 100 mg daily for neuropathy Full code Heparin 5000 units TID Diabetic diet
[2025-05-13 19:13] LABS: Troponin I < 0.01 ng/ml (0.00-0.034)
[2025-05-13 19:43] LABS: POC Glucose,Bedside 301 (70-110)
[2025-05-13] MEDS: HEPARIN SODIUM 5,000 UNIT/ML VIAL 5000 UNIT SUBCUT (20:00)
[2025-05-13] MEDS: TAMSULOSIN 0.4MG CAPSULE 0.8 MG PO (20:01)
[2025-05-13] MEDS: MIRTAZAPINE 15 MG TABLET PO (20:01)
[2025-05-13] MEDS: INSULIN GLARGINE 100 UNITS/ML 3ML FLEXPEN 60 UNIT SUBCUT (20:02)
[2025-05-13] MEDS: TRIAMCINOLONE ACETONIDE CREAM 30GM TUBE TP (20:03)
[2025-05-13] MEDS: GABAPENTIN 100MG CAPSULE 100 MG PO (20:40)
[2025-05-13] MEDS: IBUPROFEN 600 MG TABLET PO (20:49)
[2025-05-14] VITALS (15 sets, daily range): BP systolic 93–147; BP diastolic 46–76; PULSE 65–77; RESP 12–18; TEMP 36.5–37.2; O2SAT 86–97; BMI 46.1
[2025-05-14 05:50] LABS: Hematocrit 47.3 % (42.0-52.0); Hemoglobin 15.2 g/dL (14.1-18.0); Immature Granulocytes % 0.7 %; Mean Corpuscular HGB Conc 32.1 g/dL (31.8-35.4); Mean Corpuscular Hemoglobin 28.4 pg (27.0-31.2); Mean Corpuscular Volume 88.4 fl (80-94); Nucleated Red Blood Cells % 0 %; Platelet Count 186 K/mm3 (142-424); Red Blood Count 5.35 M/mm3 (4.60-6.20); Red Cell Distribution Width-SD 46.2 fL; White Blood Count 10.5 K/mm3 (4.8-10.8)
[2025-05-14 06:11] LABS: Albumin Level 4.1 g/dl (3.5-5.0); Chloride 102 mmol/L (98-107); Potassium 3.8 mmoL/L (3.5-5.1); Sodium 138 mmol/L (136-145)
[2025-05-14 06:14] LABS: Alanine Aminotransferase 15 U/L (12-78); Albumin/Globulin Ratio 1.3 (1.1-1.8); Alkaline Phosphatase 101 U/L (38-126); Anion Gap 11.8 mEq/L (5-15); Aspartate Amino Transferase 25 U/L (17-59); Bilirubin,Total 0.8 mg/dl (0.2-1.3); Blood Urea Nitrogen 35 mg/dl (9-20); Calcium 8.5 mg/dl (8.4-10.2); Carbon Dioxide 28 mmol/L (22.0-30.0); Cholesterol 143 mg/dl (140-200); Creatinine Clearance Estimated 77 mL/min (50-200); Creatinine,Serum 1.10 mg/dl (0.66-1.25); Estimated Glomerular Filt Rate 69 ml/min (>60); GFR (African American) 83 ML/MIN (>60); Globulin 3.1 g/dL (1.3-3.2); Glucose 265 mg/dl (74-100); Magnesium 2.3 mg/dl (1.6-2.3); Total Protein,Serum 7.2 g/dl (6.3-8.2); Triglycerides 288 mg/dl (30-150)
[2025-05-14 06:15] LABS: HDL Cholesterol 34 mg/dl (40-60)
[2025-05-14] MEDS: humaLOG 100 UNITS/ML 10ML VIAL (SSI) SUBCUT ×3 (06:23→16:22)
[2025-05-14] MEDS: [UNRECOGNIZED DRUG - OTHER] OP ×4 (06:23→15:06)
[2025-05-14 06:34] LABS: POC Glucose,Bedside 234 (70-110)
--- NOTE | 2025-05-14 08:03 | HMH.PHAINT1 ---
Pharmacy Intervention Comments: MEDICATION RECONCILIATION COMPLETED ON PATIENT USING EXTERNAL FILL HISTORY FROM PHARMACY. -ERNIE GUAJARDO, CHRISTIANOD
[2025-05-14] MEDS: METOPROLOL SUCCINATE XL 50MG TABLET 50 MG PO (08:54)
[2025-05-14] MEDS: EMPAGLIFLOZIN 25MG TABLET 25 MG PO (08:54)
[2025-05-14] MEDS: IRBESARTAN 75MG TABLET 18.75 MG PO (08:54)
[2025-05-14] MEDS: ASPIRIN EC 81MG TABLET 81 MG PO (08:55)
[2025-05-14] MEDS: OXYMETAZOLINE NASAL SPRAY 0.05% 15ML NS (08:55)
[2025-05-14] MEDS: BUMETANIDE 1MG/4ML VIAL 1 MG IV (08:55)
[2025-05-14] MEDS: GABAPENTIN 100MG CAPSULE 100 MG PO (08:56)
[2025-05-14] MEDS: VALPROIC ACID 250 MG/5 ML SOL UDC 1000 MG PO (08:57)
[2025-05-14] MEDS: HEPARIN SODIUM 5,000 UNIT/ML VIAL 5000 UNIT SUBCUT ×2 (09:00→13:15)
--- NOTE | 2025-05-14 09:20 | PC.NURSE ---
All patient care and documentation completed by Homa BALBUENA/[employer] Envelope Maker Hand was completed under my direct supervision. Lorri Conte RN
--- NOTE | 2025-05-14 10:57 | P.PN_ITS ---
Subjective Subjective Date: 05/14/25 Time: 09:30 Principal diagnosis: Acute on chronic HFpEF Interval history: This is a 59-year-old gentleman who was admitted to the hospital with rhinovirus and acute on chronic HFpEF. He states he feels much better this morning. He is still having some shortness of breath but it is much better than it was. He states he always has a baseline shortness of breath. He denies any chest pain or pressure. His edema has improved. He denies any fever, chills, nausea, vomiting or diarrhea. He has a -3840 mL overnight. Exam Data for Last 24 hours Vital signs and Labs for Last 24 Hours: Temp Pulse Resp BP Pulse Ox O2 Del Method O2 Flow Rate 97.7 F 74 16 147/46 H 91 L Room Air 3 05/14/25 08:00 05/14/25 10:34 05/14/25 10:34 05/14/25 10:34 05/14/25 10:34 05/14/25 10:34 05/14/25 04:00 Laboratory Results - last 24 hr 05/13/25 11:02: WBC 10.4, RBC 5.41, Hgb 15.4, Hct 47.7, MCV 88.2, MCH 28.5, MCHC 32.3, RDW 14.7, Plt Count 203, MPV 9.9, Neut % (Auto) 58.8, Lymph % (Auto) 21.4, [place] % (Auto) 12.7 H, Eos % (Auto) 5.7, Baso % (Auto) 0.5, Neut # (Auto) 6.1, Lymph # (Auto) 2.2, [place] # (Auto) 1.3 H, Eos # (Auto) 0.6 H, Baso # (Auto) 0.1, D-Dimer 0.75 H, Sodium 140, Potassium 4.2, Chloride 99, Carbon Dioxide 30, Anion Gap 15.2 H, BUN 30 H, Creatinine 1.30 H, Estimated Creat Clear 65, Estimated GFR 57 L, Est GFR ( Amer) 69, Glucose 151 H, Hemoglobin A1c 11.7 H, Calcium 9.1, Magnesium 2.2, Total Bilirubin 0.8, AST 24, ALT 19, Alkaline Phosphatase 92, Troponin I < 0.01, NT-Pro-B Natriuret Pep 447 H, Total Protein 7.7, Albumin 4.3, Globulin 3.4 H, Albumin/Globulin Ratio 1.3, Lipase 55, TSH 6.91 H 05/13/25 11:20: VBG pH 7.37, VBG pCO2 51.5 H, VBG pO2 40.5 H, VBG HCO3 29.2, VBG Total CO2 30.8 H, VBG O2 Saturation 74.1 H, VBG Base Excess 3.9 H, VBG Lactic Acid 2.0 05/13/25 11:25: Chlamy pneumoniae PCR Not detected, Adenovirus (PCR) Not detected, B. pertussis DNA (PCR) Not detected, Coronavirus OC43 (PCR) Not detected, Coronavirus HKU1 (PCR) Not detected, Coronavirus 229E (PCR) Not detected, SARS-CoV-2 (PCR) Not detected 05/13/25 11:25: SARS-CoV-2 (PCR) Not detected, Coronavirus NL63 (PCR) Not detected, Human Metapneumovir PCR Not detected, Influenza A (H1) PCR Not detected, Influ A (H1N1/09) PCR Not detected, Influenza A (H3) PCR Not detected, Influenza Type A (PCR) Not detected, Influenza A Untype (PCR) Not detected, Influenza Type B (PCR) Not detected 05/13/25 11:25: Influenza Type B (PCR) Not detected, M. pneumoniae (PCR) Not detected, Parainfluenza 1 (PCR) Not detected, Parainfluenza 2 (PCR) Not detected, Parainfluenza 3 (PCR) Not detected, Parainfluenza 4 (PCR) Not detected, RSV (PCR) Not detected, Entero/Rhino (PCR) Detected A 05/13/25 13:35: Troponin I < 0.01 05/13/25 16:35: POC Glucose 340 H* 05/13/25 18:35: Troponin I < 0.01 05/13/25 19:35: POC Glucose 301 H* 05/14/25 05:42: WBC 10.5, RBC 5.35, Hgb 15.2, Hct 47.3, MCV 88.4, MCH 28.4, MCHC 32.1, RDW 14.6, Plt Count 186, MPV 9.7, Neut % (Auto) 68.2, Lymph % (Auto) 18.5, [place] % (Auto) 11.7 H, Eos % (Auto) 0.6, Baso % (Auto) 0.3, Neut # (Auto) 7.2, Lymph # (Auto) 1.9, [place] # (Auto) 1.2 H, Eos # (Auto) 0.1, Baso # (Auto) 0.0, Sodium 138, Potassium 3.8, Chloride 102, Carbon Dioxide 28, Anion Gap 11.8, BUN 35 H, Creatinine 1.10, Estimated Creat Clear 77, Estimated GFR 69, Est GFR ( Amer) 83 D, Glucose 265 H D, Calcium 8.5, Magnesium 2.3, Total Bilirubin 0.8, AST 25, ALT 15, Alkaline Phosphatase 101, Total Protein 7.2, Albumin 4.1, Globulin 3.1, Albumin/Globulin Ratio 1.3, Triglycerides 288 H, Cholesterol 143, LDL Cholesterol Direct 73.64 L, VLDL Cholesterol 58 H, HDL Cholesterol 34 L, Cholesterol/HDL Ratio 4.2 H 05/14/25 06:25: POC Glucose 234 H I & O for Last 24 hours: Intake & Output 05/11/25 05/12/25 05/13/25 05/14/25 23:59 23:59 23:59 23:59 Intake Total 210 / 210 240 / 240 Output Total 4050 / 4050 900 / 900 Balance -3840 / -3840 -660 / -660 Weight 329 lb 322 lb 9.6 oz Constitutional Constitutional: no acute distress and morbidly obese *Routine HEENT Exam Head: Present normocephalic and atraumatic ENT: Present mucous membranes moist *Routine Neck Exam Neck: Present supple, full ROM and normal carotid upstroke; Absent JVD, carotid bruit or lymphadenopathy *Routine Respiratory Exam Respiratory: Present CTA bilaterally, normal respiratory effort, able to speak in complete sentences and symmetric chest movement *Routine Cardiovascular Exam Cardiovascular: Present RRR, Normal S1 and Normal S2; Absent murmur or gallop *Routine Abdominal Exam Abdominal: Present soft and normoactive bowel sounds; Absent tenderness, distended or organomegaly *Routine Extremities Exam Extremities: Present edema, full ROM, pulses intact and normal capillary refill; Absent cyanosis or clubbing *Routine Skin Exam Skin: Present intact and warm; Absent erythema *Routine Neurological Exam Neurological: Present alert, oriented X3 and CN II-XII intact; Absent sensory deficit or motor deficit Routine Psychiatric Exam Psychiatric: Present normal affect Progress Note: A&P Assessment and plan (1) Acute on chronic heart failure with preserved ejection fraction (HFpEF): Status: Acute (2) Hypoxia: Status: Acute (3) Coronary artery disease: Status: Acute (4) Hyperlipidemia: Status: Acute (5) JULIANA (acute kidney injury): Status: Acute (6) Depression: Status: Chronic (7) BPH (benign prostatic hyperplasia): Status: Chronic (8) Class 3 obesity: Problem details: Complicates all aspects of care. Status: Chronic (9) Uncontrolled diabetes mellitus: Status: Chronic (10) Rhinovirus: Status: Acute Assessment and Plan Assessment and Plan for All Diagnoses:: Plan: 1. The patient was admitted to the hospital with acute on chronic exacerbation of HFpEF. The patient was recently discharged from hospital for his HFpEF as well. The patient was diuresed with IV Bumex and he has been -3840 mL fluid balance overnight. Will stop IV Bumex and start Bumex 1 mg p.o. twice daily for continued diuresis. 2. Continue Jardiance, valsartan and metoprolol for his HFpEF. 3. Consider Kerendia on an outpatient basis for HFpEF. 4. CTA of the chest was negative for PE. 5. Coronary artery disease is present. He is status post CABG. He denies any chest pain or pressure. He ruled out for an MT. No plans for invasive left cardiac catheterization at this time. Continue aspirin 81 mg daily. 6. His blood pressure is well-controlled. 7. His LDL goal is less than 55. Will get a lipid panel in the morning. He is on a statin. 8. Echocardiogram shows a normal ejection fraction. 9. No further recommendations at this time from a cardiac standpoint. The patient can be discharged home today from a cardiac standpoint. 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 The patient can be discharged on the following cardiac medications: Bumex 1 mg p.o. twice daily aspirin 81 mg daily atorvastatin 80 mg daily Jardiance 25 mg daily Zetia 10 mg daily metoprolol succinate 50 mg daily valsartan 20 mg daily Consider Kerendia on an outpatient basis for HFpEF Thank you for the opportunity to participate in the care of this patient. All recommendations and orders are per Dr. Pak.
[2025-05-14 11:24] LABS: POC Glucose,Bedside 299 (70-110)
--- NOTE | 2025-05-14 12:03 | EXP.DC.SUM ---
General Admission date:: 05/13/25 Discharge date: 05/14/25 HPI HPI HPI: Mr. Monge's a 59-year-old male with history of CABG 3 years ago and uncontrolled diabetes. He presented to the ER with complaint of shortness of breath. States he has felt cold since Sunday with runny nose, cough congestion. Has had increased shortness of breath. Found to have an oxygen requirement on arrival to the ED. Denies nausea, vomiting, chest pain. Elevated BNP. Was recently admitted last week at [facility] with CHF exacerbation. Still short of breath with increased swelling in his legs. Medicine consulted for admission of CHF exacerbation. COVID and flu were negative. On arrival to the floor, patient is ill-appearing. Has runny watery eyes and runny nose. States has been coughing up some phlegm. Chest imaging did not show focal consolidation or airspace disease. Did show cardiomegaly. Will obtain comprehensive respiratory panel. Starting to respond to diuretics with increased urine output. Hospital Course Hospital Course Hospital Course: 59-year-old male with history of CABG 3 years ago. Presents with worsening shortness of breath, elevated BNP, lower extremity edema and new oxygen requirement. Presentation consistent with acute on chronic HFpEF exacerbation. Was recently discharged from [facility] after similar episode last week. Has not increased urine output since getting home. Increase swelling in his legs. Discussed case with ER physician, request admission for IV diuresis, cardiology eval, treatment of heart failure exacerbation. I agreed to admit to stepdown level of care. Received 80 of Lasix in the ED. initiated on Bumex 1 mg twice daily. Respiratory panel found to be positive for rhinovirus. Diuresed significantly, -4.5 L over the course of 24 hours. Given his clinical improvement, discharged home with plan to follow-up as an outpatient with cardiology. Continue symptomatic treatment for respiratory infection. Problems addressed as follows: Acute on chronic HFpEF, present on admission, improved Hypertension CAD History of CABG - BNP elevated at 447. Troponin negative on serial labs. New oxygen requirement with cardiomegaly on chest x-ray per my review. Continue 2 L oxygen for goal sats greater 90%. On morning of discharge, patient's O2 sats were 86% on room air. Will continue 2 L oxygen continuously at discharge. Cardiology was consulted. Patient responded well to diuresis. -4.5 L since admission. Echo obtained showing preserved ejection fraction, has dilated right ventricle consistent with HFpEF. Given his response to diuresis, will make some adjustments to his home regimen as follows: Bumex 1 mg p.o. twice daily aspirin 81 mg daily atorvastatin 80 mg daily Jardiance 25 mg daily Zetia 10 mg daily metoprolol succinate 50 mg daily valsartan 20 mg daily Consider Kishan on an outpatient basis for HFpEF Given his brisk improvement, stable to discharge home with further management as an outpatient. Continue with Bumex twice daily as above. Runny nose and congestion: Found to be positive for rhino/enterovirus on full respiratory panel. Suspect this is a culprit in conjunction with heart failure exacerbation for his respiratory symptoms and shortness of breath. Continue symptomatic management. No specific treatment. JULIANA: BUN 30, creatinine 1.3 on admission. Improved to BUN 35, creatinine 1.1 on morning of discharge. Electrolytes stable. Diabetes uncontrolled: A1c 11.7. Resume basal insulin, increase to 70 units nightly at discharge. Continue with home sliding scale regimen. - Resume home regimen with Jardiance 25 mg daily and metformin twice daily. - Needs close follow-up with primary care for further management and adjustment of regimen Hyperlipidemia: Continue Lipitor 80 mg daily. LDL 73 on morning of discharge Continue Depakote 1000 mg twice daily for seizure disorder continue tamsulosin 0.8 mg nightly for BPH Continue mirtazapine 50 mg nightly for mood disorder and sleep Continue Wellbutrin 300 mg daily for depression Continue gabapentin 100 mg daily for neuropathy Total time spent on discharge 32 minutes in counseling, documentation, chart review, and direct care with patient. Exam Data for Last 24 hours Vital signs and Labs for Last 24 Hours: Temp Pulse Resp BP Pulse Ox O2 Del Method O2 Flow Rate 97.7 F 74 16 147/46 H 91 L Room Air 3 05/14/25 08:00 05/14/25 10:34 05/14/25 10:34 05/14/25 10:34 05/14/25 10:34 05/14/25 11:54 05/14/25 04:00 Laboratory Results - last 24 hr 05/13/25 11:02: WBC 10.4, RBC 5.41, Hgb 15.4, Hct 47.7, MCV 88.2, MCH 28.5, MCHC 32.3, RDW 14.7, Plt Count 203, MPV 9.9, Neut % (Auto) 58.8, Lymph % (Auto) 21.4, [place] % (Auto) 12.7 H, Eos % (Auto) 5.7, Baso % (Auto) 0.5, Neut # (Auto) 6.1, Lymph # (Auto) 2.2, [place] # (Auto) 1.3 H, Eos # (Auto) 0.6 H, Baso # (Auto) 0.1, Hemoglobin A1c 11.7 H, Troponin I < 0.01, NT-Pro-B Natriuret Pep 447 H, TSH 6.91 H 05/13/25 11:25: Chlamy pneumoniae PCR Not detected, Adenovirus (PCR) Not detected, B. pertussis DNA (PCR) Not detected, Coronavirus OC43 (PCR) Not detected, Coronavirus HKU1 (PCR) Not detected, Coronavirus 229E (PCR) Not detected, SARS-CoV-2 (PCR) Not detected 05/13/25 11:25: SARS-CoV-2 (PCR) Not detected, Coronavirus NL63 (PCR) Not detected, Human Metapneumovir PCR Not detected, Influenza A (H1) PCR Not detected, Influ A (H1N1/09) PCR Not detected, Influenza A (H3) PCR Not detected, Influenza Type A (PCR) Not detected, Influenza A Untype (PCR) Not detected, Influenza Type B (PCR) Not detected 05/13/25 11:25: Influenza Type B (PCR) Not detected, M. pneumoniae (PCR) Not detected, Parainfluenza 1 (PCR) Not detected, Parainfluenza 2 (PCR) Not detected, Parainfluenza 3 (PCR) Not detected, Parainfluenza 4 (PCR) Not detected, RSV (PCR) Not detected, Entero/Rhino (PCR) Detected A 05/13/25 13:35: Troponin I < 0.01 05/13/25 16:35: POC Glucose 340 H* 05/13/25 18:35: Troponin I < 0.01 05/13/25 19:35: POC Glucose 301 H* 05/14/25 05:42: WBC 10.5, RBC 5.35, Hgb 15.2, Hct 47.3, MCV 88.4, MCH 28.4, MCHC 32.1, RDW 14.6, Plt Count 186, MPV 9.7, Neut % (Auto) 68.2, Lymph % (Auto) 18.5, [place] % (Auto) 11.7 H, Eos % (Auto) 0.6, Baso % (Auto) 0.3, Neut # (Auto) 7.2, Lymph # (Auto) 1.9, [place] # (Auto) 1.2 H, Eos # (Auto) 0.1, Baso # (Auto) 0.0, Sodium 138, Potassium 3.8, Chloride 102, Carbon Dioxide 28, Anion Gap 11.8, BUN 35 H, Creatinine 1.10, Estimated Creat Clear 77, Estimated GFR 69, Est GFR ( Amer) 83 D, Glucose 265 H D, Calcium 8.5, Magnesium 2.3, Total Bilirubin 0.8, AST 25, ALT 15, Alkaline Phosphatase 101, Total Protein 7.2, Albumin 4.1, Globulin 3.1, Albumin/Globulin Ratio 1.3, Triglycerides 288 H, Cholesterol 143, LDL Cholesterol Direct 73.64 L, VLDL Cholesterol 58 H, HDL Cholesterol 34 L, Cholesterol/HDL Ratio 4.2 H 05/14/25 06:25: POC Glucose 234 H 05/14/25 11:09: POC Glucose 299 H I & O for Last 24 hours: Intake & Output 05/11/25 05/12/25 05/13/25 05/14/25 23:59 23:59 23:59 23:59 Intake Total 210 / 210 240 / 240 Output Total 4050 / 4050 2550 / 2550 Balance -3840 / -3840 -2310 / -2310 Weight 149.232 kg 146.329 kg Constitutional Constitutional: no acute distress, morbidly obese, chronically ill appearing and cooperative *Routine HEENT Exam Head: Present normocephalic Eye: Present EOMI and PERRL ENT: Present mucous membranes moist Comments: Scleral injection, watery eyes and runny nose *Routine Neck Exam Neck: Present supple; Absent lymphadenopathy *Routine Respiratory Exam Respiratory: Present CTA bilaterally; Absent rhonchi, wheezes or crackles *Routine Cardiovascular Exam Cardiovascular: Present RRR *Routine Abdominal Exam Abdominal: Present soft, normoactive bowel sounds and obese; Absent tenderness *Routine Rectal Exam Patient deferred: visual exam *Routine Exam Patient deferred: penile exam *Routine Extremities Exam Extremities: Present edema (1+ to knees, interval); Absent cyanosis or clubbing *Routine Skin Exam Skin: Present intact and warm; Absent rash *Routine Neurological Exam Neurological: Present alert, oriented X3 and moving all extremities; Absent altered mental status Results Data Completed and Pending Labs on day of discharge: Labs from last 24 hours 05/14/25 05/14/25 05/14/25 11:09 06:25 05:42 WBC 10.5 RBC 5.35 Hgb 15.2 Hct 47.3 MCV 88.4 MCH 28.4 MCHC 32.1 RDW 14.6 Plt Count 186 MPV 9.7 Neut % (Auto) 68.2 Lymph % (Auto) 18.5 [place] % (Auto) 11.7 H Eos % (Auto) 0.6 Baso % (Auto) 0.3 Neut # (Auto) 7.2 Lymph # (Auto) 1.9 [place] # (Auto) 1.2 H Eos # (Auto) 0.1 Baso # (Auto) 0.0 Sodium 138 Potassium 3.8 Chloride 102 Carbon Dioxide 28 Anion Gap 11.8 BUN 35 H Creatinine 1.10 Estimated Creat Clear 77 Estimated GFR 69 Est GFR ( Amer) 83 D Glucose 265 H D POC Glucose 299 H 234 H Hemoglobin A1c Calcium 8.5 Magnesium 2.3 Total Bilirubin 0.8 AST 25 ALT 15 Alkaline Phosphatase 101 Troponin I NT-Pro-B Natriuret Pep Total Protein 7.2 Albumin 4.1 Globulin 3.1 Albumin/Globulin Ratio 1.3 Triglycerides 288 H Cholesterol 143 LDL Cholesterol Direct 73.64 L VLDL Cholesterol 58 H HDL Cholesterol 34 L Cholesterol/HDL Ratio 4.2 H TSH Chlamy pneumoniae PCR Adenovirus (PCR) B. pertussis DNA (PCR) Coronavirus OC43 (PCR) Coronavirus HKU1 (PCR) Coronavirus 229E (PCR) SARS-CoV-2 (PCR) Coronavirus NL63 (PCR) Human Metapneumovir PCR Influenza A (H1) PCR Influ A (H1N1/09) PCR Influenza A (H3) PCR Influenza Type A (PCR) Influenza A Untype (PCR) Influenza Type B (PCR) M. pneumoniae (PCR) Parainfluenza 1 (PCR) Parainfluenza 2 (PCR) Parainfluenza 3 (PCR) Parainfluenza 4 (PCR) RSV (PCR) Entero/Rhino (PCR) 05/13/25 05/13/25 05/13/25 19:35 18:35 16:35 WBC RBC Hgb Hct MCV MCH MCHC RDW Plt Count MPV Neut % (Auto) Lymph % (Auto) [place] % (Auto) Eos % (Auto) Baso % (Auto) Neut # (Auto) Lymph # (Auto) [place] # (Auto) Eos # (Auto) Baso # (Auto) Sodium Potassium Chloride Carbon Dioxide Anion Gap BUN Creatinine Estimated Creat Clear Estimated GFR Est GFR ( Amer) Glucose POC Glucose 301 H* 340 H* Hemoglobin A1c Calcium Magnesium Total Bilirubin AST ALT Alkaline Phosphatase Troponin I < 0.01 NT-Pro-B Natriuret Pep Total Protein Albumin Globulin Albumin/Globulin Ratio Triglycerides Cholesterol LDL Cholesterol Direct VLDL Cholesterol HDL Cholesterol Cholesterol/HDL Ratio TSH Chlamy pneumoniae PCR Adenovirus (PCR) B. pertussis DNA (PCR) Coronavirus OC43 (PCR) Coronavirus HKU1 (PCR) Coronavirus 229E (PCR) SARS-CoV-2 (PCR) Coronavirus NL63 (PCR) Human Metapneumovir PCR Influenza A (H1) PCR Influ A (H1N1/09) PCR Influenza A (H3) PCR Influenza Type A (PCR) Influenza A Untype (PCR) Influenza Type B (PCR) M. pneumoniae (PCR) Parainfluenza 1 (PCR) Parainfluenza 2 (PCR) Parainfluenza 3 (PCR) Parainfluenza 4 (PCR) RSV (PCR) Entero/Rhino (PCR) 05/13/25 05/13/25 05/13/25 13:35 11:25 11:25 WBC RBC Hgb Hct MCV MCH MCHC RDW Plt Count MPV Neut % (Auto) Lymph % (Auto) [place] % (Auto) Eos % (Auto) Baso % (Auto) Neut # (Auto) Lymph # (Auto) [place] # (Auto) Eos # (Auto) Baso # (Auto) Sodium Potassium Chloride Carbon Dioxide Anion Gap BUN Creatinine Estimated Creat Clear Estimated GFR Est GFR ( Amer) Glucose POC Glucose Hemoglobin A1c Calcium Magnesium Total Bilirubin AST ALT Alkaline Phosphatase Troponin I < 0.01 NT-Pro-B Natriuret Pep Total Protein Albumin Globulin Albumin/Globulin Ratio Triglycerides Cholesterol LDL Cholesterol Direct VLDL Cholesterol HDL Cholesterol Cholesterol/HDL Ratio TSH Chlamy pneumoniae PCR Adenovirus (PCR) B. pertussis DNA (PCR) Coronavirus OC43 (PCR) Coronavirus HKU1 (PCR) Coronavirus 229E (PCR) SARS-CoV-2 (PCR) Not detected Coronavirus NL63 (PCR) Not detected Human Metapneumovir PCR Not detected Influenza A (H1) PCR Not detected Influ A (H1N1/) PCR Not detected Influenza A (H3) PCR Not detected Influenza Type A (PCR) Not detected Influenza A Untype (PCR) Not detected Influenza Type B (PCR) Not detected Not detected M. pneumoniae (PCR) Not detected Parainfluenza 1 (PCR) Not detected Parainfluenza 2 (PCR) Not detected Parainfluenza 3 (PCR) Not detected Parainfluenza 4 (PCR) Not detected RSV (PCR) Not detected Entero/Rhino (PCR) Detected A 05/13/25 05/13/25 11:25 11:02 WBC 10.4 RBC 5.41 Hgb 15.4 Hct 47.7 MCV 88.2 MCH 28.5 MCHC 32.3 RDW 14.7 Plt Count 203 MPV 9.9 Neut % (Auto) 58.8 Lymph % (Auto) 21.4 [place] % (Auto) 12.7 H Eos % (Auto) 5.7 Baso % (Auto) 0.5 Neut # (Auto) 6.1 Lymph # (Auto) 2.2 [place] # (Auto) 1.3 H Eos # (Auto) 0.6 H Baso # (Auto) 0.1 Sodium Potassium Chloride Carbon Dioxide Anion Gap BUN Creatinine Estimated Creat Clear Estimated GFR Est GFR ( Amer) Glucose POC Glucose Hemoglobin A1c 11.7 H Calcium Magnesium Total Bilirubin AST ALT Alkaline Phosphatase Troponin I < 0.01 NT-Pro-B Natriuret Pep 447 H Total Protein Albumin Globulin Albumin/Globulin Ratio Triglycerides Cholesterol LDL Cholesterol Direct VLDL Cholesterol HDL Cholesterol Cholesterol/HDL Ratio TSH 6.91 H Chlamy pneumoniae PCR Not detected Adenovirus (PCR) Not detected B. pertussis DNA (PCR) Not detected Coronavirus OC43 (PCR) Not detected Coronavirus HKU1 (PCR) Not detected Coronavirus 229E (PCR) Not detected SARS-CoV-2 (PCR) Not detected Coronavirus NL63 (PCR) Human Metapneumovir PCR Influenza A (H1) PCR Influ A (H1N1/09) PCR Influenza A (H3) PCR Influenza Type A (PCR) Influenza A Untype (PCR) Influenza Type B (PCR) M. pneumoniae (PCR) Parainfluenza 1 (PCR) Parainfluenza 2 (PCR) Parainfluenza 3 (PCR) Parainfluenza 4 (PCR) RSV (PCR) Entero/Rhino (PCR) DS: Diagnosis Discharge Diagnosis (1) Acute on chronic heart failure with preserved ejection fraction (HFpEF): Status: Acute Code(s): I50.33 - Acute on chronic diastolic (congestive) heart failure (2) Hypoxia: Status: Acute Code(s): R09.02 - Hypoxemia (3) Coronary artery disease: Status: Acute Code(s): I25.10 - Atherosclerotic heart disease of [place] coronary artery without angina pectoris Qualifiers: Associated angina: without angina Coronary Disease-Associated Artery/Lesion type: [place] artery [place] vs. transplanted heart: [place] heart Qualified Code(s): I25.10 - Atherosclerotic heart disease of [place] coronary artery without angina pectoris (4) Hyperlipidemia: Status: Acute Code(s): E78.5 - Hyperlipidemia, unspecified Qualifiers: Hyperlipidemia type: mixed hyperlipidemia Qualified Code(s): E78.2 - Mixed hyperlipidemia (5) JULIANA (acute kidney injury): Status: Acute Code(s): N17.9 - Acute kidney failure, unspecified (6) Depression: Status: Chronic Code(s): F32.A - Depression, unspecified (7) BPH (benign prostatic hyperplasia): Status: Chronic Code(s): N40.0 - Benign prostatic hyperplasia without lower urinary tract symptoms (8) Class 3 obesity: Status: Chronic Code(s): E66.813 - Obesity, class 3 Problem details: Complicates all aspects of care. (9) Uncontrolled diabetes mellitus: Status: Chronic (10) Rhinovirus: Status: Acute Code(s): B34.8 - Other viral infections of unspecified site Meds Home Medications and Allergies Home Medications ?Medication ?Instructions ?Recorded ?Confirmed ?Type metformin 500 mg tablet,extended 500 mg PO BID 30 days #120 tabs 10/11/18 05/13/25 History release 24 hr aspirin 81 mg tablet,delayed 81 mg PO DAILY 09/25/22 05/13/25 History release atorvastatin 80 mg tablet 80 mg PO DAILY 09/25/22 05/13/25 History bupropion HCl 300 mg 24 hr tablet, 300 mg PO DAILY 09/25/22 05/13/25 History extended release empagliflozin 25 mg tablet 25 mg PO DAILY 05/13/25 05/13/25 History (Jardiance) ezetimibe 10 mg tablet 10 mg PO DAILY 05/13/25 05/13/25 History gabapentin 100 mg capsule 100 mg PO DAILY 05/13/25 05/13/25 History metoprolol succinate 50 mg 50 mg PO DAILY 05/13/25 05/13/25 History tablet,extended release 24 hr mirtazapine 15 mg tablet 15 mg PO HS 05/13/25 05/13/25 History tamsulosin 0.4 mg capsule 0.8 mg PO HS 05/13/25 05/13/25 History valproic acid 250 mg capsule 1,000 mg PO BID 05/13/25 05/13/25 History valsartan 40 mg tablet 20 mg PO DAILY 05/13/25 05/13/25 History bumetanide 1 mg tablet 1 mg PO BIDL 30 days #60 tabs 05/14/25 Rx insulin glargine U-300 conc 300 70 unit (0.2333 mL) SQ HS 30 days 05/14/25 05/13/25 Rx unit/mL (3 mL) subcutaneous pen #0 mL (Toujeo Max U-300 SoloStar) New Prescriptions to Start Prescriptions: bumetanide David Russell Allergies Allergy/AdvReac Type Severity Reaction Status Date / Time aripiprazole (From [facility]) Allergy Verified 05/13/25 10:35 Discharge Plan Disposition Patient Disposition: Home, Self-Care Condition: Fair Follow up Plan Follow up with: Ed Valenzuela CNP [Other] - 05/15/25 11:30 am Referral Note: [facility] Please arrive 15 minutes early and bring insurance card Prescriptions/Medication Reconciliation: New bumetanide 1 mg Tablet 1 mg PO BIDL 30 Days Qty: 60 0RF Continued metformin 500 mg tablet extended release 24 hr 500 mg PO BID 30 Days Qty: 120 Patient Comments: TAKE 2 TABS BY MOUTH 2 TIMES DAILY. WITH MEALS valproic acid 250 mg capsule 1,000 mg PO BID tamsulosin 0.4 mg capsule 0.8 mg PO HS mirtazapine 15 mg tablet 15 mg PO HS gabapentin 100 mg capsule 100 mg PO DAILY valsartan 40 mg tablet 20 mg PO DAILY ezetimibe 10 mg tablet 10 mg PO DAILY Jardiance 25 mg tablet 25 mg PO DAILY atorvastatin 80 mg tablet 80 mg PO DAILY Patient Comments: TAKE 1 TABLET (80 MG TOTAL) BY MOUTH DAILY. INDICATIONS: ATHEROSCLEROTIC CARDIOVASCULAR DISEASE aspirin 81 mg tablet,delayed release (DR/EC) 81 mg PO DAILY Patient Comments: TAKE 1 TABLET BY MOUTH EVERY DAY bupropion HCl 300 mg tablet extended release 24 hr 300 mg PO DAILY metoprolol succinate 50 mg tablet extended release 24 hr 50 mg PO DAILY Changed insulin glargine U-300 conc [Toujeo Max U-300 SoloStar] 300 unit/mL (3 mL) insulin pen 70 unit SQ HS 30 Days Qty: 0 0RF Discontinued torsemide 20 mg tablet 60 mg PO DAILY Other Ambulatory Orders: Home Medical Equipment (Routine) Location: None Selected Ordered By: David Russell Problem Reconciliation Problems Reviewed?: Yes Patient Discharge Instructions ACTIVITY: Continue current activity DIET: continue same diet and diabetic diet Print Language: Cuban Providers Primary Care Provider: Provider,Referral Admit Provider: David Russell Attending Provider: David Russell
--- NOTE | 2025-05-14 12:10 | PC.NURSE ---
Discharge order entered by md at this time. pt unable to get a ride home until approx 1630 this afternoon when his gets off of work.
--- NOTE | 2025-05-14 13:47 | CARE MANAGER ---
Patient is requiring 2L supplemental O2. [employer] signed for Eliu and order/clinical faxed. Portable will be delivered prior to discharge.
--- NOTE | 2025-05-14 14:05 | DIET.NUTRFU ---
Provided diabetic educational handouts and reviewed. Patient does not follow diabetic diet at home, eats only 1 meal/day and still drinks sweet tea. Encouarged him to eat 3 routine meals/day, increase fiber intake and count out simple sugars. Provided contact information for further followup
[2025-05-14 16:17] LABS: POC Glucose,Bedside 210 (70-110)
[2025-05-14] MEDS: TRIAMCINOLONE ACETONIDE CREAM 30GM TUBE TP (17:04)
--- NOTE | 2025-05-14 17:26 | PC.NURSE ---
Pt left unit with nurse enrrique Luther at 1224
--- NOTE | 2025-05-18 10:42 | SW/DCPLANNER ---
Phoned patient x2. Left message with name and a call back number each time. Misty Loza
== END 2025-05-14 17:22 | disposition home or self-care (01) ==
LOC: ER 13:46 → 2ND 14:06 → ICU 14:09
PROVIDERS: Nurse Practitioner; Admitting Provider Internal Medicine Adolescent Medicine; Emergency Provider Student in an Organized Health Care Education/Training Program; Visit Provider Internal Medicine Adolescent Medicine
DX: I11.0 Hypertensive heart disease with heart failure (principal); I50.33 Acute on chronic diastolic (congestive) heart failure; E11.40 Type 2 diabetes mellitus with diabetic neuropathy, unspecified; R09.02 Hypoxemia; N17.9 Acute kidney failure, unspecified; E78.2 Mixed hyperlipidemia; I25.10 Atherosclerotic heart disease of native coronary artery without angina pectoris; F32.A Depression, unspecified; N40.0 Benign prostatic hyperplasia without lower urinary tract symptoms; E66.813 Obesity, class 3; H10.023 Other mucopurulent conjunctivitis, bilateral; B34.8 Other viral infections of unspecified site; F39 Unspecified mood [affective] disorder; G40.909 Epilepsy, unspecified, not intractable, without status epilepticus; G47.9 Sleep disorder, unspecified; Z68.42 Body mass index [BMI] 45.0-49.9, adult; Z95.1 Presence of aortocoronary bypass graft; Z95.5 Presence of coronary angioplasty implant and graft; Z88.8 Allergy status to other drugs, medicaments and biological substances; Z87.19 Personal history of other diseases of the digestive system; Z79.4 Long term (current) use of insulin; Z79.84 Long term (current) use of oral hypoglycemic drugs; Z79.899 Other long term (current) drug therapy; Z79.82 Long term (current) use of aspirin
CPT/HCPCS: 0223U; 36415; 71045; 71275; 80053; 80061; 82803; 82962; 83036; 83690; 83735; 83880; 84443; 84484; 85025; 85378; 87636; 93005; 93306; 96374; 96375; 96376; 99284; G0378; J1100; J1644; J1938; J1939; Q9957; Q9967